=== PATIENT | male | born 1955 | race Hispanic/Latino ===

== ENCOUNTER 2024-07-26 10:33 | Inpatient (IN) | payer OTHER ==
[~2024-07-26] VITALS: Ht 157.5 cm; Wt 61.0 kg
[2024-07-26 11:23] LABS: CREATININE 0.9 mg/dL (0.5-1.3); POTASSIUM 3.7 mmol/L (3.5-5.1)
[2024-07-26 11:30] LABS: BASOPHILS # (AUTO) 0.08 K/uL (0.00-0.20); BASOPHILS % (AUTO) 0.8 % (0.0-5.0); EOSINOPHILS # (AUTO) 0.19 K/uL (0.00-0.70); EOSINOPHILS % (AUTO) 1.8 % (0.0-8.0); HEMATOCRIT 26.2 % (42-54); LYMPHOCYTES # (AUTO) 2.1 K/uL (1.0-4.8); MEAN CORPUSCULAR HEMOGLOBIN 32.7 pg (27.0-33.0); MEAN CORPUSCULAR HGB CONC 34.4 g/dL (32.0-36.0); MEAN CORPUSCULAR VOLUME 95.3 fL (79-99); MONOCYTES % (AUTO) 9.2 % (3.0-13.0); NEUTROPHILS # (AUTO) 5.9 K/uL (1.8-7.7); NEUTROPHILS % (AUTO) 56.6 % (40.0-77.0); NUCLEATED RED BLOOD CELLS 4.3 % (0.0-0.19); PLATELET COUNT (AUTO) 146 K/uL (130-400); RED BLOOD CELL COUNT(AUTO) 2.75 MIL/uL (4.50-6.20); RED CELL DISTRIBUTION WIDTH 15.9 % (11.0-15.5); WHITE BLOOD COUNT (AUTO) 10.4 K/uL (4.8-10.8)
[2024-07-26 11:45] LABS: ALBUMIN 3.9 g/dL (3.5-5.0); BILIRUBIN,DIRECT 0.4 mg/dL (0.0-0.3); BILIRUBIN,TOTAL 1.1 mg/dL (0.2-1.0)
--- NOTE | 2024-07-26 12:14 | EKG ---
[facility] Test Date: 2024-07-26 Test Time: 12:12:29 Pat Name: QUINN SANCHEZ Department: ED Room: 313 Gender: M [employer] Operator: [id number] : 1955 Requested By: MESSI SKINNER Order Number: [id number] Reading MD: Mihir Fatima Measurements Intervals [place] Rate: 95 P: 80 UT: 194 QRS: -89 QRSD: 83 T: 59 QT: 352 QTc: 444 Interpretive Statements Sinus rhythm Question Inferior infarct, old No previous ECG available for comparison Electronically Signed On 07-28-2024 20:06:42 CDT by Mihir Fatima Please click the below link to view image of tracing.
[2024-07-26] MEDS: 0.9%NACL 1000ML 1,000 ML IV ONE (13:56)
[2024-07-26] MEDS: ondanSETRON 4MG INJ IVP ONE (13:56)
[2024-07-26] MEDS: morPHINE 4 MG SYG IM ONE (13:56)
[2024-07-26] MEDS ORDERED: IOHEXOL-350 75 ML VIAL IV ONE (14:09)
--- NOTE | 2024-07-26 14:43 | HMCIMG ---
Exam Type: CT ABDOMEN/PELVIS W/CONTRAST Clinical Information: abdominal pain Comparison: None Contrast: 100 cc's Isovue 370 IV, no complications or adverse reactions CT Dose Index (CTDI): 31.60 mGy Dose Length Product (DLP): 1740.80 total mGy-cm Findings: No evidence of nephro or ureterolithiasis is found. No hydronephrosis or ureteral dilatation is seen. The lung bases are clear. Moderate to large hiatal hernia is seen and the stomach is otherwise unremarkable. The spleen is unremarkable. It is not enlarged. The pancreas shows normal anatomy. It is not fatty replaced. It shows no lesions. The pancreatic duct is not dilated. The gallbladder is unremarkable. It shows no cholelithiasis. The gallbladder wall is normal in thickness. There is no pericholecystic fluid. The is no acute or chronic inflammation noted. The adrenal glands are unremarkable. There is no enlargement. No lesions are noted. The liver is unremarkable. It shows no focal masses. The appendix is unremarkable. It shows no evidence of inflammation. No appendicolith is seen. Right inguinal hernia containing loops of small bowel. No incarceration or strangulation. Bowel otherwise unremarkable. The urinary bladder is unremarkable. There is no wall thickening to suggest tumor or inflammation. There are no intraluminal calculi. There are no diverticula. There is no evidence of chronic bladder outlet obstruction. There is no evidence of urinary bladder distention to suggest urinary retention. The prostate is enlarged. The bony and vascular structures are unremarkable for the patient's age. IMPRESSION: Right inguinal hernia without incarceration or strangulation. Heterogeneously enlarged prostate. This study was performed using dose reduction techniques to include automated exposure control and/or adjustment of the mA and/or kV according to patient size.
--- NOTE | 2024-07-26 16:01 | HMCIMG ---
Exam Type: US ABDOMINAL RUQ\E\LTD Clinical Information: Elevated enzymes Comparison: None Findings: The liver shows normal echogenicity and is otherwise unremarkable. The liver measures less than 16 cm in length. Doppler evaluation shows patent portal and hepatic veins. The gallbladder shows intraluminal sludge without evidence of acute or chronic inflammation. The gallbladder wall thickness is 2 mm. No bile duct dilatation is noted. The common bile duct measures 4 mm. The right kidney measures 9.9 x 4.6 cm. The right kidney is normal in size and echogenicity. No hydronephrosis or renal calculi are seen. There are no renal masses. The pancreas is suboptimally visualized. IMPRESSION: Gallbladder sludge.
--- NOTE | 2024-07-26 16:06 | NUR ---
paTIENT retaining 542 cc of urine, eliel grimm made aware Addendum: 07/26/24 at 1813 maxx MCKAY PATIENT VOIDED 250 CC
[2024-07-26 16:12] LABS: INR 1.46 (0.85-1.15); PROTHROMBIN TIME 14.9 SEC (9.6-11.6)
[2024-07-26 16:14] LABS: PARTIAL THROMBOPLASTIN TIME 26.1 SEC (26.3-35.5)
[2024-07-26 16:44] LABS: APPEARANCE,URINE CLEAR (CLEAR); BILIRUBIN,URINE NEGATIVE (NEGATIVE); COLOR,URINE YELLOW (YELLOW); GLUCOSE, URINE (UA) NEGATIVE (NEGATIVE); KETONES,URINE 60 mg/dL (NEGATIVE); LEUKOCYTE ESTERASE ,URINE NEGATIVE Leu/uL (NEGATIVE); MUCUS,URINE RARE LPF (None Seen); NITRATE,URINE NEGATIVE (NEGATIVE); OCCULT BLOOD,URINE SMALL (NEGATIVE); PH,URINE 5.5 (5.0-8.0); PROTEIN,URINE 20 mg/dL (NEGATIVE); UROBILINOGEN,URINE 3 mg/dL (0.2-1.0)
--- NOTE | 2024-07-26 17:08 | ERN ---
General Chief Complaint: Other Problems Stated Complaint: OTHER Time Seen by MD: 10:45 Time Seen by Midlevel: 10:45 Source: patient History of Present Illness Initial Comments 69 y/o male presents to the ED due to generalized weakness. Patient reports nausea, vomiting, weight loss, abdominal pain, decreased oral intake over the past two months. Daughter states patient has lost approximately 40 lb in the last two months. Denies fever, chest pain, shortness of breath Patient has not gone to the doctor and multiple years. Denies any significant past medical history. Allergies: Coded Allergies: No Known Drug Allergies (Unverified Allergy, Unknown, 07/26/24) Past Medical History Past Medical History: No Pertinent History Past Surgical History: None ROS Dictation Constitutional: Positive for generalized weakness, decreased oral intake, weight loss Negative for fever,chills Eyes: Negative for injury, pain,redness, and discharge ENT: Negative for injury,pain or swelling Cardiovascular: Negative for chest pain, palpitations, and edema Respiratory: Negative for shortness of breath, cough, and wheezing, Abdomen/GI: Positive for abdominal pain, nausea, vomiting Negative for diarrhea Back: Negative for injury and pain : Negative for painful urination, bleeding or discharge MS/Extremity: Negative for injury and deformity Skin: Negative for rash, and discoloration Neuro: Negative for headache, weakness, numbness, tingling, and seizure Psych: Negative for suicide ideation, homicidal ideation, and hallucinations Physical Exam Physical Exam Dictation General: awake, alert, no acute distress Head/Face: Normocephalic, atraumatic Eyes: PERRL, EOMI, normal conjunctiva ENT: oral cavity clear, oral mucosa moist Neck: Supple, normal range of motion Cardiovascular: RRR, normal S1/S2 Respiratory: CTAB, no respiratory distress, no rales or wheezes Abdomen: Soft, mild generalized tenderness, non-distended, no guarding or rebound. : Right inguinal hernia Skin: Warm, dry, normal turgor, no rash MS/Extremity: Pulses equal, no cyanosis, neurovascular intact, FROM Neuro: COAx4, GCS 15, strength 5/5, CN 2-12 intact, normal cerebellar exam Psych: Normal behavior, mood, and affect normal Results Laboratory and Microbiology Lab and Micro Result Laboratory Tests Test 07/26/24 11:06 07/26/24 15:55 White Blood Count 10.4 K/uL (4.8-10.8) Red Blood Count 2.75 MIL/uL (4.50-6.20) L Hemoglobin 9.0 g/dL (14.0-18.0) L Hematocrit 26.2 % (42-54) L Mean Corpuscular Volume 95.3 fL (79-99) Mean Corpuscular Hemoglobin 32.7 pg (27.0-33.0) Mean Corpuscular Hemoglobin Concent 34.4 g/dL (32.0-36.0) Red Cell Distribution Width 15.9 % (11.0-15.5) H Platelet Count 146 K/uL (130-400) Mean Platelet Volume 10.2 fL (7.5-10.5) Immature Granulocyte % (Auto) 11.6 % (0-1) H Neutrophils (%) (Auto) 56.6 % (40.0-77.0) Lymphocytes (%) (Auto) 20.0 % (21.0-51.0) L Monocytes (%) (Auto) 9.2 % (3.0-13.0) Eosinophils (%) (Auto) 1.8 % (0.0-8.0) Basophils (%) (Auto) 0.8 % (0.0-5.0) Neutrophils # (Auto) 5.9 K/uL (1.8-7.7) Lymphocytes # (Auto) 2.1 K/uL (1.0-4.8) Monocytes # (Auto) 1.0 K/uL (0.1-1.0) Eosinophils # (Auto) 0.19 K/uL (0.00-0.70) Basophils # (Auto) 0.08 K/uL (0.00-0.20) Absolute Immature Granulocyte (auto 1.20 K/uL (0-1) H Nucleated Red Blood Cells 4.3 % (0.0-0.19) H Sodium Level 137 mmol/L (136-145) Potassium Level 3.7 mmol/L (3.5-5.1) Chloride Level 100 mmol/L (101-111) L Carbon Dioxide Level 22 mmol/L (21-32) Blood Urea Nitrogen 32 mg/dL (7-18) H Creatinine 0.9 mg/dL (0.5-1.3) Glomerular Filtration Rate Calc 94 mL/min (>90) Random Glucose 89 mg/dL (70-105) Total Calcium 8.5 mg/dL (8.5-10.1) Total Bilirubin 1.1 mg/dL (0.2-1.0) H Direct Bilirubin 0.4 mg/dL (0.0-0.3) H Aspartate Amino Transf (AST/SGOT) 74 U/L (10-37) H Alanine Aminotransferase (ALT/SGPT) 27 U/L (12-78) Alkaline Phosphatase 2135 U/L (50-136) *H Troponin I High Sensitivity 17 ng/L (4-75) Total Protein 7.0 g/dL (6.0-8.3) Albumin 3.9 g/dL (3.5-5.0) Lipase 50 U/L (16-77) Prothrombin Time 14.9 SEC (9.6-11.6) H Prothromb Time International Ratio 1.46 (0.85-1.15) H Activated Partial Thromboplast Time 26.1 SEC (26.3-35.5) L Labs Reviewed?: Yes EKG/XRAY/US/CT/MRI EKG Comment Date: 07/26/2024 Time: 12:12 Rate: 95 EKG interpretation: Sinus rhythm, inferior infarct old, no STEMI Reviewed by ED Attending Ultrasound Comment REASON: Elevated enzymes ORDERING PHYSICIAN: MESSI SKINNER PROCEDURE: ABDRUQLTD - US ABDOMINAL RUQ\LTD Exam Type: US ABDOMINAL RUQ\E\LTD Clinical Information: Elevated enzymes Comparison: None Findings: The liver shows normal echogenicity and is otherwise unremarkable. The liver measures less than 16 cm in length. Doppler evaluation shows patent portal and hepatic veins. The gallbladder shows intraluminal sludge without evidence of acute or chronic inflammation. The gallbladder wall thickness is 2 mm. No bile duct dilatation is noted. The common bile duct measures 4 mm. The right kidney measures 9.9 x 4.6 cm. The right kidney is normal in size and echogenicity. No hydronephrosis or renal calculi are seen. There are no renal masses. The pancreas is suboptimally visualized. IMPRESSION: Gallbladder sludge. DICTATED BY: ROSA ELENA CLEMENTE MD DATE: 07/26/[address] Scan Comment REASON: abdominal pain ORDERING PHYSICIAN: MESSI SKINNER PROCEDURE: ABD PEL W - CT ABDOMEN/PELVIS W/CONTRAST Exam Type: CT ABDOMEN/PELVIS W/CONTRAST Clinical Information: abdominal pain Comparison: None Contrast: 100 cc's Isovue 370 IV, no complications or adverse reactions CT Dose Index (CTDI): 31.60 mGy Dose Length Product (DLP): 1740.80 total mGy-cm Findings: No evidence of nephro or ureterolithiasis is found. No hydronephrosis or ureteral dilatation is seen. The lung bases are clear. Moderate to large hiatal hernia is seen and the stomach is otherwise unremarkable. The spleen is unremarkable. It is not enlarged. The pancreas shows normal anatomy. It is not fatty replaced. It shows no lesions. The pancreatic duct is not dilated. The gallbladder is unremarkable. It shows no cholelithiasis. The gallbladder wall is normal in thickness. There is no pericholecystic fluid. The is no acute or chronic inflammation noted. The adrenal glands are unremarkable. There is no enlargement. No lesions are noted. The liver is unremarkable. It shows no focal masses. The appendix is unremarkable. It shows no evidence of inflammation. No appendicolith is seen. Right inguinal hernia containing loops of small bowel. No incarceration or strangulation. Bowel otherwise unremarkable. The urinary bladder is unremarkable. There is no wall thickening to suggest tumor or inflammation. There are no intraluminal calculi. There are no diverticula. There is no evidence of chronic bladder outlet obstruction. There is no evidence of urinary bladder distention to suggest urinary retention. The prostate is enlarged. The bony and vascular structures are unremarkable for the patient's age. IMPRESSION: Right inguinal hernia without incarceration or strangulation. Heterogeneously enlarged prostate. This study was performed using dose reduction techniques to include automated exposure control and/or adjustment of the mA and/or kV according to patient size. DICTATED BY: ROSA ELENA CLEMENTE MD DATE: 07/26/24 1439 [facility] MDM: Differential diagnosis: Cholecystitis, electrolyte imbalance, unintentional weight loss, dehydration, hernia Rationale: 69 y/o male presents to the ED due to generalized weakness. Patient reports nausea, vomiting, weight loss, abdominal pain, decreased oral intake over the past two months. Daughter states patient has lost approximately 40 lb in the last two months. Denies fever, chest pain, shortness of breath Patient has not gone to the doctor and multiple years. Denies any significant past medical history. Per physical examination patient appears weak, mild generalized abdominal tenderness, right inguinal hernia into the scrotum. Labs obtained indicate anemia with hemoglobin of 9, PT and INR elevated, hypochloremia of 100, elevated alk-phos of 2,135, mild T bili elevation of 1.1. CT abdomen and pelvis obtained indicating right inguinal hernia without incarceration, hiatal hernia, enlarged prostate. Right upper quadrant ultrasound follow up due to elevated alk-phos showing intraluminal sludge without evidence of acute or chronic inflammation, no other acute abnormalities. The patient was administered Zofran, morphine, IV fluids. On re-examination patient verbalized pain had resolved. Bladder scan performed due to patient not being able to provide urine, patient had 540 mL and was able to urinate approximately 200 mL. Patient and family member were educated on findings, diagnosis, decision for admission. Patient and family member verbalized understanding and agreed with admission. Case was discussed with hospitalist who accepted admission. Previous outside records reviewed: Old ER visits. Risk of complication and/or morbidity or mortality of patient management: None Medications-Per medication reconciliation Need for hospitalization: Patient does meet criteria for hospitalization. Need for emergency major/minor surgery: No There are no social concerns with this patient. Prescription drug management Prescriptions will include symptomatic care Patient's prior external medical records from other ER visits were reviewed by me as indicated. Prior testing and results from previous visits were reviewed. Prior tests were taken into account with medical decision making and resource utilization, independent historian/historians were used to obtain complete me dical history. I independently interpreted the test that were performed, results were reviewed by me and considered findings on radiology if ordered. Medical management and examination interpretation discussions were had by me with other qualified healthcare professionals as indicated for the patient's care. ED Course Orders Procedure Category Date Status Time Cbc With Differential LAB 07/26/24 Complete 10:52 Basic Metabolic Panel LAB 07/26/24 Complete 10:52 Lipase LAB 07/26/24 Complete 10:52 Hepatic Function Panel LAB 07/26/24 Complete 10:52 Urinalysis LAB 07/26/24 In Process W/Microscopic 10:52 Troponin I High LAB 07/26/24 Complete Sensitivity 10:52 12 Lead Ekg Tracing- EKG 07/26/24 Complete Technical 10:52 0.9%Nacl 1000ml (Ns PHA 07/26/24 Complete 1000ml) 12:00 Ct Abdomen/Pelvis CT 07/26/24 Resulted W/Contrast 11:54 Morphine 4mg Syg PHA 07/26/24 Complete (Morphine 4mg Syg) 13:30 Ondansetron 4mg Inj PHA 07/26/24 Complete (Zofran 4mg Inj) 14:00 Iohexol (Omnipaque) PHA 07/26/24 Complete 14:09 Us Abdominal Ruq\Ltd US 07/26/24 Resulted 15:07 Pt And Ptt LAB 07/26/24 Complete 15:07 Alkaline Phosphatase LAB 07/26/24 Logged Isoenzyme 16:21 Current Medications Medications (Trade) Dose Ordered Sig/Christie Route PRN Reason Start Time Stop Time Status Last Admin Dose Admin Iohexol (Omnipaque) 75 ml STK-MED ONCE IV 07/26/24 14:09 07/26/24 14:10 DC Morphine Sulfate (morPHINE 4MG SYG) 4 mg ONCE ONCE IM 07/26/24 13:30 07/26/24 13:31 DC 07/26/24 13:56 Ondansetron HCl (zoFRAN 4MG INJ) 4 mg ONCE ONCE IVP 07/26/24 14:00 07/26/24 14:01 DC 07/26/24 13:56 Sodium Chloride 1,000 ml @ 0 mls/hr ONCE ONCE IV 07/26/24 12:00 07/26/24 12:01 DC 07/26/24 13:56 Vital Signs Date Time Temp Pulse Resp B/P (MAP) Pulse Ox O2 Delivery O2 Flow Rate FiO2 07/26/24 11:00 98.1 76 18 128/83 100 Room Air* 0 21 07/26/24 10:44 98.2 110 16 128/80 97 Room Air 0 Critical Care Note Critical Time: 30 minutes Comments Critical Care Procedure Note Authorized and Performed by: me Total critical care time: Approximately 36 minutes Due to a high probability of clinically significant, life threatening deterioration, the patient required my highest level of preparedness to intervene emergently and I personally spent this critical care time directly and personally managing the patient. This critical care time included obtaining a history; examining the patient; pulse oximetry; ordering and review of studies; arranging urgent treatment with development of a management plan; evaluation of patient's response to treatment; frequent reassessment; and, discussions with other providers. This critical care time was performed to assess and manage the high probability of imminent, life-threatening deterioration that could result in multi-organ failure. It was exclusive of separately billable procedures and treating other patients and teaching time. Please see MDM section and the rest of the note for further information on patient assessment and treatment. DX & DISP Disposition: Inpatient Decision to Admit Date: Jul 26, 2024 Departure Impression: Primary Impression: Dehydration Additional Impressions: Anemia, Right inguinal hernia, Hiatal hernia, Elevated alkaline phosphatase level, Weight loss, unintentional, Urine retention Condition: Stable Referrals: SELF,REFERRAL (PCP) I performed the substantive portion of the visit. I have reviewed and personally made and approve the management plan that is documented in the notes by myself or the LINDA. I acknowledge full responsibility for the patient's management plan. MESSI SKINNER Jul 26, 2024 17:08
[2024-07-26] MEDS: PANTOPrazole 40 MG/VIAL IVP SCH (17:39)
[2024-07-26] MEDS: 0.9%NACL 1000ML 1,000 ML IV SCH (17:40)
[2024-07-26 17:43] LABS: HEMOGLOBIN A1C 4.9 % (4.0-6.0)
[2024-07-26 17:52] LABS: THYROID STIMULATING HORMONE 1.46 uIU/mL (0.36-3.74)
--- NOTE | 2024-07-26 18:14 | NUR ---
REPORT GIVEN TO TERRANCE TIWARI, ROOM 313 PATIENT DOES NOT TAKE ANY HOME MEDS
[2024-07-26 18:27] VITALS: BP 146/97; PULSE 82; RESP 18; TEMP 98.4; O2SAT 100
--- NOTE | 2024-07-26 18:29 | CONS ---
GASTROENTEROLOGY CONSULTATION NOTE Date of Consultation: Jul 26, 2024 Time of Consultation: 18:29 History of Present Illness: This is a 69-year-old male with no past medical history who presented due to generalized body weakness, nausea and vomiting. He has been having recurrent episodes of nausea and vomiting and has been tolerating only liquids. He also reported some melena. He reports weight loss of 40 to 50 pounds in the last 2 months. Hemoglobin 9 with a platelet of 146 and INR 1.46. Total bilirubin 1.1, AST 74, ALT 27 and alkaline phos of 2135. Albumin normal at 3.9. CRP of 23. CT abdomen and pelvis revealing right inguinal hernia without incarceration or strangulation. Abdominal ultrasound revealing gallbladder sludge. Review of Systems: CONSTITUTIONAL: No malaise or change in sensation of wellbeing. ENMT: No rhinorrhea, otorrhea, sinus pain, ear ache. CARDIOVASCULAR: No angina, palpitations, orthopnea or paroxysmal dyspnea. RESPIRATORY: No SOB. GASTROINTESTINAL: No abdominal pain, nausea, vomiting, diarrhea, hematemesis, melena or change in the patient's habitual bowel movements consistency/number. GENITOURINARY: No dysuria, hematuria or change in bladder continence. MUSCULOSKELETAL: No new muscle pain or decrease in muscular strength. No new joint swelling, redness or tenderness. SKIN: No new rash. Past Medical History: PAST MEDICAL HISTORY: No significant past medical history PAST SURGICAL HISTORY: Denied any previous surgical history PAST SOCIAL HISTORY: Denied any smoking, alcohol, drug use FAMILY HISTORY: Denied any pertinent family history Coded Allergies: No Known Drug Allergies (Unverified Allergy, Unknown, 07/26/24) Physical Exam: GEN: Awake, alert, oriented in person, time and place, and in no acute distress. HEENT: No sinus tenderness. Tympanic membranes were not examined. No rhinorrhea. Oral pharyngeal mucosa is pink, moist and within normal limits. Neck is supple with no cervical lymphadenopathy, thyromegaly or JVD. CHEST: Inspection, palpation and percussion of the chest were unremarkable. Lung auscultation revealed normal breath sounds bilaterally. CARDIAC: PMI is within normal limits. Heart sounds are regular. Normal S1, S2. No gallop or murmur. ABD: Soft, non-tender and not distended. No peritoneal signs on palpation. No organomegaly. Normal bowel sounds. EXT: No cyanosis or clubbing. No edema. SKIN: Intact. No rashes. JOINTS: No evidence of synovitis or acute arthritis. NEURO: Alert and oriented to name, place and person. Cranial nerve examination is unremarkable. No focal motor deficits. Normal speech. Gait is normal. Strength is normal. Vital Sign (Last 24 Hours) 07/26/24 07/26/24 16:00 18:27 Temp 98.4 Pulse 82 Resp 18 B/P (MAP) 146/97 Pulse Ox 100 O2 Delivery Room Air O2 Flow Rate 0 FiO2 21 Laboratory: [ ] Laboratory: Test 07/26/24 16:24 07/26/24 15:55 07/26/24 11:06 Range/Units Urine Color YELLOW YELLOW Urine Appearance CLEAR CLEAR Urine pH 5.5 5.0-8.0 Urine Specific [place] 1.356 1.001-1.031 Urine Protein 20 H NEGATIVE mg/dL Urine Glucose (UA) NEGATIVE NEGATIVE mg/dL Urine Ketones 60 H NEGATIVE mg/dL Urine Occult Blood SMALL H NEGATIVE Urine Nitrate NEGATIVE NEGATIVE Urine Bilirubin NEGATIVE NEGATIVE mg/dL Urine Urobilinogen 3 H 0.2-1.0 mg/dL Urine Leukocyte Esterase NEGATIVE NEGATIVE Wade/uL Urine RBC 11-25 H 0-1 /HPF Urine WBC 2-5 H 0-1 /HPF Urine Bacteria None None Seen /HPF Prothrombin Time 14.9 H 9.6-11.6 SEC Prothromb Time International Ratio 1.46 H 0.85-1.15 Activated Partial Thromboplast Time 26.1 L 26.3-35.5 SEC White Blood Count 10.4 4.8-10.8 K/uL Red Blood Count 2.75 L 4.50-6.20 MIL/uL Hemoglobin 9.0 L 14.0-18.0 g/dL Hematocrit 26.2 L 42-54 % Mean Corpuscular Volume 95.3 79-99 fL Mean Corpuscular Hemoglobin 32.7 27.0-33.0 pg Mean Corpuscular Hemoglobin Concent 34.4 32.0-36.0 g/dL Red Cell Distribution Width 15.9 H 11.0-15.5 % Platelet Count 146 130-400 K/uL Mean Platelet Volume 10.2 7.5-10.5 fL Immature Granulocyte % (Auto) 11.6 H 0-1 % Neutrophils (%) (Auto) 56.6 40.0-77.0 % Lymphocytes (%) (Auto) 20.0 L 21.0-51.0 % Monocytes (%) (Auto) 9.2 3.0-13.0 % Eosinophils (%) (Auto) 1.8 0.0-8.0 % Basophils (%) (Auto) 0.8 0.0-5.0 % Neutrophils # (Auto) 5.9 1.8-7.7 K/uL Lymphocytes # (Auto) 2.1 1.0-4.8 K/uL Monocytes # (Auto) 1.0 0.1-1.0 K/uL Eosinophils # (Auto) 0.19 0.00-0.70 K/uL Basophils # (Auto) 0.08 0.00-0.20 K/uL Absolute Immature Granulocyte (auto 1.20 H 0-1 K/uL Nucleated Red Blood Cells 4.3 H 0.0-0.19 % Sodium Level 137 136-145 mmol/L Potassium Level 3.7 3.5-5.1 mmol/L Chloride Level 100 L 101-111 mmol/L Carbon Dioxide Level 22 21-32 mmol/L Blood Urea Nitrogen 32 H 7-18 mg/dL Creatinine 0.9 0.5-1.3 mg/dL Glomerular Filtration Rate Calc 94 >90 mL/min Random Glucose 89 70-105 mg/dL Hemoglobin A1c 4.9 4.0-6.0 % Estimated Average Glucose (eAG) 94 70-126 mg/dL Total Calcium 8.5 8.5-10.1 mg/dL Total Bilirubin 1.1 H 0.2-1.0 mg/dL Direct Bilirubin 0.4 H 0.0-0.3 mg/dL Aspartate Amino Transf (AST/SGOT) 74 H 10-37 U/L Alanine Aminotransferase (ALT/SGPT) 27 12-78 U/L Alkaline Phosphatase 2135 *H 50-136 U/L Troponin I High Sensitivity 17 4-75 ng/L C-Reactive Protein, Quantitative 23.70 H 0.5-3.0 mg/L Total Protein 7.0 6.0-8.3 g/dL Albumin 3.9 3.5-5.0 g/dL Lipase 50 16-77 U/L Procalcitonin 0.46 0.05-0.5 ng/mL Thyroid Stimulating Hormone (TSH) 1.46 0.36-3.74 uIU/mL Current Medications Medications (Trade) Dose Ordered Sig/Christie Route PRN Reason Start Time Stop Time Status Last Admin Dose Admin Acetaminophen (TYLenol 500MG TAB) 500 mg Q6H PRN PO MILD PAIN (1-3) 07/26/24 17:00 08/25/24 16:59 Morphine Sulfate (morPHINE 2MG SYG) 2 mg Q6H PRN IVP SEVERE PAIN (7-10) 07/26/24 18:30 08/02/24 18:29 Ondansetron HCl (zoFRAN 4MG INJ) 4 mg Q6H PRN IVP NAUSEA/VOMITING 07/26/24 17:00 08/25/24 16:59 Pantoprazole Sodium (PROTonix 40MG INJ) 40 mg Q12H IVP 07/26/24 17:00 08/25/24 16:59 07/26/24 17:39 40 MG Sodium Chloride 1,000 ml @ 100 mls/hr Q10H IV 07/26/24 17:00 08/25/24 16:59 07/26/24 17:40 100 MLS/HR Diagnostics / Radiology: [COPY/PASTE HERE IF NO REPORTS PLEASE DELETE SECTION] Assessment: Melena N/V Weight loss Abnormal LFTs Plan: EGD and colonoscopy in am Obtain liver serologies Continue GI prophylaxis Avoid NSAIDs Antireflux measures Monitor H&H and transfuse as needed Call with questions, concerns or change in clinical status Patient to follow-up at clinic post discharge Thank you for this consult [employer] Jul 26, 2024 18:29
--- NOTE | 2024-07-26 18:37 | HP ---
[facility] HISTORY AND PHYSICAL Date of Service: Jul 26, 2024 Time of Service: 18:37 HISTORY OF PRESENT ILLNESS: 69-year-old male with no significant past medical history who presented to the hospital secondary generalized weakness, nausea and vomiting. Patient states for the past two months he has been having recurrent episodes of nausea and vomiting. He has been mostly eating jello and liquids at home. He does feel nauseated and vomits after he eats. He has noted black colored stools at home. His bowel movements have been inconsistent and he has had episodes of constipation. Patient does not follow up with a physician as outpatient and has not undergone any preventive screening. Additionally he does not take any medications at home. He denies any hematemesis, hematochezia. Denied any changes in his urination, dysuria, hematuria. He has noted decreased appetite and states he has lost around 40-50 lb in the last two months. He did not see any physician when his symptoms worsened. Denies any chest pain, l ymphadenopathy, shortness of breath, cough, fever, chills. Denied any falls, syncopal episode. Additionally he also has a history of right inguinal hernia. He states he has not seen surgery in the past. Denied any pain in the inguinal area. He does get symptoms one stands up and ambulates. Labs were notable for white count of 10.4, hemoglobin was 9.0, platelet count was 146 K, sodium was 137, potassium was 3.7, creatinine was 0.9, bicarb was 22, T bili was 1.1, direct bili was 0.4, AST was 74, ALT was 27, alk-phos was 21, troponin was negative x1, albumin was 3.[address] abdomen pelvis which showed right inguinal hernia without incarceration or strangulation. He has a heterogeneously enlarged prostate. Patient had abdominal ultrasound which showed gallbladder sludge. There was no evidence of acute or chronic inflammation. REVIEW OF SYSTEMS CONSTITUTIONAL: Denies fevers, chills, or night sweats. Positive for unintentional weight loss NEUROLOGICAL: Denies headache, amaurosis fugax, motor weakness, sensory deficit, vertigo/spinning sensation, gait abnormalities, or tremors. ENT: No hearing loss, otalgia, otorrhea, rhinitis, rhinorrhea, hoarseness, or sore throat. CARDIOVASCULAR: Denies any exertional angina, dyspnea on exertion, orthopnea, paroxysmal nocturnal dyspnea, palpitations, life-threatening arrhythmias, claudication. PULMONARY: Denies any shortness of breath, cough, phlegm/sputum, hemoptysis, pleuritic chest pain. GASTROINTESTINAL: Positive for nausea, vomiting, black stools. Denied any hematochezia, hematemesis GENITOURINARY: Denies frequency, urgency, nocturia, hematuria or incontinence (Storage/Irritative symptoms.) Low urinary stream, straining to void, urinary intermittency or hesitancy, splitting of the voiding stream, terminal dribbling. ENDOCRINOLOGIC: Denies polyuria, polydipsia, polyphagia or heat/cold intolerances. HEMATOLOGIC: Denies thrombophilia/previous clots, or coagulopathy/bleeding disorders. ONCOLOGIC: Denies personal history of malignancy. DERMATOLOGIC: Denies rashes or pruritus. PSYCHIATRIC: Denies any suicidal or homicidal ideation. Denies hallucinations. PAST MEDICAL HISTORY: No significant past medical history PAST SURGICAL HISTORY: Denied any previous surgical history PAST SOCIAL HISTORY: Denied any smoking, alcohol, drug use FAMILY HISTORY: Denied any pertinent family history Coded Allergies: No Known Drug Allergies (Unverified Allergy, Unknown, 07/26/24) PHYSICAL EXAM GENERAL APPEARANCE: The patient is awake, alert, and oriented, in no acute cardiopulmonary distress. NEUROLOGICAL: Cranial nerves II-XII grossly intact. Motor is 5/5 in bilateral upper and lower extremities proximal to distal. No sensory deficits. HEENT: Face is symmetric. Pupils are equal and reactive. Extraocular movements are intact. NECK: Supple. No JVD. No thyromegaly. No submental, submandibular, pre- /postauricular, occipital or supraclavicular lymphadenopathy. CHEST: Normal chest expansion. No Telemetry. LUNGS: Absence of any rales, rhonchi or any wheezing. CARDIOVASCULAR: Regular. S1 and S2 normal. No appreciable rubs, murmurs or gallops. ABDOMEN: Soft, nontender, and nondistended. Patient has a right inguinal hernia. There is no erythema around the inguinal area. No tenderness to palpation. : Deferred. No Diaz. EXTREMITIES: Non-edematous and not cyanotic. No clubbing. Good capillary refill. SKIN: No skin breakdown. Vital Sign (Last 24 Hours) 07/26/24 07/26/24 16:00 18:27 Temp 98.4 Pulse 82 Resp 18 B/P (MAP) 146/97 Pulse Ox 100 O2 Delivery Room Air O2 Flow Rate 0 FiO2 21 LABS: Laboratory: Test 07/26/24 16:24 07/26/24 15:55 07/26/24 11:06 Range/Units Urine Color YELLOW YELLOW Urine Appearance CLEAR CLEAR Urine pH 5.5 5.0-8.0 Urine Specific [place] 1.356 1.001-1.031 Urine Protein 20 H NEGATIVE mg/dL Urine Glucose (UA) NEGATIVE NEGATIVE mg/dL Urine Ketones 60 H NEGATIVE mg/dL Urine Occult Blood SMALL H NEGATIVE Urine Nitrate NEGATIVE NEGATIVE Urine Bilirubin NEGATIVE NEGATIVE mg/dL Urine Urobilinogen 3 H 0.2-1.0 mg/dL Urine Leukocyte Esterase NEGATIVE NEGATIVE Wade/uL Urine RBC 11-25 H 0-1 /HPF Urine WBC 2-5 H 0-1 /HPF Urine Bacteria None None Seen /HPF Prothrombin Time 14.9 H 9.6-11.6 SEC Prothromb Time International Ratio 1.46 H 0.85-1.15 Activated Partial Thromboplast Time 26.1 L 26.3-35.5 SEC White Blood Count 10.4 4.8-10.8 K/uL Red Blood Count 2.75 L 4.50-6.20 MIL/uL Hemoglobin 9.0 L 14.0-18.0 g/dL Hematocrit 26.2 L 42-54 % Mean Corpuscular Volume 95.3 79-99 fL Mean Corpuscular Hemoglobin 32.7 27.0-33.0 pg Mean Corpuscular Hemoglobin Concent 34.4 32.0-36.0 g/dL Red Cell Distribution Width 15.9 H 11.0-15.5 % Platelet Count 146 130-400 K/uL Mean Platelet Volume 10.2 7.5-10.5 fL Immature Granulocyte % (Auto) 11.6 H 0-1 % Neutrophils (%) (Auto) 56.6 40.0-77.0 % Lymphocytes (%) (Auto) 20.0 L 21.0-51.0 % Monocytes (%) (Auto) 9.2 3.0-13.0 % Eosinophils (%) (Auto) 1.8 0.0-8.0 % Basophils (%) (Auto) 0.8 0.0-5.0 % Neutrophils # (Auto) 5.9 1.8-7.7 K/uL Lymphocytes # (Auto) 2.1 1.0-4.8 K/uL Monocytes # (Auto) 1.0 0.1-1.0 K/uL Eosinophils # (Auto) 0.19 0.00-0.70 K/uL Basophils # (Auto) 0.08 0.00-0.20 K/uL Absolute Immature Granulocyte (auto 1.20 H 0-1 K/uL Nucleated Red Blood Cells 4.3 H 0.0-0.19 % Sodium Level 137 136-145 mmol/L Potassium Level 3.7 3.5-5.1 mmol/L Chloride Level 100 L 101-111 mmol/L Carbon Dioxide Level 22 21-32 mmol/L Blood Urea Nitrogen 32 H 7-18 mg/dL Creatinine 0.9 0.5-1.3 mg/dL Glomerular Filtration Rate Calc 94 >90 mL/min Random Glucose 89 70-105 mg/dL Hemoglobin A1c 4.9 4.0-6.0 % Estimated Average Glucose (eAG) 94 70-126 mg/dL Total Calcium 8.5 8.5-10.1 mg/dL Total Bilirubin 1.1 H 0.2-1.0 mg/dL Direct Bilirubin 0.4 H 0.0-0.3 mg/dL Aspartate Amino Transf (AST/SGOT) 74 H 10-37 U/L Alanine Aminotransferase (ALT/SGPT) 27 12-78 U/L Alkaline Phosphatase 2135 *H 50-136 U/L Troponin I High Sensitivity 17 4-75 ng/L C-Reactive Protein, Quantitative 23.70 H 0.5-3.0 mg/L Total Protein 7.0 6.0-8.3 g/dL Albumin 3.9 3.5-5.0 g/dL Lipase 50 16-77 U/L Procalcitonin 0.46 0.05-0.5 ng/mL Thyroid Stimulating Hormone (TSH) 1.46 0.36-3.74 uIU/mL Current Medications Medications (Trade) Dose Ordered Sig/Christie Route PRN Reason Start Time Stop Time Status Last Admin Dose Admin Acetaminophen (TYLenol 500MG TAB) 500 mg Q6H PRN PO MILD PAIN (1-3) 07/26/24 17:00 08/25/24 16:59 Morphine Sulfate (morPHINE 2MG SYG) 2 mg Q6H PRN IVP SEVERE PAIN (7-10) 07/26/24 18:30 08/02/24 18:29 Ondansetron HCl (zoFRAN 4MG INJ) 4 mg Q6H PRN IVP NAUSEA/VOMITING 07/26/24 17:00 08/25/24 16:59 Pantoprazole Sodium (PROTonix 40MG INJ) 40 mg Q12H IVP 07/26/24 17:00 08/25/24 16:59 07/26/24 17:39 40 MG Sodium Chloride 1,000 ml @ 100 mls/hr Q10H IV 07/26/24 17:00 08/25/24 16:59 07/26/24 17:40 100 MLS/HR DIAGNOSTICS / RADIOLOGY: [ ] ASSESSMENT: Recurrent nausea and vomiting POA Unintentional weight loss of around 40-50 lb with concern for underlying malignancy Elevated alk-phos differential secondary to bone Mets versus underlying liver etiology Mild LFT elevation Right inguinal hernia Normocytic anemia Suspected melena BPH PLAN: - patient to be admitted to medical-surgical unit -reference to recurrent neck nausea and vomiting. We will obtain a GI consultation. Case was discussed with GI. Plan for EGD and colonoscopy per GI recommendations - obtain fecal occult stool. Start patient on protonix BID -in reference to elevated alk-phos. We will check a fractionated alk-phos. We will request consultation with Dr. Lockett. - in reference to inguinal hernia. No evidence of strangulation or incarceration. Patient requesting consultation with surgery. Case was discussed with surgery. Appreciate recommendations -patient to be started on NS for gentle hydration -Will start finasteride and flomax for BPH if able to tolerate medications -check TSH, A1c, procaine -further orders per hospitalization course Advanced Care Planning Which of the following were discussed: Hospice care: Yes __ No _x_ Therapeutic options: Yes __ No __ Advance directives: Yes __ No __ Other discussions: Discussed with who?: patient (Patient, family or surrogates) Voluntary nature of this service was explained to the patient? Yes _x_ No __ Amount of time spent: 25 minutes KAZ Zamudio MD, MD Jul 26, 2024 18:37
[2024-07-26] MEDS: PEG 3350/NA SULF,BICARB,CL/KCL 4000 ML SOLN PO ONE (18:46)
[2024-07-26] MEDS ORDERED: PoTASSium chloRIDE 20MEQ/100ML 100 ML IV PRN (19:00)
[2024-07-26] MEDS ORDERED: MAGNESIUM 2GM PREMIX 50ML 50 ML IV PRN (19:00)
[2024-07-26 20:00] VITALS: BP 146/82; PULSE 68; RESP 17; TEMP 97.8
[2024-07-26 21:55] LABS: % IRON SATURATION 83.2 % (30-44)
--- NOTE | 2024-07-26 22:20 | NUR ---
GOLYTELY NOT COMPLETED PT HAD MINIMAL INTAKE OF GOLYTELY. PATIENT STATES HE IS UNABLE TO HAVE A BOWEL MOVEMENT DUE TO BEING UNABLE TO HOLD ANY FOOD FOR MONTHS. EDUCATED PATIENT THAT BOWEL PREP IS NECESSARY TO VISUALIZE THE COLON. PATIENT VERBALIZES UNDERSTANDING.
[2024-07-26 23:25] VITALS: BP 147/86; PULSE 92; RESP 18; TEMP 98.3
[2024-07-27] VITALS (22 sets, daily range): BP systolic 101–140; BP diastolic 2–86; PULSE 65–96; RESP 14–20; TEMP 97.2–98.8; O2SAT 96–99
--- NOTE | 2024-07-27 02:10 | NUR ---
GOLYTELY NOT COMPLETED PATIENT CONTINUES TO HAVE MINIMAL INTAKE OF GOLYTELY. NO BOWEL MOVEMENT REPORTED. REINFORCED TO PATIENT THE IMPORTANCE OF BOWEL PREP. PATIENT VERBALIZES UNDERSTANDING.
--- NOTE | 2024-07-27 04:00 | NUR ---
GOLYTELY NOT COMPLETED GOLYTELY STILL REMAINS MOSTLY FULL. PATIENT STATES HE DRANK ABOUT 12 CUPS BUT REPORTS NO BOWEL MOVEMENT. STATES THAT HE WONT BE ABLE TO HAVE A BOWEL MOVEMENT DUE TO NOT BEING ABLE TO HAVE GOOD FOOD INTAKE. EDUCATED PATIENT THAT THE BODY STILL PRODUCE STOOL WASTE. PATIENT VERBALIZES UNDERSTANDING.
--- NOTE | 2024-07-27 05:40 | NUR ---
NO CHANGE IN GOLYTELY PATIENT STATES HE HAS JUST BEEN URINATING. NO BOWEL MOVEMENT REPORTED. STATED LAST BOWEL MOVEMENT WAS ON 07/25/2024. HE STATES THIS IS THE FIRST HE HAS HAD IN A FEW MONTHS. STATES IT WAS CLEAR FOAMY WITH SPECKS OF BROWN STOOL. ADMINISTERED ZOFRAN DUE TO NAUSEA. PATIENT EDUCATED ON IMPORTANCE OF BOWEL PREP. PATIENT VERBALIZES UNDERSTANDING.
[2024-07-27] MEDS: ondanSETRON 4MG INJ IVP PRN (05:51)
[2024-07-27 06:50] LABS: BASOPHILS # (AUTO) 0.09 K/uL (0.00-0.20); BASOPHILS % (AUTO) 0.8 % (0.0-5.0); EOSINOPHILS # (AUTO) 0.21 K/uL (0.00-0.70); EOSINOPHILS % (AUTO) 1.9 % (0.0-8.0); HEMATOCRIT 24.8 % (42-54); IMMATURE GRANULOCYTE ABSOLUTE 1.34 K/uL (0-1); LYMPHOCYTES # (AUTO) 2.2 K/uL (1.0-4.8); LYMPHOCYTES % (AUTO) 19.8 % (21.0-51.0); MEAN CORPUSCULAR HEMOGLOBIN 32.8 pg (27.0-33.0); MEAN CORPUSCULAR HGB CONC 33.9 g/dL (32.0-36.0); MEAN CORPUSCULAR VOLUME 96.9 fL (79-99); MONOCYTES # (AUTO) 0.9 K/uL (0.1-1.0); MONOCYTES % (AUTO) 8.5 % (3.0-13.0); NEUTROPHILS # (AUTO) 6.2 K/uL (1.8-7.7); NEUTROPHILS % (AUTO) 56.7 % (40.0-77.0); NUCLEATED RED BLOOD CELLS 3.9 % (0.0-0.19); PLATELET COUNT (AUTO) 142 K/uL (130-400); RED BLOOD CELL COUNT(AUTO) 2.56 MIL/uL (4.50-6.20); RED CELL DISTRIBUTION WIDTH 16.1 % (11.0-15.5); WHITE BLOOD COUNT (AUTO) 10.9 K/uL (4.8-10.8)
[2024-07-27 07:24] LABS: ALBUMIN 3.5 g/dL (3.5-5.0); BILIRUBIN,TOTAL 1.3 mg/dL (0.2-1.0); CREATININE 0.7 mg/dL (0.5-1.3); POTASSIUM 4.1 mmol/L (3.5-5.1); TOTAL PROTEIN, SERUM 6.6 g/dL (6.0-8.3)
[2024-07-27] MEDS ORDERED: LIDOCAINE PF 100MG/5ML (2%) SYRINGE 5ML ONE (11:18)
[2024-07-27] MEDS ORDERED: proPOFol 10 MG/ML 20ML VIAL IV ONE (11:18)
--- NOTE | 2024-07-27 11:31 | PN ---
[facility] PROGRESS NOTE Date of Service: Jul 27, 2024 Time of Service: 11:21 SUBJECTIVE: [69-year-old male who was admitted due to generalized weakness, decreased appetite with for a to 50 lb weight loss. Labs reviewed today Na 135, Cl 100, CO2 20, BUN 22, iron 209,% sat 83.2, total bili 1.3, GGT 185, AST 73, alkaline phosphatase 2061, CRP 23.7. Today, patient went for GI endoscopy-colonoscopy and EGD. Dr. Lockett on board, patient is scheduled for bone scan. REVIEW OF SYSTEMS CONSTITUTIONAL: Denies fevers, chills, or night sweats. Positive for unintentional weight loss NEUROLOGICAL: Denies headache, amaurosis fugax, motor weakness, sensory deficit, vertigo/spinning sensation, gait abnormalities, or tremors. ENT: No hearing loss, otalgia, otorrhea, rhinitis, rhinorrhea, hoarseness, or sore throat. CARDIOVASCULAR: Denies any exertional angina, dyspnea on exertion, orthopnea, paroxysmal nocturnal dyspnea, palpitations, life-threatening arrhythmias, claudication. PULMONARY: Denies any shortness of breath, cough, phlegm/sputum, hemoptysis, pleuritic chest pain. GASTROINTESTINAL: Positive for nausea, vomiting, black stools. Denied any hematochezia, hematemesis GENITOURINARY: Denies frequency, urgency, nocturia, hematuria or incontinence (Storage/Irritative symptoms.) Low urinary stream, straining to void, urinary intermittency or hesitancy, splitting of the voiding stream, terminal dribbling. ENDOCRINOLOGIC: Denies polyuria, polydipsia, polyphagia or heat/cold intolerances. HEMATOLOGIC: Denies thrombophilia/previous clots, or coagulopathy/bleeding disorders. ONCOLOGIC: Denies personal history of malignancy. DERMATOLOGIC: Denies rashes or pruritus. PSYCHIATRIC: Denies any suicidal or homicidal ideation. Denies hallucinations. PHYSICAL EXAM GENERAL APPEARANCE: The patient is awake, alert, and oriented, in no acute cardiopulmonary distress. NEUROLOGICAL: Cranial nerves II-XII grossly intact. Motor is 5/5 in bilateral upper and lower extremities proximal to distal. No sensory deficits. HEENT: Face is symmetric. Pupils are equal and reactive. Extraocular movements are intact. NECK: Supple. No JVD. No thyromegaly. No submental, submandibular, pre- /postauricular, occipital or supraclavicular lymphadenopathy. CHEST: Normal chest expansion. No Telemetry. LUNGS: Absence of any rales, rhonchi or any wheezing. CARDIOVASCULAR: Regular. S1 and S2 normal. No appreciable rubs, murmurs or gallops. ABDOMEN: Soft, nontender, and nondistended. Patient has a right inguinal hernia. There is no erythema around the inguinal area. No tenderness to palpation. : Deferred. No Diaz. EXTREMITIES: Non-edematous and not cyanotic. No clubbing. Good capillary refill. SKIN: No skin breakdown. Vital Signs (last 8hr) Date Time Temp Pulse Resp B/P (MAP) Pulse Ox O2 Delivery O2 Flow Rate FiO2 07/27/24 08:00 98.1 76 16 109/62 98 Room Air 07/27/24 04:00 98.4 87 17 131/86 100 Room Air LABS: Laboratory: Test 07/27/24 06:12 07/26/24 21:30 07/26/24 16:24 07/26/24 15:55 Range/Units White Blood Count 10.9 H 4.8-10.8 K/uL Red Blood Count 2.56 L 4.50-6.20 MIL/uL Hemoglobin 8.4 L 14.0-18.0 g/dL Hematocrit 24.8 L 42-54 % Mean Corpuscular Volume 96.9 79-99 fL Mean Corpuscular Hemoglobin 32.8 27.0-33.0 pg Mean Corpuscular Hemoglobin Concent 33.9 32.0-36.0 g/dL Red Cell Distribution Width 16.1 H 11.0-15.5 % Platelet Count 142 130-400 K/uL Mean Platelet Volume 10.3 7.5-10.5 fL Immature Granulocyte % (Auto) 12.3 H 0-1 % Neutrophils (%) (Auto) 56.7 40.0-77.0 % Lymphocytes (%) (Auto) 19.8 L 21.0-51.0 % Monocytes (%) (Auto) 8.5 3.0-13.0 % Eosinophils (%) (Auto) 1.9 0.0-8.0 % Basophils (%) (Auto) 0.8 0.0-5.0 % Neutrophils # (Auto) 6.2 1.8-7.7 K/uL Lymphocytes # (Auto) 2.2 1.0-4.8 K/uL Monocytes # (Auto) 0.9 0.1-1.0 K/uL Eosinophils # (Auto) 0.21 0.00-0.70 K/uL Basophils # (Auto) 0.09 0.00-0.20 K/uL Absolute Immature Granulocyte (auto 1.34 H 0-1 K/uL Nucleated Red Blood Cells 3.9 H 0.0-0.19 % Sodium Level 135 L 136-145 mmol/L Potassium Level 4.1 3.5-5.1 mmol/L Chloride Level 100 L 101-111 mmol/L Carbon Dioxide Level 20 L 21-32 mmol/L Blood Urea Nitrogen 22 H 7-18 mg/dL Creatinine 0.7 0.5-1.3 mg/dL Glomerular Filtration Rate Calc 101 >90 mL/min Random Glucose 71 70-105 mg/dL Total Calcium 8.7 8.5-10.1 mg/dL Total Bilirubin 1.3 H 0.2-1.0 mg/dL Aspartate Amino Transf (AST/SGOT) 73 H 10-37 U/L Alanine Aminotransferase (ALT/SGPT) 25 12-78 U/L Alkaline Phosphatase 2061 *H 50-136 U/L Total Protein 6.6 6.0-8.3 g/dL Albumin 3.5 3.5-5.0 g/dL Iron Level 209 H 65-175 mcg/dL Total Iron Binding Capacity 251 250-450 mcg/dL Percent Iron Saturation 83.2 H 30-44 % Gamma Glutamyl Transpeptidase 185 H 5-85 U/L Urine Color YELLOW YELLOW Urine Appearance CLEAR CLEAR Urine pH 5.5 5.0-8.0 Urine Specific [place] 1.356 1.001-1.031 Urine Protein 20 H NEGATIVE mg/dL Urine Glucose (UA) NEGATIVE NEGATIVE mg/dL Urine Ketones 60 H NEGATIVE mg/dL Urine Occult Blood SMALL H NEGATIVE Urine Nitrate NEGATIVE NEGATIVE Urine Bilirubin NEGATIVE NEGATIVE mg/dL Urine Urobilinogen 3 H 0.2-1.0 mg/dL Urine Leukocyte Esterase NEGATIVE NEGATIVE Wade/uL Urine RBC 11-25 H 0-1 /HPF Urine WBC 2-5 H 0-1 /HPF Urine Bacteria None None Seen /HPF Prothrombin Time 14.9 H 9.6-11.6 SEC Prothromb Time International Ratio 1.46 H 0.85-1.15 Activated Partial Thromboplast Time 26.1 L 26.3-35.5 SEC Test 07/26/24 11:06 Range/Units Hemoglobin A1c 4.9 4.0-6.0 % Estimated Average Glucose (eAG) 94 70-126 mg/dL Direct Bilirubin 0.4 H 0.0-0.3 mg/dL Troponin I High Sensitivity 17 4-75 ng/L C-Reactive Protein, Quantitative 23.70 H 0.5-3.0 mg/L Lipase 50 16-77 U/L Procalcitonin 0.46 0.05-0.5 ng/mL Thyroid Stimulating Hormone (TSH) 1.46 0.36-3.74 uIU/mL Current Medications Medications (Trade) Dose Ordered Sig/Christie Route PRN Reason Start Time Stop Time Status Last Admin Dose Admin Acetaminophen (TYLenol 500MG TAB) 500 mg Q6H PRN PO MILD PAIN (1-3) 07/26/24 17:00 08/25/24 16:59 Finasteride (PROscar 5 MG TAB) 5 mg DAILY PO 07/27/24 09:00 08/26/24 08:59 Magnesium Sulfate 50 ml @ 0 mls/hr PROTOCOL PRN IV hypomagnesemia 07/26/24 19:00 08/25/24 18:59 Morphine Sulfate (morPHINE 2MG SYG) 2 mg Q6H PRN IVP SEVERE PAIN (7-10) 07/26/24 18:30 08/02/24 18:29 Ondansetron HCl (zoFRAN 4MG INJ) 4 mg Q6H PRN IVP NAUSEA/VOMITING 07/26/24 17:00 08/25/24 16:59 07/27/24 05:51 4 MG Pantoprazole Sodium (PROTonix 40MG INJ) 40 mg Q12H IVP 07/26/24 17:00 08/25/24 16:59 07/27/24 05:51 40 MG Potassium Chloride 100 ml @ 50 mls/hr AD PRN IV POTASSIUM PROTOCOL 07/26/24 19:00 08/25/24 18:59 Sodium Chloride 1,000 ml @ 100 mls/hr Q10H IV 07/26/24 17:00 08/25/24 16:59 07/26/24 17:40 100 MLS/HR Tamsulosin HCl (FloMAX) 0.4 mg DAILY PO 07/27/24 09:00 08/26/24 08:59 DIAGNOSTICS / RADIOLOGY: [ ] ASSESSMENT: Recurrent nausea and vomiting POA Unintentional weight loss of around 40-50 lb with concern for underlying malignancy Elevated alk-phos differential secondary to bone Mets versus underlying liver etiology Mild LFT elevation Right inguinal hernia Normocytic anemia Suspected melena BPH Severe protein caloric malnutrition, POA PLAN: - patient to be admitted to medical-surgical unit -reference to recurrent neck nausea and vomiting. We will obtain a GI consultation. Case was discussed with GI. Plan for EGD and colonoscopy per GI recommendations - obtain fecal occult stool. Start patient on protonix BID -in reference to elevated alk-phos. We will check a fractionated alk-phos. Hematology, Oncology has been consulted, Dr. Lockett recommending bone scan and PSA - in reference to inguinal hernia. No evidence of strangulation or incarceration. Patient requesting consultation with surgery. Case was discussed with surgery. Appreciate recommendations -patient to be started on NS for gentle hydration -continue finasteride and flomax for BPH if able to tolerate medications -we will start thiamine 100 mg IV daily -dietary consultation for protein caloric malnutrition -check TSH, A1c, procaine -further orders per hospitalization course Case was seen and examined with Dr. Bean, above plan was formulated ATTESTATION BY PHYSICIAN I have seen and examined the patient. I reviewed the documentation, medical decision making, and treatment plan as noted by the mid-level provider above. I agree with the findings and plan of care. Amy Siu MD, JANICE B [facility] Jul 27, 2024 11:31
--- NOTE | 2024-07-27 11:47 | CONS ---
HISTORY HPI: 69-year-old male with no known past medical history presents with a 2-month history of recurrent nausea and vomiting associated with early satiety and intolerance to solid foods. The patient reports consuming mainly jello and liquids during this period. He describes progressive unintentional weight loss of approximately 40�50 pounds over the same duration. He endorses episodes of black-colored stools but denies hematemesis or hematochezia. He also reports inconsistent bowel habits with alternating constipation. He has not sought prior medical attention for these symptoms and has not undergone any cancer screening. He denies chest pain, shortness of breath, cough, fever, chills, dysuria, hematuria, or any neurologic symptoms such as syncope or seizures. No family history is provided. He has a known history of right inguinal hernia without p ain or incarceration. He reports mild symptoms in the inguinal area when ambulatory. Initial imaging revealed right inguinal hernia (non-incarcerated), heterogeneously enlarged prostate, and gallbladder sludge without signs of cholecystitis. Lab findings reveal normocytic anemia (Hgb trending down from 9.0 to 8.4), elevated alkaline phosphatase (2061), AST (73), total bilirubin (1.3), and markedly elevated GGT (185), raising concern for possible underlying hepatobiliary pathology or metastatic disease. UA showed proteinuria, hematuria, and urobilinogen, suggestive of possible renal or hepatic involvement. The patient has not been on any medications prior to admission and is currently on acetaminophen, morphine, pantoprazole, ondansetron, and IV fluids. GI co nsultation was obtained and EGD with colonoscopy is planned. Given the rapid weight loss, persistent GI symptoms, and significant laboratory abnormalities, oncology evaluation is requested to assess for potential malignancy. PMH: No significant past medical history PSH: Denied any previous surgical history SH: Denied any smoking, alcohol, drug use FH: Denied any pertinent family history ALLERGIES: Coded Allergies: No Known Drug Allergies (Unverified Allergy, Unknown, 07/26/24) CURRENT MEDS: Current Medications Medications (Trade) Dose Ordered Sig/Christie Route PRN Reason Start Time Stop Time Status Last Admin Ondansetron HCl (zoFRAN 4MG INJ) 4 mg Q6H PRN IVP NAUSEA/VOMITING 07/26/24 17:00 08/25/24 16:59 07/27/24 05:51 Pantoprazole Sodium (PROTonix 40MG INJ) 40 mg Q12H IVP 07/26/24 17:00 08/25/24 16:59 07/27/24 05:51 Sodium Chloride 1,000 ml @ 100 mls/hr Q10H IV 07/26/24 17:00 08/25/24 16:59 07/26/24 17:40 Acetaminophen (TYLenol 500MG TAB) 500 mg Q6H PRN PO MILD PAIN (1-3) 07/26/24 17:00 08/25/24 16:59 Morphine Sulfate (morPHINE 2MG SYG) 2 mg Q6H PRN IVP SEVERE PAIN (7-10) 07/26/24 18:30 08/02/24 18:29 Potassium Chloride 100 ml @ 50 mls/hr AD PRN IV POTASSIUM PROTOCOL 07/26/24 19:00 08/25/24 18:59 Magnesium Sulfate 50 ml @ 0 mls/hr PROTOCOL PRN IV hypomagnesemia 07/26/24 19:00 08/25/24 18:59 Finasteride (PROscar 5 MG TAB) 5 mg DAILY PO 07/27/24 09:00 08/26/24 08:59 Tamsulosin HCl (FloMAX) 0.4 mg DAILY PO 07/27/24 09:00 08/26/24 08:59 Thiamine HCl (Vitamin B-1) 100 mg DAILY IVP 07/28/24 09:00 08/27/24 08:59 PHYSICAL EXAM VITALS: Vital Signs Date Time Temp Pulse Resp B/P (MAP) Pulse Ox O2 Delivery O2 Flow Rate FiO2 07/27/24 08:00 98.1 76 16 109/62 98 Room Air 07/26/24 20:00 0 21 DIAGNOSTIC STUDIES Vital Signs Date Time Temp Pulse Resp B/P (MAP) Pulse Ox O2 Delivery O2 Flow Rate FiO2 07/27/24 08:00 98.1 76 16 109/62 98 Room Air 07/26/24 20:00 0 21 Current Medications Medications (Trade) Dose Ordered Sig/Christie Route Start Time Stop Time Status Last Admin Dose Admin Finasteride (PROscar 5 MG TAB) 5 mg DAILY PO 07/27/24 09:00 08/26/24 08:59 Pantoprazole Sodium (PROTonix 40MG INJ) 40 mg Q12H IVP 07/26/24 17:00 08/25/24 16:59 07/27/24 05:51 Sodium Chloride 1,000 ml @ 100 mls/hr Q10H IV 07/26/24 17:00 08/25/24 16:59 07/26/24 17:40 Tamsulosin HCl (FloMAX) 0.4 mg DAILY PO 07/27/24 09:00 08/26/24 08:59 Thiamine HCl (Vitamin B-1) 100 mg DAILY IVP 07/28/24 09:00 08/27/24 08:59 Laboratory Tests Test 07/26/24 15:55 07/26/24 16:24 07/26/24 21:30 07/27/24 06:12 Prothrombin Time 14.9 SEC (9.6-11.6) H Prothromb Time International Ratio 1.46 (0.85-1.15) H Activated Partial Thromboplast Time 26.1 SEC (26.3-35.5) L Urine Color YELLOW (YELLOW) Urine Appearance CLEAR (CLEAR) Urine pH 5.5 (5.0-8.0) Urine Specific [place] 1.356 (1.001-1.031) Urine Protein 20 mg/dL (NEGATIVE) H Urine Glucose (UA) NEGATIVE mg/dL (NEGATIVE) Urine Ketones 60 mg/dL (NEGATIVE) H Urine Occult Blood SMALL (NEGATIVE) H Urine Nitrate NEGATIVE (NEGATIVE) Urine Bilirubin NEGATIVE mg/dL (NEGATIVE) Urine Urobilinogen 3 mg/dL (0.2-1.0) H Urine Leukocyte Esterase NEGATIVE Wade/uL Urine RBC 11-25 /HPF (0-1) H Urine WBC 2-5 /HPF (0-1) H Urine Bacteria None /HPF (None Seen) Iron Level 209 mcg/dL (65-175) H Total Iron Binding Capacity 251 mcg/dL (250-450) Percent Iron Saturation 83.2 % (30-44) H Gamma Glutamyl Transpeptidase 185 U/L (5-85) H White Blood Count 10.9 K/uL (4.8-10.8) H Red Blood Count 2.56 MIL/uL (4.50-6.20) L Hemoglobin 8.4 g/dL (14.0-18.0) L Hematocrit 24.8 % (42-54) L Mean Corpuscular Volume 96.9 fL (79-99) Mean Corpuscular Hemoglobin 32.8 pg (27.0-33.0) Mean Corpuscular Hemoglobin Concent 33.9 g/dL (32.0-36.0) Red Cell Distribution Width 16.1 % (11.0-15.5) H Platelet Count 142 K/uL (130-400) Mean Platelet Volume 10.3 fL (7.5-10.5) Immature Granulocyte % (Auto) 12.3 % (0-1) H Neutrophils (%) (Auto) 56.7 % (40.0-77.0) Lymphocytes (%) (Auto) 19.8 % (21.0-51.0) L Monocytes (%) (Auto) 8.5 % (3.0-13.0) Eosinophils (%) (Auto) 1.9 % (0.0-8.0) Basophils (%) (Auto) 0.8 % (0.0-5.0) Neutrophils # (Auto) 6.2 K/uL (1.8-7.7) Lymphocytes # (Auto) 2.2 K/uL (1.0-4.8) Monocytes # (Auto) 0.9 K/uL (0.1-1.0) Eosinophils # (Auto) 0.21 K/uL (0.00-0.70) Basophils # (Auto) 0.09 K/uL (0.00-0.20) Absolute Immature Granulocyte (auto 1.34 K/uL (0-1) H Nucleated Red Blood Cells 3.9 % (0.0-0.19) H Sodium Level 135 mmol/L (136-145) L Potassium Level 4.1 mmol/L (3.5-5.1) Chloride Level 100 mmol/L (101-111) L Carbon Dioxide Level 20 mmol/L (21-32) L Blood Urea Nitrogen 22 mg/dL (7-18) H Creatinine 0.7 mg/dL (0.5-1.3) Glomerular Filtration Rate Calc 101 mL/min (>90) Random Glucose 71 mg/dL (70-105) Total Calcium 8.7 mg/dL (8.5-10.1) Total Bilirubin 1.3 mg/dL (0.2-1.0) H Aspartate Amino Transf (AST/SGOT) 73 U/L (10-37) H Alanine Aminotransferase (ALT/SGPT) 25 U/L (12-78) Alkaline Phosphatase 2061 U/L (50-136) *H Total Protein 6.6 g/dL (6.0-8.3) Albumin 3.5 g/dL (3.5-5.0) IMPRESSION Constitutional symptoms: Significant unintentional weight loss (40�50 lbs), fatigue, and anorexia. Anemia: Normocytic anemia with down-trending hemoglobin (Hgb 9.0 ? 8.4), Hct 26.2 ? 24.8; elevated RDW and presence of nucleated RBCs suggest possible marrow stress or infiltrative process. Elevated alkaline phosphatase (2061), GGT (185), and transaminases: Concern for cholestatic or infiltrative liver process. Differential includes: Hepatic metastases Cholangiocarcinoma Infiltrative liver disease Urinary findings: Proteinuria, hematuria, elevated ketones, and urobilinogen may suggest renal involvement or secondary effects of cachexia/dehydration. Elevated iron saturation (83.2%): Could indicate ineffective erythropoiesis or potential hemochromatosis, but less likely given clinical context. Prostate findings: Heterogeneous prostate enlargement on imaging; BPH suspected, but prostate cancer cannot be excluded without further workup. PLAN Malignancy workup Bone scan * Await EGD and colonoscopy results from GI for further evaluation of GI malignancy. Hematology workup * Peripheral smear, reticulocyte count, LDH, haptoglobin to evaluate anemia pattern. * Consider bone marrow biopsy if evidence of marrow suppression, pancytopenia, or blasts develop. * Monitor trends in hemoglobin, WBC, platelets, immature granulocytes, and nucleated RBCs closely. Liver function and serologies * Order Hepatitis B and C serologies, autoimmune markers (OLLIE, AMA, ASMA) if indicated. Nutrition and performance status assessment * Consider early nutrition consult; monitor albumin/prealbumin. REGAN CHADWICK MD Jul 27, 2024 11:47
--- NOTE | 2024-07-27 11:53 | NUR ---
RAD NUCLEAR MEDICINE SPOKE TO NURSE HURTADO AT 0812 ABOUT BONE SCAN, HE INFORMED PATIENT HAD AN EGD SCHEDULED HE INFORMED ME HE WOULD LET ME KNOW ONCE THE PATIENT IS BACK TO START BONE SCAN.
[2024-07-27] MEDS: finaSTERide 5 MG TABLET PO SCH (12:59)
[2024-07-27] MEDS: morPHINE 2 MG SYG IVP PRN (12:59)
[2024-07-27] MEDS: tamSULOsin HCL 0.4 MG CAP.ER.24H PO SCH (12:59)
[2024-07-27 13:25] LABS: HEPATITIS A IGM ANTIBODY Non-Reactive (Nonreactive); HEPATITIS B CORE IGM ANTIBODY Non-Reactive (Negative); HEPATITIS B SURFACE ANTIGEN Non-Reactive (Nonreactive); HEPATITIS C ANTIBODY Non-Reactive (Nonreactive)
--- NOTE | 2024-07-27 16:15 | HMCIMG ---
CT NONCONTRAST CHEST Comparison Study: none History: nausea, vomiting Technique: Helical CT of the chest without IV contrast at 5 mm collimation. Coronal and sagittal reformations also done. 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 The airway is intact. The trachea and major bronchi are unremarkable. The chest exam shows no pulmonary nodules or masses. No significant pulmonary parenchymal abnormalities are noted. No pulmonary infiltrates or mass lesions are seen. No pleural effusions are identified. There is no pneumothorax. There is no evidence of pneumomediastinum. The nonenhanced exam of the jesika and mediastinum is unremarkable. No evidence of hilar enlargement is seen. The aorta shows no aneurysmal dilatation or significant atheromatous calcification. No significant brachiocephalic vascular abnormalities are seen. The heart is unremarkable. It is not enlarged. No significant coronary arterial calcifications are seen. There is no pericardial effusion. The rib cage appears unremarkable. The soft tissues of the chest wall are unremarkable. The dorsal spine shows no significant abnormalities. IMPRESSION: NORMAL CT OF THE CHEST WITHOUT CONTRAST. This study was performed using dose reduction techniques to include automated exposure control and/or adjustment of the mA and/or kV according to patient size.
--- NOTE | 2024-07-27 16:39 | HMCIMG ---
Exam Type: NM BONE SCAN WHOLE BODY Clinical Information: bone met Comparison: None RADIOPHARMACEUTICAL: Intravenous administration of 24 mCi of Tc-99m MDP . TECHNIQUE: Three-hour delayed anterior and posterior whole-body and upper extremities and lateral views of the skull and posterior obliques of the thorax were obtained. The distal humeri, the elbows, and the proximal and mid forearms are incompletely included in the films. FINDINGS: Foci of increased uptake are seen involving the left anterior rib #3, left lateral rib 7, left anterior rib 8, possibly several anterior ribs on the right side, lesser degrees of uptake, the left humeral head, the manubriosternal junction, the left mid femur. Given the patient's known history, metastatic lesions are suspected. There are foci of symmetric facet joint uptake of several levels of the spine which are felt to represent degenerative disease. IMPRESSION: Findings suspicious for metastatic skeletal disease.
--- NOTE | 2024-07-27 17:10 | NUR ---
SPEECH TRIGGER COMPLETED / WEIGHT LOSS Pt IS A 69 Y.O. MALE ADMITTED SECONDARY TO RECURRENT NAUSEA, VOMITING AND WEIGHT LOSS. Pt HAS NO SIGNIFICANT PERTINENT MEDICAL HISTORY. PATIENT PRESENTED WITH NO INFILTRATES ON MOST RECENT CHEST X-RAY (07/27/2024). Pt CURRENTLY ON CLEAR LIQUID DIET (THIN LIQUIDS). PER NURSE VILLANUEVA, Pt TOLERATING DIET WITH NO OVERT S/S OF ASPIRATION. PLEASE REQUEST SPEECH THERAPY SERVICES FOR SKILLED BEDSIDE SWALLOW EVALUATION IF Pt PRESENTS WITH +S/S OF ASPIRATION SUCH COUGH RESPONSE, THROAT CLEAR, OR WET VOCAL QUALITY DURING ORAL INTAKE. ALL QUESTIONS ANSWERED AT THIS TIME. Addendum: 07/27/[address] ALEX ARMSTRONG Amended: Links added.
--- NOTE | 2024-07-27 17:21 | CONS ---
CONSULT NOTE: Consulting physician: Dr Baron Consulting service: General surgery Reason for consultation: Right inguinal hernia History of present illness: This is a 69-year-old male consulted to surgery after presenting to the hospital with concerns of lack of appetite with right inguinal discomfort. On initial imaging patient is noted to have a right inguinal hernia. On physical exam hernia reduced. No signs of obstruction noted. Patient is passing gas. Patient was sent for endoscopy due to difficulty keeping meals down and biopsies taken. Patient also with elevated alk-phos consulted to Oncology currently pending at this time. Patient with no abdominal pain reported. Patient appears to be stable. WBCs 10.9 with a hemoglobin of 8 four. Patient is on IV fluids Medical history: Surgical history: Review of systems: General: No Fever, No Chills, No Night Sweats, No Fatigue, No Malaise, No Appetite, No Other HEENT: No Head Aches, No Visual Changes, No Eye Pain, No Ear Pain, No Dysphasia, No Sinus Congestion, No Post Nasal Drip, No Sore Throat, No Other Pulmonary: No Dyspnea, No Cough, No Pleuritic Chest Pain, No Other Cardiovascular: No: Chest Pain, Palpitations, Orthopnea, Paroxysmal No Dyspnea, Edema, Lt Headedness, Other Gastrointestinal: No: Nausea, Vomiting, Diarrhea, Constipation, Melena, Hematochezia, Other Genitourinary: No Dysuria, No Frequency, No Incontinence, No Hematuria, No Retention, No Other Musculoskeletal: No: other, neck pain, shoulder pain, arm pain, back pain, hand pain, leg pain, foot pain Skin: No Urticaria, No Rash, No Other Neurological: No: Weakness, Numbness, Incoordination, Change in speech, Confusion, Seizures, Other Physical exam: General: Awake alert and oriented Heart: Regular rate and rhythm} Lungs: Clear to auscultation no distress Abdomen: [Soft, nontender, nondistended Assessment: This is a 69-year-old male with a reduced right inguinal hernia Plan: Patient to be allowed diet Patient is likely to be taken for surgical intervention in outpatient setting Await for biopsy results from endoscopy Await oncology recommendations Patient to be allowed clear liquid diet Surgical team to follow patient closely SHANKAR MENA Jr. Jul 27, 2024 17:21
--- NOTE | 2024-07-27 17:34 | NUR ---
D/C PLAN CM spoke to patient regarding d/c planning. Daughter Herminia at bedside. Patient lives alone. Reports he is independent with ADL's. Denies having any home services or DME. Patient drives self to MD appointments. No needs verbalized. Plan to home. CM to f/u. Addendum: 07/27/24 at 1738 by GUICHO NASH CM Amended: Links added.
[2024-07-28 04:00] VITALS: BP 118/62; PULSE 83; RESP 20; TEMP 97.9
[2024-07-28 04:34] LABS: MEAN CORPUSCULAR HEMOGLOBIN 33.8 pg (27.0-33.0); MEAN CORPUSCULAR HGB CONC 34.3 g/dL (32.0-36.0); MEAN CORPUSCULAR VOLUME 98.6 fL (79-99); NUCLEATED RED BLOOD CELLS 5.4 % (0.0-0.19); PLATELET COUNT (AUTO) 142 K/uL (130-400); RED BLOOD CELL COUNT(AUTO) 2.13 MIL/uL (4.50-6.20); RED CELL DISTRIBUTION WIDTH 16.3 % (11.0-15.5)
[2024-07-28 05:08] LABS: BAND NEUTROPHILS % (MANUAL) 9 % (0-2); LYMPHOCYTES % (MANUAL) 25 % (22-44); MONOCYTES % (MANUAL) 7 % (2-9); OTHER CELLS,MANUAL % 7 (0-0); SEGMENTED NEUTROPHILS % 52 % (40-70); TOTAL CELLS COUNTED 100
[2024-07-28 05:09] LABS: MAN.DIFF COMMENT-IMPRESSION MANUAL DIFFERENTIAL; WBC MORPHOLOGY SMUDGE CELLS 1+
[2024-07-28 05:22] LABS: CREATININE 0.7 mg/dL (0.5-1.3); POTASSIUM 4.5 mmol/L (3.5-5.1)
[2024-07-28 08:00] VITALS: BP 122/69; PULSE 83; RESP 18; TEMP 98.8
[2024-07-28] MEDS: THIAMINE HCL 100 MG/ML 2ML VIAL IVP SCH (08:09)
[2024-07-28 08:11] VITALS: O2SAT 96
--- NOTE | 2024-07-28 08:59 | PN ---
[facility] PROGRESS NOTE Date of Service: Jul 28, 2024 Time of Service: 08:57 SUBJECTIVE: [69-year-old male who was admitted due to generalized weakness, decreased appetite with for a to 50 lb weight loss. Labs reviewed today Na 135, Cl 100, CO2 20, BUN 22, iron 209,% sat 83.2, total bili 1.3, GGT 185, AST 73, alkaline phosphatase 2061, CRP 23.7. Today, patient went for GI endoscopy-colonoscopy and EGD. Dr. Lockett on board, patient is scheduled for bone scan. REVIEW OF SYSTEMS CONSTITUTIONAL: Denies fevers, chills, or night sweats. Positive for unintentional weight loss NEUROLOGICAL: Denies headache, amaurosis fugax, motor weakness, sensory deficit, vertigo/spinning sensation, gait abnormalities, or tremors. ENT: No hearing loss, otalgia, otorrhea, rhinitis, rhinorrhea, hoarseness, or sore throat. CARDIOVASCULAR: Denies any exertional angina, dyspnea on exertion, orthopnea, paroxysmal nocturnal dyspnea, palpitations, life-threatening arrhythmias, claudication. PULMONARY: Denies any shortness of breath, cough, phlegm/sputum, hemoptysis, pleuritic chest pain. GASTROINTESTINAL: Positive for nausea, vomiting, black stools. Denied any hematochezia, hematemesis GENITOURINARY: Denies frequency, urgency, nocturia, hematuria or incontinence (Storage/Irritative symptoms.) Low urinary stream, straining to void, urinary intermittency or hesitancy, splitting of the voiding stream, terminal dribbling. ENDOCRINOLOGIC: Denies polyuria, polydipsia, polyphagia or heat/cold intolerances. HEMATOLOGIC: Denies thrombophilia/previous clots, or coagulopathy/bleeding disorders. ONCOLOGIC: Denies personal history of malignancy. DERMATOLOGIC: Denies rashes or pruritus. PSYCHIATRIC: Denies any suicidal or homicidal ideation. Denies hallucinations. PHYSICAL EXAM GENERAL APPEARANCE: The patient is awake, alert, and oriented, in no acute cardiopulmonary distress. NEUROLOGICAL: Cranial nerves II-XII grossly intact. Motor is 5/5 in bilateral upper and lower extremities proximal to distal. No sensory deficits. HEENT: Face is symmetric. Pupils are equal and reactive. Extraocular movements are intact. NECK: Supple. No JVD. No thyromegaly. No submental, submandibular, pre- /postauricular, occipital or supraclavicular lymphadenopathy. CHEST: Normal chest expansion. No Telemetry. LUNGS: Absence of any rales, rhonchi or any wheezing. CARDIOVASCULAR: Regular. S1 and S2 normal. No appreciable rubs, murmurs or gallops. ABDOMEN: Soft, nontender, and nondistended. Patient has a right inguinal hernia. There is no erythema around the inguinal area. No tenderness to palpation. : Deferred. No Diaz. EXTREMITIES: Non-edematous and not cyanotic. No clubbing. Good capillary refill. SKIN: No skin breakdown. Vital Signs (last 8hr) Date Time Temp Pulse Resp B/P (MAP) Pulse Ox O2 Delivery O2 Flow Rate FiO2 07/28/24 08:11 96 Room Air* 0 21 07/28/24 08:00 98.8 83 18 122/69 98 Room Air 07/28/24 04:00 97.9 83 20 118/62 100 Room Air LABS: Laboratory: Test 07/28/24 04:22 07/27/24 06:12 07/26/24 21:30 07/26/24 16:24 Range/Units White Blood Count 10.0 4.8-10.8 K/uL Red Blood Count 2.13 L 4.50-6.20 MIL/uL Hemoglobin 7.2 L 14.0-18.0 g/dL Hematocrit 21.0 *L 42-54 % Mean Corpuscular Volume 98.6 79-99 fL Mean Corpuscular Hemoglobin 33.8 H 27.0-33.0 pg Mean Corpuscular Hemoglobin Concent 34.3 32.0-36.0 g/dL Red Cell Distribution Width 16.3 H 11.0-15.5 % Platelet Count 142 130-400 K/uL Mean Platelet Volume 10.1 7.5-10.5 fL Segmented Neutrophils % 52 40-70 % Band Neutrophils % 9 H 0-2 % Lymphocytes % (Manual) 25 22-44 % Monocytes % (Manual) 7 2-9 % Other Cells % 7 H 0-0 Nucleated Red Blood Cells 5.4 H 0.0-0.19 % Differential Comment MANUAL DIFFERENTIAL White Cell Morphology Comment SMUDGE CELLS 1+ Platelet Morphology Comment See comments Red Blood Cell Morphology See comments Sodium Level 136 136-145 mmol/L Potassium Level 4.5 3.5-5.1 mmol/L Chloride Level 103 101-111 mmol/L Carbon Dioxide Level 22 21-32 mmol/L Blood Urea Nitrogen 23 H 7-18 mg/dL Creatinine 0.7 0.5-1.3 mg/dL Glomerular Filtration Rate Calc 101 >90 mL/min Random Glucose 92 70-105 mg/dL Total Calcium 8.1 L 8.5-10.1 mg/dL Immature Granulocyte % (Auto) 12.3 H 0-1 % Neutrophils (%) (Auto) 56.7 40.0-77.0 % Lymphocytes (%) (Auto) 19.8 L 21.0-51.0 % Monocytes (%) (Auto) 8.5 3.0-13.0 % Eosinophils (%) (Auto) 1.9 0.0-8.0 % Basophils (%) (Auto) 0.8 0.0-5.0 % Neutrophils # (Auto) 6.2 1.8-7.7 K/uL Lymphocytes # (Auto) 2.2 1.0-4.8 K/uL Monocytes # (Auto) 0.9 0.1-1.0 K/uL Eosinophils # (Auto) 0.21 0.00-0.70 K/uL Basophils # (Auto) 0.09 0.00-0.20 K/uL Absolute Immature Granulocyte (auto 1.34 H 0-1 K/uL Total Bilirubin 1.3 H 0.2-1.0 mg/dL Aspartate Amino Transf (AST/SGOT) 73 H 10-37 U/L Alanine Aminotransferase (ALT/SGPT) 25 12-78 U/L Alkaline Phosphatase 2061 *H 50-136 U/L Total Protein 6.6 6.0-8.3 g/dL Albumin 3.5 3.5-5.0 g/dL Prostate Specific Ag, Ultra-Sensitv 3.840 0.000-4.000 ng/mL Iron Level 209 H 65-175 mcg/dL Total Iron Binding Capacity 251 250-450 mcg/dL Percent Iron Saturation 83.2 H 30-44 % Gamma Glutamyl Transpeptidase 185 H 5-85 U/L Hepatitis A IgM Antibody Non-Reactive Nonreactive Hepatitis B Surface Antigen. Non-Reactive Nonreactive Hepatitis B Core IgM Antibody Non-Reactive Negative Hepatitis C Antibody Non-Reactive Nonreactive Urine Color YELLOW YELLOW Urine Appearance CLEAR CLEAR Urine pH 5.5 5.0-8.0 Urine Specific [place] 1.356 1.001-1.031 Urine Protein 20 H NEGATIVE mg/dL Urine Glucose (UA) NEGATIVE NEGATIVE mg/dL Urine Ketones 60 H NEGATIVE mg/dL Urine Occult Blood SMALL H NEGATIVE Urine Nitrate NEGATIVE NEGATIVE Urine Bilirubin NEGATIVE NEGATIVE mg/dL Urine Urobilinogen 3 H 0.2-1.0 mg/dL Urine Leukocyte Esterase NEGATIVE NEGATIVE Wade/uL Urine RBC 11-25 H 0-1 /HPF Urine WBC 2-5 H 0-1 /HPF Urine Bacteria None None Seen /HPF Test 07/26/24 15:55 07/26/24 11:06 Range/Units Prothrombin Time 14.9 H 9.6-11.6 SEC Prothromb Time International Ratio 1.46 H 0.85-1.15 Activated Partial Thromboplast Time 26.1 L 26.3-35.5 SEC Hemoglobin A1c 4.9 4.0-6.0 % Estimated Average Glucose (eAG) 94 70-126 mg/dL Direct Bilirubin 0.4 H 0.0-0.3 mg/dL Troponin I High Sensitivity 17 4-75 ng/L C-Reactive Protein, Quantitative 23.70 H 0.5-3.0 mg/L Lipase 50 16-77 U/L Procalcitonin 0.46 0.05-0.5 ng/mL Thyroid Stimulating Hormone (TSH) 1.46 0.36-3.74 uIU/mL Current Medications Medications (Trade) Dose Ordered Sig/Christie Route PRN Reason Start Time Stop Time Status Last Admin Dose Admin Acetaminophen (TYLenol 500MG TAB) 500 mg Q6H PRN PO MILD PAIN (1-3) 07/26/24 17:00 08/25/24 16:59 Finasteride (PROscar 5 MG TAB) 5 mg DAILY PO 07/27/24 09:00 08/26/24 08:59 07/28/24 08:08 5 MG Magnesium Sulfate 50 ml @ 0 mls/hr PROTOCOL PRN IV hypomagnesemia 07/26/24 19:00 08/25/24 18:59 Morphine Sulfate (morPHINE 2MG SYG) 2 mg Q6H PRN IVP SEVERE PAIN (7-10) 07/26/24 18:30 08/02/24 18:29 07/28/24 01:33 2 MG Ondansetron HCl (zoFRAN 4MG INJ) 4 mg Q6H PRN IVP NAUSEA/VOMITING 07/26/24 17:00 08/25/24 16:59 07/28/24 01:33 4 MG Pantoprazole Sodium (PROTonix 40MG INJ) 40 mg Q12H IVP 07/26/24 17:00 08/25/24 16:59 07/28/24 04:50 40 MG Potassium Chloride 100 ml @ 50 mls/hr AD PRN IV POTASSIUM PROTOCOL 07/26/24 19:00 08/25/24 18:59 Sodium Chloride 1,000 ml @ 100 mls/hr Q10H IV 07/26/24 17:00 08/25/24 16:59 07/27/24 23:12 100 MLS/HR Tamsulosin HCl (FloMAX) 0.4 mg DAILY PO 07/27/24 09:00 08/26/24 08:59 07/28/24 08:08 0.4 MG Thiamine HCl (Vitamin B-1) 100 mg DAILY IVP 07/28/24 09:00 08/27/24 08:59 07/28/24 08:09 100 MG DIAGNOSTICS / RADIOLOGY: [ ] ASSESSMENT: Recurrent nausea and vomiting POA Unintentional weight loss of around 40-50 lb with concern for underlying malignancy Elevated alk-phos differential secondary to bone Mets versus underlying liver etiology Mild LFT elevation Right inguinal hernia Normocytic anemia Suspected melena BPH Severe protein caloric malnutrition, POA PLAN: - patient to be admitted to medical-surgical unit -reference to recurrent neck nausea and vomiting. We will obtain a GI consultation. Case was discussed with GI. Plan for EGD and colonoscopy per GI recommendations - obtain fecal occult stool. Start patient on protonix BID -in reference to elevated alk-phos. We will check a fractionated alk-phos. Hematology, Oncology has been consulted, Dr. Lockett recommending bone scan and PSA - in reference to inguinal hernia. No evidence of strangulation or incarceration. Patient requesting consultation with surgery. Case was discussed with surgery. Appreciate recommendations -patient to be started on NS for gentle hydration -continue finasteride and flomax for BPH if able to tolerate medications -we will start thiamine 100 mg IV daily -dietary consultation for protein caloric malnutrition -check TSH, A1c, procaine -further orders per hospitalization course Case was seen and examined with Dr. Bean, above plan was formulated CARIN WAGONER AGPCNP Jul 28, 2024 08:59
[2024-07-28 09:36] LABS: ALBUMIN 3.1 g/dL (3.5-5.0); BILIRUBIN,DIRECT 0.4 mg/dL (0.0-0.3); BILIRUBIN,TOTAL 0.9 mg/dL (0.2-1.0); TOTAL PROTEIN, SERUM 5.6 g/dL (6.0-8.3)
--- NOTE | 2024-07-28 11:55 | PN ---
GASTROENTEROLOGY PROGRESS NOTE Date of Visit: Jul 28, 2024 Time of Visit: 11:55 Events / Notes: No acute events overnight. 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 Review of Systems: CONSTITUTIONAL: No malaise or change in sensation of wellbeing. ENMT: No rhinorrhea, otorrhea, sinus pain, ear ache. CARDIOVASCULAR: No angina, palpitations, orthopnea or paroxysmal dyspnea. RESPIRATORY: No SOB. GASTROINTESTINAL: No abdominal pain, nausea, vomiting, diarrhea, hematemesis, melena or change in the patient's habitual bowel movements consistency/number. GENITOURINARY: No dysuria, hematuria or change in bladder continence. MUSCULOSKELETAL: No new muscle pain or decrease in muscular strength. No new joint swelling, redness or tenderness. SKIN: No new rash. Physical Exam: GEN: Awake, alert, oriented in person, time and place, and in no acute distress. HEENT: No sinus tenderness. Tympanic membranes were not examined. No rhinorrhea. Oral pharyngeal mucosa is pink, moist and within normal limits. Neck is supple with no cervical lymphadenopathy, thyromegaly or JVD. CHEST: Inspection, palpation and percussion of the chest were unremarkable. Lung auscultation revealed normal breath sounds bilaterally. CARDIAC: PMI is within normal limits. Heart sounds are regular. Normal S1, S2. No gallop or murmur. ABD: Soft, non-tender and not distended. No peritoneal signs on palpation. No organomegaly. Normal bowel sounds. EXT: No cyanosis or clubbing. No edema. SKIN: Intact. No rashes. JOINTS: No evidence of synovitis or acute arthritis. NEURO: Alert and oriented to name, place and person. Cranial nerve examination is unremarkable. No focal motor deficits. Normal speech. Gait is normal. Strength is normal. Vital Signs (last 8hr) Date Time Temp Pulse Resp B/P (MAP) Pulse Ox O2 Delivery O2 Flow Rate FiO2 07/28/24 08:11 96 Room Air* 0 21 07/28/24 08:00 98.8 83 18 122/69 98 Room Air 07/28/24 04:00 97.9 83 20 118/62 100 Room Air Laboratory: [ ] Laboratory: Test 07/28/24 04:22 07/27/24 06:12 07/26/24 21:30 07/26/24 16:24 Range/Units White Blood Count 10.0 4.8-10.8 K/uL Red Blood Count 2.13 L 4.50-6.20 MIL/uL Hemoglobin 7.2 L 14.0-18.0 g/dL Hematocrit 21.0 *L 42-54 % Mean Corpuscular Volume 98.6 79-99 fL Mean Corpuscular Hemoglobin 33.8 H 27.0-33.0 pg Mean Corpuscular Hemoglobin Concent 34.3 32.0-36.0 g/dL Red Cell Distribution Width 16.3 H 11.0-15.5 % Platelet Count 142 130-400 K/uL Mean Platelet Volume 10.1 7.5-10.5 fL Segmented Neutrophils % 52 40-70 % Band Neutrophils % 9 H 0-2 % Lymphocytes % (Manual) 25 22-44 % Monocytes % (Manual) 7 2-9 % Other Cells % 7 H 0-0 Nucleated Red Blood Cells 5.4 H 0.0-0.19 % Differential Comment MANUAL DIFFERENTIAL White Cell Morphology Comment SMUDGE CELLS 1+ Platelet Morphology Comment See comments Red Blood Cell Morphology See comments Sodium Level 136 136-145 mmol/L Potassium Level 4.5 3.5-5.1 mmol/L Chloride Level 103 101-111 mmol/L Carbon Dioxide Level 22 21-32 mmol/L Blood Urea Nitrogen 23 H 7-18 mg/dL Creatinine 0.7 0.5-1.3 mg/dL Glomerular Filtration Rate Calc 101 >90 mL/min Random Glucose 92 70-105 mg/dL Total Calcium 8.1 L 8.5-10.1 mg/dL Total Bilirubin 0.9 # 0.2-1.0 mg/dL Direct Bilirubin 0.4 H 0.0-0.3 mg/dL Aspartate Amino Transf (AST/SGOT) 65 H 10-37 U/L Alanine Aminotransferase (ALT/SGPT) 22 12-78 U/L Alkaline Phosphatase 1919 *H 50-136 U/L Total Protein 5.6 L 6.0-8.3 g/dL Albumin 3.1 L 3.5-5.0 g/dL Immature Granulocyte % (Auto) 12.3 H 0-1 % Neutrophils (%) (Auto) 56.7 40.0-77.0 % Lymphocytes (%) (Auto) 19.8 L 21.0-51.0 % Monocytes (%) (Auto) 8.5 3.0-13.0 % Eosinophils (%) (Auto) 1.9 0.0-8.0 % Basophils (%) (Auto) 0.8 0.0-5.0 % Neutrophils # (Auto) 6.2 1.8-7.7 K/uL Lymphocytes # (Auto) 2.2 1.0-4.8 K/uL Monocytes # (Auto) 0.9 0.1-1.0 K/uL Eosinophils # (Auto) 0.21 0.00-0.70 K/uL Basophils # (Auto) 0.09 0.00-0.20 K/uL Absolute Immature Granulocyte (auto 1.34 H 0-1 K/uL Prostate Specific Ag, Ultra-Sensitv 3.840 0.000-4.000 ng/mL Iron Level 209 H 65-175 mcg/dL Total Iron Binding Capacity 251 250-450 mcg/dL Percent Iron Saturation 83.2 H 30-44 % Gamma Glutamyl Transpeptidase 185 H 5-85 U/L Hepatitis A IgM Antibody Non-Reactive Nonreactive Hepatitis B Surface Antigen. Non-Reactive Nonreactive Hepatitis B Core IgM Antibody Non-Reactive Negative Hepatitis C Antibody Non-Reactive Nonreactive Urine Color YELLOW YELLOW Urine Appearance CLEAR CLEAR Urine pH 5.5 5.0-8.0 Urine Specific [place] 1.356 1.001-1.031 Urine Protein 20 H NEGATIVE mg/dL Urine Glucose (UA) NEGATIVE NEGATIVE mg/dL Urine Ketones 60 H NEGATIVE mg/dL Urine Occult Blood SMALL H NEGATIVE Urine Nitrate NEGATIVE NEGATIVE Urine Bilirubin NEGATIVE NEGATIVE mg/dL Urine Urobilinogen 3 H 0.2-1.0 mg/dL Urine Leukocyte Esterase NEGATIVE NEGATIVE Wade/uL Urine RBC 11-25 H 0-1 /HPF Urine WBC 2-5 H 0-1 /HPF Urine Bacteria None None Seen /HPF Test 07/26/24 15:55 Range/Units Prothrombin Time 14.9 H 9.6-11.6 SEC Prothromb Time International Ratio 1.46 H 0.85-1.15 Activated Partial Thromboplast Time 26.1 L 26.3-35.5 SEC Current Medications Medications (Trade) Dose Ordered Sig/Christie Route PRN Reason Start Time Stop Time Status Last Admin Dose Admin Acetaminophen (TYLenol 500MG TAB) 500 mg Q6H PRN PO MILD PAIN (1-3) 4/22/25 17:00 08/25/24 16:59 Finasteride (PROscar 5 MG TAB) 5 mg DAILY PO 07/27/24 09:00 08/26/24 08:59 07/28/24 08:08 5 MG Magnesium Sulfate 50 ml @ 0 mls/hr PROTOCOL PRN IV hypomagnesemia 07/26/24 19:00 08/25/24 18:59 Morphine Sulfate (morPHINE 2MG SYG) 2 mg Q6H PRN IVP SEVERE PAIN (7-10) 07/26/24 18:30 08/02/24 18:29 07/28/24 01:33 2 MG Ondansetron HCl (zoFRAN 4MG INJ) 4 mg Q6H PRN IVP NAUSEA/VOMITING 07/26/24 17:00 08/25/24 16:59 07/28/24 01:33 4 MG Pantoprazole Sodium (PROTonix 40MG INJ) 40 mg Q12H IVP 07/26/24 17:00 08/25/24 16:59 07/28/24 04:50 40 MG Potassium Chloride 100 ml @ 50 mls/hr AD PRN IV POTASSIUM PROTOCOL 07/26/24 19:00 08/25/24 18:59 Sodium Chloride 1,000 ml @ 100 mls/hr Q10H IV 07/26/24 17:00 08/25/24 16:59 07/27/24 23:12 100 MLS/HR Tamsulosin HCl (FloMAX) 0.4 mg DAILY PO 07/27/24 09:00 08/26/24 08:59 07/28/24 08:08 0.4 MG Thiamine HCl (Vitamin B-1) 100 mg DAILY IVP 07/28/24 09:00 08/27/24 08:59 07/28/24 08:09 100 MG Diagnostics / Radiology: [COPY/PASTE HERE IF NO REPORTS PLEASE DELETE SECTION] Assessment: Gastric mass N/V Weight loss Abnormal LFTs Plan: CT chest/abd/pelvis Surgery and oncology eval Await path Colonoscopy not warranted at this time as source of anemia/bleed identified Continue GI prophylaxis Avoid NSAIDs Antireflux measures Monitor H&H and transfuse as needed Call with questions, concerns or change in clinical status Patient to follow-up at clinic post discharge Thank you for this consult [facility] Jul 28, 2024 11:55
[2024-07-28 12:00] VITALS: BP 118/73; PULSE 78; RESP 18; TEMP 98.6
--- NOTE | 2024-07-28 12:59 | NUR ---
Nutritional Note: Pt reports severe unintentional wt loss in 2 months >40#sdue to recurrent n/v and decreased appetite pt currently tolerating clear liquids and jello. GI symptoms under evaluation pt pending EGD and colonoscopy Recommend: -Advance diet as tolerated to fulliquids then GI soft low residue diet when medically feasible. -ProStat tID (30 ml) JELLO - Electrolyte replacements per protocol -Nephrovite MVI combination of B vitamins may be used to treat or prevent vitamin deficiency due to poor diet. -If unable to meet needs orally 3-5days, evaluate for enteral nutrition NGT vs PEG if GI tract functional and safe -Provide Thiamine 100mg IV daily x 5 days to prevent refeeding syndrome -Monitor K, mg PO4 for refeeding risk and correct as needed -Monitor feeding tolerance, %, wt, and labs -If No BM >3days consider bowel stimulant. -Schedule outpatient RD f/u for long-term nutrition care. - Notify RD if additional nutrition concerns arise. SEE RD Nutritional Assessment for additional assessment information. Addendum: 07/28/24 at [address] Amended: Links added.
[2024-07-28] MEDS: ketOROlac 15MG/ML VIAL (15MG/ML) IV PRN (14:21)
[2024-07-28] MEDS: dexaMETHasone SOD PHOSPHATE 4 MG/ML 1ML VIAL IV ONE (14:21)
--- NOTE | 2024-07-28 15:22 | PN ---
This is a 69-year-old male consulted to surgery for concerns of right inguinal hernia Interval history: This 69-year-old male seen in his room resting Hernia still reduced at this time and patient on diet tolerating WBCs 10.0 with a hemoglobin of 7.2 Patient underwent bone scan yesterday with concerns of possible metastatic skeletal disease Oncology consulted for evaluation and recommendations Physical exam General: Awake alert and oriented Heart: Regular rate and rhythm} Lungs: Clear to auscultation no distress Abdomen: [Soft, nontender, nondistended reduced right inguinal hernia Assessment : This is a very 69-year-old male consulted to surgery for inguinal hernia Plan: Patient with no signs of obstruction or incarceration at this time Patient to advance diet as tolerated Await oncology recommendations for concerning findings on bone scan Inguinal hernia repair to be taken place in outpatient setting Doctor Rae to be updated in patient's status and surgical team to follow patient closely Vitals/Labs Vital Signs Date Time Temp Pulse Resp B/P (MAP) Pulse Ox O2 Delivery O2 Flow Rate FiO2 07/28/24 12:00 98.6 78 18 118/73 100 Room Air 21 07/28/24 08:11 0 Laboratory Tests 07/28/24 04:22 Medications Current Medications Sodium Chloride 1,000 ml @ 0 mls/hr ONCE ONCE IV Last administered on 07/26/24at 13:56; Start 07/26/24 at 12:00; Stop 07/26/24 at 12:01; Status DC Morphine Sulfate 4 mg ONCE ONCE IM Last administered on 07/26/24at 13:56; Start 07/26/24 at 13:30; Stop 07/26/24 at 13:31; Status DC Ondansetron HCl 4 mg ONCE ONCE IVP Last administered on 07/26/24at 13:56; Start 07/26/24 at 14:00; Stop 07/26/24 at 14:01; Status DC Iohexol 75 ml STK-MED ONCE IV; Start 07/26/24 at 14:09; Stop 07/26/24 at 14:10; Status DC Ondansetron HCl 4 mg Q6H PRN IVP Last administered on 07/28/24at 01:33; Start 07/26/24 at 17:00; Stop 08/25/24 at 16:59 Pantoprazole Sodium 40 mg Q12H IVP Last administered on 07/28/24at 04:50; Start 07/26/24 at 17:00; Stop 08/25/24 at 16:59 Sodium Chloride 1,000 ml @ 100 mls/hr Q10H IV Last administered on 07/27/24at 23:12; Start 07/26/24 at 17:00; Stop 08/25/24 at 16:59 Acetaminophen 500 mg Q6H PRN PO; Start 07/26/24 at 17:00; Stop 08/25/24 at 16:59 Polyethylene Glycol/ Electrolytes 4,000 ml ONCE ONCE PO Last administered on 07/26/24at 18:46; Start 07/26/24 at 17:00; Stop 07/26/24 at 17:06; Status DC Morphine Sulfate 2 mg Q6H PRN IVP Last administered on 07/28/24at 01:33; Start 07/26/24 at 18:30; Stop 08/02/24 at 18:29 Potassium Chloride 100 ml @ 50 mls/hr AD PRN IV; Start 07/26/24 at 19:00; Stop 08/25/24 at 18:59 Magnesium Sulfate 50 ml @ 0 mls/hr PROTOCOL PRN IV; Start 07/26/24 at 19:00; Stop 08/25/24 at 18:59 Finasteride 5 mg DAILY PO Last administered on 07/28/24at 08:08; Start 07/27/24 at 09:00; Stop 08/26/24 at 08:59 Tamsulosin HCl 0.4 mg DAILY PO Last administered on 07/28/24at 08:08; Start 07/27/24 at 09:00; Stop 08/26/24 at 08:59 Propofol 200 mg STK-MED ONCE IV; Start 07/27/24 at 11:18; Stop 07/27/24 at 11:20; Status DC Lidocaine HCl 100 mg STK-MED ONCE .ROUTE; Start 07/27/24 at 11:18; Stop 07/27/24 at 11:20; Status DC Thiamine HCl 100 mg DAILY IVP Last administered on 07/28/24at 08:09; Start 07/28/24 at 09:00; Stop 08/27/24 at 08:59 Dexamethasone Sodium Phosphate 10 mg ONCE ONCE IV Last administered on 07/28/24at 14:21; Start 07/28/24 at 14:00; Stop 07/28/24 at 14:11; Status DC Ketorolac Tromethamine 15 mg Q6H PRN IV Last administered on 07/28/24at 14:21; Start 07/28/24 at 14:00; Stop 08/02/24 at 13:59 SHANKAR MENA Jr. Jul 28, 2024 15:22
--- NOTE | 2024-07-28 15:28 | PN ---
[facility] PROGRESS NOTE Date of Service: Jul 28, 2024 Time of Service: 15:13 SUBJECTIVE: [69-year-old male who was admitted due to generalized weakness, decreased appetite with for a to 50 lb weight loss. Labs reviewed today Na 135, Cl 100, CO2 20, BUN 22, iron 209,% sat 83.2, total bili 1.3, GGT 185, AST 73, alkaline phosphatase 2061, CRP 23.7. S/p GI endoscopy-result showed large gastric mass. We will continue to follow GI rec's. Dr. Lockett on board who recommended bone scan which showed malignant skeletal disease. He is recommended orthopedic consult, we will continue to follow. REVIEW OF SYSTEMS CONSTITUTIONAL: Denies fevers, chills, or night sweats. Positive for unintentional weight loss NEUROLOGICAL: Denies headache, amaurosis fugax, motor weakness, sensory deficit, vertigo/spinning sensation, gait abnormalities, or tremors. ENT: No hearing loss, otalgia, otorrhea, rhinitis, rhinorrhea, hoarseness, or sore throat. CARDIOVASCULAR: Denies any exertional angina, dyspnea on exertion, orthopnea, paroxysmal nocturnal dyspnea, palpitations, life-threatening arrhythmias, claudication. PULMONARY: Denies any shortness of breath, cough, phlegm/sputum, hemoptysis, pleuritic chest pain. GASTROINTESTINAL: Positive for nausea, vomiting, black stools. Denied any hematochezia, hematemesis GENITOURINARY: Denies frequency, urgency, nocturia, hematuria or incontinence (Storage/Irritative symptoms.) Low urinary stream, straining to void, urinary intermittency or hesitancy, splitting of the voiding stream, terminal dribbling. ENDOCRINOLOGIC: Denies polyuria, polydipsia, polyphagia or heat/cold intolerances. HEMATOLOGIC: Denies thrombophilia/previous clots, or coagulopathy/bleeding disorders. ONCOLOGIC: Denies personal history of malignancy. DERMATOLOGIC: Denies rashes or pruritus. PSYCHIATRIC: Denies any suicidal or homicidal ideation. Denies hallucinations. PHYSICAL EXAM GENERAL APPEARANCE: The patient is awake, alert, and oriented, in no acute cardiopulmonary distress. NEUROLOGICAL: Cranial nerves II-XII grossly intact. Motor is 5/5 in bilateral upper and lower extremities proximal to distal. No sensory deficits. HEENT: Face is symmetric. Pupils are equal and reactive. Extraocular movements are intact. NECK: Supple. No JVD. No thyromegaly. No submental, submandibular, pre- /postauricular, occipital or supraclavicular lymphadenopathy. CHEST: Normal chest expansion. No Telemetry. LUNGS: Absence of any rales, rhonchi or any wheezing. CARDIOVASCULAR: Regular. S1 and S2 normal. No appreciable rubs, murmurs or gallops. ABDOMEN: Soft, nontender, and nondistended. Patient has a right inguinal hernia. There is no erythema around the inguinal area. No tenderness to palpation. : Deferred. No Diaz. EXTREMITIES: Non-edematous and not cyanotic. No clubbing. Good capillary refill. SKIN: No skin breakdown. Vital Signs (last 8hr) Date Time Temp Pulse Resp B/P (MAP) Pulse Ox O2 Delivery O2 Flow Rate FiO2 07/28/24 12:00 98.6 78 18 118/73 100 Room Air 21 07/28/24 08:11 96 Room Air* 0 21 07/28/24 08:00 98.8 83 18 122/69 98 Room Air LABS: Laboratory: Test 07/28/24 04:22 07/27/24 06:12 07/26/24 21:30 07/26/24 16:24 Range/Units White Blood Count 10.0 4.8-10.8 K/uL Red Blood Count 2.13 L 4.50-6.20 MIL/uL Hemoglobin 7.2 L 14.0-18.0 g/dL Hematocrit 21.0 *L 42-54 % Mean Corpuscular Volume 98.6 79-99 fL Mean Corpuscular Hemoglobin 33.8 H 27.0-33.0 pg Mean Corpuscular Hemoglobin Concent 34.3 32.0-36.0 g/dL Red Cell Distribution Width 16.3 H 11.0-15.5 % Platelet Count 142 130-400 K/uL Mean Platelet Volume 10.1 7.5-10.5 fL Segmented Neutrophils % 52 40-70 % Band Neutrophils % 9 H 0-2 % Lymphocytes % (Manual) 25 22-44 % Monocytes % (Manual) 7 2-9 % Other Cells % 7 H 0-0 Nucleated Red Blood Cells 5.4 H 0.0-0.19 % Differential Comment MANUAL DIFFERENTIAL White Cell Morphology Comment SMUDGE CELLS 1+ Platelet Morphology Comment See comments Red Blood Cell Morphology See comments Sodium Level 136 136-145 mmol/L Potassium Level 4.5 3.5-5.1 mmol/L Chloride Level 103 101-111 mmol/L Carbon Dioxide Level 22 21-32 mmol/L Blood Urea Nitrogen 23 H 7-18 mg/dL Creatinine 0.7 0.5-1.3 mg/dL Glomerular Filtration Rate Calc 101 >90 mL/min Random Glucose 92 70-105 mg/dL Total Calcium 8.1 L 8.5-10.1 mg/dL Total Bilirubin 0.9 # 0.2-1.0 mg/dL Direct Bilirubin 0.4 H 0.0-0.3 mg/dL Aspartate Amino Transf (AST/SGOT) 65 H 10-37 U/L Alanine Aminotransferase (ALT/SGPT) 22 12-78 U/L Alkaline Phosphatase 1919 *H 50-136 U/L Total Protein 5.6 L 6.0-8.3 g/dL Albumin 3.1 L 3.5-5.0 g/dL Immature Granulocyte % (Auto) 12.3 H 0-1 % Neutrophils (%) (Auto) 56.7 40.0-77.0 % Lymphocytes (%) (Auto) 19.8 L 21.0-51.0 % Monocytes (%) (Auto) 8.5 3.0-13.0 % Eosinophils (%) (Auto) 1.9 0.0-8.0 % Basophils (%) (Auto) 0.8 0.0-5.0 % Neutrophils # (Auto) 6.2 1.8-7.7 K/uL Lymphocytes # (Auto) 2.2 1.0-4.8 K/uL Monocytes # (Auto) 0.9 0.1-1.0 K/uL Eosinophils # (Auto) 0.21 0.00-0.70 K/uL Basophils # (Auto) 0.09 0.00-0.20 K/uL Absolute Immature Granulocyte (auto 1.34 H 0-1 K/uL Prostate Specific Ag, Ultra-Sensitv 3.840 0.000-4.000 ng/mL Iron Level 209 H 65-175 mcg/dL Total Iron Binding Capacity 251 250-450 mcg/dL Percent Iron Saturation 83.2 H 30-44 % Gamma Glutamyl Transpeptidase 185 H 5-85 U/L Hepatitis A IgM Antibody Non-Reactive Nonreactive Hepatitis B Surface Antigen. Non-Reactive Nonreactive Hepatitis B Core IgM Antibody Non-Reactive Negative Hepatitis C Antibody Non-Reactive Nonreactive Urine Color YELLOW YELLOW Urine Appearance CLEAR CLEAR Urine pH 5.5 5.0-8.0 Urine Specific [place] 1.356 1.001-1.031 Urine Protein 20 H NEGATIVE mg/dL Urine Glucose (UA) NEGATIVE NEGATIVE mg/dL Urine Ketones 60 H NEGATIVE mg/dL Urine Occult Blood SMALL H NEGATIVE Urine Nitrate NEGATIVE NEGATIVE Urine Bilirubin NEGATIVE NEGATIVE mg/dL Urine Urobilinogen 3 H 0.2-1.0 mg/dL Urine Leukocyte Esterase NEGATIVE NEGATIVE Wade/uL Urine RBC 11-25 H 0-1 /HPF Urine WBC 2-5 H 0-1 /HPF Urine Bacteria None None Seen /HPF Test 07/26/24 15:55 Range/Units Prothrombin Time 14.9 H 9.6-11.6 SEC Prothromb Time International Ratio 1.46 H 0.85-1.15 Activated Partial Thromboplast Time 26.1 L 26.3-35.5 SEC Current Medications Medications (Trade) Dose Ordered Sig/Christie Route PRN Reason Start Time Stop Time Status Last Admin Dose Admin Acetaminophen (TYLenol 500MG TAB) 500 mg Q6H PRN PO MILD PAIN (1-3) 07/26/24 17:00 08/25/24 16:59 Finasteride (PROscar 5 MG TAB) 5 mg DAILY PO 07/27/24 09:00 08/26/24 08:59 07/28/24 08:08 5 MG Ketorolac Tromethamine (toRADol) 15 mg Q6H PRN IV MODERATE PAIN (4-6) 07/28/24 14:00 08/02/24 13:59 07/28/24 14:21 15 MG Magnesium Sulfate 50 ml @ 0 mls/hr PROTOCOL PRN IV hypomagnesemia 07/26/24 19:00 08/25/24 18:59 Morphine Sulfate (morPHINE 2MG SYG) 2 mg Q6H PRN IVP SEVERE PAIN (7-10) 07/26/24 18:30 08/02/24 18:29 07/28/24 01:33 2 MG Ondansetron HCl (zoFRAN 4MG INJ) 4 mg Q6H PRN IVP NAUSEA/VOMITING 07/26/24 17:00 08/25/24 16:59 07/28/24 01:33 4 MG Pantoprazole Sodium (PROTonix 40MG INJ) 40 mg Q12H IVP 07/26/24 17:00 08/25/24 16:59 07/28/24 04:50 40 MG Potassium Chloride 100 ml @ 50 mls/hr AD PRN IV POTASSIUM PROTOCOL 07/26/24 19:00 08/25/24 18:59 Sodium Chloride 1,000 ml @ 100 mls/hr Q10H IV 07/26/24 17:00 08/25/24 16:59 07/27/24 23:12 100 MLS/HR Tamsulosin HCl (FloMAX) 0.4 mg DAILY PO 07/27/24 09:00 08/26/24 08:59 07/28/24 08:08 0.4 MG Thiamine HCl (Vitamin B-1) 100 mg DAILY IVP 07/28/24 09:00 08/27/24 08:59 07/28/24 08:09 100 MG DIAGNOSTICS / RADIOLOGY: [ ] ASSESSMENT: Suspicious for metastatic skeletal disease by bone scan, POA 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, 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, by upper GI endoscopy done on 07/28/2024 Gastritis per upper GI endoscopy done on 07/28/2024 Recurrent nausea and vomiting POA Unintentional weight loss of around 40-50 lb with concern for underlying malignancy Elevated alk-phos differential secondary to bone Mets versus underlying liver etiology Mild LFT elevation Right inguinal hernia Normocytic anemia Suspected melena BPH Severe protein caloric malnutrition, POA PLAN: Patient will continued to be admitted in the medical surgical floor We will continue to monitor patient and follow recommendations from Oncology and Gastroenterology Status post upper endoscopy Patient will be on clear liquid diet Continue with pain management Continue with supportive care GI and DVT prophylaxis We will repeat labs tomorrow Orthopedic surgeon consulted per oncology recommendation Case was seen and examined with Dr. Bean, above plan was formulated ATTESTATION BY PHYSICIAN I have seen and examined the patient. I reviewed the documentation, medical decision making, and treatment plan as noted by the mid-level provider above. I agree with the findings and plan of care. Amy Siu MD, JANICE B BANNERHAKEEM Jul 28, 2024 15:28
[2024-07-28 16:00] VITALS: BP 146/79; PULSE 75; RESP 18; TEMP 98.6
[2024-07-28 20:00] VITALS: BP 120/70; PULSE 78; RESP 20; TEMP 98.2; O2SAT 98
--- NOTE | 2024-07-28 23:32 | PN ---
69-year-old male with no known past medical history presents with a 2-month history of recurrent nausea and vomiting associated with early satiety and intolerance to solid foods. The patient reports consuming mainly jello and liquids during this period. He describes progressive unintentional weight loss of approximately 40�50 pounds over the same duration. He endorses episodes of black-colored stools but denies hematemesis or hematochezia. He also reports inconsistent bowel habits with alternating constipation. He has not sought prior medical attention for these symptoms and has not undergone any cancer screening. He denies chest pain, shortness of breath, cough, fever, chills, dysuria, hematuria, or any neurologic symptoms such as syncope or seizures. No family history is provided. He has a known history of right inguinal hernia without pain or incarceration. He reports mild symptoms in the inguinal area when ambulatory. Initial imaging revealed right inguinal hernia (non-incarcerated), heterogeneously enlarged prostate, and gallbladder sludge without signs of cholecystitis. Lab findings reveal normocytic anemia (Hgb trending down from 9.0 to 8.4), elevated alkaline phosphatase (2061), AST (73), total bilirubin (1.3), and markedly elevated GGT (185), raising concern for possible underlying hepatobiliary pathology or metastatic disease. UA showed proteinuria, hematuria, and urobilinogen, suggestive of possible renal or hepatic involvement. The patient has not been on any medications prior to admission and is currently on acetaminophen, morphine, pantoprazole, ondansetron, and IV fluids. GI consultation was obtained and EGD with colonoscopy is planned. Given the rapid weight loss, persistent GI symptoms, and significant laboratory abnormalities, oncology evaluation is requested to assess for potential malignancy. PE GENERAL: No acute respiratory distress. VITAL SIGNS: Reviewed and stable. HEENT: The sclerae are clear. The pupils are equal and reactive to light. The oropharyngeal cavity is within normal limits. NECK: Supple without lymphadenopathy. CHEST: Lung is clear bilaterally there is no wheezing or crackles. HEART: Sounds are regular and rhythmic. ABDOMEN: No guarding or rigidity. Bowel sounds positive. EXTREMITIES: No pitting edema. No petechial lesions or bruises. SKIN: No bruises, rash, or petechial lesions. NEUROLOGICAL: The patient is alert and oriented. No focal deficits. Muscle strength is 5/5. LYMPH NODES: There is no lymphadenopathy could be felt in the neck, supraclavicular, or axillary. Assessment 1. Bone scan showing multiple lesion to the bone consistent with metastatic disease 2. Severe pain 3. Anemia 4. Weight loss Plan 1. Patient to receive Toradol 15 mg every 6 hours as needed. This patient also to receive dexamethasone 10 mg for his dose of Toradol. 2. We will ask for CTA to be done. 3. I have long discussion with the patient regarding the plan of care. I answer all question and concern and I spent more than 35 minutes. I explained to the patient that the result of the bone scan which showing multiple lesion to the bone. 4. This patient with anemia with the hemoglobin is dropping. This patient was seen by GI. This patient will need EGD and colonoscopy. 5. We ask for SPEP UPEP and free light chain. We will follow-up with the result if there is monoclonal protein we will do bone marrow biopsy Vitals/Labs Vital Signs Date Time Temp Pulse Resp B/P (MAP) Pulse Ox O2 Delivery O2 Flow Rate FiO2 07/28/24 20:00 98.2 78 20 120/70 98 Room Air 07/28/24 20:00 0 21 Laboratory Tests 07/28/24 04:22 Medications Current Medications Sodium Chloride 1,000 ml @ 0 mls/hr ONCE ONCE IV Last administered on 07/26/24at 13:56; Start 07/26/24 at 12:00; Stop 07/26/24 at 12:01; Status DC Morphine Sulfate 4 mg ONCE ONCE IM Last administered on 07/26/24at 13:56; Start 07/26/24 at 13:30; Stop 07/26/24 at 13:31; Status DC Ondansetron HCl 4 mg ONCE ONCE IVP Last administered on 07/26/24at 13:56; Start 07/26/24 at 14:00; Stop 07/26/24 at 14:01; Status DC Iohexol 75 ml STK-MED ONCE IV; Start 07/26/24 at 14:09; Stop 07/26/24 at 14:10; Status DC Ondansetron HCl 4 mg Q6H PRN IVP Last administered on 07/28/24at 22:25; Start 07/26/24 at 17:00; Stop 08/25/24 at 16:59 Pantoprazole Sodium 40 mg Q12H IVP Last administered on 07/28/24at 17:38; Start 07/26/24 at 17:00; Stop 08/25/24 at 16:59 Sodium Chloride 1,000 ml @ 100 mls/hr Q10H IV Last administered on 07/27/24at 23:12; Start 07/26/24 at 17:00; Stop 08/25/24 at 16:59 Acetaminophen 500 mg Q6H PRN PO; Start 07/26/24 at 17:00; Stop 08/25/24 at 16:59 Polyethylene Glycol/ Electrolytes 4,000 ml ONCE ONCE PO Last administered on 07/26/24at 18:46; Start 07/26/24 at 17:00; Stop 07/26/24 at 17:06; Status DC Morphine Sulfate 2 mg Q6H PRN IVP Last administered on 07/28/24at 22:26; Start 07/26/24 at 18:30; Stop 08/02/24 at 18:29 Potassium Chloride 100 ml @ 50 mls/hr AD PRN IV; Start 07/26/24 at 19:00; Stop 08/25/24 at 18:59 Magnesium Sulfate 50 ml @ 0 mls/hr PROTOCOL PRN IV; Start 07/26/24 at 19:00; Stop 08/25/24 at 18:59 Finasteride 5 mg DAILY PO Last administered on 07/28/24at 08:08; Start 07/27/24 at 09:00; Stop 08/26/24 at 08:59 Tamsulosin HCl 0.4 mg DAILY PO Last administered on 07/28/24at 08:08; Start 07/27/24 at 09:00; Stop 08/26/24 at 08:59 Propofol 200 mg STK-MED ONCE IV; Start 07/27/24 at 11:18; Stop 07/27/24 at 11:20; Status DC Lidocaine HCl 100 mg STK-MED ONCE .ROUTE; Start 07/27/24 at 11:18; Stop 07/27/24 at 11:20; Status DC Thiamine HCl 100 mg DAILY IVP Last administered on 07/28/24at 08:09; Start 07/28/24 at 09:00; Stop 08/27/24 at 08:59 Dexamethasone Sodium Phosphate 10 mg ONCE ONCE IV Last administered on 07/28/24at 14:21; Start 07/28/24 at 14:00; Stop 07/28/24 at 14:11; Status DC Ketorolac Tromethamine 15 mg Q6H PRN IV Last administered on 07/28/24at 14:21; Start 07/28/24 at 14:00; Stop 08/02/24 at 13:59 ITA SCHULER MD Jul 28, 2024 23:32
[2024-07-29] VITALS (7 sets, daily range): BP systolic 111–128; BP diastolic 67–75; PULSE 56–76; RESP 17–20; TEMP 97.9–98.4; O2SAT 100
[2024-07-29 05:02] LABS: MEAN CORPUSCULAR HEMOGLOBIN 32.4 pg (27.0-33.0); MEAN CORPUSCULAR HGB CONC 33.9 g/dL (32.0-36.0); MEAN CORPUSCULAR VOLUME 95.7 fL (79-99); NUCLEATED RED BLOOD CELLS 8.4 % (0.0-0.19); RED BLOOD CELL COUNT(AUTO) 1.88 MIL/uL (4.50-6.20); RED CELL DISTRIBUTION WIDTH 16.5 % (11.0-15.5); WHITE BLOOD COUNT (AUTO) 11.3 K/uL (4.8-10.8)
[2024-07-29 05:27] LABS: CREATININE 0.6 mg/dL (0.5-1.3); POTASSIUM 4.3 mmol/L (3.5-5.1)
--- NOTE | 2024-07-29 09:33 | PN ---
GASTROENTEROLOGY PROGRESS NOTE Date of Visit: Jul 29, 2024 Time of Visit: 09:33 Events / Notes: No acute events overnight. 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 Review of Systems: CONSTITUTIONAL: No malaise or change in sensation of wellbeing. ENMT: No rhinorrhea, otorrhea, sinus pain, ear ache. CARDIOVASCULAR: No angina, palpitations, orthopnea or paroxysmal dyspnea. RESPIRATORY: No SOB. GASTROINTESTINAL: No abdominal pain, nausea, vomiting, diarrhea, hematemesis, melena or change in the patient's habitual bowel movements consistency/number. GENITOURINARY: No dysuria, hematuria or change in bladder continence. MUSCULOSKELETAL: No new muscle pain or decrease in muscular strength. No new joint swelling, redness or tenderness. SKIN: No new rash. Physical Exam: GEN: Awake, alert, oriented in person, time and place, and in no acute distress. HEENT: No sinus tenderness. Tympanic membranes were not examined. No rhinorrhea. Oral pharyngeal mucosa is pink, moist and within normal limits. Neck is supple with no cervical lymphadenopathy, thyromegaly or JVD. CHEST: Inspection, palpation and percussion of the chest were unremarkable. Lung auscultation revealed normal breath sounds bilaterally. CARDIAC: PMI is within normal limits. Heart sounds are regular. Normal S1, S2. No gallop or murmur. ABD: Soft, non-tender and not distended. No peritoneal signs on palpation. No organomegaly. Normal bowel sounds. EXT: No cyanosis or clubbing. No edema. SKIN: Intact. No rashes. JOINTS: No evidence of synovitis or acute arthritis. NEURO: Alert and oriented to name, place and person. Cranial nerve examination is unremarkable. No focal motor deficits. Normal speech. Gait is normal. Strength is normal. Vital Signs (last 8hr) Date Time Temp Pulse Resp B/P (MAP) Pulse Ox O2 Delivery O2 Flow Rate FiO2 07/29/24 08:00 98.1 66 18 115/67 100 Room Air 07/29/24 04:00 98.4 69 20 120/70 100 Room Air Laboratory: [ ] Laboratory: Test 07/29/24 04:17 07/28/24 04:22 Range/Units White Blood Count 11.3 H 4.8-10.8 K/uL Red Blood Count 1.88 L 4.50-6.20 MIL/uL Hemoglobin 6.1 *L 14.0-18.0 g/dL Hematocrit 18.0 *L 42-54 % Mean Corpuscular Volume 95.7 79-99 fL Mean Corpuscular Hemoglobin 32.4 27.0-33.0 pg Mean Corpuscular Hemoglobin Concent 33.9 32.0-36.0 g/dL Red Cell Distribution Width 16.5 H 11.0-15.5 % Platelet Count 139 130-400 K/uL Mean Platelet Volume 10.9 H 7.5-10.5 fL Nucleated Red Blood Cells 8.4 H 0.0-0.19 % Sodium Level 136 136-145 mmol/L Potassium Level 4.3 3.5-5.1 mmol/L Chloride Level 103 101-111 mmol/L Carbon Dioxide Level 25 21-32 mmol/L Blood Urea Nitrogen 21 H 7-18 mg/dL Creatinine 0.6 0.5-1.3 mg/dL Glomerular Filtration Rate Calc 106 >90 mL/min Random Glucose 113 H 70-105 mg/dL Total Calcium 8.1 L 8.5-10.1 mg/dL Segmented Neutrophils % 52 40-70 % Band Neutrophils % 9 H 0-2 % Lymphocytes % (Manual) 25 22-44 % Monocytes % (Manual) 7 2-9 % Other Cells % 7 H 0-0 Differential Comment MANUAL DIFFERENTIAL White Cell Morphology Comment SMUDGE CELLS 1+ Platelet Morphology Comment See comments Red Blood Cell Morphology See comments Total Bilirubin 0.9 # 0.2-1.0 mg/dL Direct Bilirubin 0.4 H 0.0-0.3 mg/dL Aspartate Amino Transf (AST/SGOT) 65 H 10-37 U/L Alanine Aminotransferase (ALT/SGPT) 22 12-78 U/L Alkaline Phosphatase 1919 *H 50-136 U/L Total Protein 5.6 L 6.0-8.3 g/dL Albumin 3.1 L 3.5-5.0 g/dL Current Medications Medications (Trade) Dose Ordered Sig/Christie Route PRN Reason Start Time Stop Time Status Last Admin Dose Admin Acetaminophen (TYLenol 500MG TAB) 500 mg Q6H PRN PO MILD PAIN (1-3) 07/26/24 17:00 08/25/24 16:59 Finasteride (PROscar 5 MG TAB) 5 mg DAILY PO 07/27/24 09:00 08/26/24 08:59 07/29/24 08:17 5 MG Ketorolac Tromethamine (toRADol) 15 mg Q6H PRN IV MODERATE PAIN (4-6) 07/28/24 14:00 08/02/24 13:59 07/28/24 14:21 15 MG Magnesium Sulfate 50 ml @ 0 mls/hr PROTOCOL PRN IV hypomagnesemia 07/26/24 19:00 08/25/24 18:59 Morphine Sulfate (morPHINE 2MG SYG) 2 mg Q6H PRN IVP SEVERE PAIN (7-10) 07/26/24 18:30 08/02/24 18:29 07/29/24 05:58 2 MG Ondansetron HCl (zoFRAN 4MG INJ) 4 mg Q6H PRN IVP NAUSEA/VOMITING 07/26/24 17:00 08/25/24 16:59 07/29/24 05:58 4 MG Pantoprazole Sodium (PROTonix 40MG INJ) 40 mg Q12H IVP 07/26/24 17:00 08/25/24 16:59 07/29/24 05:51 40 MG Potassium Chloride 100 ml @ 50 mls/hr AD PRN IV POTASSIUM PROTOCOL 07/26/24 19:00 08/25/24 18:59 Sodium Chloride 1,000 ml @ 100 mls/hr Q10H IV 07/26/24 17:00 08/25/24 16:59 07/29/24 08:17 100 MLS/HR Tamsulosin HCl (FloMAX) 0.4 mg DAILY PO 07/27/24 09:00 08/26/24 08:59 07/29/24 08:17 0.4 MG Thiamine HCl (Vitamin B-1) 100 mg DAILY IVP 07/28/24 09:00 08/27/24 08:59 07/29/24 08:17 100 MG Diagnostics / Radiology: [COPY/PASTE HERE IF NO REPORTS PLEASE DELETE SECTION] Assessment: Gastric mass N/V Weight loss Abnormal LFTs Plan: CT chest/abd/pelvis Surgery and oncology eval Await path Colonoscopy not warranted at this time as source of anemia/bleed identified Continue GI prophylaxis Avoid NSAIDs Antireflux measures Monitor H&H and transfuse as needed Call with questions, concerns or change in clinical status Patient to follow-up at clinic post discharge Thank you for this consult [facility] Jul 29, 2024 09:33
--- NOTE | 2024-07-29 09:55 | PN ---
This is a 69-year-old male with concerns of right inguinal hernia which has reduced with newly diagnosed metastatic bone disease Interval history This 69-year-old male seen in his room resting Patient is currently receiving transfusion after hemoglobin is 6.1 noted today Patient tolerating diet No groin or inguinal discomfort reported Known hernia currently reduced From surgical standpoint patient to continue with current medical management Plan will be for outpatient evaluation and scheduling for hernia repair once appropriate workup for newly diagnosed metastatic bone disease Doctor Rae to be updated on patient's status Surgical team to follow patient closely Nursing to keep Surgical team updated with any acute events Vitals/Labs Vital Signs Date Time Temp Pulse Resp B/P (MAP) Pulse Ox O2 Delivery O2 Flow Rate FiO2 07/29/24 08:00 98.1 66 18 115/67 100 Room Air 07/28/24 20:00 0 21 Laboratory Tests 07/29/24 04:17 Medications Current Medications Sodium Chloride 1,000 ml @ 0 mls/hr ONCE ONCE IV Last administered on 07/26/24at 13:56; Start 07/26/24 at 12:00; Stop 07/26/24 at 12:01; Status DC Morphine Sulfate 4 mg ONCE ONCE IM Last administered on 07/26/24at 13:56; Start 07/26/24 at 13:30; Stop 07/26/24 at 13:31; Status DC Ondansetron HCl 4 mg ONCE ONCE IVP Last administered on 07/26/24at 13:56; Start 07/26/24 at 14:00; Stop 07/26/24 at 14:01; Status DC Iohexol 75 ml STK-MED ONCE IV; Start 07/26/24 at 14:09; Stop 07/26/24 at 14:10; Status DC Ondansetron HCl 4 mg Q6H PRN IVP Last administered on 07/29/24at 05:58; Start 07/26/24 at 17:00; Stop 08/25/24 at 16:59 Pantoprazole Sodium 40 mg Q12H IVP Last administered on 07/29/24at 05:51; Start 07/26/24 at 17:00; Stop 08/25/24 at 16:59 Sodium Chloride 1,000 ml @ 100 mls/hr Q10H IV Last administered on 07/29/24at 08:17; Start 07/26/24 at 17:00; Stop 08/25/24 at 16:59 Acetaminophen 500 mg Q6H PRN PO; Start 07/26/24 at 17:00; Stop 08/25/24 at 16:59 Polyethylene Glycol/ Electrolytes 4,000 ml ONCE ONCE PO Last administered on 07/26/24at 18:46; Start 07/26/24 at 17:00; Stop 07/26/24 at 17:06; Status DC Morphine Sulfate 2 mg Q6H PRN IVP Last administered on 07/29/24at 05:58; Start 07/26/24 at 18:30; Stop 08/02/24 at 18:29 Potassium Chloride 100 ml @ 50 mls/hr AD PRN IV; Start 07/26/24 at 19:00; Stop 08/25/24 at 18:59 Magnesium Sulfate 50 ml @ 0 mls/hr PROTOCOL PRN IV; Start 07/26/24 at 19:00; Stop 08/25/24 at 18:59 Finasteride 5 mg DAILY PO Last administered on 07/29/24at 08:17; Start 07/27/24 at 09:00; Stop 08/26/24 at 08:59 Tamsulosin HCl 0.4 mg DAILY PO Last administered on 07/29/24at 08:17; Start 07/27/24 at 09:00; Stop 08/26/24 at 08:59 Propofol 200 mg STK-MED ONCE IV; Start 07/27/24 at 11:18; Stop 07/27/24 at 11:20; Status DC Lidocaine HCl 100 mg STK-MED ONCE .ROUTE; Start 07/27/24 at 11:18; Stop 07/27/24 at 11:20; Status DC Thiamine HCl 100 mg DAILY IVP Last administered on 07/29/24at 08:17; Start 07/28/24 at 09:00; Stop 08/27/24 at 08:59 Dexamethasone Sodium Phosphate 10 mg ONCE ONCE IV Last administered on 07/28/24at 14:21; Start 07/28/24 at 14:00; Stop 07/28/24 at 14:11; Status DC Ketorolac Tromethamine 15 mg Q6H PRN IV Last administered on 07/28/24at 14:21; Start 07/28/24 at 14:00; Stop 08/02/24 at 13:59 SHANKAR MENA Jr. PA Jul 29, 2024 09:55
[2024-07-29 14:21] LABS: HEMATOCRIT 22.2 % (42-54)
--- NOTE | 2024-07-29 15:58 | PN ---
69-year-old male with no known past medical history presents with a 2-month history of recurrent nausea and vomiting associated with early satiety and intolerance to solid foods. The patient reports consuming mainly jello and liquids during this period. He describes progressive unintentional weight loss of approximately 40�50 pounds over the same duration. He endorses episodes of black-colored stools but denies hematemesis or hematochezia. He also reports inconsistent bowel habits with alternating constipation. He has not sought prior medical attention for these symptoms and has not undergone any cancer screening. He denies chest pain, shortness of breath, cough, fever, chills, dysuria, hematuria, or any neurologic symptoms such as syncope or seizures. No family history is provided. He has a known history of right inguinal hernia without pain or incarceration. He reports mild symptoms in the inguinal area when ambulatory. Initial imaging revealed right inguinal hernia (non-incarcerated), heterogeneously enlarged prostate, and gallbladder sludge without signs of cholecystitis. Lab findings reveal normocytic anemia (Hgb trending down from 9.0 to 8.4), elevated alkaline phosphatase (2061), AST (73), total bilirubin (1.3), and markedly elevated GGT (185), raising concern for possible underlying hepatobiliary pathology or metastatic disease. UA showed proteinuria, hematuria, and urobilinogen, suggestive of possible renal or hepatic involvement. The patient has not been on any medications prior to admission and is currently on acetaminophen, morphine, pantoprazole, ondansetron, and IV fluids. GI consultation was obtained and EGD with colonoscopy is planned. Given the rapid weight loss, persistent GI symptoms, and significant laboratory abnormalities, PE GENERAL: No acute respiratory distress. VITAL SIGNS: Reviewed and stable. HEENT: The sclerae are clear. The pupils are equal and reactive to light. The oropharyngeal cavity is within normal limits. NECK: Supple without lymphadenopathy. CHEST: Lung is clear bilaterally there is no wheezing or crackles. HEART: Sounds are regular and rhythmic. ABDOMEN: No guarding or rigidity. Bowel sounds positive. EXTREMITIES: No pitting edema. No petechial lesions or bruises. SKIN: No bruises, rash, or petechial lesions. NEUROLOGICAL: The patient is alert and oriented. No focal deficits. Muscle strength is 5/5. LYMPH NODES: There is no lymphadenopathy could be felt in the neck, supraclavicular, or axillary. Assessment 1. Bone scan showing multiple lesion to the bone consistent with metastatic disease 2. Severe pain 3. Anemia. Patient with severe anemia with hemoglobin level 6.1 mg/deciliter. With the patient receiving blood transfusion 4. Weight loss Plan 1. Patient to receive Toradol 15 mg every 6 hours as needed. This patient also to receive dexamethasone 10 mg for his dose of Toradol. 2. I have long discussion with the patient regarding the plan of care. I answer all question and concern and I spent more than 35 minutes. I explained to the patient that the result of the bone scan which showing multiple lesion to the bone. Patient looks like she have stage IV metastatic disease to the bone but we do not know the origin. PSA was within normal. 3. EGD was done which showed maybe thickness in the gastroesophageal junction. Biopsy was done. I will follow-up with the results closely. 4. This patient with anemia with the hemoglobin is dropping. This patient was seen by GI. This patient will need EGD and colonoscopy. 5. We ask for SPEP UPEP and free light chain. We will follow-up with the result if there is monoclonal protein we will do bone marrow biopsy 6. Patient with severe anemia with the patient look like bleeding. That is why this patient may be will need colonoscopy. Patient to receive 1 unit of packed red blood cell after type cross and match. Premedication with dexamethasone 10 mg and Benadryl 25 mg Vitals/Labs Vital Signs Date Time Temp Pulse Resp B/P (MAP) Pulse Ox O2 Delivery O2 Flow Rate FiO2 07/29/24 12:00 98.1 67 17 111/69 100 Room Air 07/28/24 20:00 0 21 Laboratory Tests 07/29/24 04:17 07/29/24 14:12 Medications Current Medications Sodium Chloride 1,000 ml @ 0 mls/hr ONCE ONCE IV Last administered on 07/26/24at 13:56; Start 07/26/24 at 12:00; Stop 07/26/24 at 12:01; Status DC Morphine Sulfate 4 mg ONCE ONCE IM Last administered on 07/26/24at 13:56; Start 07/26/24 at 13:30; Stop 07/26/24 at 13:31; Status DC Ondansetron HCl 4 mg ONCE ONCE IVP Last administered on 07/26/24at 13:56; Start 07/26/24 at 14:00; Stop 07/26/24 at 14:01; Status DC Iohexol 75 ml STK-MED ONCE IV; Start 07/26/24 at 14:09; Stop 07/26/24 at 14:10; Status DC Ondansetron HCl 4 mg Q6H PRN IVP Last administered on 07/29/24at 14:20; Start 07/26/24 at 17:00; Stop 08/25/24 at 16:59 Pantoprazole Sodium 40 mg Q12H IVP Last administered on 07/29/24at 05:51; Start 07/26/24 at 17:00; Stop 08/25/24 at 16:59 Sodium Chloride 1,000 ml @ 100 mls/hr Q10H IV Last administered on 07/29/24at 08:17; Start 07/26/24 at 17:00; Stop 08/25/24 at 16:59 Acetaminophen 500 mg Q6H PRN PO; Start 07/26/24 at 17:00; Stop 08/25/24 at 16:59 Polyethylene Glycol/ Electrolytes 4,000 ml ONCE ONCE PO Last administered on 07/26/24at 18:46; Start 07/26/24 at 17:00; Stop 07/26/24 at 17:06; Status DC Morphine Sulfate 2 mg Q6H PRN IVP Last administered on 07/29/24at 14:20; Start 07/26/24 at 18:30; Stop 08/02/24 at 18:29 Potassium Chloride 100 ml @ 50 mls/hr AD PRN IV; Start 07/26/24 at 19:00; Stop 08/25/24 at 18:59 Magnesium Sulfate 50 ml @ 0 mls/hr PROTOCOL PRN IV; Start 07/26/24 at 19:00; Stop 08/25/24 at 18:59 Finasteride 5 mg DAILY PO Last administered on 07/29/24at 08:17; Start 07/27/24 at 09:00; Stop 08/26/24 at 08:59 Tamsulosin HCl 0.4 mg DAILY PO Last administered on 07/29/24at 08:17; Start 07/27/24 at 09:00; Stop 08/26/24 at 08:59 Propofol 200 mg STK-MED ONCE IV; Start 07/27/24 at 11:18; Stop 07/27/24 at 11:20; Status DC Lidocaine HCl 100 mg STK-MED ONCE .ROUTE; Start 07/27/24 at 11:18; Stop 07/27/24 at 11:20; Status DC Thiamine HCl 100 mg DAILY IVP Last administered on 07/29/24at 08:17; Start 07/28/24 at 09:00; Stop 08/27/24 at 08:59 Dexamethasone Sodium Phosphate 10 mg ONCE ONCE IV Last administered on 07/28/24at 14:21; Start 07/28/24 at 14:00; Stop 07/28/24 at 14:11; Status DC Ketorolac Tromethamine 15 mg Q6H PRN IV Last administered on 07/28/24at 14:21; Start 07/28/24 at 14:00; Stop 08/02/24 at 13:59 ITA SCHULER MD Jul 29, 2024 15:58
--- NOTE | 2024-07-29 16:19 | PN ---
[facility] PROGRESS NOTE Date of Service: Jul 29, 2024 Time of Service: 16:17 SUBJECTIVE: [69-year-old male who was admitted due to generalized weakness, decreased appetite with for a to 50 lb weight loss. Labs reviewed today Na 135, Cl 100, CO2 20, BUN 22, iron 209,% sat 83.2, total bili 1.3, GGT 185, AST 73, alkaline phosphatase 2061, CRP 23.7. S/p GI endoscopy-result showed large gastric mass. We will continue to follow GI rec's. Dr. Lockett on board who recommended bone scan which showed malignant skeletal disease. He is recommended orthopedic consult, we will continue to follow. 07/29/24 Patient seen and examined. Reports pain is reasonably controlled, Awaiting biopsy results REVIEW OF SYSTEMS CONSTITUTIONAL: Denies fevers, chills, or night sweats. Positive for unintentional weight loss NEUROLOGICAL: Denies headache, amaurosis fugax, motor weakness, sensory deficit, vertigo/spinning sensation, gait abnormalities, or tremors. ENT: No hearing loss, otalgia, otorrhea, rhinitis, rhinorrhea, hoarseness, or sore throat. CARDIOVASCULAR: Denies any exertional angina, dyspnea on exertion, orthopnea, paroxysmal nocturnal dyspnea, palpitations, life-threatening arrhythmias, claudication. PULMONARY: Denies any shortness of breath, cough, phlegm/sputum, hemoptysis, pleuritic chest pain. GASTROINTESTINAL: Positive for nausea, vomiting, black stools. Denied any hematochezia, hematemesis GENITOURINARY: Denies frequency, urgency, nocturia, hematuria or incontinence (Storage/Irritative symptoms.) Low urinary stream, straining to void, urinary intermittency or hesitancy, splitting of the voiding stream, terminal dribbling. ENDOCRINOLOGIC: Denies polyuria, polydipsia, polyphagia or heat/cold i ntolerances. HEMATOLOGIC: Denies thrombophilia/previous clots, or coagulopathy/bleeding disorders. ONCOLOGIC: Denies personal history of malignancy. DERMATOLOGIC: Denies rashes or pruritus. PSYCHIATRIC: Denies any suicidal or homicidal ideation. Denies hallucinations. PHYSICAL EXAM GENERAL APPEARANCE: The patient is awake, alert, and oriented, in no acute cardiopulmonary distress. NEUROLOGICAL: Cranial nerves II-XII grossly intact. Motor is 5/5 in bilateral upper and lower extremities proximal to distal. No sensory deficits. HEENT: Face is symmetric. Pupils are equal and reactive. Extraocular movements are intact. NECK: Supple. No JVD. No thyromegaly. No submental, submandibular, pre- /postauricular, occipital or supraclavicular lymphadenopathy. CHEST: Normal chest expansion. No Telemetry. LUNGS: Absence of any rales, rhonchi or any wheezing. CARDIOVASCULAR: Regular. S1 and S2 normal. No appreciable rubs, murmurs or gallops. ABDOMEN: Soft, nontender, and nondistended. Patient has a right inguinal hernia. There is no erythema around the inguinal area. No tenderness to palpation. : Deferred. No Diaz. EXTREMITIES: Non-edematous and not cyanotic. No clubbing. Good capillary refill. SKIN: No skin breakdown. Vital Signs (last 8hr) Date Time Temp Pulse Resp B/P (MAP) Pulse Ox O2 Delivery O2 Flow Rate FiO2 07/29/24 12:00 98.1 67 17 111/69 100 Room Air LABS: Laboratory: Test 07/29/24 14:12 07/29/24 04:17 07/28/24 04:22 Range/Units Hemoglobin 7.5 #L 14.0-18.0 g/dL Hematocrit 22.2 #L 42-54 % White Blood Count 11.3 H 4.8-10.8 K/uL Red Blood Count 1.88 L 4.50-6.20 MIL/uL Mean Corpuscular Volume 95.7 79-99 fL Mean Corpuscular Hemoglobin 32.4 27.0-33.0 pg Mean Corpuscular Hemoglobin Concent 33.9 32.0-36.0 g/dL Red Cell Distribution Width 16.5 H 11.0-15.5 % Platelet Count 139 130-400 K/uL Mean Platelet Volume 10.9 H 7.5-10.5 fL Nucleated Red Blood Cells 8.4 H 0.0-0.19 % Sodium Level 136 136-145 mmol/L Potassium Level 4.3 3.5-5.1 mmol/L Chloride Level 103 101-111 mmol/L Carbon Dioxide Level 25 21-32 mmol/L Blood Urea Nitrogen 21 H 7-18 mg/dL Creatinine 0.6 0.5-1.3 mg/dL Glomerular Filtration Rate Calc 106 >90 mL/min Random Glucose 113 H 70-105 mg/dL Total Calcium 8.1 L 8.5-10.1 mg/dL Segmented Neutrophils % 52 40-70 % Band Neutrophils % 9 H 0-2 % Lymphocytes % (Manual) 25 22-44 % Monocytes % (Manual) 7 2-9 % Other Cells % 7 H 0-0 Differential Comment MANUAL DIFFERENTIAL White Cell Morphology Comment SMUDGE CELLS 1+ Platelet Morphology Comment See comments Red Blood Cell Morphology See comments Total Bilirubin 0.9 # 0.2-1.0 mg/dL Direct Bilirubin 0.4 H 0.0-0.3 mg/dL Aspartate Amino Transf (AST/SGOT) 65 H 10-37 U/L Alanine Aminotransferase (ALT/SGPT) 22 12-78 U/L Alkaline Phosphatase 1919 *H 50-136 U/L Total Protein 5.6 L 6.0-8.3 g/dL Albumin 3.1 L 3.5-5.0 g/dL Current Medications Medications (Trade) Dose Ordered Sig/Christie Route PRN Reason Start Time Stop Time Status Last Admin Dose Admin Acetaminophen (TYLenol 500MG TAB) 500 mg Q6H PRN PO MILD PAIN (1-3) 07/26/24 17:00 08/25/24 16:59 Finasteride (PROscar 5 MG TAB) 5 mg DAILY PO 07/27/24 09:00 08/26/24 08:59 07/29/24 08:17 5 MG Ketorolac Tromethamine (toRADol) 15 mg Q6H PRN IV MODERATE PAIN (4-6) 07/28/24 14:00 08/02/24 13:59 07/28/24 14:21 15 MG Magnesium Sulfate 50 ml @ 0 mls/hr PROTOCOL PRN IV hypomagnesemia 07/26/24 19:00 08/25/24 18:59 Morphine Sulfate (morPHINE 2MG SYG) 2 mg Q6H PRN IVP SEVERE PAIN (7-10) 07/26/24 18:30 08/02/24 18:29 07/29/24 14:20 2 MG Ondansetron HCl (zoFRAN 4MG INJ) 4 mg Q6H PRN IVP NAUSEA/VOMITING 07/26/24 17:00 08/25/24 16:59 07/29/24 14:20 4 MG Pantoprazole Sodium (PROTonix 40MG INJ) 40 mg Q12H IVP 07/26/24 17:00 08/25/24 16:59 07/29/24 05:51 40 MG Potassium Chloride 100 ml @ 50 mls/hr AD PRN IV POTASSIUM PROTOCOL 07/26/24 19:00 08/25/24 18:59 Sodium Chloride 1,000 ml @ 100 mls/hr Q10H IV 07/26/24 17:00 08/25/24 16:59 07/29/24 08:17 100 MLS/HR Tamsulosin HCl (FloMAX) 0.4 mg DAILY PO 07/27/24 09:00 08/26/24 08:59 07/29/24 08:17 0.4 MG Thiamine HCl (Vitamin B-1) 100 mg DAILY IVP 07/28/24 09:00 08/27/24 08:59 07/29/24 08:17 100 MG DIAGNOSTICS / RADIOLOGY: [ ] ASSESSMENT: Suspicious for metastatic skeletal disease by bone scan, POA 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, 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, by upper GI endoscopy done on 07/28/2024 Gastritis per upper GI endoscopy done on 07/28/2024 Recurrent nausea and vomiting POA Unintentional weight loss of around 40-50 lb with concern for underlying malignancy Elevated alk-phos differential secondary to bone Mets versus underlying liver etiology Mild LFT elevation Right inguinal hernia Normocytic anemia Suspected melena BPH Severe protein caloric malnutrition, POA PLAN: Patient will continued to be admitted in the medical surgical floor We will continue to monitor patient and follow recommendations from Oncology and Gastroenterology Status post upper endoscopy Patient will be on clear liquid diet Continue with pain management Continue with supportive care GI and DVT prophylaxis We will repeat labs tomorrow Orthopedic surgeon consulted per oncology recommendation Case was seen and examined with Dr. Bean above plan was formulated JOSÉ MIGUEL CAMEJO MD Jul 29, 2024 16:18
[2024-07-30] VITALS (9 sets, daily range): BP systolic 106–138; BP diastolic 44–76; PULSE 56–98; RESP 16–19; TEMP 97.9–98.3; O2SAT 99–100
[2024-07-30 05:43] LABS: HEMATOCRIT 21.4 % (42-54); MEAN CORPUSCULAR HEMOGLOBIN 31.3 pg (27.0-33.0); MEAN CORPUSCULAR HGB CONC 33.6 g/dL (32.0-36.0); NUCLEATED RED BLOOD CELLS 13.2 % (0.0-0.19); RED BLOOD CELL COUNT(AUTO) 2.3 MIL/uL (4.50-6.20); RED CELL DISTRIBUTION WIDTH 18.3 % (11.0-15.5); WHITE BLOOD COUNT (AUTO) 8.4 K/uL (4.8-10.8)
--- NOTE | 2024-07-30 13:32 | PN ---
[facility] PROGRESS NOTE Date of Service: Jul 30, 2024 Time of Service: 13:27 SUBJECTIVE: [69-year-old male who was admitted due to generalized weakness, decreased appetite with for a to 50 lb weight loss. Labs reviewed today Na 135, Cl 100, CO2 20, BUN 22, iron 209,% sat 83.2, total bili 1.3, GGT 185, AST 73, alkaline phosphatase 2061, CRP 23.7. S/p GI endoscopy-result showed large gastric mass. We will continue to follow GI rec's. Dr. Lockett on board who recommended bone scan which showed malignant skeletal disease. He is recommended orthopedic consult, we will continue to follow. 07/29/24 Patient seen and examined. Reports pain is reasonably controlled, Awaiting biopsy results 07/30/24 Patient was seen and examined in the room, he was lying in bed, denies any pain. Oncology is recommending REVIEW OF SYSTEMS CONSTITUTIONAL: Denies fevers, chills, or night sweats. Positive for unintentional weight loss NEUROLOGICAL: Denies headache, amaurosis fugax, motor weakness, sensory deficit, vertigo/spinning sensation, gait abnormalities, or tremors. ENT: No hearing loss, otalgia, otorrhea, rhinitis, rhinorrhea, hoarseness, or sore throat. CARDIOVASCULAR: Denies any exertional angina, dyspnea on exertion, orthopnea, paroxysmal nocturnal dyspnea, palpitations, life-threatening arrhythmias, claudication. PULMONARY: Denies any shortness of breath, cough, phlegm/sputum, hemoptysis, pleuritic chest pain. GASTROINTESTINAL: Positive for nausea, vomiting, black stools. Denied any hematochezia, hematemesis GENITOURINARY: Denies frequency, urgency, nocturia, hematuria or incontinence (Storage/Irritative symptoms.) Low urinary stream, straining to void, urinary intermittency or hesitancy, splitting of the voiding stream, terminal dribbling. ENDOCRINOLOGIC: Denies polyuria, polydipsia, polyphagia or heat/cold intolerances. HEMATOLOGIC: Denies thrombophilia/previous clots, or coagulopathy/bleeding disorders. ONCOLOGIC: Denies personal history of malignancy. DERMATOLOGIC: Denies rashes or pruritus. PSYCHIATRIC: Denies any suicidal or homicidal ideation. Denies hallucinations. PHYSICAL EXAM GENERAL APPEARANCE: The patient is awake, alert, and oriented, in no acute ca rdiopulmonary distress. NEUROLOGICAL: Cranial nerves II-XII grossly intact. Motor is 5/5 in bilateral upper and lower extremities proximal to distal. No sensory deficits. HEENT: Face is symmetric. Pupils are equal and reactive. Extraocular movements are intact. NECK: Supple. No JVD. No thyromegaly. No submental, submandibular, pre- /postauricular, occipital or supraclavicular lymphadenopathy. CHEST: Normal chest expansion. No Telemetry. LUNGS: Absence of any rales, rhonchi or any wheezing. CARDIOVASCULAR: Regular. S1 and S2 normal. No appreciable rubs, murmurs or gallops. ABDOMEN: Soft, nontender, and nondistended. Patient has a right inguinal hernia. There is no erythema around the inguinal area. No tenderness to palpation. : Deferred. No Diaz. EXTREMITIES: Non-edematous and not cyanotic. No clubbing. Good capillary refill. SKIN: No skin breakdown. Vital Signs (last 8hr) Date Time Temp Pulse Resp B/P (MAP) Pulse Ox O2 Delivery O2 Flow Rate FiO2 07/30/24 09:35 100 Room Air* 0 21 07/30/24 07:47 98.2 64 16 106/44 100 Room Air LABS: Laboratory: Test 07/30/24 05:02 07/29/24 04:17 Range/Units White Blood Count 8.4 4.8-10.8 K/uL Red Blood Count 2.30 L 4.50-6.20 MIL/uL Hemoglobin 7.2 L 14.0-18.0 g/dL Hematocrit 21.4 L 42-54 % Mean Corpuscular Volume 93.0 79-99 fL Mean Corpuscular Hemoglobin 31.3 27.0-33.0 pg Mean Corpuscular Hemoglobin Concent 33.6 32.0-36.0 g/dL Red Cell Distribution Width 18.3 H 11.0-15.5 % Platelet Count 102 #L 130-400 K/uL Mean Platelet Volume 10.7 H 7.5-10.5 fL Nucleated Red Blood Cells 13.2 H 0.0-0.19 % Sodium Level 136 136-145 mmol/L Potassium Level 4.3 3.5-5.1 mmol/L Chloride Level 103 101-111 mmol/L Carbon Dioxide Level 25 21-32 mmol/L Blood Urea Nitrogen 21 H 7-18 mg/dL Creatinine 0.6 0.5-1.3 mg/dL Glomerular Filtration Rate Calc 106 >90 mL/min Random Glucose 113 H 70-105 mg/dL Total Calcium 8.1 L 8.5-10.1 mg/dL Current Medications Medications (Trade) Dose Ordered Sig/Christie Route PRN Reason Start Time Stop Time Status Last Admin Dose Admin Acetaminophen (TYLenol 500MG TAB) 500 mg Q6H PRN PO MILD PAIN (1-3) 07/26/24 17:00 08/25/24 16:59 Finasteride (PROscar 5 MG TAB) 5 mg DAILY PO 07/27/24 09:00 08/26/24 08:59 07/30/24 09:33 5 MG Ketorolac Tromethamine (toRADol) 15 mg Q6H PRN IV MODERATE PAIN (4-6) 07/28/24 14:00 08/02/24 13:59 07/30/24 10:17 15 MG Magnesium Sulfate 50 ml @ 0 mls/hr PROTOCOL PRN IV hypomagnesemia 07/26/24 19:00 08/25/24 18:59 Morphine Sulfate (morPHINE 2MG SYG) 2 mg Q6H PRN IVP SEVERE PAIN (7-10) 07/26/24 18:30 08/02/24 18:29 07/30/24 05:20 2 MG Ondansetron HCl (zoFRAN 4MG INJ) 4 mg Q6H PRN IVP NAUSEA/VOMITING 07/26/24 17:00 08/25/24 16:59 07/30/24 05:19 4 MG Pantoprazole Sodium (PROTonix 40MG INJ) 40 mg Q12H IVP 07/26/24 17:00 08/25/24 16:59 07/30/24 05:19 40 MG Potassium Chloride 100 ml @ 50 mls/hr AD PRN IV POTASSIUM PROTOCOL 07/26/24 19:00 08/25/24 18:59 Sodium Chloride 1,000 ml @ 100 mls/hr Q10H IV 07/26/24 17:00 08/25/24 16:59 07/30/24 10:18 100 MLS/HR Tamsulosin HCl (FloMAX) 0.4 mg DAILY PO 07/27/24 09:00 08/26/24 08:59 07/30/24 09:33 0.4 MG Thiamine HCl (Vitamin B-1) 100 mg DAILY IVP 07/28/24 09:00 08/27/24 08:59 07/30/24 09:34 100 MG DIAGNOSTICS / RADIOLOGY: [ ] ASSESSMENT: Suspicious for metastatic skeletal disease by bone scan, POA R/o multiple myeloma 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, 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, by upper GI endoscopy done on 07/28/2024 Gastritis per upper GI endoscopy done on 07/28/2024 Recurrent nausea and vomiting POA Unintentional weight loss of around 40-50 lb with concern for underlying malignancy Elevated alk-phos differential secondary to bone Mets versus underlying liver etiology Mild LFT elevation Right inguinal hernia Normocytic anemia Suspected melena BPH Severe protein caloric malnutrition, POA PLAN: Patient will continued to be admitted in the medical surgical floor We will continue to monitor patient and follow recommendations from Oncology and Gastroenterology Status post upper endoscopy Patient will be on clear liquid diet Oncology recommending SPEP UPEP and free light chain. We will follow-up with the result if there is monoclonal protein we will do bone marrow biopsy Continue with pain management Continue with supportive care GI and DVT prophylaxis We will repeat labs tomorrow Orthopedic surgeon consulted per oncology recommendation Case was seen and examined with Dr. Bean, above plan was formulated ATTESTATION BY PHYSICIAN I have seen and examined the patient. I reviewed the documentation, medical decision making, and treatment plan as noted by the mid-level provider above. I agree with the findings and plan of care. Amy Siu MD, [facility] Jul 30, 2024 13:32
[2024-07-31] VITALS (8 sets, daily range): BP systolic 130–168; BP diastolic 59–91; PULSE 51–85; RESP 16–20; TEMP 98.2–98.5; O2SAT 70–98
[2024-07-31 00:11] LABS: ALKALINE PHOSPHATASE - OTHER 6 % (0-18)
--- NOTE | 2024-07-31 09:12 | PN ---
[facility] PROGRESS NOTE Date of Service: Jul 31, 2024 Time of Service: 09:07 SUBJECTIVE: [69-year-old male who was admitted due to generalized weakness, decreased appetite with for a to 50 lb weight loss. Labs reviewed today Na 135, Cl 100, CO2 20, BUN 22, iron 209,% sat 83.2, total bili 1.3, GGT 185, AST 73, alkaline phosphatase 2061, CRP 23.7. S/p GI endoscopy-result showed large gastric mass. We will continue to follow GI rec's. Dr. Lockett on board who recommended bone scan which showed malignant skeletal disease. He is recommended orthopedic consult, we will continue to follow. 07/29/24 Patient seen and examined. Reports pain is reasonably controlled, Awaiting biopsy results 07/30/24 Patient was seen and examined in the room, he was lying in bed, denies any pain. Oncology is recommending SPSP UPEP and free light, if monocolonal protein noted, bone marrow bx recommended, as of today no result. We will follow up with Oncologist on further recommendation. 08/01/27 The patient is still mostly bedbound. Patient continues to feel lethargic. His H&H is 6.3/18.4. We will type and cross and transfuse one unit of PRBC, we will repeat H and H once transfuse. We will continue to monitor labs and replace electrolytes as needed. REVIEW OF SYSTEMS CONSTITUTIONAL: Denies fevers, chills, or night sweats. Positive for unintentional weight loss NEUROLOGICAL: Denies headache, amaurosis fugax, motor weakness, sensory deficit, vertigo/spinning sensation, gait abnormalities, or tremors. ENT: No hearing loss, otalgia, otorrhea, rhinitis, rhinorrhea, hoarseness, or sore throat. CARDIOVASCULAR: Denies any exertional angina, dyspnea on exertion, orthopnea, paroxysmal nocturnal dyspnea, palpitations, life-threatening arrhythmias, claudication. PULMONARY: Denies any shortness of breath, cough, phlegm/sputum, hemoptysis, pleuritic chest pain. GASTROINTESTINAL: Positive for nausea, vomiting, black stools. Denied any hematochezia, hematemesis GENITOURINARY: Denies frequency, urgency, nocturia, hematuria or incontinence (Storage/Irritative symptoms.) Low urinary stream, straining to void, urinary intermittency or hesitancy, splitting of the voiding stream, terminal dribbling. ENDOCRINOLOGIC: Denies polyuria, polydipsia, polyphagia or heat/cold intolerances. HEMATOLOGIC: Denies thrombophilia/previous clots, or coagulopathy/bleeding disorders. ONCOLOGIC: Denies personal history of malignancy. DERMATOLOGIC: Denies rashes or pruritus. PSYCHIATRIC: Denies any suicidal or homicidal ideation. Denies hallucinations. PHYSICAL EXAM GENERAL APPEARANCE: The patient is awake, alert, and oriented, in no acute cardiopulmonary distress. NEUROLOGICAL: Cranial nerves II-XII grossly intact. Motor is 5/5 in bilateral upper and lower extremities proximal to distal. No sensory deficits. HEENT: Face is symmetric. Pupils are equal and reactive. Extraocular movements are intact. NECK: Supple. No JVD. No thyromegaly. No submental, submandibular, pre- /postauricular, occipital or supraclavicular lymphadenopathy. CHEST: Normal chest expansion. No Telemetry. LUNGS: Absence of any rales, rhonchi or any wheezing. CARDIOVASCULAR: Regular. S1 and S2 normal. No appreciable rubs, murmurs or gallops. ABDOMEN: Soft, nontender, and nondistended. Patient has a right inguinal hernia. There is no erythema around the inguinal area. No tenderness to palpation. : Deferred. No Diaz. EXTREMITIES: Non-edematous and not cyanotic. No clubbing. Good capillary refill. SKIN: No skin breakdown. Vital Signs (last 8hr) Date Time Temp Pulse Resp B/P (MAP) Pulse Ox O2 Delivery O2 Flow Rate FiO2 07/31/24 08:00 98.4 70 18 143/77 99 Room Air 07/31/24 03:40 98.2 51 20 132/59 96 Room Air LABS: Laboratory: Test 07/30/24 05:02 Range/Units White Blood Count 8.4 4.8-10.8 K/uL Red Blood Count 2.30 L 4.50-6.20 MIL/uL Hemoglobin 7.2 L 14.0-18.0 g/dL Hematocrit 21.4 L 42-54 % Mean Corpuscular Volume 93.0 79-99 fL Mean Corpuscular Hemoglobin 31.3 27.0-33.0 pg Mean Corpuscular Hemoglobin Concent 33.6 32.0-36.0 g/dL Red Cell Distribution Width 18.3 H 11.0-15.5 % Platelet Count 102 #L 130-400 K/uL Mean Platelet Volume 10.7 H 7.5-10.5 fL Nucleated Red Blood Cells 13.2 H 0.0-0.19 % Current Medications Medications (Trade) Dose Ordered Sig/Christie Route PRN Reason Start Time Stop Time Status Last Admin Dose Admin Acetaminophen (TYLenol 500MG TAB) 500 mg Q6H PRN PO MILD PAIN (1-3) 07/26/24 17:00 08/25/24 16:59 Finasteride (PROscar 5 MG TAB) 5 mg DAILY PO 07/27/24 09:00 08/26/24 08:59 07/31/24 08:50 5 MG Ketorolac Tromethamine (toRADol) 15 mg Q6H PRN IV MODERATE PAIN (4-6) 07/28/24 14:00 08/02/24 13:59 07/30/24 20:44 15 MG Magnesium Sulfate 50 ml @ 0 mls/hr PROTOCOL PRN IV hypomagnesemia 07/26/24 19:00 08/25/24 18:59 Morphine Sulfate (morPHINE 2MG SYG) 2 mg Q6H PRN IVP SEVERE PAIN (7-10) 07/26/24 18:30 08/02/24 18:29 07/31/24 06:01 2 MG Ondansetron HCl (zoFRAN 4MG INJ) 4 mg Q6H PRN IVP NAUSEA/VOMITING 07/26/24 17:00 08/25/24 16:59 07/30/24 05:19 4 MG Pantoprazole Sodium (PROTonix 40MG INJ) 40 mg Q12H IVP 07/26/24 17:00 08/25/24 16:59 07/31/24 05:20 40 MG Potassium Chloride 100 ml @ 50 mls/hr AD PRN IV POTASSIUM PROTOCOL 07/26/24 19:00 08/25/24 18:59 Sodium Chloride 1,000 ml @ 100 mls/hr Q10H IV 07/26/24 17:00 08/25/24 16:59 07/31/24 05:20 100 MLS/HR Tamsulosin HCl (FloMAX) 0.4 mg DAILY PO 07/27/24 09:00 08/26/24 08:59 07/31/24 08:50 0.4 MG Thiamine HCl (Vitamin B-1) 100 mg DAILY IVP 07/28/24 09:00 08/27/24 08:59 07/31/24 08:50 100 MG Tramadol HCl (UltRAM) 50 mg Q6H PRN PO MODERATE PAIN (4-6) 07/31/24 01:00 08/05/24 00:59 DIAGNOSTICS / RADIOLOGY: [ ] ASSESSMENT: Blood loss anemia, POA Suspicious for metastatic skeletal disease by bone scan, POA R/o multiple myeloma 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, 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, by upper GI endoscopy done on 07/28/2024 Gastritis per upper GI endoscopy done on 07/28/2024 Recurrent nausea and vomiting POA Unintentional weight loss of around 40-50 lb with concern for underlying malignancy Elevated alk-phos differential secondary to bone Mets versus underlying liver etiology Mild LFT elevation Right inguinal hernia Normocytic anemia Suspected melena BPH Severe protein caloric malnutrition, POA PLAN: Patient will continued to be admitted in the medical surgical floor Type and Screen We will transfuse 1 unit of PRBC We will continue to monitor patient and follow recommendations from Oncology and Gastroenterology Status post upper endoscopy Patient will be on clear liquid diet Oncology recommending SPEP UPEP and free light chain. We will follow-up with the result if there is monoclonal protein we will do bone marrow biopsy Continue with pain management Continue with supportive care GI and DVT prophylaxis We will repeat labs tomorrow Orthopedic surgeon consulted per oncology recommendation Case was seen and examined with Dr. Bean, above plan was formulated ATTESTATION BY PHYSICIAN I have seen and examined the patient. I reviewed the documentation, medical decision making, and treatment plan as noted by the mid-level provider above. I agree with the findings and plan of care. Amy Siu MD, [facility] Jul 31, 2024 09:12
[2024-07-31 10:02] LABS: MEAN CORPUSCULAR HEMOGLOBIN 31.7 pg (27.0-33.0); MEAN CORPUSCULAR HGB CONC 34.2 g/dL (32.0-36.0); MEAN CORPUSCULAR VOLUME 92.5 fL (79-99); PLATELET COUNT (AUTO) 90 K/uL (130-400); RED BLOOD CELL COUNT(AUTO) 1.99 MIL/uL (4.50-6.20); RED CELL DISTRIBUTION WIDTH 18.1 % (11.0-15.5); WHITE BLOOD COUNT (AUTO) 6.9 K/uL (4.8-10.8)
[2024-07-31 10:11] LABS: CREATININE 0.7 mg/dL (0.5-1.3); POTASSIUM 3.3 mmol/L (3.5-5.1)
[2024-07-31 10:14] LABS: HEMATOCRIT 18.4 % (42-54)
--- NOTE | 2024-07-31 10:20 | NUR ---
HAKEEM DEL ROSARIO AWARE OF CRITICAL RESULTS OF HEMOGLOBIN OF 6.3 AND PER HAKEEM DEL ROSARIO SHE WILL ENTER TRANSFUSION ORDERS.
[2024-07-31 10:32] LABS: ALBUMIN 2.7 g/dL (3.5-5.0); BILIRUBIN,DIRECT 0.4 mg/dL (0.0-0.3); BILIRUBIN,TOTAL 1.1 mg/dL (0.2-1.0); TOTAL PROTEIN, SERUM 5.1 g/dL (6.0-8.3)
[2024-07-31] MEDS ORDERED: PoTASSium chloRIDE 20MEQ/100ML 100 ML IV PRN (11:00)
[2024-07-31 11:19] LABS: BAND NEUTROPHILS % (MANUAL) 14 % (0-2); EOSINOPHILS % (MANUAL) 5 % (1-6); LYMPHOCYTES % (MANUAL) 32 % (22-44); METAMYELOCYTES % 1 % (0-0); MONOCYTES % (MANUAL) 9 % (2-9); MYELOCYTES % 1 % (0-0); SEGMENTED NEUTROPHILS % 38 % (40-70); TOTAL CELLS COUNTED 100
[2024-07-31 11:20] LABS: MAN.DIFF COMMENT-IMPRESSION MANUAL DIFFERENTIAL
[2024-07-31 11:25] LABS: PLATELET MORPHOLOGY COMMENT DECREASED; WBC MORPHOLOGY CONSISTENT W/DIFF
[2024-07-31] MEDS: PoTASSium chloRIDE 20MEQ ER 20 MEQ ERTAB PO PRN (12:22)
[2024-07-31] MEDS: traMADol HCL 50 MG TABLET PO PRN (12:22)
[2024-07-31] MEDS ORDERED: MAGNESIUM 2GM PREMIX 50ML 50 ML IV SCH (14:00)
[2024-07-31 23:13] LABS: HEMATOCRIT 25.6 % (42-54)
[2024-08-01] VITALS (8 sets, daily range): BP systolic 106–147; BP diastolic 60–81; PULSE 65–106; RESP 17–18; TEMP 97.8–98.8; O2SAT 100
[2024-08-01 05:46] LABS: HEMATOCRIT 22.7 % (42-54); MEAN CORPUSCULAR HEMOGLOBIN 31.7 pg (27.0-33.0); MEAN CORPUSCULAR HGB CONC 35.2 g/dL (32.0-36.0); MEAN CORPUSCULAR VOLUME 90.1 fL (79-99); NUCLEATED RED BLOOD CELLS 22.6 % (0.0-0.19); RED BLOOD CELL COUNT(AUTO) 2.52 MIL/uL (4.50-6.20); RED CELL DISTRIBUTION WIDTH 17.2 % (11.0-15.5); WHITE BLOOD COUNT (AUTO) 7.8 K/uL (4.8-10.8)
[2024-08-01 06:04] LABS: CREATININE 0.6 mg/dL (0.5-1.3); POTASSIUM 3.8 mmol/L (3.5-5.1)
--- NOTE | 2024-08-01 09:44 | PN ---
GASTROENTEROLOGY PROGRESS NOTE Date of Visit: Aug 01, 2024 Time of Visit: 09:43 Events / Notes: No acute events overnight. 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 Review of Systems: CONSTITUTIONAL: No malaise or change in sensation of wellbeing. ENMT: No rhinorrhea, otorrhea, sinus pain, ear ache. CARDIOVASCULAR: No angina, palpitations, orthopnea or paroxysmal dyspnea. RESPIRATORY: No SOB. GASTROINTESTINAL: No abdominal pain, nausea, vomiting, diarrhea, hematemesis, melena or change in the patient's habitual bowel movements consistency/number. GENITOURINARY: No dysuria, hematuria or change in bladder continence. MUSCULOSKELETAL: No new muscle pain or decrease in muscular strength. No new joint swelling, redness or tenderness. SKIN: No new rash. Physical Exam: GEN: Awake, alert, oriented in person, time and place, and in no acute distress. HEENT: No sinus tenderness. Tympanic membranes were not examined. No rhinorrhea. Oral pharyngeal mucosa is pink, moist and within normal limits. Neck is supple with no cervical lymphadenopathy, thyromegaly or JVD. CHEST: Inspection, palpation and percussion of the chest were unremarkable. Lung auscultation revealed normal breath sounds bilaterally. CARDIAC: PMI is within normal limits. Heart sounds are regular. Normal S1, S2. No gallop or murmur. ABD: Soft, non-tender and not distended. No peritoneal signs on palpation. No organomegaly. Normal bowel sounds. EXT: No cyanosis or clubbing. No edema. SKIN: Intact. No rashes. JOINTS: No evidence of synovitis or acute arthritis. NEURO: Alert and oriented to name, place and person. Cranial nerve examination is unremarkable. No focal motor deficits. Normal speech. Gait is normal. Strength is normal. Vital Signs (last 8hr) Date Time Temp Pulse Resp B/P (MAP) Pulse Ox O2 Delivery O2 Flow Rate FiO2 08/01/24 08:06 97.9 65 17 135/79 100 Room Air 08/01/24 03:10 98.2 80 18 137/74 98 Room Air Laboratory: [ ] Laboratory: Test 08/01/24 05:20 07/31/24 14:05 07/31/24 09:52 Range/Units White Blood Count 7.8 4.8-10.8 K/uL Red Blood Count 2.52 #L 4.50-6.20 MIL/uL Hemoglobin 8.0 L 14.0-18.0 g/dL Hematocrit 22.7 L 42-54 % Mean Corpuscular Volume 90.1 79-99 fL Mean Corpuscular Hemoglobin 31.7 27.0-33.0 pg Mean Corpuscular Hemoglobin Concent 35.2 32.0-36.0 g/dL Red Cell Distribution Width 17.2 H 11.0-15.5 % Platelet Count 82 L 130-400 K/uL Mean Platelet Volume 11.1 H 7.5-10.5 fL Nucleated Red Blood Cells 22.6 H 0.0-0.19 % Sodium Level 133 L 136-145 mmol/L Potassium Level 3.8 3.5-5.1 mmol/L Chloride Level 100 L 101-111 mmol/L Carbon Dioxide Level 28 21-32 mmol/L Blood Urea Nitrogen 13 7-18 mg/dL Creatinine 0.6 0.5-1.3 mg/dL Glomerular Filtration Rate Calc 106 >90 mL/min Random Glucose 91 70-105 mg/dL Total Calcium 8.1 L 8.5-10.1 mg/dL Magnesium Level 2.10 1.80-2.40 mg/dL Segmented Neutrophils % 38 L 40-70 % Band Neutrophils % 14 H 0-2 % Lymphocytes % (Manual) 32 22-44 % Monocytes % (Manual) 9 2-9 % Eosinophils % (Manual) 5 1-6 % Metamyelocytes % 1 H 0-0 % Myelocytes % 1 H 0-0 % Differential Comment MANUAL DIFFERENTIAL White Cell Morphology Comment CONSISTENT W/DIFF Platelet Morphology Comment DECREASED Red Blood Cell Morphology See comments Total Bilirubin 1.1 H 0.2-1.0 mg/dL Direct Bilirubin 0.4 H 0.0-0.3 mg/dL Aspartate Amino Transf (AST/SGOT) 59 H 10-37 U/L Alanine Aminotransferase (ALT/SGPT) 19 12-78 U/L Alkaline Phosphatase 2040 *H 50-136 U/L Total Protein 5.1 L 6.0-8.3 g/dL Albumin 2.7 L 3.5-5.0 g/dL Current Medications Medications (Trade) Dose Ordered Sig/Christie Route PRN Reason Start Time Stop Time Status Last Admin Dose Admin Acetaminophen (TYLenol 500MG TAB) 500 mg Q6H PRN PO MILD PAIN (1-3) 07/26/24 17:00 08/25/24 16:59 Finasteride (PROscar 5 MG TAB) 5 mg DAILY PO 07/27/24 09:00 08/26/24 08:59 07/31/24 08:50 5 MG Ketorolac Tromethamine (toRADol) 15 mg Q6H PRN IV MODERATE PAIN (4-6) 07/28/24 14:00 08/02/24 13:59 08/01/24 05:33 15 MG Magnesium Sulfate 50 ml @ 0 mls/hr PROTOCOL IV 07/31/24 14:00 08/30/24 13:59 Magnesium Sulfate 50 ml @ 0 mls/hr PROTOCOL PRN IV hypomagnesemia 07/26/24 19:00 08/01/24 06:56 DC Morphine Sulfate (morPHINE 2MG SYG) 2 mg Q6H PRN IVP SEVERE PAIN (7-10) 07/26/24 18:30 07/31/24 21:29 DC 07/31/24 15:58 2 MG Ondansetron HCl (zoFRAN 4MG INJ) 4 mg Q6H PRN IVP NAUSEA/VOMITING 07/26/24 17:00 08/25/24 16:59 07/30/24 05:19 4 MG Pantoprazole Sodium (PROTonix 40MG INJ) 40 mg Q12H IVP 07/26/24 17:00 08/25/24 16:59 08/01/24 05:22 40 MG Potassium Chloride 100 ml @ 50 mls/hr AD PRN IV POTASSIUM PROTOCOL 07/26/24 19:00 08/01/24 06:56 DC Potassium Chloride 100 ml @ 100 mls/hr AD PRN IV POTASSIUM PROTOCOL 07/31/24 11:00 08/30/24 10:59 Potassium Chloride (K-Dur/Klor-Con 20meq) 20 meq AD PRN PO POTASSIUM PROTOCOL 07/31/24 11:00 08/30/24 10:59 07/31/24 15:46 20 MEQ Potassium Chloride (KCl 10% Elixir 20meq/15ml) 20 meq AD PRN PO POTASSIUM PROTOCOL 07/31/24 11:00 08/30/24 10:59 Sodium Chloride 1,000 ml @ 100 mls/hr Q10H IV 07/26/24 17:00 08/25/24 16:59 07/31/24 16:25 100 MLS/HR Tamsulosin HCl (FloMAX) 0.4 mg DAILY PO 07/27/24 09:00 08/26/24 08:59 07/31/24 08:50 0.4 MG Thiamine HCl (Vitamin B-1) 100 mg DAILY IVP 07/28/24 09:00 08/27/24 08:59 07/31/24 08:50 100 MG Tramadol HCl (UltRAM) 50 mg Q6H PRN PO MODERATE PAIN (4-6) 07/31/24 01:00 08/05/24 00:59 07/31/24 23:10 50 MG Diagnostics / Radiology: [COPY/PASTE HERE IF NO REPORTS PLEASE DELETE SECTION] Assessment: Gastric mass N/V Weight loss Abnormal LFTs Plan: CT chest/abd/pelvis Surgery and oncology eval Await path Colonoscopy not warranted at this time as source of anemia/bleed identified Continue GI prophylaxis Avoid NSAIDs Antireflux measures Monitor H&H and transfuse as needed Call with questions, concerns or change in clinical status Patient to follow-up at clinic post discharge Thank you for this consult BINU [employer] Aug 01, 2024 09:44
--- NOTE | 2024-08-01 12:57 | NUR ---
Orthopedic Consult w/ Dr. Macedo Per Dr. Macedo, patient will require an orthopedic oncologist specialist and recommended transfer if this specialty is needed. Updated Malini of the conversation. Per Malini, will need to follow-up with Dr. Lockett's recommendations. Will cancel Orthopedic consult. This CM called Dr. Lockett, but no answer. This CM left message for Dr. Lockett of the above.
[2024-08-01] MEDS ORDERED: FENTANYL 25 MCG/HR TD SCH (13:30)
--- NOTE | 2024-08-01 13:53 | PN ---
[facility] PROGRESS NOTE Date of Service: Aug 01, 2024 Time of Service: 13:48 SUBJECTIVE: [69-year-old male who was admitted due to generalized weakness, decreased appetite with for a to 50 lb weight loss. Labs reviewed today Na 135, Cl 100, CO2 20, BUN 22, iron 209,% sat 83.2, total bili 1.3, GGT 185, AST 73, alkaline phosphatase 2061, CRP 23.7. S/p GI endoscopy-result showed large gastric mass. We will continue to follow GI rec's. Dr. Lockett on board who recommended bone scan which showed malignant skeletal disease. He is recommended orthopedic consult, we will continue to follow. 07/29/24 Patient seen and examined. Reports pain is reasonably controlled, Awaiting biopsy results 07/30/24 Patient was seen and examined in the room, he was lying in bed, denies any pain. Oncology is recommending SPSP UPEP and free light, if monocolonal protein noted, bone marrow bx recommended, as of today no result. We will follow up with Oncologist on further recommendation. 08/01/27 The patient is still mostly bedbound. Patient continues to feel lethargic. His H&H is 6.3/18.4. We will type and cross and transfuse one unit of PRBC, we will repeat H and H once transfuse. We will continue to monitor labs and replace electrolytes as needed. 08/01/24 REVIEW OF SYSTEMS CONSTITUTIONAL: Denies fevers, chills, or night sweats. Positive for unintentional weight loss NEUROLOGICAL: Denies headache, amaurosis fugax, motor weakness, sensory deficit, vertigo/spinning sensation, gait abnormalities, or tremors. ENT: No hearing loss, otalgia, otorrhea, rhinitis, rhinorrhea, hoarseness, or sore throat. CARDIOVASCULAR: Denies any exertional angina, dyspnea on exertion, orthopnea, paroxysmal nocturnal dyspnea, palpitations, life-threatening arrhythmias, claudication. PULMONARY: Denies any shortness of breath, cough, phlegm/sputum, hemoptysis, pleuritic chest pain. GASTROINTESTINAL: Positive for nausea, vomiting, black stools. Denied any hematochezia, hematemesis GENITOURINARY: Denies frequency, urgency, nocturia, hematuria or incontinence (Storage/Irritative symptoms.) Low urinary stream, straining to void, urinary intermittency or hesitancy, splitting of the voiding stream, terminal dribbling. ENDOCRINOLOGIC: Denies polyuria, polydipsia, polyphagia or heat/cold intolerances. HEMATOLOGIC: Denies thrombophilia/previous clots, or coagulopathy/bleeding disorders. ONCOLOGIC: Denies personal history of malignancy. DERMATOLOGIC: Denies rashes or pruritus. PSYCHIATRIC: Denies any suicidal or homicidal ideation. Denies hallucinations. PHYSICAL EXAM GENERAL APPEARANCE: The patient is awake, alert, and oriented, in no acute cardiopulmonary distress. NEUROLOGICAL: Cranial nerves II-XII grossly intact. Motor is 5/5 in bilateral upper and lower extremities proximal to distal. No sensory deficits. HEENT: Face is symmetric. Pupils are equal and reactive. Extraocular movements are intact. NECK: Supple. No JVD. No thyromegaly. No submental, submandibular, pre- /postauricular, occipital or supraclavicular lymphadenopathy. CHEST: Normal chest expansion. No Telemetry. LUNGS: Absence of any rales, rhonchi or any wheezing. CARDIOVASCULAR: Regular. S1 and S2 normal. No appreciable rubs, murmurs or gallops. ABDOMEN: Soft, nontender, and nondistended. Patient has a right inguinal hernia. There is no erythema around the inguinal area. No tenderness to palpation. : Deferred. No Diaz. EXTREMITIES: Non-edematous and not cyanotic. No clubbing. Good capillary refill. SKIN: No skin breakdown. Vital Signs (last 8hr) Date Time Temp Pulse Resp B/P (MAP) Pulse Ox O2 Delivery O2 Flow Rate FiO2 08/01/24 11:45 98.4 66 17 147/81 100 Room Air 08/01/24 08:06 97.9 65 17 135/79 100 Room Air LABS: Laboratory: Test 08/01/24 05:20 07/31/24 14:05 07/31/24 09:52 Range/Units White Blood Count 7.8 4.8-10.8 K/uL Red Blood Count 2.52 #L 4.50-6.20 MIL/uL Hemoglobin 8.0 L 14.0-18.0 g/dL Hematocrit 22.7 L 42-54 % Mean Corpuscular Volume 90.1 79-99 fL Mean Corpuscular Hemoglobin 31.7 27.0-33.0 pg Mean Corpuscular Hemoglobin Concent 35.2 32.0-36.0 g/dL Red Cell Distribution Width 17.2 H 11.0-15.5 % Platelet Count 82 L 130-400 K/uL Mean Platelet Volume 11.1 H 7.5-10.5 fL Nucleated Red Blood Cells 22.6 H 0.0-0.19 % Sodium Level 133 L 136-145 mmol/L Potassium Level 3.8 3.5-5.1 mmol/L Chloride Level 100 L 101-111 mmol/L Carbon Dioxide Level 28 21-32 mmol/L Blood Urea Nitrogen 13 7-18 mg/dL Creatinine 0.6 0.5-1.3 mg/dL Glomerular Filtration Rate Calc 106 >90 mL/min Random Glucose 91 70-105 mg/dL Total Calcium 8.1 L 8.5-10.1 mg/dL Magnesium Level 2.10 1.80-2.40 mg/dL Segmented Neutrophils % 38 L 40-70 % Band Neutrophils % 14 H 0-2 % Lymphocytes % (Manual) 32 22-44 % Monocytes % (Manual) 9 2-9 % Eosinophils % (Manual) 5 1-6 % Metamyelocytes % 1 H 0-0 % Myelocytes % 1 H 0-0 % Differential Comment MANUAL DIFFERENTIAL White Cell Morphology Comment CONSISTENT W/DIFF Platelet Morphology Comment DECREASED Red Blood Cell Morphology See comments Total Bilirubin 1.1 H 0.2-1.0 mg/dL Direct Bilirubin 0.4 H 0.0-0.3 mg/dL Aspartate Amino Transf (AST/SGOT) 59 H 10-37 U/L Alanine Aminotransferase (ALT/SGPT) 19 12-78 U/L Alkaline Phosphatase 2040 *H 50-136 U/L Total Protein 5.1 L 6.0-8.3 g/dL Albumin 2.7 L 3.5-5.0 g/dL Current Medications Medications (Trade) Dose Ordered Sig/Christie Route PRN Reason Start Time Stop Time Status Last Admin Dose Admin Acetaminophen (TYLenol 500MG TAB) 500 mg Q6H PRN PO MILD PAIN (1-3) 07/26/24 17:00 08/25/24 16:59 Fentanyl (DURAgesic 25 MCG/HR PATCH) 25 mcg Q72H TD 08/01/24 13:30 08/01/24 13:42 DC Finasteride (PROscar 5 MG TAB) 5 mg DAILY PO 07/27/24 09:00 08/26/24 08:59 08/01/24 10:23 5 MG Ketorolac Tromethamine (toRADol) 15 mg Q6H PRN IV MODERATE PAIN (4-6) 07/28/24 14:00 08/02/24 13:59 08/01/24 12:28 15 MG Magnesium Sulfate 50 ml @ 0 mls/hr PROTOCOL IV 07/31/24 14:00 08/30/24 13:59 Magnesium Sulfate 50 ml @ 0 mls/hr PROTOCOL PRN IV hypomagnesemia 07/26/24 19:00 08/01/24 06:56 DC Morphine Sulfate (morPHINE 2MG SYG) 2 mg Q6H PRN IVP SEVERE PAIN (7-10) 07/26/24 18:30 07/31/24 21:29 DC 07/31/24 15:58 2 MG Ondansetron HCl (zoFRAN 4MG INJ) 4 mg Q6H PRN IVP NAUSEA/VOMITING 07/26/24 17:00 08/25/24 16:59 08/01/24 12:28 4 MG Pantoprazole Sodium (PROTonix 40MG INJ) 40 mg Q12H IVP 07/26/24 17:00 08/25/24 16:59 08/01/24 05:22 40 MG Potassium Chloride 100 ml @ 50 mls/hr AD PRN IV POTASSIUM PROTOCOL 07/26/24 19:00 08/01/24 06:56 DC Potassium Chloride 100 ml @ 100 mls/hr AD PRN IV POTASSIUM PROTOCOL 07/31/24 11:00 08/30/24 10:59 Potassium Chloride (K-Dur/Klor-Con 20meq) 20 meq AD PRN PO POTASSIUM PROTOCOL 07/31/24 11:00 08/30/24 10:59 07/31/24 15:46 20 MEQ Potassium Chloride (KCl 10% Elixir 20meq/15ml) 20 meq AD PRN PO POTASSIUM PROTOCOL 07/31/24 11:00 08/30/24 10:59 Sodium Chloride 1,000 ml @ 100 mls/hr Q10H IV 07/26/24 17:00 08/25/24 16:59 08/01/24 13:13 100 MLS/HR Tamsulosin HCl (FloMAX) 0.4 mg DAILY PO 07/27/24 09:00 08/26/24 08:59 08/01/24 10:23 0.4 MG Thiamine HCl (Vitamin B-1) 100 mg DAILY IVP 07/28/24 09:00 08/27/24 08:59 08/01/24 10:23 100 MG Tramadol HCl (UltRAM) 50 mg Q6H PRN PO MODERATE PAIN (4-6) 07/31/24 01:00 08/05/24 00:59 07/31/24 23:10 50 MG DIAGNOSTICS / RADIOLOGY: [ ] ASSESSMENT: Blood loss anemia, POA Suspicious for metastatic skeletal disease by bone scan, POA R/o multiple myeloma 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, 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, by upper GI endoscopy done on 07/28/2024 Gastritis per upper GI endoscopy done on 07/28/2024 Recurrent nausea and vomiting POA Unintentional weight loss of around 40-50 lb with concern for underlying malignancy Elevated alk-phos differential secondary to bone Mets versus underlying liver etiology Mild LFT elevation Right inguinal hernia Normocytic anemia Suspected melena BPH Severe protein caloric malnutrition, POA PLAN: Patient will continued to be admitted in the medical surgical floor Type and Screen We will transfuse 1 unit of PRBC We will continue to monitor patient and follow recommendations from Oncology and Gastroenterology Status post upper endoscopy Patient will be on clear liquid diet Oncology recommending SPEP UPEP and free light chain. We will follow-up with the result if there is monoclonal protein we will do bone marrow biopsy Continue with pain management Continue with supportive care GI and DVT prophylaxis We will repeat labs tomorrow Orthopedic surgeon consulted per oncology recommendation Case was seen and examined with Dr. Bean, above plan was formulated CARIN WAGONER [facility] Aug 01, 2024 13:53
[2024-08-01] MEDS: FENTANYL 12 MCG/HR TD SCH (15:34)
[2024-08-01] MEDS ORDERED: ondanSETRON 4MG INJ IVP PRN (18:00)
--- NOTE | 2024-08-01 18:15 | PN ---
69-year-old male with no known past medical history presents with a 2-month history of recurrent nausea and vomiting associated with early satiety and intolerance to solid foods. The patient reports consuming mainly jello and liquids during this period. He describes progressive unintentional weight loss of approximately 40�50 pounds over the same duration. He endorses episodes of black-colored stools but denies hematemesis or hematochezia. He also reports inconsistent bowel habits with alternating constipation. He has not sought prior medical attention for these symptoms and has not undergone any cancer screening. He denies chest pain, shortness of breath, cough, fever, chills, dysuria, hematuria, or any neurologic symptoms such as syncope or seizures. No family history is provided. He has a known history of right inguinal hernia without pain or incarceration. He reports mild symptoms in the inguinal area when ambulatory. EGD was done which showed patient to have big mass to the stomach. 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 PE GENERAL: No acute respiratory distress. VITAL SIGNS: Reviewed and stable. HEENT: The sclerae are clear. The pupils are equal and reactive to light. The oropharyngeal cavity is within normal limits. NECK: Supple without lymphadenopathy. CHEST: Lung is clear bilaterally there is no wheezing or crackles. HEART: Sounds are regular and rhythmic. ABDOMEN: No guarding or rigidity. Bowel sounds positive. EXTREMITIES: No pitting edema. No petechial lesions or bruises. SKIN: No bruises, rash, or petechial lesions. NEUROLOGICAL: The patient is alert and oriented. No focal deficits. Muscle strength is 5/5. LYMPH NODES: There is no lymphadenopathy could be felt in the neck, supraclavicular, or axillary. Assessment 1. Large mass to the stomach consistent with possible gastric cancer especially with the CEA level is 18,000. Bone scan showing multiple lesion to the bone consistent with metastatic disease 2. Severe pain 3. Anemia. Patient with severe anemia with hemoglobin level 6.1 mg/deciliter. With the patient receiving blood transfusion 4. Weight loss Plan 1. 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 2. I have long discussion with the patient and his daughter regarding the plan of care. This patient is not curative. This patient could benefit from palliative chemotherapy treatment. 3. Because of his performance status this patient is good candidate for comfort care and hospice especially he lives alone. It seems the daughter is not agreeing on that for now. If the daughter and patient agrees then he could be discharged with hospice. 4. If the daughter and the patient refused hospice then this patient will need Port-A-Cath inserted then discharge so we could try to see if you could treat him with palliative chemo. 5. Patient with severe anemia with the patient may be could receive 1 unit of blood transfusion Vitals/Labs Vital Signs Date Time Temp Pulse Resp B/P (MAP) Pulse Ox O2 Delivery O2 Flow Rate FiO2 08/01/24 16:33 98.1 106 17 106/60 100 Room Air 07/31/24 20:43 0 21 Laboratory Tests 07/31/24 23:00 08/01/24 05:20 Medications Current Medications Sodium Chloride 1,000 ml @ 0 mls/hr ONCE ONCE IV Last administered on 07/26/24at 13:56; Start 07/26/24 at 12:00; Stop 07/26/24 at 12:01; Status DC Morphine Sulfate 4 mg ONCE ONCE IM Last administered on 07/26/24at 13:56; Start 07/26/24 at 13:30; Stop 07/26/24 at 13:31; Status DC Ondansetron HCl 4 mg ONCE ONCE IVP Last administered on 07/26/24at 13:56; Start 07/26/24 at 14:00; Stop 07/26/24 at 14:01; Status DC Iohexol 75 ml STK-MED ONCE IV; Start 07/26/24 at 14:09; Stop 07/26/24 at 14:10; Status DC Ondansetron HCl 4 mg Q6H PRN IVP Last administered on 08/01/24at 12:28; Start 07/26/24 at 17:00; Stop 08/01/24 at 17:56; Status DC Pantoprazole Sodium 40 mg Q12H IVP Last administered on 08/01/24at 17:20; Start 07/26/24 at 17:00; Stop 08/25/24 at 16:59 Sodium Chloride 1,000 ml @ 100 mls/hr Q10H IV Last administered on 08/01/24at 13:13; Start 07/26/24 at 17:00; Stop 08/25/24 at 16:59 Acetaminophen 500 mg Q6H PRN PO; Start 07/26/24 at 17:00; Stop 08/25/24 at 16:59 Polyethylene Glycol/ Electrolytes 4,000 ml ONCE ONCE PO Last administered on 07/26/24at 18:46; Start 07/26/24 at 17:00; Stop 07/26/24 at 17:06; Status DC Morphine Sulfate 2 mg Q6H PRN IVP Last administered on 07/31/24at 15:58; Start 07/26/24 at 18:30; Stop 07/31/24 at 21:29; Status DC Potassium Chloride 100 ml @ 50 mls/hr AD PRN IV; Start 07/26/24 at 19:00; Stop 08/01/24 at 06:56; Status DC Magnesium Sulfate 50 ml @ 0 mls/hr PROTOCOL PRN IV; Start 07/26/24 at 19:00; Stop 08/01/24 at 06:56; Status DC Finasteride 5 mg DAILY PO Last administered on 08/01/24at 10:23; Start 07/27/24 at 09:00; Stop 08/26/24 at 08:59 Tamsulosin HCl 0.4 mg DAILY PO Last administered on 08/01/24at 10:23; Start 07/27/24 at 09:00; Stop 08/26/24 at 08:59 Propofol 200 mg STK-MED ONCE IV; Start 07/27/24 at 11:18; Stop 07/27/24 at 11:20; Status DC Lidocaine HCl 100 mg STK-MED ONCE .ROUTE; Start 07/27/24 at 11:18; Stop 07/27/24 at 11:20; Status DC Thiamine HCl 100 mg DAILY IVP Last administered on 08/01/24at 10:23; Start 07/28/24 at 09:00; Stop 08/27/24 at 08:59 Dexamethasone Sodium Phosphate 10 mg ONCE ONCE IV Last administered on 07/28/24at 14:21; Start 07/28/24 at 14:00; Stop 07/28/24 at 14:11; Status DC Ketorolac Tromethamine 15 mg Q6H PRN IV Last administered on 08/01/24at 12:28; Start 07/28/24 at 14:00; Stop 08/02/24 at 13:59 Tramadol HCl 50 mg Q6H PRN PO Last administered on 07/31/24at 23:10; Start 07/31/24 at 01:00; Stop 08/05/24 at 00:59 Potassium Chloride 100 ml @ 100 mls/hr AD PRN IV; Start 07/31/24 at 11:00; Stop 08/30/24 at 10:59 Potassium Chloride 20 meq AD PRN PO; Start 07/31/24 at 11:00; Stop 08/30/24 at 10:59 Potassium Chloride 20 meq AD PRN PO Last administered on 07/31/24at 15:46; Start 07/31/24 at 11:00; Stop 08/30/24 at 10:59 Magnesium Sulfate 50 ml @ 0 mls/hr PROTOCOL IV; Start 07/31/24 at 14:00; Stop 08/30/24 at 13:59 Fentanyl 25 mcg Q72H TD; Start 08/01/24 at 13:30; Stop 08/01/24 at 13:42; Status DC Fentanyl 12 mcg Q72H TD Last administered on 08/01/24at 15:34; Start 08/01/24 at 14:30; Stop 08/06/24 at 14:29 Morphine Sulfate 2 mg Q4H PRN IVP; Start 08/01/24 at 15:00; Stop 08/08/24 at 14:59 Ondansetron HCl 4 mg Q4H4 PRN IVP; Start 08/01/24 at 18:00; Stop 08/25/24 at 16:59; Status ITA CISNEROS MD Aug 01, 2024 18:15
[2024-08-01] MEDS: ZOLPidem TARTrate 5 MG TAB PO ONE (23:42)
[2024-08-02 04:00] VITALS: BP 152/86; PULSE 86; RESP 18; TEMP 98.4
[2024-08-02 08:13] VITALS: BP 159/97; PULSE 92; RESP 17; TEMP 97.7
[2024-08-02] MEDS: ondanSETRON 4MG INJ IVP PRN (08:40)
[2024-08-02] MEDS: morPHINE 2 MG SYG IVP PRN (09:22)
--- NOTE | 2024-08-02 10:40 | NUR ---
PLACEMENT Sw met with pt and his daughter. Per pt, states he wants to seek treatment, so hospice is not an option at this time. Home is not an option, he has 30+ dogs, daughter states she has given away 8, but has so many go find homes for. Daughter states home is not livable until she cleans it and this will take time. Discuss possible SNF for PT to give daughter time to clean home. . Per CM, would have to wait for Dr Lockett recommendations since pt has mets to bone. Dr Lockett May want to start chemo right away *[facility]. Pt is not registered in their system. Daughter states she is starting the process to get him registered. Explained that NH not option if he gets chemo. [place] only pays for [facility] if he is 100% service connected, if not, [facility] pays only NH with hospice. Pt and daughter voiced understanding. *Private [facility]. Pt gets 2,000 a month but sates he can not afford private mcc and pay buys at his home. *Discussed pt staying with daughter in [place] until she can get him back home. Daughter states going to [place] for treatment will be hard. Discuss possibly get treatments at the [facility] in [place] as option. Encouraged daughter to discuss this option with Dr Lockett. Pt's nurse updated.
[2024-08-02 10:46] LABS: MEAN CORPUSCULAR HEMOGLOBIN 32.3 pg (27.0-33.0); MEAN CORPUSCULAR VOLUME 94.9 fL (79-99); NUCLEATED RED BLOOD CELLS 19.7 % (0.0-0.19); PLATELET COUNT (AUTO) 77 K/uL (130-400); RED BLOOD CELL COUNT(AUTO) 2.17 MIL/uL (4.50-6.20); RED CELL DISTRIBUTION WIDTH 18.1 % (11.0-15.5); WHITE BLOOD COUNT (AUTO) 7.3 K/uL (4.8-10.8)
[2024-08-02 10:56] LABS: CREATININE 0.7 mg/dL (0.5-1.3); POTASSIUM 3.7 mmol/L (3.5-5.1)
[2024-08-02 10:58] LABS: HEMATOCRIT 20.6 % (42-54)
[2024-08-02 11:40] VITALS: BP 128/68; PULSE 67; RESP 17; TEMP 98.1
--- NOTE | 2024-08-02 12:05 | PN ---
GASTROENTEROLOGY PROGRESS NOTE Date of Visit: Aug 02, 2024 Time of Visit: 12:05 Events / Notes: No acute events overnight. 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 Review of Systems: CONSTITUTIONAL: No malaise or change in sensation of wellbeing. ENMT: No rhinorrhea, otorrhea, sinus pain, ear ache. CARDIOVASCULAR: No angina, palpitations, orthopnea or paroxysmal dyspnea. RESPIRATORY: No SOB. GASTROINTESTINAL: No abdominal pain, nausea, vomiting, diarrhea, hematemesis, melena or change in the patient's habitual bowel movements consistency/number. GENITOURINARY: No dysuria, hematuria or change in bladder continence. MUSCULOSKELETAL: No new muscle pain or decrease in muscular strength. No new joint swelling, redness or tenderness. SKIN: No new rash. Physical Exam: GEN: Awake, alert, oriented in person, time and place, and in no acute distress. HEENT: No sinus tenderness. Tympanic membranes were not examined. No rhinorrhea. Oral pharyngeal mucosa is pink, moist and within normal limits. Neck is supple with no cervical lymphadenopathy, thyromegaly or JVD. CHEST: Inspection, palpation and percussion of the chest were unremarkable. Lung auscultation revealed normal breath sounds bilaterally. CARDIAC: PMI is within normal limits. Heart sounds are regular. Normal S1, S2. No gallop or murmur. ABD: Soft, non-tender and not distended. No peritoneal signs on palpation. No organomegaly. Normal bowel sounds. EXT: No cyanosis or clubbing. No edema. SKIN: Intact. No rashes. JOINTS: No evidence of synovitis or acute arthritis. NEURO: Alert and oriented to name, place and person. Cranial nerve examination is unremarkable. No focal motor deficits. Normal speech. Gait is normal. Strength is normal. Vital Signs (last 8hr) Date Time Temp Pulse Resp B/P (MAP) Pulse Ox O2 Delivery O2 Flow Rate FiO2 08/02/24 11:40 98.1 67 17 128/68 100 Room Air 08/02/24 08:13 97.7 92 17 159/97 100 Room Air Laboratory: [ ] Laboratory: Test 08/02/24 10:40 07/31/24 14:05 Range/Units White Blood Count 7.3 4.8-10.8 K/uL Red Blood Count 2.17 L 4.50-6.20 MIL/uL Hemoglobin 7.0 *L 14.0-18.0 g/dL Hematocrit 20.6 *L 42-54 % Mean Corpuscular Volume 94.9 79-99 fL Mean Corpuscular Hemoglobin 32.3 27.0-33.0 pg Mean Corpuscular Hemoglobin Concent 34.0 32.0-36.0 g/dL Red Cell Distribution Width 18.1 H 11.0-15.5 % Platelet Count 77 L 130-400 K/uL Mean Platelet Volume 11.0 H 7.5-10.5 fL Nucleated Red Blood Cells 19.7 H 0.0-0.19 % Sodium Level 134 L 136-145 mmol/L Potassium Level 3.7 3.5-5.1 mmol/L Chloride Level 100 L 101-111 mmol/L Carbon Dioxide Level 28 21-32 mmol/L Blood Urea Nitrogen 16 7-18 mg/dL Creatinine 0.7 0.5-1.3 mg/dL Glomerular Filtration Rate Calc 101 >90 mL/min Random Glucose 97 70-105 mg/dL Total Calcium 7.9 L 8.5-10.1 mg/dL Magnesium Level 2.10 1.80-2.40 mg/dL Current Medications Medications (Trade) Dose Ordered Sig/Christie Route PRN Reason Start Time Stop Time Status Last Admin Dose Admin Acetaminophen (TYLenol 500MG TAB) 500 mg Q6H PRN PO MILD PAIN (1-3) 07/26/24 17:00 08/25/24 16:59 Fentanyl (DURAgesic 12 MCG/HR PATCH) 12 mcg Q72H TD 08/01/24 14:30 08/06/24 14:29 08/01/24 15:34 12 MCG Fentanyl (DURAgesic 25 MCG/HR PATCH) 25 mcg Q72H TD 08/01/24 13:30 08/01/24 13:42 DC Finasteride (PROscar 5 MG TAB) 5 mg DAILY PO 07/27/24 09:00 08/26/24 08:59 08/02/24 08:41 5 MG Ketorolac Tromethamine (toRADol) 15 mg Q6H PRN IV MODERATE PAIN (4-6) 07/28/24 14:00 08/02/24 13:59 08/01/24 21:00 15 MG Magnesium Sulfate 50 ml @ 0 mls/hr PROTOCOL IV 07/31/24 14:00 08/30/24 13:59 Magnesium Sulfate 50 ml @ 0 mls/hr PROTOCOL PRN IV hypomagnesemia 07/26/24 19:00 08/01/24 06:56 DC Morphine Sulfate (morPHINE 2MG SYG) 2 mg Q4H PRN IVP SEVERE PAIN (7-10) 08/01/24 15:00 08/08/24 14:59 08/02/24 09:22 2 MG Morphine Sulfate (morPHINE 2MG SYG) 2 mg Q6H PRN IVP SEVERE PAIN (7-10) 07/26/24 18:30 07/31/24 21:29 DC 07/31/24 15:58 2 MG Ondansetron HCl (zoFRAN 4MG INJ) 4 mg Q4H4 PRN IVP NAUSEA/VOMITING 08/01/24 18:00 08/02/24 08:36 DC Ondansetron HCl (zoFRAN 4MG INJ) 4 mg Q4HPRN PRN IVP NAUSEA/VOMITING 08/02/24 09:00 09/01/24 08:59 08/02/24 08:40 4 MG Ondansetron HCl (zoFRAN 4MG INJ) 4 mg Q6H PRN IVP NAUSEA/VOMITING 07/26/24 17:00 08/01/24 17:56 DC 08/01/24 12:28 4 MG Pantoprazole Sodium (PROTonix 40MG INJ) 40 mg Q12H IVP 07/26/24 17:00 08/25/24 16:59 08/02/24 05:30 40 MG Potassium Chloride 100 ml @ 50 mls/hr AD PRN IV POTASSIUM PROTOCOL 07/26/24 19:00 08/01/24 06:56 DC Potassium Chloride 100 ml @ 100 mls/hr AD PRN IV POTASSIUM PROTOCOL 07/31/24 11:00 08/30/24 10:59 Potassium Chloride (K-Dur/Klor-Con 20meq) 20 meq AD PRN PO POTASSIUM PROTOCOL 07/31/24 11:00 08/30/24 10:59 07/31/24 15:46 20 MEQ Potassium Chloride (KCl 10% Elixir 20meq/15ml) 20 meq AD PRN PO POTASSIUM PROTOCOL 07/31/24 11:00 08/30/24 10:59 Sodium Chloride 1,000 ml @ 100 mls/hr Q10H IV 07/26/24 17:00 08/25/24 16:59 08/02/24 08:41 100 MLS/HR Tamsulosin HCl (FloMAX) 0.4 mg DAILY PO 07/27/24 09:00 08/26/24 08:59 08/02/24 08:41 0.4 MG Thiamine HCl (Vitamin B-1) 100 mg DAILY IVP 07/28/24 09:00 08/27/24 08:59 08/02/24 08:41 100 MG Tramadol HCl (UltRAM) 50 mg Q6H PRN PO MODERATE PAIN (4-6) 07/31/24 01:00 08/05/24 00:59 07/31/24 23:10 50 MG Diagnostics / Radiology: [COPY/PASTE HERE IF NO REPORTS PLEASE DELETE SECTION] Assessment: Gastric mass N/V Weight loss Abnormal LFTs Plan: CT chest/abd/pelvis Surgery and oncology eval Await path Colonoscopy not warranted at this time as source of anemia/bleed identified Continue GI prophylaxis Avoid NSAIDs Antireflux measures Monitor H&H and transfuse as needed Call with questions, concerns or change in clinical status Patient to follow-up at clinic post discharge Thank you for this consult BINU VANG KENNEL ASSISTANT Aug 02, 2024 12:05
[2024-08-02 12:09] LABS: BAND NEUTROPHILS % (MANUAL) 2 % (0-2); EOSINOPHILS % (MANUAL) 2 % (1-6); LYMPHOCYTES % (MANUAL) 37 % (22-44); MAN.DIFF COMMENT-IMPRESSION MANUAL DIFFERENTIAL; MONOCYTES % (MANUAL) 2 % (2-9); MYELOCYTES % 1 % (0-0); PROMYELOCYTES % 2 (0-0); REACTIVE LYMPHOCYTES 6 % (0-0); SEGMENTED NEUTROPHILS % 48 % (40-70); TOTAL CELLS COUNTED 100
[2024-08-02 12:13] LABS: PLATELET MORPHOLOGY COMMENT DECREASED
--- NOTE | 2024-08-02 13:40 | PN ---
69-year-old male with no known past medical history presents with a 2-month history of recurrent nausea and vomiting associated with early satiety and intolerance to solid foods. The patient reports consuming mainly jello and liquids during this period. He describes progressive unintentional weight loss of approximately 40�50 pounds over the same duration. He endorses episodes of black-colored stools but denies hematemesis or hematochezia. He also reports inconsistent bowel habits with alternating constipation. He has not sought prior medical attention for these symptoms and has not undergone any cancer screening. He denies chest pain, shortness of breath, cough, fever, chills, dysuria, hematuria, or any neurologic symptoms such as syncope or seizures. No family history is provided. He has a known history of right inguinal hernia without pain or incarceration. He reports mild symptoms in the inguinal area when ambulatory. EGD was done which showed patient to have big mass to the stomach. 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 Patient and family actually want to do the chemotherapy treatment. PE GENERAL: No acute respiratory distress. VITAL SIGNS: Reviewed and stable. HEENT: The sclerae are clear. The pupils are equal and reactive to light. The oropharyngeal cavity is within normal limits. NECK: Supple without lymphadenopathy. CHEST: Lung is clear bilaterally there is no wheezing or crackles. HEART: Sounds are regular and rhythmic. ABDOMEN: No guarding or rigidity. Bowel sounds positive. EXTREMITIES: No pitting edema. No petechial lesions or bruises. SKIN: No bruises, rash, or petechial lesions. NEUROLOGICAL: The patient is alert and oriented. No focal deficits. Muscle strength is 5/5. LYMPH NODES: There is no lymphadenopathy could be felt in the neck, supraclavicular, or axillary. Assessment 1. Large mass to the stomach consistent with possible gastric cancer especially with the CEA level is 18,000. Bone scan showing multiple lesion to the bone consistent with metastatic disease 2. Severe pain 3. Anemia. Patient with severe anemia with hemoglobin level 6.1 mg/deciliter. With the patient receiving blood transfusion 4. Weight loss Plan 1. 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 2. I have long discussion with the patient and his daughter regarding the plan of care. This patient is not curative. This patient could benefit from palliative chemotherapy treatment. 3. Family and patient want to do palliative chemotherapy treatment. So this patient could have Port-A-Cath inserted tomorrow and then if stable could be discharged. It seems the patient and family want to be treated in [place]. Then we need to contact our colleagues in [place] Dr. Robin or Dr. Deshpande. Vitals/Labs Vital Signs Date Time Temp Pulse Resp B/P (MAP) Pulse Ox O2 Delivery O2 Flow Rate FiO2 08/02/24 11:40 98.1 67 17 128/68 100 Room Air 08/01/24 20:40 0 21 Laboratory Tests 08/02/24 10:40 Medications Current Medications Sodium Chloride 1,000 ml @ 0 mls/hr ONCE ONCE IV Last administered on 07/26/24at 13:56; Start 07/26/24 at 12:00; Stop 07/26/24 at 12:01; Status DC Morphine Sulfate 4 mg ONCE ONCE IM Last administered on 07/26/24at 13:56; Start 07/26/24 at 13:30; Stop 07/26/24 at 13:31; Status DC Ondansetron HCl 4 mg ONCE ONCE IVP Last administered on 07/26/24at 13:56; Start 07/26/24 at 14:00; Stop 07/26/24 at 14:01; Status DC Iohexol 75 ml STK-MED ONCE IV; Start 07/26/24 at 14:09; Stop 07/26/24 at 14:10; Status DC Ondansetron HCl 4 mg Q6H PRN IVP Last administered on 08/01/24at 12:28; Start 07/26/24 at 17:00; Stop 08/01/24 at 17:56; Status DC Pantoprazole Sodium 40 mg Q12H IVP Last administered on 08/02/24at 05:30; Start 07/26/24 at 17:00; Stop 08/25/24 at 16:59 Sodium Chloride 1,000 ml @ 100 mls/hr Q10H IV Last administered on 08/02/24at 08:41; Start 07/26/24 at 17:00; Stop 08/25/24 at 16:59 Acetaminophen 500 mg Q6H PRN PO; Start 07/26/24 at 17:00; Stop 08/25/24 at 16:59 Polyethylene Glycol/ Electrolytes 4,000 ml ONCE ONCE PO Last administered on 07/26/24at 18:46; Start 07/26/24 at 17:00; Stop 07/26/24 at 17:06; Status DC Morphine Sulfate 2 mg Q6H PRN IVP Last administered on 07/31/24at 15:58; Start 07/26/24 at 18:30; Stop 07/31/24 at 21:29; Status DC Potassium Chloride 100 ml @ 50 mls/hr AD PRN IV; Start 07/26/24 at 19:00; Stop 08/01/24 at 06:56; Status DC Magnesium Sulfate 50 ml @ 0 mls/hr PROTOCOL PRN IV; Start 07/26/24 at 19:00; Stop 08/01/24 at 06:56; Status DC Finasteride 5 mg DAILY PO Last administered on 08/02/24at 08:41; Start 07/27/24 at 09:00; Stop 08/26/24 at 08:59 Tamsulosin HCl 0.4 mg DAILY PO Last administered on 08/02/24at 08:41; Start 07/27/24 at 09:00; Stop 08/26/24 at 08:59 Propofol 200 mg STK-MED ONCE IV; Start 07/27/24 at 11:18; Stop 07/27/24 at 11:20; Status DC Lidocaine HCl 100 mg STK-MED ONCE .ROUTE; Start 07/27/24 at 11:18; Stop 07/27/24 at 11:20; Status DC Thiamine HCl 100 mg DAILY IVP Last administered on 08/02/24at 08:41; Start 07/28/24 at 09:00; Stop 08/27/24 at 08:59 Dexamethasone Sodium Phosphate 10 mg ONCE ONCE IV Last administered on 07/28/24at 14:21; Start 07/28/24 at 14:00; Stop 07/28/24 at 14:11; Status DC Ketorolac Tromethamine 15 mg Q6H PRN IV Last administered on 08/01/24at 21:00; Start 07/28/24 at 14:00; Stop 08/02/24 at 13:59 Tramadol HCl 50 mg Q6H PRN PO Last administered on 07/31/24at 23:10; Start 07/31/24 at 01:00; Stop 08/05/24 at 00:59 Potassium Chloride 100 ml @ 100 mls/hr AD PRN IV; Start 07/31/24 at 11:00; Stop 08/30/24 at 10:59 Potassium Chloride 20 meq AD PRN PO; Start 07/31/24 at 11:00; Stop 08/30/24 at 10:59 Potassium Chloride 20 meq AD PRN PO Last administered on 07/31/24at 15:46; Start 07/31/24 at 11:00; Stop 08/30/24 at 10:59 Magnesium Sulfate 50 ml @ 0 mls/hr PROTOCOL IV; Start 07/31/24 at 14:00; Stop 08/30/24 at 13:59 Fentanyl 25 mcg Q72H TD; Start 08/01/24 at 13:30; Stop 08/01/24 at 13:42; Status DC Fentanyl 12 mcg Q72H TD Last administered on 08/01/24at 15:34; Start 08/01/24 at 14:30; Stop 08/06/24 at 14:29 Morphine Sulfate 2 mg Q4H PRN IVP Last administered on 08/02/24at 09:22; Start 08/01/24 at 15:00; Stop 08/08/24 at 14:59 Ondansetron HCl 4 mg Q4H4 PRN IVP; Start 08/01/24 at 18:00; Stop 08/02/24 at 08:36; Status DC Zolpidem Tartrate 5 mg ONCE ONCE PO Last administered on 08/01/24at 23:42; Start 08/02/24 at 00:00; Stop 08/02/24 at 00:01; Status DC Ondansetron HCl 4 mg Q4HPRN PRN IVP Last administered on 08/02/24at 08:40; Start 08/02/24 at 09:00; Stop 09/01/24 at 08:59 ITA SCHULER MD Aug 02, 2024 13:40
--- NOTE | 2024-08-02 14:39 | PN ---
[facility] PROGRESS NOTE Date of Service: Aug 02, 2024 Time of Service: 14:33 SUBJECTIVE: [69-year-old male who was admitted due to generalized weakness, decreased appetite with for a to 50 lb weight loss. Labs reviewed today Na 135, Cl 100, CO2 20, BUN 22, iron 209,% sat 83.2, total bili 1.3, GGT 185, AST 73, alkaline phosphatase 2061, CRP 23.7. S/p GI endoscopy-result showed large gastric mass. We will continue to follow GI rec's. Dr. Lockett on board who recommended bone scan which showed malignant skeletal disease. He is recommended orthopedic consult, we will continue to follow. 07/29/24 Patient seen and examined. Reports pain is reasonably controlled, Awaiting biopsy results 07/30/24 Patient was seen and examined in the room, he was lying in bed, denies any pain. Oncology is recommending SPSP UPEP and free light, if monocolonal protein noted, bone marrow bx recommended, as of today no result. We will follow up with Oncologist on further recommendation. 08/01/27 The patient is still mostly bedbound. Patient continues to feel lethargic. His H&H is 6.3/18.4. We will type and cross and transfuse one unit of PRBC, we will repeat H and H once transfuse. We will continue to monitor labs and replace electrolytes as needed. 08/01/24 Patient was evaluated today, he continues to feel very weak. H&H is more stable today the , though dropped few points. 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 Options discussed with the patient and daughter between palliative chemo hospice. Patient and daughter to decide. 08/02/24 this patient was evaluated. Per daughter at bedside, they would like to proceed with palliative chemotherapy. Primary nurse spoke with Dr. Lockett for which he will be ordering Port-A-Cath placement. Hgb dropped today, will transfuse. REVIEW OF SYSTEMS CONSTITUTIONAL: Denies fevers, chills, or night sweats. Positive for unintentional weight loss NEUROLOGICAL: Denies headache, amaurosis fugax, motor weakness, sensory deficit, vertigo/spinning sensation, gait abnormalities, or tremors. ENT: No hearing loss, otalgia, otorrhea, rhinitis, rhinorrhea, hoarseness, or sore throat. CARDIOVASCULAR: Denies any exertional angina, dyspnea on exertion, orthopnea, paroxysmal nocturnal dyspnea, palpitations, life-threatening arrhythmias, claudication. PULMONARY: Denies any shortness of breath, cough, phlegm/sputum, hemoptysis, pleuritic chest pain. GASTROINTESTINAL: Positive for nausea, vomiting, black stools. Denied any hematochezia, hematemesis GENITOURINARY: Denies frequency, urgency, nocturia, hematuria or incontinence (Storage/Irritative symptoms.) Low urinary stream, straining to void, urinary intermittency or hesitancy, splitting of the voiding stream, terminal dribbling. ENDOCRINOLOGIC: Denies polyuria, polydipsia, polyphagia or heat/cold intolerances. HEMATOLOGIC: Denies thrombophilia/previous clots, or coagulopathy/bleeding disorders. ONCOLOGIC: Denies personal history of malignancy. DERMATOLOGIC: Denies rashes or pruritus. PSYCHIATRIC: Denies any suicidal or homicidal ideation. Denies hallucinations. PHYSICAL EXAM GENERAL APPEARANCE: The patient is awake, alert, and oriented, in no acute cardiopulmonary distress. NEUROLOGICAL: Cranial nerves II-XII grossly intact. Motor is 5/5 in bilateral upper and lower extremities proximal to distal. No sensory deficits. HEENT: Face is symmetric. Pupils are equal and reactive. Extraocular movements are intact. NECK: Supple. No JVD. No thyromegaly. No submental, submandibular, pre- /postauricular, occipital or supraclavicular lymphadenopathy. CHEST: Normal chest expansion. No Telemetry. LUNGS: Absence of any rales, rhonchi or any wheezing. CARDIOVASCULAR: Regular. S1 and S2 normal. No appreciable rubs, murmurs or gallops. ABDOMEN: Soft, nontender, and nondistended. Patient has a right inguinal hernia. There is no erythema around the inguinal area. No tenderness to palpation. : Deferred. No Diaz. EXTREMITIES: Non-edematous and not cyanotic. No clubbing. Good capillary refill. SKIN: No skin breakdown. Vital Signs (last 8hr) Date Time Temp Pulse Resp B/P (MAP) Pulse Ox O2 Delivery O2 Flow Rate FiO2 08/02/24 11:40 98.1 67 17 128/68 100 Room Air 08/02/24 08:13 97.7 92 17 159/97 100 Room Air LABS: Laboratory: Test 08/02/24 10:40 Range/Units White Blood Count 7.3 4.8-10.8 K/uL Red Blood Count 2.17 L 4.50-6.20 MIL/uL Hemoglobin 7.0 *L 14.0-18.0 g/dL Hematocrit 20.6 *L 42-54 % Mean Corpuscular Volume 94.9 79-99 fL Mean Corpuscular Hemoglobin 32.3 27.0-33.0 pg Mean Corpuscular Hemoglobin Concent 34.0 32.0-36.0 g/dL Red Cell Distribution Width 18.1 H 11.0-15.5 % Platelet Count 77 L 130-400 K/uL Mean Platelet Volume 11.0 H 7.5-10.5 fL Segmented Neutrophils % 48 40-70 % Band Neutrophils % 2 0-2 % Lymphocytes % (Manual) 37 22-44 % Monocytes % (Manual) 2 2-9 % Eosinophils % (Manual) 2 1-6 % Myelocytes % 1 H 0-0 % Promyelocytes % 2 H 0-0 Nucleated Red Blood Cells 19.7 H 0.0-0.19 % Differential Comment MANUAL DIFFERENTIAL Reactive Lymphocytes 6 H 0-0 % White Cell Morphology Comment See comments Platelet Morphology Comment DECREASED Red Blood Cell Morphology See comments Sodium Level 134 L 136-145 mmol/L Potassium Level 3.7 3.5-5.1 mmol/L Chloride Level 100 L 101-111 mmol/L Carbon Dioxide Level 28 21-32 mmol/L Blood Urea Nitrogen 16 7-18 mg/dL Creatinine 0.7 0.5-1.3 mg/dL Glomerular Filtration Rate Calc 101 >90 mL/min Random Glucose 97 70-105 mg/dL Total Calcium 7.9 L 8.5-10.1 mg/dL Current Medications Medications (Trade) Dose Ordered Sig/Christie Route PRN Reason Start Time Stop Time Status Last Admin Dose Admin Acetaminophen (TYLenol 500MG TAB) 500 mg Q6H PRN PO MILD PAIN (1-3) 07/26/24 17:00 08/25/24 16:59 Fentanyl (DURAgesic 12 MCG/HR PATCH) 12 mcg Q72H TD 08/01/24 14:30 08/06/24 14:29 08/01/24 15:34 12 MCG Fentanyl (DURAgesic 25 MCG/HR PATCH) 25 mcg Q72H TD 08/01/24 13:30 08/01/24 13:42 DC Finasteride (PROscar 5 MG TAB) 5 mg DAILY PO 07/27/24 09:00 08/26/24 08:59 08/02/24 08:41 5 MG Ketorolac Tromethamine (toRADol) 15 mg Q6H PRN IV MODERATE PAIN (4-6) 07/28/24 14:00 08/02/24 13:59 DC 08/01/24 21:00 15 MG Magnesium Sulfate 50 ml @ 0 mls/hr PROTOCOL IV 07/31/24 14:00 08/30/24 13:59 Magnesium Sulfate 50 ml @ 0 mls/hr PROTOCOL PRN IV hypomagnesemia 07/26/24 19:00 08/01/24 06:56 DC Morphine Sulfate (morPHINE 2MG SYG) 2 mg Q4H PRN IVP SEVERE PAIN (7-10) 08/01/24 15:00 08/08/24 14:59 08/02/24 09:22 2 MG Morphine Sulfate (morPHINE 2MG SYG) 2 mg Q6H PRN IVP SEVERE PAIN (7-10) 07/26/24 18:30 07/31/24 21:29 DC 07/31/24 15:58 2 MG Ondansetron HCl (zoFRAN 4MG INJ) 4 mg Q4H4 PRN IVP NAUSEA/VOMITING 08/01/24 18:00 08/02/24 08:36 DC Ondansetron HCl (zoFRAN 4MG INJ) 4 mg Q4HPRN PRN IVP NAUSEA/VOMITING 08/02/24 09:00 09/01/24 08:59 08/02/24 08:40 4 MG Ondansetron HCl (zoFRAN 4MG INJ) 4 mg Q6H PRN IVP NAUSEA/VOMITING 07/26/24 17:00 08/01/24 17:56 DC 08/01/24 12:28 4 MG Pantoprazole Sodium (PROTonix 40MG INJ) 40 mg Q12H IVP 07/26/24 17:00 08/25/24 16:59 08/02/24 05:30 40 MG Potassium Chloride 100 ml @ 50 mls/hr AD PRN IV POTASSIUM PROTOCOL 07/26/24 19:00 08/01/24 06:56 DC Potassium Chloride 100 ml @ 100 mls/hr AD PRN IV POTASSIUM PROTOCOL 07/31/24 11:00 08/30/24 10:59 Potassium Chloride (K-Dur/Klor-Con 20meq) 20 meq AD PRN PO POTASSIUM PROTOCOL 07/31/24 11:00 08/30/24 10:59 07/31/24 15:46 20 MEQ Potassium Chloride (KCl 10% Elixir 20meq/15ml) 20 meq AD PRN PO POTASSIUM PROTOCOL 07/31/24 11:00 08/30/24 10:59 Sodium Chloride 1,000 ml @ 100 mls/hr Q10H IV 07/26/24 17:00 08/25/24 16:59 08/02/24 08:41 100 MLS/HR Tamsulosin HCl (FloMAX) 0.4 mg DAILY PO 07/27/24 09:00 08/26/24 08:59 08/02/24 08:41 0.4 MG Thiamine HCl (Vitamin B-1) 100 mg DAILY IVP 07/28/24 09:00 08/27/24 08:59 08/02/24 08:41 100 MG Tramadol HCl (UltRAM) 50 mg Q6H PRN PO MODERATE PAIN (4-6) 07/31/24 01:00 08/05/24 00:59 07/31/24 23:10 50 MG DIAGNOSTICS / RADIOLOGY: [ ] ASSESSMENT: Blood loss anemia, POA Suspicious for metastatic skeletal disease by bone scan, POA R/o multiple myeloma 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, 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, by upper GI endoscopy done on 07/28/2024 Large mass to the stomach consistent with possible [place] [id number], bone scan showing multiple lesions to the bone consistent with metastatic disease, POA Gastritis per upper GI endoscopy done on 07/28/2024 Recurrent nausea and vomiting POA Unintentional weight loss of around 40-50 lb with concern for underlying malignancy Elevated alk-phos differential secondary to bone Mets versus underlying liver etiology Mild LFT elevation Right inguinal hernia Normocytic anemia Suspected melena BPH Severe protein caloric malnutrition, POA PLAN: Patient will continued to be admitted in the medical surgical floor Persistent drop in Hgb We will transfuse 1 unit of PRBC We will continue to monitor patient and follow recommendations from Oncology and Gastroenterology Status post upper endoscopy Patient will be on clear liquid diet Oncology recommending SPEP UPEP and free light chain. We will follow-up with the result if there is monoclonal protein we will do bone marrow biopsy Continue with pain management Continue with supportive care GI and DVT prophylaxis We will repeat labs tomorrow Family would like to proceed with palliative chemotherapy Port-A-Cath recommended per Oncology Case was seen and examined with Dr. Bean, above plan was formulated ATTESTATION BY PHYSICIAN I have seen and examined the patient. I reviewed the documentation, medical decision making, and treatment plan as noted by the mid-level provider above. I agree with the findings and plan of care. Amy Siu MD, [facility] Aug 02, 2024 14:39
[2024-08-02 17:30] VITALS: BP 102/71; PULSE 89; RESP 17; TEMP 98
--- NOTE | 2024-08-02 18:00 | NUR ---
Portacath hold Patient and daughter decided to hold off on portacath placement until or Thursday when the patient's other daughter is here. They also stated that they would like to speak further with Dr. Lockett regarding the process of chemotherapy and how he feels about the patient's ability to tolerate chemotherapy. The patient's older daughter is flying in from [place] on 08/04/2024.
[2024-08-02 19:30] VITALS: O2SAT 100
[2024-08-02 20:00] VITALS: BP 111/71; PULSE 75; RESP 17; TEMP 98.2
[2024-08-03] VITALS (8 sets, daily range): BP systolic 111–155; BP diastolic 71–89; PULSE 59–86; RESP 16–18; TEMP 98–98.7; O2SAT 99
[2024-08-03 05:49] LABS: HEMATOCRIT 24.6 % (42-54); MEAN CORPUSCULAR HEMOGLOBIN 29.1 pg (27.0-33.0); MEAN CORPUSCULAR HGB CONC 32.9 g/dL (32.0-36.0); MEAN CORPUSCULAR VOLUME 88.5 fL (79-99); NUCLEATED RED BLOOD CELLS 24.9 % (0.0-0.19); RED BLOOD CELL COUNT(AUTO) 2.78 MIL/uL (4.50-6.20); RED CELL DISTRIBUTION WIDTH 21.8 % (11.0-15.5); WHITE BLOOD COUNT (AUTO) 7.4 K/uL (4.8-10.8)
[2024-08-03 05:59] LABS: CREATININE 0.8 mg/dL (0.5-1.3); POTASSIUM 3.7 mmol/L (3.5-5.1)
[2024-08-03 06:01] LABS: INR 1.48 (0.85-1.15); PROTHROMBIN TIME 15.1 SEC (9.6-11.6)
[2024-08-03 06:02] LABS: PARTIAL THROMBOPLASTIN TIME 29.1 SEC (26.3-35.5)
[2024-08-03] MEDS: PoTASSium chl 10% ELIXIR 20MEQ 20 MEQ/15 ML UDCUP PO PRN (09:41)
--- NOTE | 2024-08-03 11:07 | NUR ---
Nutritional f/u Note: Chart, meds, and labs Reviewed. Pt admit with significant unintentional wt loss in 2 months Pt diet advanced to full liquid and unable to meet estimated needs by oral route. EDG showed large gastric mass with suspected metastatic disease to bone as per MD. Wt gain does not reflect nutritional repletion. Pt is pending permacath placement and is a candidate TPN. MD consult for IV nutrition support. Met with pt. Pt reported fair appetite and requested ice cream, po supplement and agreed to jello. Wt Status: current wt 61kg previous admit wt 54kg Recommend: -When medically feasible and cleared by MD, consider CLinimix 4.25/5% via peripheral line goal rate 83.33ml/hr Include 10ml adult MVI and 3ml trace elements. -Lipid emulsion x 3weekly M, W, F to prevent essential fatty acid deficiency -Check Lipid Panel weekly on Mondays -Provide Thiamine 100mg IV daily x 5 days to prevent refeeding syndrome -Monitor K, mg PO4 for refeeding risk and correct as needed -ProStat (30 ml) JELLO, Magic cup and twocal added to trays -Nephrovite MVI combination of B vitamins may be used to treat or prevent vitamin deficiency due to poor diet. -If unable to meet needs orally 3-5days, evaluate for enteral nutrition NGT vs PEG if GI tract functional and safe -Provide Thiamine 100mg IV daily x 5 days to prevent refeeding syndrome -Monitor K, mg PO4 for refeeding risk and correct as needed -RD to provide further recommendations based on clinical progress. -Monitor feeding tolerance, fluid b, wt, and labs -If No BM >3days consider bowel stimulant. - Please notify RD if additional nutrition concerns arise. Addendum: 08/03/24 at [address] Amended: Links added.
--- NOTE | 2024-08-03 11:10 | NUR ---
Discharge Planning: Pending family decision on whether patient will be started on chemotherapy. Daughter is flying in on . Port-A-Cath placement is on hold for now.
--- NOTE | 2024-08-03 12:17 | PN ---
GASTROENTEROLOGY PROGRESS NOTE Date of Visit: Aug 03, 2024 Time of Visit: 12:17 Events / Notes: No acute events overnight. 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 Review of Systems: CONSTITUTIONAL: No malaise or change in sensation of wellbeing. ENMT: No rhinorrhea, otorrhea, sinus pain, ear ache. CARDIOVASCULAR: No angina, palpitations, orthopnea or paroxysmal dyspnea. RESPIRATORY: No SOB. GASTROINTESTINAL: No abdominal pain, nausea, vomiting, diarrhea, hematemesis, melena or change in the patient's habitual bowel movements consistency/number. GENITOURINARY: No dysuria, hematuria or change in bladder continence. MUSCULOSKELETAL: No new muscle pain or decrease in muscular strength. No new joint swelling, redness or tenderness. SKIN: No new rash. Physical Exam: GEN: Awake, alert, oriented in person, time and place, and in no acute distress. HEENT: No sinus tenderness. Tympanic membranes were not examined. No rhinorrhea. Oral pharyngeal mucosa is pink, moist and within normal limits. Neck is supple with no cervical lymphadenopathy, thyromegaly or JVD. CHEST: Inspection, palpation and percussion of the chest were unremarkable. Lung auscultation revealed normal breath sounds bilaterally. CARDIAC: PMI is within normal limits. Heart sounds are regular. Normal S1, S2. No gallop or murmur. ABD: Soft, non-tender and not distended. No peritoneal signs on palpation. No organomegaly. Normal bowel sounds. EXT: No cyanosis or clubbing. No edema. SKIN: Intact. No rashes. JOINTS: No evidence of synovitis or acute arthritis. NEURO: Alert and oriented to name, place and person. Cranial nerve examination is unremarkable. No focal motor deficits. Normal speech. Gait is normal. Strength is normal. Vital Signs (last 8hr) Date Time Temp Pulse Resp B/P (MAP) Pulse Ox O2 Delivery O2 Flow Rate FiO2 08/03/24 08:33 99 Room Air* 0 21 08/03/24 08:00 98.1 65 17 134/73 99 Room Air Laboratory: [ ] Laboratory: Test 08/03/24 05:12 08/02/24 10:40 Range/Units White Blood Count 7.4 4.8-10.8 K/uL Red Blood Count 2.78 #L 4.50-6.20 MIL/uL Hemoglobin 8.1 L 14.0-18.0 g/dL Hematocrit 24.6 L 42-54 % Mean Corpuscular Volume 88.5 79-99 fL Mean Corpuscular Hemoglobin 29.1 27.0-33.0 pg Mean Corpuscular Hemoglobin Concent 32.9 32.0-36.0 g/dL Red Cell Distribution Width 21.8 H 11.0-15.5 % Platelet Count 87 L 130-400 K/uL Mean Platelet Volume 11.0 H 7.5-10.5 fL Nucleated Red Blood Cells 24.9 H 0.0-0.19 % Prothrombin Time 15.1 H 9.6-11.6 SEC Prothromb Time International Ratio 1.48 H 0.85-1.15 Activated Partial Thromboplast Time 29.1 26.3-35.5 SEC Sodium Level 136 136-145 mmol/L Potassium Level 3.7 3.5-5.1 mmol/L Chloride Level 101 101-111 mmol/L Carbon Dioxide Level 26 21-32 mmol/L Blood Urea Nitrogen 15 7-18 mg/dL Creatinine 0.8 0.5-1.3 mg/dL Glomerular Filtration Rate Calc 97 >90 mL/min Random Glucose 85 70-105 mg/dL Total Calcium 8.3 L 8.5-10.1 mg/dL Segmented Neutrophils % 48 40-70 % Band Neutrophils % 2 0-2 % Lymphocytes % (Manual) 37 22-44 % Monocytes % (Manual) 2 2-9 % Eosinophils % (Manual) 2 1-6 % Myelocytes % 1 H 0-0 % Promyelocytes % 2 H 0-0 Differential Comment MANUAL DIFFERENTIAL Reactive Lymphocytes 6 H 0-0 % White Cell Morphology Comment See comments Platelet Morphology Comment DECREASED Red Blood Cell Morphology See comments Current Medications Medications (Trade) Dose Ordered Sig/Christie Route PRN Reason Start Time Stop Time Status Last Admin Dose Admin Acetaminophen (TYLenol 500MG TAB) 500 mg Q6H PRN PO MILD PAIN (1-3) 07/26/24 17:00 08/25/24 16:59 Fentanyl (DURAgesic 12 MCG/HR PATCH) 12 mcg Q72H TD 08/01/24 14:30 08/06/24 14:29 08/01/24 15:34 12 MCG Fentanyl (DURAgesic 25 MCG/HR PATCH) 25 mcg Q72H TD 08/01/24 13:30 08/01/24 13:42 DC Finasteride (PROscar 5 MG TAB) 5 mg DAILY PO 07/27/24 09:00 08/26/24 08:59 08/03/24 09:40 5 MG Ketorolac Tromethamine (toRADol) 15 mg Q6H PRN IV MODERATE PAIN (4-6) 07/28/24 14:00 08/02/24 13:59 DC 08/01/24 21:00 15 MG Magnesium Sulfate 50 ml @ 0 mls/hr PROTOCOL IV 07/31/24 14:00 08/30/24 13:59 Magnesium Sulfate 50 ml @ 0 mls/hr PROTOCOL PRN IV hypomagnesemia 07/26/24 19:00 08/01/24 06:56 DC Morphine Sulfate (morPHINE 2MG SYG) 2 mg Q4H PRN IVP SEVERE PAIN (7-10) 08/01/24 15:00 08/08/24 14:59 08/03/24 05:27 2 MG Morphine Sulfate (morPHINE 2MG SYG) 2 mg Q6H PRN IVP SEVERE PAIN (7-10) 07/26/24 18:30 07/31/24 21:29 DC 07/31/24 15:58 2 MG Ondansetron HCl (zoFRAN 4MG INJ) 4 mg Q4H4 PRN IVP NAUSEA/VOMITING 08/01/24 18:00 08/02/24 08:36 DC Ondansetron HCl (zoFRAN 4MG INJ) 4 mg Q4HPRN PRN IVP NAUSEA/VOMITING 08/02/24 09:00 09/01/24 08:59 08/03/24 05:22 4 MG Ondansetron HCl (zoFRAN 4MG INJ) 4 mg Q6H PRN IVP NAUSEA/VOMITING 07/26/24 17:00 08/01/24 17:56 DC 08/01/24 12:28 4 MG Pantoprazole Sodium (PROTonix 40MG INJ) 40 mg Q12H IVP 07/26/24 17:00 08/25/24 16:59 08/03/24 05:19 40 MG Potassium Chloride 100 ml @ 50 mls/hr AD PRN IV POTASSIUM PROTOCOL 07/26/24 19:00 08/01/24 06:56 DC Potassium Chloride 100 ml @ 100 mls/hr AD PRN IV POTASSIUM PROTOCOL 07/31/24 11:00 08/30/24 10:59 Potassium Chloride (K-Dur/Klor-Con 20meq) 20 meq AD PRN PO POTASSIUM PROTOCOL 07/31/24 11:00 08/30/24 10:59 07/31/24 15:46 20 MEQ Potassium Chloride (KCl 10% Elixir 20meq/15ml) 20 meq AD PRN PO POTASSIUM PROTOCOL 07/31/24 11:00 08/30/24 10:59 08/03/24 09:41 20 MEQ Sodium Chloride 1,000 ml @ 100 mls/hr Q10H IV 07/26/24 17:00 08/25/24 16:59 08/02/24 08:41 100 MLS/HR Tamsulosin HCl (FloMAX) 0.4 mg DAILY PO 07/27/24 09:00 08/26/24 08:59 08/03/24 09:40 0.4 MG Thiamine HCl (Vitamin B-1) 100 mg DAILY IVP 07/28/24 09:00 08/27/24 08:59 08/02/24 08:41 100 MG Tramadol HCl (UltRAM) 50 mg Q6H PRN PO MODERATE PAIN (4-6) 07/31/24 01:00 08/05/24 00:59 07/31/24 23:10 50 MG Diagnostics / Radiology: [COPY/PASTE HERE IF NO REPORTS PLEASE DELETE SECTION] Assessment: Gastric mass N/V Weight loss Abnormal LFTs Plan: CT chest/abd/pelvis Surgery and oncology eval Await path Colonoscopy not warranted at this time as source of anemia/bleed identified Continue GI prophylaxis Avoid NSAIDs Antireflux measures Monitor H&H and transfuse as needed Call with questions, concerns or change in clinical status Patient to follow-up at clinic post discharge Thank you for this consult B[employer]U [employer]ANG [employer] Aug 03, 2024 12:17
--- NOTE | 2024-08-03 12:36 | PN ---
[facility] PROGRESS NOTE Date of Service: Aug 03, 2024 Time of Service: 12:33 SUBJECTIVE: [69-year-old male who was admitted due to generalized weakness, decreased appetite with for a to 50 lb weight loss. Labs reviewed today Na 135, Cl 100, CO2 20, BUN 22, iron 209,% sat 83.2, total bili 1.3, GGT 185, AST 73, alkaline phosphatase 2061, CRP 23.7. S/p GI endoscopy-result showed large gastric mass. We will continue to follow GI rec's. Dr. Lockett on board who recommended bone scan which showed malignant skeletal disease. He is recommended orthopedic consult, we will continue to follow. 07/29/24 Patient seen and examined. Reports pain is reasonably controlled, Awaiting biopsy results 07/30/24 Patient was seen and examined in the room, he was lying in bed, denies any pain. Oncology is recommending SPSP UPEP and free light, if monocolonal protein noted, bone marrow bx recommended, as of today no result. We will follow up with Oncologist on further recommendation. 08/01/27 The patient is still mostly bedbound. Patient continues to feel lethargic. His H&H is 6.3/18.4. We will type and cross and transfuse one unit of PRBC, we will repeat H and H once transfuse. We will continue to monitor labs and replace electrolytes as needed. 08/01/24 Patient was evaluated today, he continues to feel very weak. H&H is more stable today the , though dropped few points. 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 Options discussed with the patient and daughter between palliative chemo hospice. Patient and daughter to decide. 08/02/24 this patient was evaluated. Per daughter at bedside, they would like to proceed with palliative chemotherapy. Primary nurse spoke with Dr. Lockett for which he will be ordering Port-A-Cath placement. Hgb dropped today, will transfuse. 08/03/24 patient was evaluated in the room today currently lying in bed. No acute events reported overnight. Patient stated that his two daughters will be coming today to discussed treatment plan. There is a pending Port-A-Cath placement as patient and family will have to decide whether to proceed for chemo. We will await for final plan from patient and family. REVIEW OF SYSTEMS CONSTITUTIONAL: Denies fevers, chills, or night sweats. Positive for unintentional weight loss NEUROLOGICAL: Denies headache, amaurosis fugax, motor weakness, sensory deficit, vertigo/spinning sensation, gait abnormalities, or tremors. ENT: No hearing loss, otalgia, otorrhea, rhinitis, rhinorrhea, hoarseness, or sore throat. CARDIOVASCULAR: Denies any exertional angina, dyspnea on exertion, orthopnea, paroxysmal nocturnal dyspnea, palpitations, life-threatening arrhythmias, claudication. PULMONARY: Denies any shortness of breath, cough, phlegm/sputum, hemoptysis, pleuritic chest pain. GASTROINTESTINAL: Positive for nausea, vomiting, black stools. Denied any hematochezia, hematemesis GENITOURINARY: Denies frequency, urgency, nocturia, hematuria or incontinence (Storage/Irritative symptoms.) Low urinary stream, straining to void, urinary intermittency or hesitancy, splitting of the voiding stream, terminal dribbling. ENDOCRINOLOGIC: Denies polyuria, polydipsia, polyphagia or heat/cold intolerances. HEMATOLOGIC: Denies thrombophilia/previous clots, or coagulopathy/bleeding disorders. ONCOLOGIC: Denies personal history of malignancy. DERMATOLOGIC: Denies rashes or pruritus. PSYCHIATRIC: Denies any suicidal or homicidal ideation. Denies hallucinations. PHYSICAL EXAM GENERAL APPEARANCE: The patient is awake, alert, and oriented, in no acute cardiopulmonary distress. NEUROLOGICAL: Cranial nerves II-XII grossly intact. Motor is 5/5 in bilateral upper and lower extremities proximal to distal. No sensory deficits. HEENT: Face is symmetric. Pupils are equal and reactive. Extraocular movements are intact. NECK: Supple. No JVD. No thyromegaly. No submental, submandibular, pre-/postauricular, occipital or supraclavicular lymphadenopathy. CHEST: Normal chest expansion. No Telemetry. LUNGS: Absence of any rales, rhonchi or any wheezing. CARDIOVASCULAR: Regular. S1 and S2 normal. No appreciable rubs, murmurs or gallops. ABDOMEN: Soft, nontender, and nondistended. Patient has a right inguinal hernia. There is no erythema around the inguinal area. No tenderness to palpation. : Deferred. No Diaz. EXTREMITIES: Non-edematous and not cyanotic. No clubbing. Good capillary refill. SKIN: No skin breakdown. Vital Signs (last 8hr) Date Time Temp Pulse Resp B/P (MAP) Pulse Ox O2 Delivery O2 Flow Rate FiO2 08/03/24 12:00 98.1 73 17 111/73 100 Room Air 08/03/24 08:33 99 Room Air* 0 21 08/03/24 08:00 98.1 65 17 134/73 99 Room Air LABS: Laboratory: Test 08/03/24 05:12 08/02/24 10:40 Range/Units White Blood Count 7.4 4.8-10.8 K/uL Red Blood Count 2.78 #L 4.50-6.20 MIL/uL Hemoglobin 8.1 L 14.0-18.0 g/dL Hematocrit 24.6 L 42-54 % Mean Corpuscular Volume 88.5 79-99 fL Mean Corpuscular Hemoglobin 29.1 27.0-33.0 pg Mean Corpuscular Hemoglobin Concent 32.9 32.0-36.0 g/dL Red Cell Distribution Width 21.8 H 11.0-15.5 % Platelet Count 87 L 130-400 K/uL Mean Platelet Volume 11.0 H 7.5-10.5 fL Nucleated Red Blood Cells 24.9 H 0.0-0.19 % Prothrombin Time 15.1 H 9.6-11.6 SEC Prothromb Time International Ratio 1.48 H 0.85-1.15 Activated Partial Thromboplast Time 29.1 26.3-35.5 SEC Sodium Level 136 136-145 mmol/L Potassium Level 3.7 3.5-5.1 mmol/L Chloride Level 101 101-111 mmol/L Carbon Dioxide Level 26 21-32 mmol/L Blood Urea Nitrogen 15 7-18 mg/dL Creatinine 0.8 0.5-1.3 mg/dL Glomerular Filtration Rate Calc 97 >90 mL/min Random Glucose 85 70-105 mg/dL Total Calcium 8.3 L 8.5-10.1 mg/dL Segmented Neutrophils % 48 40-70 % Band Neutrophils % 2 0-2 % Lymphocytes % (Manual) 37 22-44 % Monocytes % (Manual) 2 2-9 % Eosinophils % (Manual) 2 1-6 % Myelocytes % 1 H 0-0 % Promyelocytes % 2 H 0-0 Differential Comment MANUAL DIFFERENTIAL Reactive Lymphocytes 6 H 0-0 % White Cell Morphology Comment See comments Platelet Morphology Comment DECREASED Red Blood Cell Morphology See comments Current Medications Medications (Trade) Dose Ordered Sig/Christie Route PRN Reason Start Time Stop Time Status Last Admin Dose Admin Acetaminophen (TYLenol 500MG TAB) 500 mg Q6H PRN PO MILD PAIN (1-3) 07/26/24 17:00 08/25/24 16:59 Fentanyl (DURAgesic 12 MCG/HR PATCH) 12 mcg Q72H TD 08/01/24 14:30 08/06/24 14:29 08/01/24 15:34 12 MCG Fentanyl (DURAgesic 25 MCG/HR PATCH) 25 mcg Q72H TD 08/01/24 13:30 08/01/24 13:42 DC Finasteride (PROscar 5 MG TAB) 5 mg DAILY PO 07/27/24 09:00 08/26/24 08:59 08/03/24 09:40 5 MG Ketorolac Tromethamine (toRADol) 15 mg Q6H PRN IV MODERATE PAIN (4-6) 07/28/24 14:00 08/02/24 13:59 DC 08/01/24 21:00 15 MG Magnesium Sulfate 50 ml @ 0 mls/hr PROTOCOL IV 07/31/24 14:00 08/30/24 13:59 Magnesium Sulfate 50 ml @ 0 mls/hr PROTOCOL PRN IV hypomagnesemia 07/26/24 19:00 08/01/24 06:56 DC Morphine Sulfate (morPHINE 2MG SYG) 2 mg Q4H PRN IVP SEVERE PAIN (7-10) 08/01/24 15:00 08/08/24 14:59 08/03/24 05:27 2 MG Morphine Sulfate (morPHINE 2MG SYG) 2 mg Q6H PRN IVP SEVERE PAIN (7-10) 07/26/24 18:30 07/31/24 21:29 DC 07/31/24 15:58 2 MG Ondansetron HCl (zoFRAN 4MG INJ) 4 mg Q4H4 PRN IVP NAUSEA/VOMITING 08/01/24 18:00 08/02/24 08:36 DC Ondansetron HCl (zoFRAN 4MG INJ) 4 mg Q4HPRN PRN IVP NAUSEA/VOMITING 08/02/24 09:00 09/01/24 08:59 08/03/24 05:22 4 MG Ondansetron HCl (zoFRAN 4MG INJ) 4 mg Q6H PRN IVP NAUSEA/VOMITING 07/26/24 17:00 08/01/24 17:56 DC 08/01/24 12:28 4 MG Pantoprazole Sodium (PROTonix 40MG INJ) 40 mg Q12H IVP 07/26/24 17:00 08/25/24 16:59 08/03/24 05:19 40 MG Potassium Chloride 100 ml @ 50 mls/hr AD PRN IV POTASSIUM PROTOCOL 07/26/24 19:00 08/01/24 06:56 DC Potassium Chloride 100 ml @ 100 mls/hr AD PRN IV POTASSIUM PROTOCOL 07/31/24 11:00 08/30/24 10:59 Potassium Chloride (K-Dur/Klor-Con 20meq) 20 meq AD PRN PO POTASSIUM PROTOCOL 07/31/24 11:00 08/30/24 10:59 07/31/24 15:46 20 MEQ Potassium Chloride (KCl 10% Elixir 20meq/15ml) 20 meq AD PRN PO POTASSIUM PROTOCOL 07/31/24 11:00 08/30/24 10:59 08/03/24 09:41 20 MEQ Sodium Chloride 1,000 ml @ 100 mls/hr Q10H IV 07/26/24 17:00 08/25/24 16:59 08/02/24 08:41 100 MLS/HR Tamsulosin HCl (FloMAX) 0.4 mg DAILY PO 07/27/24 09:00 08/26/24 08:59 08/03/24 09:40 0.4 MG Thiamine HCl (Vitamin B-1) 100 mg DAILY IVP 07/28/24 09:00 08/27/24 08:59 08/02/24 08:41 100 MG Tramadol HCl (UltRAM) 50 mg Q6H PRN PO MODERATE PAIN (4-6) 07/31/24 01:00 08/05/24 00:59 07/31/24 23:10 50 MG DIAGNOSTICS / RADIOLOGY: [ ] ASSESSMENT: Blood loss anemia, POA Suspicious for metastatic skeletal disease by bone scan, POA R/o multiple myeloma 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, 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, by upper GI endoscopy done on 07/28/2024 Large mass to the stomach consistent with [place] [id number], bone scan showing multiple lesions to the bone consistent with metastatic disease, POA Gastritis per upper GI endoscopy done on 07/28/2024 Recurrent nausea and vomiting POA Unintentional weight loss of around 40-50 lb with concern for underlying malignancy Elevated alk-phos differential secondary to bone Mets versus underlying liver etiology Mild LFT elevation Right inguinal hernia Normocytic anemia Suspected melena BPH Severe protein caloric malnutrition, POA PLAN: Patient will continued to be admitted in the medical surgical floor Persistent drop in Hgb Patient is status post PRBC, improved H&H they at 8.1/24.6. So far he received3 units of PRBC while hospitalized We will continue to monitor patient and follow recommendations from Oncology and Gastroenterology Status post upper endoscopy Patient will be on clear liquid diet Oncology recommending SPEP UPEP and free light chain. We will follow-up with the result if there is monoclonal protein we will do bone marrow biopsy Continue with pain management Continue with supportive care GI and DVT prophylaxis We will repeat labs tomorrow Family would like to proceed with palliative chemotherapy Port-A-Cath recommended per Oncology, patient and family still deciding. Also patient will probably transfer services to [facility] oncology team Case was seen and examined with Dr. Bean, above plan was formulated ATTESTATION BY PHYSICIAN I have seen and examined the patient. I reviewed the documentation, medical decision making, and treatment plan as noted by the mid-level provider above. I agree with the findings and plan of care. Amy Siu MD, [facility] Aug 03, 2024 12:36
--- NOTE | 2024-08-03 22:40 | PN ---
69-year-old male with no known past medical history presents with a 2-month history of recurrent nausea and vomiting associated with early satiety and intolerance to solid foods. The patient reports consuming mainly jello and liquids during this period. He describes progressive unintentional weight loss of approximately 40�50 pounds over the same duration. He endorses episodes of black-colored stools but denies hematemesis or hematochezia. He also reports inconsistent bowel habits with alternating constipation. He has not sought prior medical attention for these symptoms and has not undergone any cancer screening. He denies chest pain, shortness of breath, cough, fever, chills, dysuria, hematuria, or any neurologic symptoms such as syncope or seizures. No family history is provided. He has a known history of right inguinal hernia without pain or incarceration. He reports mild symptoms in the inguinal area when ambulatory. EGD was done which showed patient to have big mass to the stomach. 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 Patient and family actually want to do the chemotherapy treatment. PE GENERAL: No acute respiratory distress. VITAL SIGNS: Reviewed and stable. HEENT: The sclerae are clear. The pupils are equal and reactive to light. The oropharyngeal cavity is within normal limits. NECK: Supple without lymphadenopathy. CHEST: Lung is clear bilaterally there is no wheezing or crackles. HEART: Sounds are regular and rhythmic. ABDOMEN: No guarding or rigidity. Bowel sounds positive. EXTREMITIES: No pitting edema. No petechial lesions or bruises. SKIN: No bruises, rash, or petechial lesions. NEUROLOGICAL: The patient is alert and oriented. No focal deficits. Muscle strength is 5/5. LYMPH NODES: There is no lymphadenopathy could be felt in the neck, supraclavicular, or axillary. Assessment 1. Large mass to the stomach consistent with possible gastric cancer especially with the CEA level is 18,000. Bone scan showing multiple lesion to the bone consistent with metastatic disease 2. Severe pain 3. Anemia. Patient with severe anemia with hemoglobin level 6.1 mg/deciliter. With the patient receiving blood transfusion 4. Weight loss Plan 1. 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 2. The family did not decide regarding his plan of care. I think they are waiting for a remote family member to come. If they decided hospice then this patient could go home with hospice. If the family decided they want palliative chemotherapy treatment then he will need Port-A-Cath inserted before discharge. Vitals/Labs Vital Signs Date Time Temp Pulse Resp B/P (MAP) Pulse Ox O2 Delivery O2 Flow Rate FiO2 08/03/24 20:18 98.1 62 18 120/73 100 Room Air 08/03/24 08:33 0 21 Laboratory Tests 08/03/24 05:12 Medications Current Medications Sodium Chloride 1,000 ml @ 0 mls/hr ONCE ONCE IV Last administered on 07/26/24at 13:56; Start 07/26/24 at 12:00; Stop 07/26/24 at 12:01; Status DC Morphine Sulfate 4 mg ONCE ONCE IM Last administered on 07/26/24at 13:56; Start 07/26/24 at 13:30; Stop 07/26/24 at 13:31; Status DC Ondansetron HCl 4 mg ONCE ONCE IVP Last administered on 07/26/24at 13:56; Start 07/26/24 at 14:00; Stop 07/26/24 at 14:01; Status DC Iohexol 75 ml STK-MED ONCE IV; Start 07/26/24 at 14:09; Stop 07/26/24 at 14:10; Status DC Ondansetron HCl 4 mg Q6H PRN IVP Last administered on 08/01/24at 12:28; Start 07/26/24 at 17:00; Stop 08/01/24 at 17:56; Status DC Pantoprazole Sodium 40 mg Q12H IVP Last administered on 08/03/24at 18:03; Start 07/26/24 at 17:00; Stop 08/25/24 at 16:59 Sodium Chloride 1,000 ml @ 100 mls/hr Q10H IV Last administered on 08/03/24at 18:06; Start 07/26/24 at 17:00; Stop 08/25/24 at 16:59 Acetaminophen 500 mg Q6H PRN PO; Start 07/26/24 at 17:00; Stop 08/25/24 at 16:59 Polyethylene Glycol/ Electrolytes 4,000 ml ONCE ONCE PO Last administered on 07/26/24at 18:46; Start 07/26/24 at 17:00; Stop 07/26/24 at 17:06; Status DC Morphine Sulfate 2 mg Q6H PRN IVP Last administered on 07/31/24at 15:58; Start 07/26/24 at 18:30; Stop 07/31/24 at 21:29; Status DC Potassium Chloride 100 ml @ 50 mls/hr AD PRN IV; Start 07/26/24 at 19:00; Stop 08/01/24 at 06:56; Status DC Magnesium Sulfate 50 ml @ 0 mls/hr PROTOCOL PRN IV; Start 07/26/24 at 19:00; Stop 08/01/24 at 06:56; Status DC Finasteride 5 mg DAILY PO Last administered on 08/03/24at 09:40; Start 07/27/24 at 09:00; Stop 08/26/24 at 08:59 Tamsulosin HCl 0.4 mg DAILY PO Last administered on 08/03/24at 09:40; Start 07/27/24 at 09:00; Stop 08/26/24 at 08:59 Propofol 200 mg STK-MED ONCE IV; Start 07/27/24 at 11:18; Stop 07/27/24 at 11:20; Status DC Lidocaine HCl 100 mg STK-MED ONCE .ROUTE; Start 07/27/24 at 11:18; Stop 07/27/24 at 11:20; Status DC Thiamine HCl 100 mg DAILY IVP Last administered on 08/03/24at 14:43; Start 07/28/24 at 09:00; Stop 08/27/24 at 08:59 Dexamethasone Sodium Phosphate 10 mg ONCE ONCE IV Last administered on 07/28/24at 14:21; Start 07/28/24 at 14:00; Stop 07/28/24 at 14:11; Status DC Ketorolac Tromethamine 15 mg Q6H PRN IV Last administered on 08/01/24at 21:00; Start 07/28/24 at 14:00; Stop 08/02/24 at 13:59; Status DC Tramadol HCl 50 mg Q6H PRN PO Last administered on 07/31/24at 23:10; Start 07/31/24 at 01:00; Stop 08/05/24 at 00:59 Potassium Chloride 100 ml @ 100 mls/hr AD PRN IV; Start 07/31/24 at 11:00; Stop 08/30/24 at 10:59 Potassium Chloride 20 meq AD PRN PO Last administered on 08/03/24at 09:41; Start 07/31/24 at 11:00; Stop 08/30/24 at 10:59 Potassium Chloride 20 meq AD PRN PO Last administered on 07/31/24at 15:46; Start 07/31/24 at 11:00; Stop 08/30/24 at 10:59 Magnesium Sulfate 50 ml @ 0 mls/hr PROTOCOL IV; Start 07/31/24 at 14:00; Stop 08/30/24 at 13:59 Fentanyl 25 mcg Q72H TD; Start 08/01/24 at 13:30; Stop 08/01/24 at 13:42; Status DC Fentanyl 12 mcg Q72H TD Last administered on 08/01/24at 15:34; Start 08/01/24 at 14:30; Stop 08/06/24 at 14:29 Morphine Sulfate 2 mg Q4H PRN IVP Last administered on 08/03/24at 20:11; Start 08/01/24 at 15:00; Stop 08/08/24 at 14:59 Ondansetron HCl 4 mg Q4H4 PRN IVP; Start 08/01/24 at 18:00; Stop 08/02/24 at 08:36; Status DC Zolpidem Tartrate 5 mg ONCE ONCE PO Last administered on 08/01/24at 23:42; Start 08/02/24 at 00:00; Stop 08/02/24 at 00:01; Status DC Ondansetron HCl 4 mg Q4HPRN PRN IVP Last administered on 08/03/24at 20:10; Start 08/02/24 at 09:00; Stop 09/01/24 at 08:59 ITA SCHULER MD Aug 03, 2024 22:40
[2024-08-04] VITALS (7 sets, daily range): BP systolic 99–127; BP diastolic 64–74; PULSE 69–91; RESP 16–18; TEMP 98.1–98.8; O2SAT 99
[2024-08-04 06:03] LABS: MEAN CORPUSCULAR HEMOGLOBIN 29.8 pg (27.0-33.0); MEAN CORPUSCULAR HGB CONC 32.6 g/dL (32.0-36.0); MEAN CORPUSCULAR VOLUME 91.3 fL (79-99); NUCLEATED RED BLOOD CELLS 31.2 % (0.0-0.19); PLATELET COUNT (AUTO) 76 K/uL (130-400); RED BLOOD CELL COUNT(AUTO) 2.52 MIL/uL (4.50-6.20); RED CELL DISTRIBUTION WIDTH 22.2 % (11.0-15.5); WHITE BLOOD COUNT (AUTO) 7.2 K/uL (4.8-10.8)
[2024-08-04 06:09] LABS: CREATININE 0.8 mg/dL (0.5-1.3); POTASSIUM 3.8 mmol/L (3.5-5.1)
[2024-08-04 06:36] LABS: BAND NEUTROPHILS % (MANUAL) 19 % (0-2); BASOPHILS % (MANUAL) 3 % (0-2); EOSINOPHILS % (MANUAL) 3 % (1-6); LYMPHOCYTES % (MANUAL) 25 % (22-44); MAN.DIFF COMMENT-IMPRESSION MANUAL DIFFERENTIAL; METAMYELOCYTES % 7 % (0-0); MONOCYTES % (MANUAL) 17 % (2-9); MYELOCYTES % 2 % (0-0); REACTIVE LYMPHOCYTES 1 % (0-0); SEGMENTED NEUTROPHILS % 23 % (40-70); TOTAL CELLS COUNTED 100
[2024-08-04 06:37] LABS: PLATELET MORPHOLOGY COMMENT DECREASED
--- NOTE | 2024-08-04 10:34 | PN ---
GASTROENTEROLOGY PROGRESS NOTE Date of Visit: August 04, 2024 Time of Visit: 10:34 Events / Notes: No acute events overnight. 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 Review of Systems: CONSTITUTIONAL: No malaise or change in sensation of wellbeing. ENMT: No rhinorrhea, otorrhea, sinus pain, ear ache. CARDIOVASCULAR: No angina, palpitations, orthopnea or paroxysmal dyspnea. RESPIRATORY: No SOB. GASTROINTESTINAL: No abdominal pain, nausea, vomiting, diarrhea, hematemesis, melena or change in the patient's habitual bowel movements consistency/number. GENITOURINARY: No dysuria, hematuria or change in bladder continence. MUSCULOSKELETAL: No new muscle pain or decrease in muscular strength. No new joint swelling, redness or tenderness. SKIN: No new rash. Physical Exam: GEN: Awake, alert, oriented in person, time and place, and in no acute distress. HEENT: No sinus tenderness. Tympanic membranes were not examined. No rhinorrhea. Oral pharyngeal mucosa is pink, moist and within normal limits. Neck is supple with no cervical lymphadenopathy, thyromegaly or JVD. CHEST: Inspection, palpation and percussion of the chest were unremarkable. Lung auscultation revealed normal breath sounds bilaterally. CARDIAC: PMI is within normal limits. Heart sounds are regular. Normal S1, S2. No gallop or murmur. ABD: Soft, non-tender and not distended. No peritoneal signs on palpation. No organomegaly. Normal bowel sounds. EXT: No cyanosis or clubbing. No edema. SKIN: Intact. No rashes. JOINTS: No evidence of synovitis or acute arthritis. NEURO: Alert and oriented to name, place and person. Cranial nerve examination is unremarkable. No focal motor deficits. Normal speech. Gait is normal. Strength is normal. Vital Signs (last 8hr) Date Time Temp Pulse Resp B/P (MAP) Pulse Ox O2 Delivery O2 Flow Rate FiO2 08/04/24 08:00 98.4 69 18 127/72 99 Room Air Laboratory: [ ] Laboratory: Test 08/04/24 05:37 08/03/24 05:12 08/02/24 10:40 Range/Units White Blood Count 7.2 4.8-10.8 K/uL Red Blood Count 2.52 L 4.50-6.20 MIL/uL Hemoglobin 7.5 L 14.0-18.0 g/dL Hematocrit 23.0 L 42-54 % Mean Corpuscular Volume 91.3 79-99 fL Mean Corpuscular Hemoglobin 29.8 27.0-33.0 pg Mean Corpuscular Hemoglobin Concent 32.6 32.0-36.0 g/dL Red Cell Distribution Width 22.2 H 11.0-15.5 % Platelet Count 76 L 130-400 K/uL Mean Platelet Volume 11.3 H 7.5-10.5 fL Segmented Neutrophils % 23 L 40-70 % Band Neutrophils % 19 H 0-2 % Lymphocytes % (Manual) 25 22-44 % Monocytes % (Manual) 17 H 2-9 % Eosinophils % (Manual) 3 1-6 % Basophils % (Manual) 3 H 0-2 % Metamyelocytes % 7 H 0-0 % Myelocytes % 2 H 0-0 % Nucleated Red Blood Cells 31.2 H 0.0-0.19 % Differential Comment MANUAL DIFFERENTIAL Reactive Lymphocytes 1 H 0-0 % White Cell Morphology Comment See comments Platelet Morphology Comment DECREASED Red Blood Cell Morphology See comments Sodium Level 138 136-145 mmol/L Potassium Level 3.8 3.5-5.1 mmol/L Chloride Level 101 101-111 mmol/L Carbon Dioxide Level 26 21-32 mmol/L Blood Urea Nitrogen 21 H 7-18 mg/dL Creatinine 0.8 0.5-1.3 mg/dL Glomerular Filtration Rate Calc 97 >90 mL/min Random Glucose 84 70-105 mg/dL Total Calcium 8.3 L 8.5-10.1 mg/dL Prothrombin Time 15.1 H 9.6-11.6 SEC Prothromb Time International Ratio 1.48 H 0.85-1.15 Activated Partial Thromboplast Time 29.1 26.3-35.5 SEC Promyelocytes % 2 H 0-0 Current Medications Medications (Trade) Dose Ordered Sig/Christie Route PRN Reason Start Time Stop Time Status Last Admin Dose Admin Acetaminophen (TYLenol 500MG TAB) 500 mg Q6H PRN PO MILD PAIN (1-3) 07/26/24 17:00 08/25/24 16:59 Fentanyl (DURAgesic 12 MCG/HR PATCH) 12 mcg Q72H TD 08/01/24 14:30 08/06/24 14:29 08/01/24 15:34 12 MCG Fentanyl (DURAgesic 25 MCG/HR PATCH) 25 mcg Q72H TD 08/01/24 13:30 08/01/24 13:42 DC Finasteride (PROscar 5 MG TAB) 5 mg DAILY PO 07/27/24 09:00 08/26/24 08:59 08/04/24 10:01 5 MG Ketorolac Tromethamine (toRADol) 15 mg Q6H PRN IV MODERATE PAIN (4-6) 07/28/24 14:00 08/02/24 13:59 DC 08/01/24 21:00 15 MG Magnesium Sulfate 50 ml @ 0 mls/hr PROTOCOL IV 07/31/24 14:00 08/30/24 13:59 Magnesium Sulfate 50 ml @ 0 mls/hr PROTOCOL PRN IV hypomagnesemia 07/26/24 19:00 08/01/24 06:56 DC Morphine Sulfate (morPHINE 2MG SYG) 2 mg Q4H PRN IVP SEVERE PAIN (7-10) 08/01/24 15:00 08/08/24 14:59 08/04/24 10:00 2 MG Morphine Sulfate (morPHINE 2MG SYG) 2 mg Q6H PRN IVP SEVERE PAIN (7-10) 07/26/24 18:30 07/31/24 21:29 DC 07/31/24 15:58 2 MG Ondansetron HCl (zoFRAN 4MG INJ) 4 mg Q4H4 PRN IVP NAUSEA/VOMITING 08/01/24 18:00 08/02/24 08:36 DC Ondansetron HCl (zoFRAN 4MG INJ) 4 mg Q4HPRN PRN IVP NAUSEA/VOMITING 08/02/24 09:00 09/01/24 08:59 08/04/24 10:00 4 MG Ondansetron HCl (zoFRAN 4MG INJ) 4 mg Q6H PRN IVP NAUSEA/VOMITING 07/26/24 17:00 08/01/24 17:56 DC 08/01/24 12:28 4 MG Pantoprazole Sodium (PROTonix 40MG INJ) 40 mg Q12H IVP 07/26/24 17:00 08/25/24 16:59 08/04/24 05:00 40 MG Potassium Chloride 100 ml @ 50 mls/hr AD PRN IV POTASSIUM PROTOCOL 07/26/24 19:00 08/01/24 06:56 DC Potassium Chloride 100 ml @ 100 mls/hr AD PRN IV POTASSIUM PROTOCOL 07/31/24 11:00 08/30/24 10:59 Potassium Chloride (K-Dur/Klor-Con 20meq) 20 meq AD PRN PO POTASSIUM PROTOCOL 07/31/24 11:00 08/30/24 10:59 07/31/24 15:46 20 MEQ Potassium Chloride (KCl 10% Elixir 20meq/15ml) 20 meq AD PRN PO POTASSIUM PROTOCOL 07/31/24 11:00 08/30/24 10:59 08/03/24 09:41 20 MEQ Sodium Chloride 1,000 ml @ 100 mls/hr Q10H IV 07/26/24 17:00 08/25/24 16:59 08/04/24 10:01 100 MLS/HR Tamsulosin HCl (FloMAX) 0.4 mg DAILY PO 07/27/24 09:00 08/26/24 08:59 08/04/24 10:01 0.4 MG Thiamine HCl (Vitamin B-1) 100 mg DAILY IVP 07/28/24 09:00 08/27/24 08:59 08/04/24 10:01 100 MG Tramadol HCl (UltRAM) 50 mg Q6H PRN PO MODERATE PAIN (4-6) 07/31/24 01:00 08/05/24 00:59 07/31/24 23:10 50 MG Diagnostics / Radiology: [COPY/PASTE HERE IF NO REPORTS PLEASE DELETE SECTION] Assessment: Gastric mass N/V Weight loss Abnormal LFTs Plan: CT chest/abd/pelvis Surgery and oncology eval Await path Colonoscopy not warranted at this time as source of anemia/bleed identified Continue GI prophylaxis Avoid NSAIDs Antireflux measures Monitor H&H and transfuse as needed Call with questions, concerns or change in clinical status Patient to follow-up at clinic post discharge Thank you for this consult [facility] [employer] August 04, 2024 10:34
--- NOTE | 2024-08-04 12:50 | NUR ---
DR SCHULER SPOKE TO PATIENT AND OPTIONS PROVIDED RE: PALLIATIVE CHEMO AND HOSPICE. CASE MANAGEMENT CONSULT PLACED FOR HOSPICE TO [facility] TO PT/FAMILY. IF PT/FAMILY CHOOSES NOT TO GO HOSPICE, CAN F/U IN OFFICE IN 2 WEEKS
--- NOTE | 2024-08-04 13:45 | PN ---
69-year-old male with no known past medical history presents with a 2-month history of recurrent nausea and vomiting associated with early satiety and intolerance to solid foods. The patient reports consuming mainly jello and liquids during this period. He describes progressive unintentional weight loss of approximately 40�50 pounds over the same duration. He endorses episodes of black-colored stools but denies hematemesis or hematochezia. He also reports inconsistent bowel habits with alternating constipation. He has not sought prior medical attention for these symptoms and has not undergone any cancer screening. He denies chest pain, shortness of breath, cough, fever, chills, dysuria, hematuria, or any neurologic symptoms such as syncope or seizures. No family history is provided. He has a known history of right inguinal hernia without pain or incarceration. He reports mild symptoms in the inguinal area when ambulatory. EGD was done which showed patient to have big mass to the stomach. 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 Patient and family actually hesitant to do any chemo. PE GENERAL: No acute respiratory distress. VITAL SIGNS: Reviewed and stable. HEENT: The sclerae are clear. The pupils are equal and reactive to light. The oropharyngeal cavity is within normal limits. NECK: Supple without lymphadenopathy. CHEST: Lung is clear bilaterally there is no wheezing or crackles. HEART: Sounds are regular and rhythmic. ABDOMEN: No guarding or rigidity. Bowel sounds positive. EXTREMITIES: No pitting edema. No petechial lesions or bruises. SKIN: No bruises, rash, or petechial lesions. NEUROLOGICAL: The patient is alert and oriented. No focal deficits. Muscle strength is 5/5. LYMPH NODES: There is no lymphadenopathy could be felt in the neck, supraclavicular, or axillary. 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 Large mass to the stomach consistent with possible gastric cancer especially with the CEA level is 18,000. Bone scan showing multiple lesion to the bone consistent with metastatic disease 2. Severe pain 3. Anemia. Patient with severe anemia with hemoglobin level 6.1 mg/deciliter. With the patient receiving blood transfusion 4. Weight loss Plan 1. Pathology report consistent with poorly differentiated adenocarcinoma. So this patient have gastric cancer with mets to the bone. So the patient have stage IV cancer. 2. I have long discussion with the patient and family member regarding the plan of care. I answer all question and concern and I spent more than 35 minutes. I explained to the patient that he is not curative. Surgery is not an option. The radiation therapy treatment is not an option. This patient could benefit only from palliative chemo versus hospice. 3. Patient and family still hesitant. 4. I will consult hospice to see this patient if they agrees and he could go home with hospice. 5. I will write him a letter regarding his condition so [facility] could [facility]. 6. Will ask for genetics phenotyping of the tumor. And see if this patient could benefit from targeted therapy or immunotherapy. Vitals/Labs Vital Signs Date Time Temp Pulse Resp B/P (MAP) Pulse Ox O2 Delivery O2 Flow Rate FiO2 08/04/24 11:54 98.8 87 17 104/74 90 Room Air 08/04/24 10:55 0 21 Laboratory Tests 08/04/24 05:37 Medications Current Medications Sodium Chloride 1,000 ml @ 0 mls/hr ONCE ONCE IV Last administered on 07/26/24at 13:56; Start 07/26/24 at 12:00; Stop 07/26/24 at 12:01; Status DC Morphine Sulfate 4 mg ONCE ONCE IM Last administered on 07/26/24at 13:56; Start 07/26/24 at 13:30; Stop 07/26/24 at 13:31; Status DC Ondansetron HCl 4 mg ONCE ONCE IVP Last administered on 07/26/24at 13:56; Start 07/26/24 at 14:00; Stop 07/26/24 at 14:01; Status DC Iohexol 75 ml STK-MED ONCE IV; Start 07/26/24 at 14:09; Stop 07/26/24 at 14:10; Status DC Ondansetron HCl 4 mg Q6H PRN IVP Last administered on 08/01/24at 12:28; Start 07/26/24 at 17:00; Stop 08/01/24 at 17:56; Status DC Pantoprazole Sodium 40 mg Q12H IVP Last administered on 08/04/24at 05:00; Start 07/26/24 at 17:00; Stop 08/25/24 at 16:59 Sodium Chloride 1,000 ml @ 100 mls/hr Q10H IV Last administered on 08/04/24at 10:01; Start 07/26/24 at 17:00; Stop 08/25/24 at 16:59 Acetaminophen 500 mg Q6H PRN PO; Start 07/26/24 at 17:00; Stop 08/25/24 at 16:59 Polyethylene Glycol/ Electrolytes 4,000 ml ONCE ONCE PO Last administered on 07/26/24at 18:46; Start 07/26/24 at 17:00; Stop 07/26/24 at 17:06; Status DC Morphine Sulfate 2 mg Q6H PRN IVP Last administered on 07/31/24at 15:58; Start 07/26/24 at 18:30; Stop 07/31/24 at 21:29; Status DC Potassium Chloride 100 ml @ 50 mls/hr AD PRN IV; Start 07/26/24 at 19:00; Stop 08/01/24 at 06:56; Status DC Magnesium Sulfate 50 ml @ 0 mls/hr PROTOCOL PRN IV; Start 07/26/24 at 19:00; Stop 08/01/24 at 06:56; Status DC Finasteride 5 mg DAILY PO Last administered on 08/04/24at 10:01; Start 07/27/24 at 09:00; Stop 08/26/24 at 08:59 Tamsulosin HCl 0.4 mg DAILY PO Last administered on 08/04/24at 10:01; Start 07/27/24 at 09:00; Stop 08/26/24 at 08:59 Propofol 200 mg STK-MED ONCE IV; Start 07/27/24 at 11:18; Stop 07/27/24 at 11:20; Status DC Lidocaine HCl 100 mg STK-MED ONCE .ROUTE; Start 07/27/24 at 11:18; Stop 07/27/24 at 11:20; Status DC Thiamine HCl 100 mg DAILY IVP Last administered on 08/04/24at 10:01; Start 07/28/24 at 09:00; Stop 08/27/24 at 08:59 Dexamethasone Sodium Phosphate 10 mg ONCE ONCE IV Last administered on 07/28/24at 14:21; Start 07/28/24 at 14:00; Stop 07/28/24 at 14:11; Status DC Ketorolac Tromethamine 15 mg Q6H PRN IV Last administered on 08/01/24at 21:00; Start 07/28/24 at 14:00; Stop 08/02/24 at 13:59; Status DC Tramadol HCl 50 mg Q6H PRN PO Last administered on 07/31/24at 23:10; Start 07/31/24 at 01:00; Stop 08/05/24 at 00:59 Potassium Chloride 100 ml @ 100 mls/hr AD PRN IV; Start 07/31/24 at 11:00; Stop 08/30/24 at 10:59 Potassium Chloride 20 meq AD PRN PO Last administered on 08/03/24at 09:41; Start 07/31/24 at 11:00; Stop 08/30/24 at 10:59 Potassium Chloride 20 meq AD PRN PO Last administered on 07/31/24at 15:46; Start 07/31/24 at 11:00; Stop 08/30/24 at 10:59 Magnesium Sulfate 50 ml @ 0 mls/hr PROTOCOL IV; Start 07/31/24 at 14:00; Stop 08/30/24 at 13:59 Fentanyl 25 mcg Q72H TD; Start 08/01/24 at 13:30; Stop 08/01/24 at 13:42; Status DC Fentanyl 12 mcg Q72H TD Last administered on 08/01/24at 15:34; Start 08/01/24 at 14:30; Stop 08/06/24 at 14:29 Morphine Sulfate 2 mg Q4H PRN IVP Last administered on 08/04/24at 10:00; Start 08/01/24 at 15:00; Stop 08/08/24 at 14:59 Ondansetron HCl 4 mg Q4H4 PRN IVP; Start 08/01/24 at 18:00; Stop 08/02/24 at 08:36; Status DC Zolpidem Tartrate 5 mg ONCE ONCE PO Last administered on 08/01/24at 23:42; Start 08/02/24 at 00:00; Stop 08/02/24 at 00:01; Status DC Ondansetron HCl 4 mg Q4HPRN PRN IVP Last administered on 08/04/24at 10:00; Start 08/02/24 at 09:00; Stop 09/01/24 at 08:59 ITA SCHULER MD August 04, 2024 13:45
--- NOTE | 2024-08-04 14:57 | NUR ---
DURAGESIC 12MG PATCH APPLIED TO RIGHT SHOULDER. OLD PATCH REMOVED FRO LEFT ARM AND DESGROYED. WITNESSED BY CLOVER GOMEZ
--- NOTE | 2024-08-04 15:28 | NUR ---
HOSPICE Sw called daughter Herminia who was at [place] [facility] getting [facility] for [facility]. Daughter working to getting pt registered at [facility] and Disability % needed for benefits. Daughter states pt is not wanting to go to a facility, she is not sure he will agree to going to her home. Wants more information on hospice services. Daughter will meet with Sw in am to discuss services and make decision.
--- NOTE | 2024-08-04 16:16 | NUR ---
Discharge Planning: New prompt entered for possible hospice. SS is following.
--- NOTE | 2024-08-04 16:27 | PN ---
[facility] PROGRESS NOTE Date of Service: August 04, 2024 Time of Service: 16:26 SUBJECTIVE: [69-year-old male who was admitted due to generalized weakness, decreased appetite with for a to 50 lb weight loss. Labs reviewed today Na 135, Cl 100, CO2 20, BUN 22, iron 209,% sat 83.2, total bili 1.3, GGT 185, AST 73, alkaline phosphatase 2061, CRP 23.7. S/p GI endoscopy-result showed large gastric mass. We will continue to follow GI rec's. Dr. Lockett on board who recommended bone scan which showed malignant skeletal disease. He is recommended orthopedic consult, we will continue to follow. 07/29/24 Patient seen and examined. Reports pain is reasonably controlled, Awaiting biopsy results 07/30/24 Patient was seen and examined in the room, he was lying in bed, denies any pain. Oncology is recommending SPSP UPEP and free light, if monocolonal protein noted, bone marrow bx recommended, as of today no result. We will follow up with Oncologist on further recommendation. 08/01/27 The patient is still mostly bedbound. Patient continues to feel lethargic. His H&H is 6.3/18.4. We will type and cross and transfuse one unit of PRBC, we will repeat H and H once transfuse. We will continue to monitor labs and replace electrolytes as needed. 08/01/24 Patient was evaluated today, he continues to feel very weak. H&H is more stable today the , though dropped few points. 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 Options discussed with the patient and daughter between palliative chemo hospice. Patient and daughter to decide. 08/02/24 this patient was evaluated. Per daughter at bedside, they would like to proceed with palliative chemotherapy. Primary nurse spoke with Dr. Lockett for which he will be ordering Port-A-Cath placement. Hgb dropped today, will transfuse. 08/03/24 patient was evaluated in the room today currently lying in bed. No acute events reported overnight. Patient stated that his two daughters will be coming today to discussed treatment plan. There is a pending Port-A-Cath placement as patient and family will have to decide whether to proceed for chemo. We will await for final plan from patient and family. 08/04/24 patient was seen and examined. Case discussed with the RN awaiting family decision on treatment. Patient per oncology has stage IV cancer not amenable to curative intent REVIEW OF SYSTEMS CONSTITUTIONAL: Denies fevers, chills, or night sweats. Positive for unintentional weight loss NEUROLOGICAL: Denies headache, amaurosis fugax, motor weakness, sensory deficit, vertigo/spinning sensation, gait abnormalities, or tremors. ENT: No hearing loss, otalgia, otorrhea, rhinitis, rhinorrhea, hoarseness, or sore throat. CARDIOVASCULAR: Denies any exertional angina, dyspnea on exertion, orthopnea, paroxysmal nocturnal dyspnea, palpitations, life-threatening arrhythmias, claudication. PULMONARY: Denies any shortness of breath, cough, phlegm/sputum, hemoptysis, pleuritic chest pain. GASTROINTESTINAL: Positive for nausea, vomiting, black stools. Denied any hematochezia, hematemesis GENITOURINARY: Denies frequency, urgency, nocturia, hematuria or incontinence (Storage/Irritative symptoms.) Low urinary stream, straining to void, urinary intermittency or hesitancy, splitting of the voiding stream, terminal dribbling. ENDOCRINOLOGIC: Denies polyuria, polydipsia, polyphagia or heat/cold intolerances. HEMATOLOGIC: Denies thrombophilia/previous clots, or coagulopathy/bleeding disorders. ONCOLOGIC: Denies personal history of malignancy. DERMATOLOGIC: Denies rashes or pruritus. PSYCHIATRIC: Denies any suicidal or homicidal ideation. Denies hallucinations. PHYSICAL EXAM GENERAL APPEARANCE: The patient is awake, alert, and oriented, in no acute cardiopulmonary distress. NEUROLOGICAL: Cranial nerves II-XII grossly intact. Motor is 5/5 in bilateral upper and lower extremities proximal to distal. No sensory deficits. HEENT: Face is symmetric. Pupils are equal and reactive. Extraocular movements are intact. NECK: Supple. No JVD. No thyromegaly. No submental, submandibular, pre- /postauricular, occipital or supraclavicular lymphadenopathy. CHEST: Normal chest expansion. No Telemetry. LUNGS: Absence of any rales, rhonchi or any wheezing. CARDIOVASCULAR: Regular. S1 and S2 normal. No appreciable rubs, murmurs or gallops. ABDOMEN: Soft, nontender, and nondistended. Patient has a right inguinal hernia. There is no erythema around the inguinal area. No tenderness to palpation. : Deferred. No Diaz. EXTREMITIES: Non-edematous and not cyanotic. No clubbing. Good capillary refill. SKIN: No skin breakdown. Vital Signs (last 8hr) Date Time Temp Pulse Resp B/P (MAP) Pulse Ox O2 Delivery O2 Flow Rate FiO2 08/04/24 11:54 98.8 87 17 104/74 90 Room Air 08/04/24 10:55 99 Room Air* 0 21 LABS: Laboratory: Test 08/04/24 05:37 08/03/24 05:12 Range/Units White Blood Count 7.2 4.8-10.8 K/uL Red Blood Count 2.52 L 4.50-6.20 MIL/uL Hemoglobin 7.5 L 14.0-18.0 g/dL Hematocrit 23.0 L 42-54 % Mean Corpuscular Volume 91.3 79-99 fL Mean Corpuscular Hemoglobin 29.8 27.0-33.0 pg Mean Corpuscular Hemoglobin Concent 32.6 32.0-36.0 g/dL Red Cell Distribution Width 22.2 H 11.0-15.5 % Platelet Count 76 L 130-400 K/uL Mean Platelet Volume 11.3 H 7.5-10.5 fL Segmented Neutrophils % 23 L 40-70 % Band Neutrophils % 19 H 0-2 % Lymphocytes % (Manual) 25 22-44 % Monocytes % (Manual) 17 H 2-9 % Eosinophils % (Manual) 3 1-6 % Basophils % (Manual) 3 H 0-2 % Metamyelocytes % 7 H 0-0 % Myelocytes % 2 H 0-0 % Nucleated Red Blood Cells 31.2 H 0.0-0.19 % Differential Comment MANUAL DIFFERENTIAL Reactive Lymphocytes 1 H 0-0 % White Cell Morphology Comment See comments Platelet Morphology Comment DECREASED Red Blood Cell Morphology See comments Sodium Level 138 136-145 mmol/L Potassium Level 3.8 3.5-5.1 mmol/L Chloride Level 101 101-111 mmol/L Carbon Dioxide Level 26 21-32 mmol/L Blood Urea Nitrogen 21 H 7-18 mg/dL Creatinine 0.8 0.5-1.3 mg/dL Glomerular Filtration Rate Calc 97 >90 mL/min Random Glucose 84 70-105 mg/dL Total Calcium 8.3 L 8.5-10.1 mg/dL Prothrombin Time 15.1 H 9.6-11.6 SEC Prothromb Time International Ratio 1.48 H 0.85-1.15 Activated Partial Thromboplast Time 29.1 26.3-35.5 SEC Current Medications Medications (Trade) Dose Ordered Sig/Christie Route PRN Reason Start Time Stop Time Status Last Admin Dose Admin Acetaminophen (TYLenol 500MG TAB) 500 mg Q6H PRN PO MILD PAIN (1-3) 07/26/24 17:00 08/25/24 16:59 Fentanyl (DURAgesic 12 MCG/HR PATCH) 12 mcg Q72H TD 08/01/24 14:30 08/06/24 14:29 08/04/24 14:53 12 MCG Fentanyl (DURAgesic 25 MCG/HR PATCH) 25 mcg Q72H TD 08/01/24 13:30 08/01/24 13:42 DC Finasteride (PROscar 5 MG TAB) 5 mg DAILY PO 07/27/24 09:00 08/26/24 08:59 08/04/24 10:01 5 MG Ketorolac Tromethamine (toRADol) 15 mg Q6H PRN IV MODERATE PAIN (4-6) 07/28/24 14:00 08/02/24 13:59 DC 08/01/24 21:00 15 MG Magnesium Sulfate 50 ml @ 0 mls/hr PROTOCOL IV 07/31/24 14:00 08/30/24 13:59 Magnesium Sulfate 50 ml @ 0 mls/hr PROTOCOL PRN IV hypomagnesemia 07/26/24 19:00 08/01/24 06:56 DC Morphine Sulfate (morPHINE 2MG SYG) 2 mg Q4H PRN IVP SEVERE PAIN (7-10) 08/01/24 15:00 08/08/24 14:59 08/04/24 14:54 2 MG Morphine Sulfate (morPHINE 2MG SYG) 2 mg Q6H PRN IVP SEVERE PAIN (7-10) 07/26/24 18:30 07/31/24 21:29 DC 07/31/24 15:58 2 MG Ondansetron HCl (zoFRAN 4MG INJ) 4 mg Q4H4 PRN IVP NAUSEA/VOMITING 08/01/24 18:00 08/02/24 08:36 DC Ondansetron HCl (zoFRAN 4MG INJ) 4 mg Q4HPRN PRN IVP NAUSEA/VOMITING 08/02/24 09:00 09/01/24 08:59 08/04/24 14:51 4 MG Ondansetron HCl (zoFRAN 4MG INJ) 4 mg Q6H PRN IVP NAUSEA/VOMITING 07/26/24 17:00 08/01/24 17:56 DC 08/01/24 12:28 4 MG Pantoprazole Sodium (PROTonix 40MG INJ) 40 mg Q12H IVP 07/26/24 17:00 08/25/24 16:59 08/04/24 05:00 40 MG Potassium Chloride 100 ml @ 50 mls/hr AD PRN IV POTASSIUM PROTOCOL 07/26/24 19:00 08/01/24 06:56 DC Potassium Chloride 100 ml @ 100 mls/hr AD PRN IV POTASSIUM PROTOCOL 07/31/24 11:00 08/30/24 10:59 Potassium Chloride (K-Dur/Klor-Con 20meq) 20 meq AD PRN PO POTASSIUM PROTOCOL 07/31/24 11:00 08/30/24 10:59 07/31/24 15:46 20 MEQ Potassium Chloride (KCl 10% Elixir 20meq/15ml) 20 meq AD PRN PO POTASSIUM PROTOCOL 07/31/24 11:00 08/30/24 10:59 08/03/24 09:41 20 MEQ Sodium Chloride 1,000 ml @ 100 mls/hr Q10H IV 07/26/24 17:00 08/25/24 16:59 08/04/24 10:01 100 MLS/HR Tamsulosin HCl (FloMAX) 0.4 mg DAILY PO 07/27/24 09:00 08/26/24 08:59 08/04/24 10:01 0.4 MG Thiamine HCl (Vitamin B-1) 100 mg DAILY IVP 07/28/24 09:00 08/27/24 08:59 08/04/24 10:01 100 MG Tramadol HCl (UltRAM) 50 mg Q6H PRN PO MODERATE PAIN (4-6) 07/31/24 01:00 08/05/24 00:59 07/31/24 23:10 50 MG DIAGNOSTICS / RADIOLOGY: [ ] ASSESSMENT: Blood loss anemia, POA Suspicious for metastatic skeletal disease by bone scan, POA R/o multiple myeloma 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, 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, by upper GI endoscopy done on 07/28/2024 Large mass to the stomach consistent with [place] [address], bone scan showing multiple lesions to the bone consistent with metastatic disease, POA Gastritis per upper GI endoscopy done on 07/28/2024 Recurrent nausea and vomiting POA Unintentional weight loss of around 40-50 lb with concern for underlying malignancy Elevated alk-phos differential secondary to bone Mets versus underlying liver etiology Mild LFT elevation Right inguinal hernia Normocytic anemia Suspected melena BPH Severe protein caloric malnutrition, POA PLAN: Patient will continued to be admitted in the medical surgical floor Persistent drop in Hgb Patient is status post PRBC, improved H&H they at 8.1/24.6. So far he received3 units of PRBC while hospitalized We will continue to monitor patient and follow recommendations from Oncology and Gastroenterology Status post upper endoscopy Patient will be on clear liquid diet Oncology recommending SPEP UPEP and free light chain. We will follow-up with the result if there is monoclonal protein we will do bone marrow biopsy Continue with pain management Continue with supportive care GI and DVT prophylaxis We will repeat labs tomorrow Family would like to proceed with palliative chemotherapy Port-A-Cath recommended per Oncology, patient and family still deciding. Also patient will probably transfer services to [facility] oncology team Case was seen and examined with Dr. Bean, above plan was formulated JOSÉ MIGUEL CAMEJO MD August 04, 2024 16:27
[2024-08-05] VITALS (7 sets, daily range): BP systolic 95–138; BP diastolic 64–80; PULSE 69–115; RESP 12–19; TEMP 97.9–98.8; O2SAT 100
--- NOTE | 2024-08-05 08:50 | PN ---
GASTROENTEROLOGY PROGRESS NOTE Date of Visit: August 05, 2024 Time of Visit: 08:50 Events / Notes: No acute events overnight. 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 Review of Systems: CONSTITUTIONAL: No malaise or change in sensation of wellbeing. ENMT: No rhinorrhea, otorrhea, sinus pain, ear ache. CARDIOVASCULAR: No angina, palpitations, orthopnea or paroxysmal dyspnea. RESPIRATORY: No SOB. GASTROINTESTINAL: No abdominal pain, nausea, vomiting, diarrhea, hematemesis, melena or change in the patient's habitual bowel movements consistency/number. GENITOURINARY: No dysuria, hematuria or change in bladder continence. MUSCULOSKELETAL: No new muscle pain or decrease in muscular strength. No new joint swelling, redness or tenderness. SKIN: No new rash. Physical Exam: GEN: Awake, alert, oriented in person, time and place, and in no acute distress. HEENT: No sinus tenderness. Tympanic membranes were not examined. No rhinorrhea. Oral pharyngeal mucosa is pink, moist and within normal limits. Neck is supple with no cervical lymphadenopathy, thyromegaly or JVD. CHEST: Inspection, palpation and percussion of the chest were unremarkable. Lung auscultation revealed normal breath sounds bilaterally. CARDIAC: PMI is within normal limits. Heart sounds are regular. Normal S1, S2. No gallop or murmur. ABD: Soft, non-tender and not distended. No peritoneal signs on palpation. No organomegaly. Normal bowel sounds. EXT: No cyanosis or clubbing. No edema. SKIN: Intact. No rashes. JOINTS: No evidence of synovitis or acute arthritis. NEURO: Alert and oriented to name, place and person. Cranial nerve examination is unremarkable. No focal motor deficits. Normal speech. Gait is normal. Strength is normal. Vital Signs (last 8hr) Date Time Temp Pulse Resp B/P (MAP) Pulse Ox O2 Delivery O2 Flow Rate FiO2 08/05/24 04:18 98.8 75 19 129/80 99 Room Air Laboratory: [ ] Laboratory: Test 08/04/24 05:37 Range/Units White Blood Count 7.2 4.8-10.8 K/uL Red Blood Count 2.52 L 4.50-6.20 MIL/uL Hemoglobin 7.5 L 14.0-18.0 g/dL Hematocrit 23.0 L 42-54 % Mean Corpuscular Volume 91.3 79-99 fL Mean Corpuscular Hemoglobin 29.8 27.0-33.0 pg Mean Corpuscular Hemoglobin Concent 32.6 32.0-36.0 g/dL Red Cell Distribution Width 22.2 H 11.0-15.5 % Platelet Count 76 L 130-400 K/uL Mean Platelet Volume 11.3 H 7.5-10.5 fL Segmented Neutrophils % 23 L 40-70 % Band Neutrophils % 19 H 0-2 % Lymphocytes % (Manual) 25 22-44 % Monocytes % (Manual) 17 H 2-9 % Eosinophils % (Manual) 3 1-6 % Basophils % (Manual) 3 H 0-2 % Metamyelocytes % 7 H 0-0 % Myelocytes % 2 H 0-0 % Nucleated Red Blood Cells 31.2 H 0.0-0.19 % Differential Comment MANUAL DIFFERENTIAL Reactive Lymphocytes 1 H 0-0 % White Cell Morphology Comment See comments Platelet Morphology Comment DECREASED Red Blood Cell Morphology See comments Sodium Level 138 136-145 mmol/L Potassium Level 3.8 3.5-5.1 mmol/L Chloride Level 101 101-111 mmol/L Carbon Dioxide Level 26 21-32 mmol/L Blood Urea Nitrogen 21 H 7-18 mg/dL Creatinine 0.8 0.5-1.3 mg/dL Glomerular Filtration Rate Calc 97 >90 mL/min Random Glucose 84 70-105 mg/dL Total Calcium 8.3 L 8.5-10.1 mg/dL Current Medications Medications (Trade) Dose Ordered Sig/Christie Route PRN Reason Start Time Stop Time Status Last Admin Dose Admin Acetaminophen (TYLenol 500MG TAB) 500 mg Q6H PRN PO MILD PAIN (1-3) 07/26/24 17:00 08/25/24 16:59 Fentanyl (DURAgesic 12 MCG/HR PATCH) 12 mcg Q72H TD 08/01/24 14:30 08/06/24 14:29 08/04/24 14:53 12 MCG Fentanyl (DURAgesic 25 MCG/HR PATCH) 25 mcg Q72H TD 08/01/24 13:30 08/01/24 13:42 DC Finasteride (PROscar 5 MG TAB) 5 mg DAILY PO 07/27/24 09:00 08/26/24 08:59 08/04/24 10:01 5 MG Ketorolac Tromethamine (toRADol) 15 mg Q6H PRN IV MODERATE PAIN (4-6) 07/28/24 14:00 08/02/24 13:59 DC 08/01/24 21:00 15 MG Magnesium Sulfate 50 ml @ 0 mls/hr PROTOCOL IV 07/31/24 14:00 08/30/24 13:59 Magnesium Sulfate 50 ml @ 0 mls/hr PROTOCOL PRN IV hypomagnesemia 07/26/24 19:00 08/01/24 06:56 DC Morphine Sulfate (morPHINE 2MG SYG) 2 mg Q4H PRN IVP SEVERE PAIN (7-10) 08/01/24 15:00 08/08/24 14:59 08/05/24 04:57 2 MG Morphine Sulfate (morPHINE 2MG SYG) 2 mg Q6H PRN IVP SEVERE PAIN (7-10) 07/26/24 18:30 07/31/24 21:29 DC 07/31/24 15:58 2 MG Ondansetron HCl (zoFRAN 4MG INJ) 4 mg Q4H4 PRN IVP NAUSEA/VOMITING 08/01/24 18:00 08/02/24 08:36 DC Ondansetron HCl (zoFRAN 4MG INJ) 4 mg Q4HPRN PRN IVP NAUSEA/VOMITING 08/02/24 09:00 09/01/24 08:59 08/05/24 04:56 4 MG Ondansetron HCl (zoFRAN 4MG INJ) 4 mg Q6H PRN IVP NAUSEA/VOMITING 07/26/24 17:00 08/01/24 17:56 DC 08/01/24 12:28 4 MG Pantoprazole Sodium (PROTonix 40MG INJ) 40 mg Q12H IVP 07/26/24 17:00 08/25/24 16:59 08/05/24 04:51 40 MG Potassium Chloride 100 ml @ 50 mls/hr AD PRN IV POTASSIUM PROTOCOL 07/26/24 19:00 08/01/24 06:56 DC Potassium Chloride 100 ml @ 100 mls/hr AD PRN IV POTASSIUM PROTOCOL 07/31/24 11:00 08/30/24 10:59 Potassium Chloride (K-Dur/Klor-Con 20meq) 20 meq AD PRN PO POTASSIUM PROTOCOL 07/31/24 11:00 08/30/24 10:59 07/31/24 15:46 20 MEQ Potassium Chloride (KCl 10% Elixir 20meq/15ml) 20 meq AD PRN PO POTASSIUM PROTOCOL 07/31/24 11:00 08/30/24 10:59 08/03/24 09:41 20 MEQ Sodium Chloride 1,000 ml @ 100 mls/hr Q10H IV 07/26/24 17:00 08/25/24 16:59 08/04/24 10:01 100 MLS/HR Tamsulosin HCl (FloMAX) 0.4 mg DAILY PO 07/27/24 09:00 08/26/24 08:59 08/04/24 10:01 0.4 MG Thiamine HCl (Vitamin B-1) 100 mg DAILY IVP 07/28/24 09:00 08/27/24 08:59 08/04/24 10:01 100 MG Tramadol HCl (UltRAM) 50 mg Q6H PRN PO MODERATE PAIN (4-6) 07/31/24 01:00 08/05/24 00:59 DC 07/31/24 23:10 50 MG Diagnostics / Radiology: [COPY/PASTE HERE IF NO REPORTS PLEASE DELETE SECTION] Assessment: Gastric mass N/V Weight loss Abnormal LFTs Plan: CT chest/abd/pelvis Surgery and oncology eval Await path Colonoscopy not warranted at this time as source of anemia/bleed identified Continue GI prophylaxis Avoid NSAIDs Antireflux measures Monitor H&H and transfuse as needed Call with questions, concerns or change in clinical status Patient to follow-up at clinic post discharge Thank you for this consult [facility] August 05, 2024 08:50
--- NOTE | 2024-08-05 09:45 | NUR ---
SS f/u Sw revisited with pt who states he still is not sure what he is going to do. "Dr Rodriguez still looking for a chemo to treatment me." Educated pt on hospice. Pt states he did not want to go to a facility. Explained to pt that he can have hospice at home or daughter's home. Informed that he must have someone with him if he returns to his home. "Someone will be there". P states his other daughter arrives today "let see what my daughter's come up with". Sw provided emotional support to pt
--- NOTE | 2024-08-05 12:46 | NUR ---
Discharge Planning:[facility] is following for possible hospice. Family meeting today. Pending other daughter to arrive today.
--- NOTE | 2024-08-05 14:17 | NUR ---
REFUSED HOSPICE Sw me with pt and daughters. Pt hopefully that Dr Lockett will be able to do targeted therapy and does not want hospice at this time. Discussed dcp. Pt to stay with daughter and in [place] and hey will need hospital bed, regular walker and shower chair at ct. Daughter has already registered pt at [facility] and he has appt with patient financial coordinator today at 3 to sign paperwork. Severo placed call to Maddie at [facility] to discuss DME needs. Per Maddie, send clinicals with DME order to them and she will have MD for "new patients" review for possible approval. Severo spoke to 's nurse for order and faxed clinicals to Maddie at [facility] to review. Fax [phone]
--- NOTE | 2024-08-05 15:04 | NUR ---
Nutritional f/u Note: Chart, meds, and labs Reviewed. Pt diet advanced to GI soft 0-100% of meals taken. Appetite has improved some. Recommend: -Add prostat Jello BID -Magic cup w/ PM tray -Encourage PO intake -Nephrovite MVI combination of B vitamins may be used to treat or prevent vitamin deficiency due to poor diet. -If unable to meet needs orally 3-5days, evaluate for enteral nutrition NGT vs PEG if GI tract functional and safe -Provide Thiamine 100mg IV daily x 5 days -RD to provide further recommendations based on clinical progress. -Monitor feeding tolerance, %, wt, and labs -If No BM >3days consider bowel stimulant. - Please notify RD if additional nutrition concerns arise. Addendum: 08/05/24 at [address] Amended: Links added.
--- NOTE | 2024-08-05 15:28 | PN ---
69-year-old male with no known past medical history presents with a 2-month history of recurrent nausea and vomiting associated with early satiety and intolerance to solid foods. The patient reports consuming mainly jello and liquids during this period. He describes progressive unintentional weight loss of approximately 40�50 pounds over the same duration. He endorses episodes of b lack-colored stools but denies hematemesis or hematochezia. He also reports inconsistent bowel habits with alternating constipation. He has not sought prior medical attention for these symptoms and has not undergone any cancer screening. He denies chest pain, shortness of breath, cough, fever, chills, dysuria, hematuria, or any neurologic symptoms such as syncope or seizures. No family history is provided. He has a known history of right inguinal hernia without pain or incarceration. He reports mild symptoms in the inguinal area when ambulatory. EGD was done which showed patient to have big mass to the stomach. 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 Patient and family actually hesitant to do any chemo. PE GENERAL: No acute respiratory distress. VITAL SIGNS: Reviewed and stable. HEENT: The sclerae are clear. The pupils are equal and reactive to light. The oropharyngeal cavity is within normal limits. NECK: Supple without lymphadenopathy. CHEST: Lung is clear bilaterally there is no wheezing or crackles. HEART: Sounds are regular and rhythmic. ABDOMEN: No guarding or rigidity. Bowel sounds positive. EXTREMITIES: No pitting edema. No petechial lesions or bruises. SKIN: No bruises, rash, or petechial lesions. NEUROLOGICAL: The patient is alert and oriented. No focal deficits. Muscle strength is 5/5. LYMPH NODES: There is no lymphadenopathy could be felt in the neck, supraclavicular, or axillary. 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 Large mass to the stomach consistent with possible gastric cancer especially with the CEA level is 18,000. Bone scan showing multiple lesion to the bone consistent with metastatic disease 2. Severe pain 3. Anemia. Patient with severe anemia with hemoglobin level 6.1 mg/deciliter. With the patient receiving blood transfusion 4. Weight loss Plan 1. Pathology report consistent with poorly differentiated adenocarcinoma. So this patient have gastric cancer with mets to the bone. So the patient have stage IV cancer. 2. I have long discussion with the patient and family member regarding the plan of care. I answer all question and concern and I spent more than 35 minutes. There was for people in the room. There is 3 daughter and 1 [id number] I explained to the patient that he is not curative. Surgery is not an option. The radiation therapy treatment is not an option. This patient could benefit only from palliative chemo versus hospice. 3. Patient and family still hesitant. 4. I will write him a letter regarding his condition so [facility]. 5. Will ask for genetics phenotyping of the tumor. And see if this patient could benefit from targeted therapy or immunotherapy. Vitals/Labs Vital Signs Date Time Temp Pulse Resp B/P (MAP) Pulse Ox O2 Delivery O2 Flow Rate FiO2 08/05/24 12:00 98.8 100 17 125/80 100 Room Air 08/04/24 20:00 0 21 Medications Current Medications Sodium Chloride 1,000 ml @ 0 mls/hr ONCE ONCE IV Last administered on 07/26/24at 13:56; Start 07/26/24 at 12:00; Stop 07/26/24 at 12:01; Status DC Morphine Sulfate 4 mg ONCE ONCE IM Last administered on 07/26/24at 13:56; Start 07/26/24 at 13:30; Stop 07/26/24 at 13:31; Status DC Ondansetron HCl 4 mg ONCE ONCE IVP Last administered on 07/26/24at 13:56; Start 07/26/24 at 14:00; Stop 07/26/24 at 14:01; Status DC Iohexol 75 ml STK-MED ONCE IV; Start 07/26/24 at 14:09; Stop 07/26/24 at 14:10; Status DC Ondansetron HCl 4 mg Q6H PRN IVP Last administered on 08/01/24at 12:28; Start 07/26/24 at 17:00; Stop 08/01/24 at 17:56; Status DC Pantoprazole Sodium 40 mg Q12H IVP Last administered on 08/05/24at 04:51; Start 07/26/24 at 17:00; Stop 08/25/24 at 16:59 Sodium Chloride 1,000 ml @ 100 mls/hr Q10H IV Last administered on 08/04/24at 10:01; Start 07/26/24 at 17:00; Stop 08/25/24 at 16:59 Acetaminophen 500 mg Q6H PRN PO; Start 07/26/24 at 17:00; Stop 08/25/24 at 16:59 Polyethylene Glycol/ Electrolytes 4,000 ml ONCE ONCE PO Last administered on 07/26/24at 18:46; Start 07/26/24 at 17:00; Stop 07/26/24 at 17:06; Status DC Morphine Sulfate 2 mg Q6H PRN IVP Last administered on 07/31/24at 15:58; Start 07/26/24 at 18:30; Stop 07/31/24 at 21:29; Status DC Potassium Chloride 100 ml @ 50 mls/hr AD PRN IV; Start 07/26/24 at 19:00; Stop 08/01/24 at 06:56; Status DC Magnesium Sulfate 50 ml @ 0 mls/hr PROTOCOL PRN IV; Start 07/26/24 at 19:00; Stop 08/01/24 at 06:56; Status DC Finasteride 5 mg DAILY PO Last administered on 08/05/24at 09:54; Start 07/27/24 at 09:00; Stop 08/26/24 at 08:59 Tamsulosin HCl 0.4 mg DAILY PO Last administered on 08/05/24at 09:54; Start 07/27/24 at 09:00; Stop 08/26/24 at 08:59 Propofol 200 mg STK-MED ONCE IV; Start 07/27/24 at 11:18; Stop 07/27/24 at 11:20; Status DC Lidocaine HCl 100 mg STK-MED ONCE .ROUTE; Start 07/27/24 at 11:18; Stop 07/27/24 at 11:20; Status DC Thiamine HCl 100 mg DAILY IVP Last administered on 08/05/24at 09:54; Start 07/28/24 at 09:00; Stop 08/27/24 at 08:59 Dexamethasone Sodium Phosphate 10 mg ONCE ONCE IV Last administered on 07/28/24at 14:21; Start 07/28/24 at 14:00; Stop 07/28/24 at 14:11; Status DC Ketorolac Tromethamine 15 mg Q6H PRN IV Last administered on 08/01/24at 21:00; Start 07/28/24 at 14:00; Stop 08/02/24 at 13:59; Status DC Tramadol HCl 50 mg Q6H PRN PO Last administered on 07/31/24at 23:10; Start 07/31/24 at 01:00; Stop 08/05/24 at 00:59; Status DC Potassium Chloride 100 ml @ 100 mls/hr AD PRN IV; Start 07/31/24 at 11:00; Stop 08/30/24 at 10:59 Potassium Chloride 20 meq AD PRN PO Last administered on 08/03/24at 09:41; Start 07/31/24 at 11:00; Stop 08/30/24 at 10:59 Potassium Chloride 20 meq AD PRN PO Last administered on 07/31/24at 15:46; Start 07/31/24 at 11:00; Stop 08/30/24 at 10:59 Magnesium Sulfate 50 ml @ 0 mls/hr PROTOCOL IV; Start 07/31/24 at 14:00; Stop 08/30/24 at 13:59 Fentanyl 25 mcg Q72H TD; Start 08/01/24 at 13:30; Stop 08/01/24 at 13:42; Status DC Fentanyl 12 mcg Q72H TD Last administered on 08/04/24at 14:53; Start 08/01/24 at 14:30; Stop 08/06/24 at 14:29 Morphine Sulfate 2 mg Q4H PRN IVP Last administered on 08/05/24at 04:57; Start 08/01/24 at 15:00; Stop 08/08/24 at 14:59 Ondansetron HCl 4 mg Q4H4 PRN IVP; Start 08/01/24 at 18:00; Stop 08/02/24 at 08:36; Status DC Zolpidem Tartrate 5 mg ONCE ONCE PO Last administered on 08/01/24at 23:42; Start 08/02/24 at 00:00; Stop 08/02/24 at 00:01; Status DC Ondansetron HCl 4 mg Q4HPRN PRN IVP Last administered on 08/05/24at 10:22; Start 08/02/24 at 09:00; Stop 09/01/24 at 08:59 ITA SCHULER MD August 05, 2024 15:28
--- NOTE | 2024-08-05 15:40 | PN ---
[facility] PROGRESS NOTE Date of Service: August 05, 2024 Time of Service: 15:39 SUBJECTIVE: [69-year-old male who was admitted due to generalized weakness, decreased appetite with for a to 50 lb weight loss. Labs reviewed today Na 135, Cl 100, CO2 20, BUN 22, iron 209,% sat 83.2, total bili 1.3, GGT 185, AST 73, alkaline phosphatase 2061, CRP 23.7. S/p GI endoscopy-result showed large gastric mass. We will continue to follow GI rec's. Dr. Lockett on board who recommended bone scan which showed malignant skeletal disease. He is recommended orthopedic consult, we will continue to follow. 07/29/24 Patient seen and examined. Reports pain is reasonably controlled, Awaiting biopsy results 07/30/24 Patient was seen and examined in the room, he was lying in bed, denies any pain. Oncology is recommending SPSP UPEP and free light, if monocolonal protein noted, bone marrow bx recommended, as of today no result. We will follow up with Oncologist on further recommendation. 08/01/27 The patient is still mostly bedbound. Patient continues to feel lethargic. His H&H is 6.3/18.4. We will type and cross and transfuse one unit of PRBC, we will repeat H and H once transfuse. We will continue to monitor labs and replace electrolytes as needed. 08/01/24 Patient was evaluated today, he continues to feel very weak. H&H is more stable today the , though dropped few points. 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 Options discussed with the patient and daughter between palliative chemo hospice. Patient and daughter to decide. 08/02/24 this patient was evaluated. Per daughter at bedside, they would like to proceed with palliative chemotherapy. Primary nurse spoke with Dr. Lockett for which he will be ordering Port-A-Cath placement. Hgb dropped today, will transfuse. 08/03/24 patient was evaluated in the room today currently lying in bed. No acute events reported overnight. Patient stated that his two daughters will be coming today to discussed treatment plan. There is a pending Port-A-Cath placement as patient and family will have to decide whether to proceed for chemo. We will await for final plan from patient and family. 08/04/24 patient was seen and examined. Case discussed with the RN awaiting family decision on treatment. Patient per oncology has stage IV cancer not amenable to curative intent 08/05/24 patient was seen and examined. Case discussed with the RN and family by the bedside. Awaiting home arrangements for discharge soon REVIEW OF SYSTEMS CONSTITUTIONAL: Denies fevers, chills, or night sweats. Positive for unintentional weight loss NEUROLOGICAL: Denies headache, amaurosis fugax, motor weakness, sensory deficit, vertigo/spinning sensation, gait abnormalities, or tremors. ENT: No hearing loss, otalgia, otorrhea, rhinitis, rhinorrhea, hoarseness, or sore throat. CARDIOVASCULAR: Denies any exertional angina, dyspnea on exertion, orthopnea, paroxysmal nocturnal dyspnea, palpitations, life-threatening arrhythmias, riya dication. PULMONARY: Denies any shortness of breath, cough, phlegm/sputum, hemoptysis, pleuritic chest pain. GASTROINTESTINAL: Positive for nausea, vomiting, black stools. Denied any hematochezia, hematemesis GENITOURINARY: Denies frequency, urgency, nocturia, hematuria or incontinence (Storage/Irritative symptoms.) Low urinary stream, straining to void, urinary intermittency or hesitancy, splitting of the voiding stream, terminal dribbling. ENDOCRINOLOGIC: Denies polyuria, polydipsia, polyphagia or heat/cold intolerances. HEMATOLOGIC: Denies thrombophilia/previous clots, or coagulopathy/bleeding disorders. ONCOLOGIC: Denies personal history of malignancy. DERMATOLOGIC: Denies rashes or pruritus. PSYCHIATRIC: Denies any suicidal or homicidal ideation. Denies hallucinations. PHYSICAL EXAM GENERAL APPEARANCE: The patient is awake, alert, and oriented, in no acute cardiopulmonary distress. NEUROLOGICAL: Cranial nerves II-XII grossly intact. Motor is 5/5 in bilateral upper and lower extremities proximal to distal. No sensory deficits. HEENT: Face is symmetric. Pupils are equal and reactive. Extraocular movements are intact. NECK: Supple. No JVD. No thyromegaly. No submental, submandibular, pre- /postauricular, occipital or supraclavicular lymphadenopathy. CHEST: Normal chest expansion. No Telemetry. LUNGS: Absence of any rales, rhonchi or any wheezing. CARDIOVASCULAR: Regular. S1 and S2 normal. No appreciable rubs, murmurs or gallops. ABDOMEN: Soft, nontender, and nondistended. Patient has a right inguinal hernia. There is no erythema around the inguinal area. No tenderness to palpation. : Deferred. No Diaz. EXTREMITIES: Non-edematous and not cyanotic. No clubbing. Good capillary refill. SKIN: No skin breakdown. Vital Signs (last 8hr) Date Time Temp Pulse Resp B/P (MAP) Pulse Ox O2 Delivery O2 Flow Rate FiO2 08/05/24 12:00 98.8 100 17 125/80 100 Room Air 08/05/24 08:00 98.2 69 16 138/74 99 Room Air LABS: Laboratory: Test 08/04/24 05:37 Range/Units White Blood Count 7.2 4.8-10.8 K/uL Red Blood Count 2.52 L 4.50-6.20 MIL/uL Hemoglobin 7.5 L 14.0-18.0 g/dL Hematocrit 23.0 L 42-54 % Mean Corpuscular Volume 91.3 79-99 fL Mean Corpuscular Hemoglobin 29.8 27.0-33.0 pg Mean Corpuscular Hemoglobin Concent 32.6 32.0-36.0 g/dL Red Cell Distribution Width 22.2 H 11.0-15.5 % Platelet Count 76 L 130-400 K/uL Mean Platelet Volume 11.3 H 7.5-10.5 fL Segmented Neutrophils % 23 L 40-70 % Band Neutrophils % 19 H 0-2 % Lymphocytes % (Manual) 25 22-44 % Monocytes % (Manual) 17 H 2-9 % Eosinophils % (Manual) 3 1-6 % Basophils % (Manual) 3 H 0-2 % Metamyelocytes % 7 H 0-0 % Myelocytes % 2 H 0-0 % Nucleated Red Blood Cells 31.2 H 0.0-0.19 % Differential Comment MANUAL DIFFERENTIAL Reactive Lymphocytes 1 H 0-0 % White Cell Morphology Comment See comments Platelet Morphology Comment DECREASED Red Blood Cell Morphology See comments Sodium Level 138 136-145 mmol/L Potassium Level 3.8 3.5-5.1 mmol/L Chloride Level 101 101-111 mmol/L Carbon Dioxide Level 26 21-32 mmol/L Blood Urea Nitrogen 21 H 7-18 mg/dL Creatinine 0.8 0.5-1.3 mg/dL Glomerular Filtration Rate Calc 97 >90 mL/min Random Glucose 84 70-105 mg/dL Total Calcium 8.3 L 8.5-10.1 mg/dL Current Medications Medications (Trade) Dose Ordered Sig/Christie Route PRN Reason Start Time Stop Time Status Last Admin Dose Admin Acetaminophen (TYLenol 500MG TAB) 500 mg Q6H PRN PO MILD PAIN (1-3) 07/26/24 17:00 08/25/24 16:59 Fentanyl (DURAgesic 12 MCG/HR PATCH) 12 mcg Q72H TD 08/01/24 14:30 08/06/24 14:29 08/04/24 14:53 12 MCG Fentanyl (DURAgesic 25 MCG/HR PATCH) 25 mcg Q72H TD 08/01/24 13:30 08/01/24 13:42 DC Finasteride (PROscar 5 MG TAB) 5 mg DAILY PO 07/27/24 09:00 08/26/24 08:59 08/05/24 09:54 5 MG Ketorolac Tromethamine (toRADol) 15 mg Q6H PRN IV MODERATE PAIN (4-6) 07/28/24 14:00 08/02/24 13:59 DC 08/01/24 21:00 15 MG Magnesium Sulfate 50 ml @ 0 mls/hr PROTOCOL IV 07/31/24 14:00 08/30/24 13:59 Magnesium Sulfate 50 ml @ 0 mls/hr PROTOCOL PRN IV hypomagnesemia 07/26/24 19:00 08/01/24 06:56 DC Morphine Sulfate (morPHINE 2MG SYG) 2 mg Q4H PRN IVP SEVERE PAIN (7-10) 08/01/24 15:00 08/08/24 14:59 08/05/24 04:57 2 MG Morphine Sulfate (morPHINE 2MG SYG) 2 mg Q6H PRN IVP SEVERE PAIN (7-10) 07/26/24 18:30 07/31/24 21:29 DC 07/31/24 15:58 2 MG Ondansetron HCl (zoFRAN 4MG INJ) 4 mg Q4H4 PRN IVP NAUSEA/VOMITING 08/01/24 18:00 08/02/24 08:36 DC Ondansetron HCl (zoFRAN 4MG INJ) 4 mg Q4HPRN PRN IVP NAUSEA/VOMITING 08/02/24 09:00 09/01/24 08:59 08/05/24 10:22 4 MG Ondansetron HCl (zoFRAN 4MG INJ) 4 mg Q6H PRN IVP NAUSEA/VOMITING 07/26/24 17:00 08/01/24 17:56 DC 08/01/24 12:28 4 MG Pantoprazole Sodium (PROTonix 40MG INJ) 40 mg Q12H IVP 07/26/24 17:00 08/25/24 16:59 08/05/24 04:51 40 MG Potassium Chloride 100 ml @ 50 mls/hr AD PRN IV POTASSIUM PROTOCOL 07/26/24 19:00 08/01/24 06:56 DC Potassium Chloride 100 ml @ 100 mls/hr AD PRN IV POTASSIUM PROTOCOL 07/31/24 11:00 08/30/24 10:59 Potassium Chloride (K-Dur/Klor-Con 20meq) 20 meq AD PRN PO POTASSIUM PROTOCOL 07/31/24 11:00 08/30/24 10:59 07/31/24 15:46 20 MEQ Potassium Chloride (KCl 10% Elixir 20meq/15ml) 20 meq AD PRN PO POTASSIUM PROTOCOL 07/31/24 11:00 08/30/24 10:59 08/03/24 09:41 20 MEQ Sodium Chloride 1,000 ml @ 100 mls/hr Q10H IV 07/26/24 17:00 08/25/24 16:59 08/04/24 10:01 100 MLS/HR Tamsulosin HCl (FloMAX) 0.4 mg DAILY PO 07/27/24 09:00 08/26/24 08:59 08/05/24 09:54 0.4 MG Thiamine HCl (Vitamin B-1) 100 mg DAILY IVP 07/28/24 09:00 08/27/24 08:59 08/05/24 09:54 100 MG Tramadol HCl (UltRAM) 50 mg Q6H PRN PO MODERATE PAIN (4-6) 07/31/24 01:00 08/05/24 00:59 DC 07/31/24 23:10 50 MG DIAGNOSTICS / RADIOLOGY: [ ] ASSESSMENT: Blood loss anemia, POA Suspicious for metastatic skeletal disease by bone scan, POA R/o multiple myeloma Sus[facility]ing [facility]ating [facility]oplasm at [facility], 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, by upper GI endoscopy done on 07/28/2024 Large mass to the stomach consistent with [place] [id number], bone scan showing multiple lesions to the bone consistent with metastatic disease, POA Gastritis per upper GI endoscopy done on 07/28/2024 Recurrent nausea and vomiting POA Unintentional weight loss of around 40-50 lb with concern for underlying malignancy Elevated alk-phos differential secondary to bone Mets versus underlying liver etiology Mild LFT elevation Right inguinal hernia Normocytic anemia Suspected melena BPH Severe protein caloric malnutrition, POA PLAN: Patient will continued to be admitted in the medical surgical floor Persistent drop in Hgb Patient is status post PRBC, improved H&H they at 8.1/24.6. So far he received3 units of PRBC while hospitalized We will continue to monitor patient and follow recommendations from Oncology and Gastroenterology Status post upper endoscopy Patient will be on clear liquid diet Oncology recommending SPEP UPEP and free light chain. We will follow-up with the result if there is monoclonal protein we will do bone marrow biopsy Continue with pain management Continue with supportive care GI and DVT prophylaxis We will repeat labs tomorrow Family would like to proceed with palliative chemotherapy Port-A-Cath recommended per Oncology, patient and family still deciding. Also patient will probably transfer services to [facility] oncology team Case was seen and examined with curtis Mckeon plan was formulated JOSÉ MIGUEL CAMEJO MD August 05, 2024 15:40
[2024-08-05] MEDS: FENTANYL 25 MCG/HR TD SCH (17:37)
[2024-08-06 04:00] VITALS: BP 109/72; PULSE 94; RESP 16; TEMP 98.1
--- NOTE | 2024-08-06 07:31 | PN ---
69-year-old male with no known past medical history presents with a 2-month history of recurrent nausea and vomiting associated with early satiety and intolerance to solid foods. The patient reports consuming mainly jello and liquids during this period. He describes progressive unintentional weight loss of approximately 40�50 pounds over the same duration. He endorses episodes of b lack-colored stools but denies hematemesis or hematochezia. He also reports inconsistent bowel habits with alternating constipation. He has not sought prior medical attention for these symptoms and has not undergone any cancer screening. He denies chest pain, shortness of breath, cough, fever, chills, dysuria, hematuria, or any neurologic symptoms such as syncope or seizures. No family history is provided. He has a known history of right inguinal hernia without pain or incarceration. He reports mild symptoms in the inguinal area when ambulatory. EGD was done which showed patient to have big mass to the stomach. 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 Patient and family actually hesitant to do any chemo. PE GENERAL: No acute respiratory distress. VITAL SIGNS: Reviewed and stable. HEENT: The sclerae are clear. The pupils are equal and reactive to light. The oropharyngeal cavity is within normal limits. NECK: Supple without lymphadenopathy. CHEST: Lung is clear bilaterally there is no wheezing or crackles. HEART: Sounds are regular and rhythmic. ABDOMEN: No guarding or rigidity. Bowel sounds positive. EXTREMITIES: No pitting edema. No petechial lesions or bruises. SKIN: No bruises, rash, or petechial lesions. NEUROLOGICAL: The patient is alert and oriented. No focal deficits. Muscle strength is 5/5. LYMPH NODES: There is no lymphadenopathy could be felt in the neck, supraclavicular, or axillary. 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 Large mass to the stomach consistent with possible gastric cancer especially with the CEA level is 18,000. Bone scan showing multiple lesion to the bone consistent with metastatic disease 2. Severe pain 3. Anemia. Patient with severe anemia with hemoglobin level 6.1 mg/deciliter. With the patient receiving blood transfusion 4. Weight loss Plan 1. Pathology report consistent with poorly differentiated adenocarcinoma. So this patient have gastric cancer with mets to the bone. So the patient have stage IV cancer. 2. I have long discussion with the patient and family member regarding the plan of care. I answer all question and concern and I spent more than 35 minutes. There was for people in the room. There is 3 daughter and 1 [id number] I explained to the patient that he is not curative. Surgery is not an option. The radiation therapy treatment is not an option. This patient could benefit only from palliative chemo versus hospice. 3. Patient and family still hesitant. 4. I will write him a letter regarding his condition so [facility]. 5. Will ask for genetics phenotyping of the tumor. And see if this patient could benefit from targeted therapy or immunotherapy. 6. I sent fentanyl patch 25 mcg/h every 3 days and morphine 15 mg every 3 hours as needed for [facility] [address] Vitals/Labs Vital Signs Date Time Temp Pulse Resp B/P (MAP) Pulse Ox O2 Delivery O2 Flow Rate FiO2 08/06/24 04:00 98.1 94 16 109/72 97 Room Air 08/05/24 23:29 0 21 Medications Current Medications Sodium Chloride 1,000 ml @ 0 mls/hr ONCE ONCE IV Last administered on 07/26/24at 13:56; Start 07/26/24 at 12:00; Stop 07/26/24 at 12:01; Status DC Morphine Sulfate 4 mg ONCE ONCE IM Last administered on 07/26/24at 13:56; Start 07/26/24 at 13:30; Stop 07/26/24 at 13:31; Status DC Ondansetron HCl 4 mg ONCE ONCE IVP Last administered on 07/26/24at 13:56; Start 07/26/24 at 14:00; Stop 07/26/24 at 14:01; Status DC Iohexol 75 ml STK-MED ONCE IV; Start 07/26/24 at 14:09; Stop 07/26/24 at 14:10; Status DC Ondansetron HCl 4 mg Q6H PRN IVP Last administered on 08/01/24at 12:28; Start 07/26/24 at 17:00; Stop 08/01/24 at 17:56; Status DC Pantoprazole Sodium 40 mg Q12H IVP Last administered on 08/06/24at 04:16; Start 07/26/24 at 17:00; Stop 08/25/24 at 16:59 Sodium Chloride 1,000 ml @ 100 mls/hr Q10H IV Last administered on 08/05/24at 17:37; Start 07/26/24 at 17:00; Stop 08/25/24 at 16:59 Acetaminophen 500 mg Q6H PRN PO; Start 07/26/24 at 17:00; Stop 08/25/24 at 16:59 Polyethylene Glycol/ Electrolytes 4,000 ml ONCE ONCE PO Last administered on 07/26/24at 18:46; Start 07/26/24 at 17:00; Stop 07/26/24 at 17:06; Status DC Morphine Sulfate 2 mg Q6H PRN IVP Last administered on 07/31/24at 15:58; Start 07/26/24 at 18:30; Stop 07/31/24 at 21:29; Status DC Potassium Chloride 100 ml @ 50 mls/hr AD PRN IV; Start 07/26/24 at 19:00; Stop 08/01/24 at 06:56; Status DC Magnesium Sulfate 50 ml @ 0 mls/hr PROTOCOL PRN IV; Start 07/26/24 at 19:00; Stop 08/01/24 at 06:56; Status DC Finasteride 5 mg DAILY PO Last administered on 08/05/24at 09:54; Start 07/27/24 at 09:00; Stop 08/26/24 at 08:59 Tamsulosin HCl 0.4 mg DAILY PO Last administered on 08/05/24at 09:54; Start at 09:00; Stop 08/26/24 at 08:59 Propofol 200 mg STK-MED ONCE IV; Start 07/27/24 at 11:18; Stop 07/27/24 at 11:20; Status DC Lidocaine HCl 100 mg STK-MED ONCE .ROUTE; Start 07/27/24 at 11:18; Stop 07/27/24 at 11:20; Status DC Thiamine HCl 100 mg DAILY IVP Last administered on 08/05/24at 09:54; Start 07/28/24 at 09:00; Stop 08/27/24 at 08:59 Dexamethasone Sodium Phosphate 10 mg ONCE ONCE IV Last administered on 07/28/24at 14:21; Start 07/28/24 at 14:00; Stop 07/28/24 at 14:11; Status DC Ketorolac Tromethamine 15 mg Q6H PRN IV Last administered on 08/01/24at 21:00; Start 07/28/24 at 14:00; Stop 08/02/24 at 13:59; Status DC Tramadol HCl 50 mg Q6H PRN PO Last administered on 07/31/24at 23:10; Start 07/31/24 at 01:00; Stop 08/05/24 at 00:59; Status DC Potassium Chloride 100 ml @ 100 mls/hr AD PRN IV; Start 07/31/24 at 11:00; Stop 08/30/24 at 10:59 Potassium Chloride 20 meq AD PRN PO Last administered on 08/03/24at 09:41; Start 07/31/24 at 11:00; Stop 08/30/24 at 10:59 Potassium Chloride 20 meq AD PRN PO Last administered on 07/31/24at 15:46; Start 07/31/24 at 11:00; Stop 08/30/24 at 10:59 Magnesium Sulfate 50 ml @ 0 mls/hr PROTOCOL IV; Start 07/31/24 at 14:00; Stop 08/30/24 at 13:59 Fentanyl 25 mcg Q72H TD; Start 08/01/24 at 13:30; Stop 08/01/24 at 13:42; Status DC Fentanyl 12 mcg Q72H TD Last administered on 08/04/24at 14:53; Start 08/01/24 at 14:30; Stop 08/05/24 at 16:31; Status DC Morphine Sulfate 2 mg Q4H PRN IVP Last administered on 08/05/24at 21:50; Start 08/01/24 at 15:00; Stop 08/08/24 at 14:59 Ondansetron HCl 4 mg Q4H4 PRN IVP; Start 08/01/24 at 18:00; Stop 08/02/24 at 08:36; Status DC Zolpidem Tartrate 5 mg ONCE ONCE PO Last administered on 08/01/24at 23:42; Start 08/02/24 at 00:00; Stop 08/02/24 at 00:01; Status DC Ondansetron HCl 4 mg Q4HPRN PRN IVP Last administered on 08/06/24at 04:16; Start 08/02/24 at 09:00; Stop 09/01/24 at 08:59 Fentanyl 25 mcg Q72H TD Last administered on 08/05/24at 17:37; Start 08/05/24 at 17:00; Stop 08/10/24 at 16:59 ITA SCHULER MD August 06, 2024 07:31
[2024-08-06 08:00] VITALS: BP 114/69; PULSE 76; RESP 16; TEMP 97.4; O2SAT 94
[2024-08-06 08:23] LABS: BASOPHILS # (AUTO) 0.07 K/uL (0.00-0.20); BASOPHILS % (AUTO) 1.1 % (0.0-5.0); EOSINOPHILS # (AUTO) 0.15 K/uL (0.00-0.70); EOSINOPHILS % (AUTO) 2.3 % (0.0-8.0); HEMATOCRIT 22.9 % (42-54); IMMATURE GRANULOCYTE ABSOLUTE 0.88 K/uL (0-1); LYMPHOCYTES # (AUTO) 1.9 K/uL (1.0-4.8); LYMPHOCYTES % (AUTO) 29.6 % (21.0-51.0); MEAN CORPUSCULAR HEMOGLOBIN 29.7 pg (27.0-33.0); MEAN CORPUSCULAR HGB CONC 31.9 g/dL (32.0-36.0); MEAN CORPUSCULAR VOLUME 93.1 fL (79-99); MONOCYTES % (AUTO) 14.7 % (3.0-13.0); NEUTROPHILS # (AUTO) 2.5 K/uL (1.8-7.7); NEUTROPHILS % (AUTO) 38.7 % (40.0-77.0); NUCLEATED RED BLOOD CELLS 30.1 % (0.0-0.19); PLATELET COUNT (AUTO) 71 K/uL (130-400); RED BLOOD CELL COUNT(AUTO) 2.46 MIL/uL (4.50-6.20); RED CELL DISTRIBUTION WIDTH 22.4 % (11.0-15.5); WHITE BLOOD COUNT (AUTO) 6.5 K/uL (4.8-10.8)
[2024-08-06 08:30] LABS: CREATININE 0.9 mg/dL (0.5-1.3); POTASSIUM 3.8 mmol/L (3.5-5.1)
[2024-08-06 10:41] LABS: BAND NEUTROPHILS % (MANUAL) 2 % (0-2); EOSINOPHILS % (MANUAL) 2 % (1-6); LYMPHOCYTES % (MANUAL) 31 % (22-44); MAN.DIFF COMMENT-IMPRESSION MANUAL DIFFERENTIAL; MONOCYTES % (MANUAL) 2 % (2-9); MYELOCYTES % 2 % (0-0); OTHER CELLS,MANUAL % 1 (0-0); PROMYELOCYTES % 4 (0-0); REACTIVE LYMPHOCYTES 1 % (0-0); SEGMENTED NEUTROPHILS % 55 % (40-70); TOTAL CELLS COUNTED 100
[2024-08-06 10:42] LABS: PLATELET MORPHOLOGY COMMENT DECREASED; WBC MORPHOLOGY IMMATURE GRAN 1+
--- NOTE | 2024-08-06 11:15 | PN ---
[facility] PROGRESS NOTE Date of Service: August 06, 2024 Time of Service: 11:06 Attending doctor Estefany SUBJECTIVE: [69-year-old male who was admitted due to generalized weakness, decreased appetite with for a to 50 lb weight loss. Labs reviewed today Na 135, Cl 100, CO2 20, BUN 22, iron 209,% sat 83.2, total bili 1.3, GGT 185, AST 73, alkaline phosphatase 2061, CRP 23.7. S/p GI endoscopy-result showed large gastric mass. We will continue to follow GI rec's. Dr. Lockett on board who recommended bone scan which showed malignant skeletal disease. He is recommended orthopedic consult, we will continue to follow. 07/29/24 Patient seen and examined. Reports pain is reasonably controlled, Awaiting biopsy results 07/30/24 Patient was seen and examined in the room, he was lying in bed, denies any pain. Oncology is recommending SPSP UPEP and free light, if monocolonal protein noted, bone marrow bx recommended, as of today no result. We will follow up with Oncologist on further recommendation. 08/01/27 The patient is still mostly bedbound. Patient continues to feel lethargic. His H&H is 6.3/18.4. We will type and cross and transfuse one unit of PRBC, we will repeat H and H once transfuse. We will continue to monitor labs and replace electrolytes as needed. 08/01/24 Patient was evaluated today, he continues to feel very weak. H&H is more stable today the , though dropped few points. 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 Options discussed with the patient and daughter between palliative chemo hospice. Patient and daughter to decide. 08/02/24 this patient was evaluated. Per daughter at bedside, they would like to proceed with palliative chemotherapy. Primary nurse spoke with Dr. Lockett for which he will be ordering Port-A-Cath placement. Hgb dropped today, will transfuse. 08/03/24 patient was evaluated in the room today currently lying in bed. No acute events reported overnight. Patient stated that his two daughters will be coming today to discussed treatment plan. There is a pending Port-A-Cath placement as patient and family will have to decide whether to proceed for chemo. We will await for final plan from patient and family. 08/04/24 patient was seen and examined. Case discussed with the RN awaiting family decision on treatment. Patient per oncology has stage IV cancer not amenable to curative intent 08/05/24 patient was seen and examined. Case discussed with the RN and family by the bedside. Awaiting home arrangements for discharge soon 08/06/24 patient was seen by nurse practitioner physician during rounding in room 313. WBC 6.4 hemoglobin 7.3 hematocrit 22.9. At this moment patient is not a candidate for the colonoscopy because of the low hemoglobin as per GI. They also recommended to continue GI prophylaxis, avoid NSAIDs, anti-reflux measurements follow-up in the clinic post discharge. GI signed off. 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 Large mass to the stomach consistent with a possible gastric [place] [address]. Bone scan showing multiple lesions to the bone consistent with metastatic disease. Patient is in severe pain and that is losing the weight. Pathology report consistent with poorly differentiated adenocarcinoma. Oncologist was able to discuss with the patient and family member regarding the plan of the care all the questions were answered. He explained to three daughters and one brother in law that the patient is not curative. Surgery is not an option. The radiation therapy is not an option. Patient could benefit only from the palliative chemo versus hospice. Family and patient is still care team assistant. Oncologist will ask for gene tics phenotyping of the tumor and see if the patient could benefit from targeted therapy or immunotherapy. Fentanyl patch 25 micrograms/hour every three days and morphine 50 mg every 3 hours as needed for [address] was sent. He has management at this moment is working on the discharged home with a hospital bed, shower chair, walker At this moment we will continue to monitor patient in the meantime. A.m. labs REVIEW OF SYSTEMS CONSTITUTIONAL: Denies fevers, chills, or night sweats. Positive for unintentional weight loss NEUROLOGICAL: Denies headache, amaurosis fugax, motor weakness, sensory deficit, vertigo/spinning sensation, gait abnormalities, or tremors. ENT: No hearing loss, otalgia, otorrhea, rhinitis, rhinorrhea, hoarseness, or sore throat. CARDIOVASCULAR: Denies any exertional angina, dyspnea on exertion, orthopnea, paroxysmal nocturnal dyspnea, palpitations, life-threatening arrhythmias, claudication. PULMONARY: Denies any shortness of breath, cough, phlegm/sputum, hemoptysis, pleuritic chest pain. GASTROINTESTINAL: Positive for nausea, vomiting, black stools. Denied any he matochezia, hematemesis GENITOURINARY: Denies frequency, urgency, nocturia, hematuria or incontinence (Storage/Irritative symptoms.) Low urinary stream, straining to void, urinary intermittency or hesitancy, splitting of the voiding stream, terminal dribbling. ENDOCRINOLOGIC: Denies polyuria, polydipsia, polyphagia or heat/cold intoleranc es. HEMATOLOGIC: Denies thrombophilia/previous clots, or coagulopathy/bleeding disorders. ONCOLOGIC: Denies personal history of malignancy. DERMATOLOGIC: Denies rashes or pruritus. PSYCHIATRIC: Denies any suicidal or homicidal ideation. Denies hallucinations. PHYSICAL EXAM GENERAL APPEARANCE: The patient is awake, alert, and oriented, in no acute cardiopulmonary distress. NEUROLOGICAL: Cranial nerves II-XII grossly intact. Motor is 5/5 in bilateral upper and lower extremities proximal to distal. No sensory deficits. HEENT: Face is symmetric. Pupils are equal and reactive. Extraocular movements are intact. NECK: Supple. No JVD. No thyromegaly. No submental, submandibular, pre- /postauricular, occipital or supraclavicular lymphadenopathy. CHEST: Normal chest expansion. No Telemetry. LUNGS: Absence of any rales, rhonchi or any wheezing. CARDIOVASCULAR: Regular. S1 and S2 normal. No appreciable rubs, murmurs or gallops. ABDOMEN: Soft, nontender, and nondistended. Patient has a right inguinal hernia. There is no erythema around the inguinal area. No tenderness to palpation. : Deferred. No Diaz. EXTREMITIES: Non-edematous and not cyanotic. No clubbing. Good capillary refill. SKIN: No skin breakdown. Vital Signs (last 8hr) Date Time Temp Pulse Resp B/P (MAP) Pulse Ox O2 Delivery O2 Flow Rate FiO2 08/06/24 08:00 97.3 76 16 114/69 94 Room Air 08/06/24 04:00 98.1 94 16 109/72 97 Room Air LABS: Laboratory: Test 08/06/24 08:08 Range/Units White Blood Count 6.5 4.8-10.8 K/uL Red Blood Count 2.46 L 4.50-6.20 MIL/uL Hemoglobin 7.3 L 14.0-18.0 g/dL Hematocrit 22.9 L 42-54 % Mean Corpuscular Volume 93.1 79-99 fL Mean Corpuscular Hemoglobin 29.7 27.0-33.0 pg Mean Corpuscular Hemoglobin Concent 31.9 L 32.0-36.0 g/dL Red Cell Distribution Width 22.4 H 11.0-15.5 % Platelet Count 71 L 130-400 K/uL Mean Platelet Volume 12.7 H 7.5-10.5 fL Immature Granulocyte % (Auto) 13.6 H 0-1 % Neutrophils (%) (Auto) 38.7 L 40.0-77.0 % Lymphocytes (%) (Auto) 29.6 21.0-51.0 % Monocytes (%) (Auto) 14.7 H 3.0-13.0 % Eosinophils (%) (Auto) 2.3 0.0-8.0 % Basophils (%) (Auto) 1.1 0.0-5.0 % Neutrophils # (Auto) 2.5 1.8-7.7 K/uL Lymphocytes # (Auto) 1.9 1.0-4.8 K/uL Monocytes # (Auto) 1.0 0.1-1.0 K/uL Eosinophils # (Auto) 0.15 0.00-0.70 K/uL Basophils # (Auto) 0.07 0.00-0.20 K/uL Absolute Immature Granulocyte (auto 0.88 0-1 K/uL Segmented Neutrophils % 55 40-70 % Band Neutrophils % 2 0-2 % Lymphocytes % (Manual) 31 22-44 % Monocytes % (Manual) 2 2-9 % Eosinophils % (Manual) 2 1-6 % Myelocytes % 2 H 0-0 % Promyelocytes % 4 H 0-0 Other Cells % 1 H 0-0 Nucleated Red Blood Cells 30.1 H 0.0-0.19 % Differential Comment MANUAL DIFFERENTIAL Reactive Lymphocytes 1 H 0-0 % White Cell Morphology Comment IMMATURE GRAN 1+ Platelet Morphology Comment DECREASED Red Blood Cell Morphology See comments Sodium Level 138 136-145 mmol/L Potassium Level 3.8 3.5-5.1 mmol/L Chloride Level 103 101-111 mmol/L Carbon Dioxide Level 26 21-32 mmol/L Blood Urea Nitrogen 25 H 7-18 mg/dL Creatinine 0.9 0.5-1.3 mg/dL Glomerular Filtration Rate Calc 94 >90 mL/min Random Glucose 91 70-105 mg/dL Total Calcium 8.3 L 8.5-10.1 mg/dL Current Medications Medications (Trade) Dose Ordered Sig/Christie Route PRN Reason Start Time Stop Time Status Last Admin Dose Admin Acetaminophen (TYLenol 500MG TAB) 500 mg Q6H PRN PO MILD PAIN (1-3) 07/26/24 17:00 08/25/24 16:59 Fentanyl (DURAgesic 12 MCG/HR PATCH) 12 mcg Q72H TD 08/01/24 14:30 08/05/24 16:31 DC 08/04/24 14:53 12 MCG Fentanyl (DURAgesic 25 MCG/HR PATCH) 25 mcg Q72H TD 08/01/24 13:30 08/01/24 13:42 DC Fentanyl (DURAgesic 25 MCG/HR PATCH) 25 mcg Q72H TD 08/05/24 17:00 08/10/24 16:59 08/05/24 17:37 25 MCG Finasteride (PROscar 5 MG TAB) 5 mg DAILY PO 07/27/24 09:00 08/26/24 08:59 08/05/24 09:54 5 MG Ketorolac Tromethamine (toRADol) 15 mg Q6H PRN IV MODERATE PAIN (4-6) 07/28/24 14:00 08/02/24 13:59 DC 08/01/24 21:00 15 MG Magnesium Sulfate 50 ml @ 0 mls/hr PROTOCOL IV 07/31/24 14:00 08/30/24 13:59 Magnesium Sulfate 50 ml @ 0 mls/hr PROTOCOL PRN IV hypomagnesemia 07/26/24 19:00 08/01/24 06:56 DC Morphine Sulfate (morPHINE 2MG SYG) 2 mg Q4H PRN IVP SEVERE PAIN (7-10) 08/01/24 15:00 08/08/24 14:59 08/05/24 21:50 2 MG Morphine Sulfate (morPHINE 2MG SYG) 2 mg Q6H PRN IVP SEVERE PAIN (7-10) 07/26/24 18:30 07/31/24 21:29 DC 07/31/24 15:58 2 MG Ondansetron HCl (zoFRAN 4MG INJ) 4 mg Q4H4 PRN IVP NAUSEA/VOMITING 08/01/24 18:00 08/02/24 08:36 DC Ondansetron HCl (zoFRAN 4MG INJ) 4 mg Q4HPRN PRN IVP NAUSEA/VOMITING 08/02/24 09:00 09/01/24 08:59 08/06/24 04:16 4 MG Ondansetron HCl (zoFRAN 4MG INJ) 4 mg Q6H PRN IVP NAUSEA/VOMITING 07/26/24 17:00 08/01/24 17:56 DC 08/01/24 12:28 4 MG Pantoprazole Sodium (PROTonix 40MG INJ) 40 mg Q12H IVP 07/26/24 17:00 08/25/24 16:59 08/06/24 04:16 40 MG Potassium Chloride 100 ml @ 50 mls/hr AD PRN IV POTASSIUM PROTOCOL 07/26/24 19:00 08/01/24 06:56 DC Potassium Chloride 100 ml @ 100 mls/hr AD PRN IV POTASSIUM PROTOCOL 07/31/24 11:00 08/30/24 10:59 Potassium Chloride (K-Dur/Klor-Con 20meq) 20 meq AD PRN PO POTASSIUM PROTOCOL 07/31/24 11:00 08/30/24 10:59 07/31/24 15:46 20 MEQ Potassium Chloride (KCl 10% Elixir 20meq/15ml) 20 meq AD PRN PO POTASSIUM PROTOCOL 07/31/24 11:00 08/30/24 10:59 08/03/24 09:41 20 MEQ Sodium Chloride 1,000 ml @ 100 mls/hr Q10H IV 07/26/24 17:00 08/25/24 16:59 08/05/24 17:37 100 MLS/HR Tamsulosin HCl (FloMAX) 0.4 mg DAILY PO 07/27/24 09:00 08/26/24 08:59 08/05/24 09:54 0.4 MG Thiamine HCl (Vitamin B-1) 100 mg DAILY IVP 07/28/24 09:00 08/27/24 08:59 08/05/24 09:54 100 MG Tramadol HCl (UltRAM) 50 mg Q6H PRN PO MODERATE PAIN (4-6) 07/31/24 01:00 08/05/24 00:59 DC 07/31/24 23:10 50 MG DIAGNOSTICS / RADIOLOGY: [ ] ASSESSMENT: Acute Blood loss anemia, POA metastatic skeletal disease by bone scan, POA Adenocarcinoma most likely stomach POA 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, 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, by upper GI endoscopy done on 07/28/2024 Large mass to the stomach consistent with possible [place] [address], bone scan showing multiple lesions to the bone consistent with metastatic disease, POA Gastritis per upper GI endoscopy done on 07/28/2024 Recurrent nausea and vomiting POA Unintentional weight loss of around 40-50 lb with concern for underlying malignancy Elevated alk-phos differential secondary to bone Mets versus underlying liver etiology Mild LFT elevation Right inguinal hernia Normocytic anemia Suspected melena BPH Severe protein caloric malnutrition, POA PLAN: Patient will continued to be admitted in the medical surgical floor Persistent drop in Hgb Patient is status post PRBC, improved H&H they at 8.1/24.6. So far he received3 units of PRBC while hospitalized We will continue to monitor patient and follow recommendations from Oncology and Gastroenterology Colonoscopy would not be performed per GI due to constant drop of hemoglobin GI signed off Fentanyl patch and morphine sent to [facility] pharmacy as per oncologist As per oncologist patient is new diagnosis it is not curative. Surgery is not an option. The radiation therapy treatment is not an option. Patient could benefit only from palliative chemo versus hospice Continue with pain management Continue with supportive care GI and DVT prophylaxis We will repeat labs tomorrow Family would like to proceed with palliative chemotherapy ATTESTATION BY PHYSICIAN I have seen and examined the patient. I reviewed the documentation, medical decision making, and treatment plan as noted by the mid-level provider above. I agree with the findings and plan of care. HAYLEY An MD VITICULTURIST August 06, 2024 11:15
[2024-08-06 12:00] VITALS: BP 95/73; PULSE 78; RESP 17; TEMP 98
[2024-08-06 16:00] VITALS: BP 98/50; PULSE 93; RESP 18; TEMP 97.8
[2024-08-06 19:30] VITALS: O2SAT 100
[2024-08-06 20:00] VITALS: BP 105/67; PULSE 82; RESP 12; TEMP 98.3
[2024-08-07] VITALS (12 sets, daily range): BP systolic 109–143; BP diastolic 63–79; PULSE 70–86; RESP 12–18; TEMP 97.5–98.7; O2SAT 96–99
[2024-08-07] MEDS: morPHINE 2 MG SYG ONE ×2 (01:04→01:09)
[2024-08-07] MEDS: morPHINE 2 MG SYG IVP ONE (01:08)
[2024-08-07 05:59] LABS: BASOPHILS # (AUTO) 0.06 K/uL (0.00-0.20); BASOPHILS % (AUTO) 0.9 % (0.0-5.0); EOSINOPHILS # (AUTO) 0.14 K/uL (0.00-0.70); EOSINOPHILS % (AUTO) 2.2 % (0.0-8.0); IMMATURE GRANULOCYTE ABSOLUTE 0.73 K/uL (0-1); LYMPHOCYTES # (AUTO) 2.1 K/uL (1.0-4.8); LYMPHOCYTES % (AUTO) 33.8 % (21.0-51.0); MEAN CORPUSCULAR HEMOGLOBIN 29.9 pg (27.0-33.0); MEAN CORPUSCULAR VOLUME 93.2 fL (79-99); MONOCYTES # (AUTO) 0.9 K/uL (0.1-1.0); MONOCYTES % (AUTO) 14.2 % (3.0-13.0); NEUTROPHILS # (AUTO) 2.4 K/uL (1.8-7.7); NEUTROPHILS % (AUTO) 37.4 % (40.0-77.0); NUCLEATED RED BLOOD CELLS 30.3 % (0.0-0.19); PLATELET COUNT (AUTO) 70 K/uL (130-400); RED BLOOD CELL COUNT(AUTO) 2.21 MIL/uL (4.50-6.20); RED CELL DISTRIBUTION WIDTH 22.3 % (11.0-15.5); WHITE BLOOD COUNT (AUTO) 6.3 K/uL (4.8-10.8)
[2024-08-07 06:02] LABS: HEMATOCRIT 20.6 % (42-54)
[2024-08-07 06:42] LABS: ALBUMIN 3.1 g/dL (3.5-5.0); BILIRUBIN,TOTAL 1.3 mg/dL (0.2-1.0); CREATININE 0.9 mg/dL (0.5-1.3); MAGNESIUM 2.9 mg/dL (1.80-2.40); POTASSIUM 3.5 mmol/L (3.5-5.1); TOTAL PROTEIN, SERUM 5.6 g/dL (6.0-8.3)
--- NOTE | 2024-08-07 07:48 | NUR ---
PATIENT UPDATE PT'S HB=6.6 / HCT=20.6. CL [facility] CULTURE ROOM WORKER CALLED THROUGH THE ANSWERING SERVICE BUT DIDN'T RECEIVE A CALL BACK. WENT AHEAD AND ORDERED TYPE AND SCREEN AND ONE UNIT OF PRBC. PT HAD RECEIVED A TOTAL OF 3 UNITS OF PRBC SINCE ADMISSION TO THE FLOOR. UPDATED THE AM NURSE ABOUT THE NEED TO UPDATE THE GROUP ON ROUNDS.
--- NOTE | 2024-08-07 08:50 | PN ---
69-year-old male with no known past medical history presents with a 2-month history of recurrent nausea and vomiting associated with early satiety and intolerance to solid foods. The patient reports consuming mainly jello and liquids during this period. He describes progressive unintentional weight loss of approximately 40�50 pounds over the same duration. He endorses episodes of black-colored stools but denies hematemesis or hematochezia. He also reports inconsistent bowel habits with alternating constipation. He has not sought prior medical attention for these symptoms and has not undergone any cancer screening. He denies chest pain, shortness of breath, cough, fever, chills, dysuria, hematuria, or any neurologic symptoms such as syncope or seizures. No family history is provided. He has a known history of right inguinal hernia without pain or incarceration. He reports mild symptoms in the inguinal area when ambulatory. EGD was done which showed patient to have big mass to the stomach. 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 Patient and family actually hesitant to do any chemo. Hemoglobin level 6.6 g/deciliter. Platelet count 70K PE GENERAL: No acute respiratory distress. VITAL SIGNS: Reviewed and stable. HEENT: The sclerae are clear. The pupils are equal and reactive to light. The oropharyngeal cavity is within normal limits. NECK: Supple without lymphadenopathy. CHEST: Lung is clear bilaterally there is no wheezing or crackles. HEART: Sounds are regular and rhythmic. ABDOMEN: No guarding or rigidity. Bowel sounds positive. EXTREMITIES: No pitting edema. No petechial lesions or bruises. SKIN: No bruises, rash, or petechial lesions. NEUROLOGICAL: The patient is alert and oriented. No focal deficits. Muscle strength is 5/5. LYMPH NODES: There is no lymphadenopathy could be felt in the neck, supraclavicular, or axillary. 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 Large mass to the stomach consistent with possible gastric cancer especially with the CEA level is 18,000. Bone scan showing multiple lesion to the bone consistent with metastatic disease 2. Severe pain 3. Anemia. Patient with severe anemia with hemoglobin level 6.1 mg/deciliter. With the patient receiving blood transfusion 4. Weight loss Plan 1. Pathology report consistent with poorly differentiated adenocarcinoma. So this patient have gastric cancer with mets to the bone. So the patient have stage IV cancer. 2. I have long discussion with the patient and family member regarding the plan of care. I answer all question and concern and I spent more than 35 minutes. There was for people in the room. There is 3 daughter and 1 [id number] I explained to the patient that he is not curative. Surgery is not an option. The radiation therapy treatment is not an option. This patient could benefit only from palliative chemo versus hospice. 3. Patient with severe anemia hemoglobin level 6.6 g/deciliter most likely bleeding from the stomach mass. Patient to receive 1 unit of packed red blood cell after type cross and match. Premedication with dexamethasone 10 mg and Benadryl 25 mg 4. I will write him a letter regarding his condition so [facility] 5. Will ask for genetics phenotyping of the tumor. And see if this patient could benefit from targeted therapy or immunotherapy. 6. I sent fentanyl patch 25 mcg/h every 3 days and morphine 15 mg every 3 hours as needed for [facility]. Vitals/Labs Vital Signs Date Time Temp Pulse Resp B/P (MAP) Pulse Ox O2 Delivery O2 Flow Rate FiO2 08/07/24 08:00 97.5 72 16 136/72 96 Room Air 08/06/24 19:30 0 21 Laboratory Tests 08/07/24 05:33 Medications Current Medications Sodium Chloride 1,000 ml @ 0 mls/hr ONCE ONCE IV Last administered on 07/26/24at 13:56; Start 07/26/24 at 12:00; Stop 07/26/24 at 12:01; Status DC Morphine Sulfate 4 mg ONCE ONCE IM Last administered on 07/26/24at 13:56; Start 07/26/24 at 13:30; Stop 07/26/24 at 13:31; Status DC Ondansetron HCl 4 mg ONCE ONCE IVP Last administered on 07/26/24at 13:56; Start 07/26/24 at 14:00; Stop 07/26/24 at 14:01; Status DC Iohexol 75 ml STK-MED ONCE IV; Start 07/26/24 at 14:09; Stop 07/26/24 at 14:10; Status DC Ondansetron HCl 4 mg Q6H PRN IVP Last administered on 08/01/24at 12:28; Start 07/26/24 at 17:00; Stop 08/01/24 at 17:56; Status DC Pantoprazole Sodium 40 mg Q12H IVP Last administered on 08/07/24at 04:40; Start 07/26/24 at 17:00; Stop 08/25/24 at 16:59 Sodium Chloride 1,000 ml @ 100 mls/hr Q10H IV Last administered on 08/05/24at 17:37; Start 07/26/24 at 17:00; Stop 08/25/24 at 16:59 Acetaminophen 500 mg Q6H PRN PO; Start 07/26/24 at 17:00; Stop 08/25/24 at 16:59 Polyethylene Glycol/ Electrolytes 4,000 ml ONCE ONCE PO Last administered on 07/26/24at 18:46; Start 07/26/24 at 17:00; Stop 07/26/24 at 17:06; Status DC Morphine Sulfate 2 mg Q6H PRN IVP Last administered on 07/31/24at 15:58; Start 07/26/24 at 18:30; Stop 07/31/24 at 21:29; Status DC Potassium Chloride 100 ml @ 50 mls/hr AD PRN IV; Start 07/26/24 at 19:00; Stop 08/01/24 at 06:56; Status DC Magnesium Sulfate 50 ml @ 0 mls/hr PROTOCOL PRN IV; Start 07/26/24 at 19:00; Stop 08/01/24 at 06:56; Status DC Finasteride 5 mg DAILY PO Last administered on 08/06/24at 11:12; Start 07/27/24 at 09:00; Stop 08/26/24 at 08:59 Tamsulosin HCl 0.4 mg DAILY PO Last administered on 08/06/24at 11:12; Start 07/27/24 at 09:00; Stop 08/26/24 at 08:59 Propofol 200 mg STK-MED ONCE IV; Start 07/27/24 at 11:18; Stop 07/27/24 at 11:20; Status DC Lidocaine HCl 100 mg STK-MED ONCE .ROUTE; Start 07/27/24 at 11:18; Stop 07/27/24 at 11:20; Status DC Thiamine HCl 100 mg DAILY IVP Last administered on 08/06/24at 11:12; Start 07/28/24 at 09:00; Stop 08/27/24 at 08:59 Dexamethasone Sodium Phosphate 10 mg ONCE ONCE IV Last administered on 07/28/24at 14:21; Start 07/28/24 at 14:00; Stop 07/28/24 at 14:11; Status DC Ketorolac Tromethamine 15 mg Q6H PRN IV Last administered on 08/01/24at 21:00; Start 07/28/24 at 14:00; Stop 08/02/24 at 13:59; Status DC Tramadol HCl 50 mg Q6H PRN PO Last administered on 07/31/24at 23:10; Start 07/31/24 at 01:00; Stop 08/05/24 at 00:59; Status DC Potassium Chloride 100 ml @ 100 mls/hr AD PRN IV; Start 07/31/24 at 11:00; Stop 08/30/24 at 10:59 Potassium Chloride 20 meq AD PRN PO Last administered on 08/03/24at 09:41; Start 07/31/24 at 11:00; Stop 08/30/24 at 10:59 Potassium Chloride 20 meq AD PRN PO Last administered on 07/31/24at 15:46; Start 07/31/24 at 11:00; Stop 08/30/24 at 10:59 Magnesium Sulfate 50 ml @ 0 mls/hr PROTOCOL IV; Start 07/31/24 at 14:00; Stop 08/30/24 at 13:59 Fentanyl 25 mcg Q72H TD; Start 08/01/24 at 13:30; Stop 08/01/24 at 13:42; Status DC Fentanyl 12 mcg Q72H TD Last administered on 08/04/24at 14:53; Start 08/01/24 at 14:30; Stop 08/05/24 at 16:31; Status DC Morphine Sulfate 2 mg Q4H PRN IVP Last administered on 08/05/24at 21:50; Start 08/01/24 at 15:00; Stop 08/06/24 at 17:59; Status DC Ondansetron HCl 4 mg Q4H4 PRN IVP; Start 08/01/24 at 18:00; Stop 08/02/24 at 08:36; Status DC Zolpidem Tartrate 5 mg ONCE ONCE PO Last administered on 08/01/24at 23:42; Start 08/02/24 at 00:00; Stop 08/02/24 at 00:01; Status DC Ondansetron HCl 4 mg Q4HPRN PRN IVP Last administered on 08/07/24at 00:34; Start 08/02/24 at 09:00; Stop 09/01/24 at 08:59 Fentanyl 25 mcg Q72H TD Last administered on 08/05/24at 17:37; Start 08/05/24 at 17:00; Stop 08/10/24 at 16:59 Morphine Sulfate 2 mg ONCE ONCE IVP; Start 08/07/24 at 01:00; Stop 08/07/24 at 01:01; Status DC Morphine Sulfate 2 mg STK-MED ONCE .ROUTE Last administered on 08/07/24at 01:04; Start 08/07/24 at 00:52; Stop 08/07/24 at 00:54; Status DC Morphine Sulfate 2 mg STK-MED ONCE .ROUTE; Start 08/07/24 at 00:54; Stop 08/07/24 at 00:55; Status DC Diphenhydramine HCl 25 mg ONCE ONCE IV; Start 08/07/24 at 10:00; Stop 08/07/24 at 10:01 Dexamethasone Sodium Phosphate 10 mg ONCE ONCE IVP; Start 08/07/24 at 10:00; Stop 08/07/24 at 10:01 Morphine Sulfate 2 mg Q4H PRN IVP; Start 08/07/24 at 08:30; Stop 08/14/24 at 08:29 ITA SCHULER MD August 07, 2024 08:50
[2024-08-07] MEDS: DiphenhydrAMINE HCL 50 MG/ML VIAL IV ONE (11:18)
[2024-08-07] MEDS: dexaMETHasone SOD PHOSPHATE 4 MG/ML 1ML VIAL IVP ONE (11:19)
--- NOTE | 2024-08-07 13:21 | PN ---
[facility] PROGRESS NOTE Date of Service: August 07, 2024 Time of Service: 13:16 Attending doctor Estefany SUBJECTIVE: [69-year-old male who was admitted due to generalized weakness, decreased appetite with for a to 50 lb weight loss. Labs reviewed today Na 135, Cl 100, CO2 20, BUN 22, iron 209,% sat 83.2, total bili 1.3, GGT 185, AST 73, alkaline phosphatase 2061, CRP 23.7. S/p GI endoscopy-result showed large gastric mass. We will continue to follow GI rec's. Dr. Lockett on board who recommended bone scan which showed malignant skeletal disease. He is recommended orthopedic consult, we will continue to follow. 07/29/24 Patient seen and examined. Reports pain is reasonably controlled, Awaiting biopsy results 07/30/24 Patient was seen and examined in the room, he was lying in bed, denies any pain. Oncology is recommending SPSP UPEP and free light, if monocolonal protein noted, bone marrow bx recommended, as of today no result. We will follow up with Oncologist on further recommendation. 08/01/27 The patient is still mostly bedbound. Patient continues to feel lethargic. His H&H is 6.3/18.4. We will type and cross and transfuse one unit of PRBC, we will repeat H and H once transfuse. We will continue to monitor labs and replace electrolytes as needed. 08/01/24 Patient was evaluated today, he continues to feel very weak. H&H is more stable today the , though dropped few points. 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 Options discussed with the patient and daughter between palliative chemo hospice. Patient and daughter to decide. 08/02/24 this patient was evaluated. Per daughter at bedside, they would like to proceed with palliative chemotherapy. Primary nurse spoke with Dr. Lockett for which he will be ordering Port-A-Cath placement. Hgb dropped today, will transfuse. 08/03/24 patient was evaluated in the room today currently lying in bed. No acute events reported overnight. Patient stated that his two daughters will be coming today to discussed treatment plan. There is a pending Port-A-Cath placement as patient and family will have to decide whether to proceed for chemo. We will await for final plan from patient and family. 08/04/24 patient was seen and examined. Case discussed with the RN awaiting family decision on treatment. Patient per oncology has stage IV cancer not amenable to curative intent 08/05/24 patient was seen and examined. Case discussed with the RN and family by the bedside. Awaiting home arrangements for discharge soon 08/06/24 patient was seen by nurse practitioner physician during rounding in room 313. WBC 6.4 hemoglobin 7.3 hematocrit 22.9. At this moment patient is not a candidate for the colonoscopy because of the low hemoglobin as per GI. They also recommended to continue GI prophylaxis, avoid NSAIDs, anti-reflux measurements follow-up in the clinic post discharge. GI signed off. 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 Large mass to the stomach consistent with a possible gastric [place] [address]. Bone scan showing multiple lesions to the bone consistent with metastatic disease. Patient is in severe pain and that is losing the weight. Pathology report consistent with poorly differentiated adenocarcinoma. Oncologist was able to discuss with the patient and family member regarding the plan of the care all the questions were answered. He explained to three daughters and one brother in law that the patient is not curative. Surgery is not an option. The radiation therapy is not an option. Patient could benefit only from the palliative chemo versus hospice. 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 Oncologist will ask for gene tics phenotyping of the tumor and see if the patient could benefit from targeted therapy or immunotherapy. Fentanyl patch 25 micrograms/hour every three days and morphine 50 mg every 3 hours as needed for [address] was sent. He has management at this moment is working on the discharged home with a hospital bed, shower chair, walker At this moment we will continue to monitor patient in the meantime. A.m. labs 08/07 patient was seen by CUFF TURNER and physician during rounding. Hemoglobin today is 6.6 hematocrit 20.6. Oncologist was consulted regarding the above-stated results and at this moment patient will receive one PRBC. Again was explained to the patient and family that patient is not curative. Surgery is not an option. Radiation therapy is not an option. Will ask for genetics phenotyping of the tumor. And see if this patient could benefit from targeted therapy or immunotherapy. Case management is working on discharged home with a hospital bed, walker, shower chair . Daughter has already registered patient to [place] and has a appointment with the public information coordinator. We will continue to monitor patient in the meantime. A.m. labs REVIEW OF SYSTEMS CONSTITUTIONAL: Denies fevers, chills, or night sweats. Positive for unintentional weight loss NEUROLOGICAL: Denies headache, amaurosis fugax, motor weakness, sensory deficit, vertigo/spinning sensation, gait abnormalities, or tremors. ENT: No hearing loss, otalgia, otorrhea, rhinitis, rhinorrhea, hoarseness, or sore throat. CARDIOVASCULAR: Denies any exertional angina, dyspnea on exertion, orthopnea, paroxysmal nocturnal dyspnea, palpitations, life-threatening arrhythmias, claudication. PULMONARY: Denies any shortness of breath, cough, phlegm/sputum, hemoptysis, pleuritic chest pain. GASTROINTESTINAL: Positive for nausea, vomiting, . Denied any hematochezia, hematemesis GENITOURINARY: Denies frequency, urgency, nocturia, hematuria or incontinence (Storage/Irritative symptoms.) Low urinary stream, straining to void, urinary intermittency or hesitancy, splitting of the voiding stream, terminal dribbling. ENDOCRINOLOGIC: Denies polyuria, polydipsia, polyphagia or heat/cold intolerances. HEMATOLOGIC: Denies thrombophilia/previous clots, or coagulopathy/bleeding disorders. ONCOLOGIC: Denies personal history of malignancy. DERMATOLOGIC: Denies rashes or pruritus. PSYCHIATRIC: Denies any suicidal or homicidal ideation. Denies hallucinations. PHYSICAL EXAM GENERAL APPEARANCE: The patient is awake, alert, and oriented, in no acute cardiopulmonary distress. NEUROLOGICAL: Cranial nerves II-XII grossly intact. Motor is 5/5 in bilateral upper and lower extremities proximal to distal. No sensory deficits. HEENT: Face is symmetric. Pupils are equal and reactive. Extraocular movements are intact. NECK: Supple. No JVD. No thyromegaly. No submental, submandibular, pre- /postauricular, occipital or supraclavicular lymphadenopathy. CHEST: Normal chest expansion. No Telemetry. LUNGS: Absence of any rales, rhonchi or any wheezing. CARDIOVASCULAR: Regular. S1 and S2 normal. No appreciable rubs, murmurs or gallops. ABDOMEN: Soft, nontender, and nondistended. Patient has a right inguinal hernia. There is no erythema around the inguinal area. No tenderness to palpation. : Deferred. No Diaz. EXTREMITIES: Non-edematous and not cyanotic. No clubbing. Good capillary refill. SKIN: No skin breakdown. Vital Signs (last 8hr) Date Time Temp Pulse Resp B/P (MAP) Pulse Ox O2 Delivery O2 Flow Rate FiO2 08/07/24 12:00 98.6 86 18 109/67 100 Room Air 08/07/24 08:00 97.5 72 16 136/72 96 Room Air LABS: Laboratory: Test 08/07/24 05:33 08/06/24 08:08 Range/Units White Blood Count 6.3 4.8-10.8 K/uL Red Blood Count 2.21 L 4.50-6.20 MIL/uL Hemoglobin 6.6 *L 14.0-18.0 g/dL Hematocrit 20.6 *L 42-54 % Mean Corpuscular Volume 93.2 79-99 fL Mean Corpuscular Hemoglobin 29.9 27.0-33.0 pg Mean Corpuscular Hemoglobin Concent 32.0 32.0-36.0 g/dL Red Cell Distribution Width 22.3 H 11.0-15.5 % Platelet Count 70 L 130-400 K/uL Mean Platelet Volume 11.2 H 7.5-10.5 fL Immature Granulocyte % (Auto) 11.5 H 0-1 % Neutrophils (%) (Auto) 37.4 L 40.0-77.0 % Lymphocytes (%) (Auto) 33.8 21.0-51.0 % Monocytes (%) (Auto) 14.2 H 3.0-13.0 % Eosinophils (%) (Auto) 2.2 0.0-8.0 % Basophils (%) (Auto) 0.9 0.0-5.0 % Neutrophils # (Auto) 2.4 1.8-7.7 K/uL Lymphocytes # (Auto) 2.1 1.0-4.8 K/uL Monocytes # (Auto) 0.9 0.1-1.0 K/uL Eosinophils # (Auto) 0.14 0.00-0.70 K/uL Basophils # (Auto) 0.06 0.00-0.20 K/uL Absolute Immature Granulocyte (auto 0.73 0-1 K/uL Nucleated Red Blood Cells 30.3 H 0.0-0.19 % Sodium Level 138 136-145 mmol/L Potassium Level 3.5 3.5-5.1 mmol/L Chloride Level 103 101-111 mmol/L Carbon Dioxide Level 25 21-32 mmol/L Blood Urea Nitrogen 24 H 7-18 mg/dL Creatinine 0.9 0.5-1.3 mg/dL Glomerular Filtration Rate Calc 94 >90 mL/min Random Glucose 93 70-105 mg/dL Total Calcium 8.4 L 8.5-10.1 mg/dL Magnesium Level 2.90 H 1.80-2.40 mg/dL Total Bilirubin 1.3 H 0.2-1.0 mg/dL Aspartate Amino Transf (AST/SGOT) 50 H 10-37 U/L Alanine Aminotransferase (ALT/SGPT) 19 12-78 U/L Alkaline Phosphatase 2352 *H 50-136 U/L B-Type Natriuretic Peptide 89 0-100 pg/mL Total Protein 5.6 L 6.0-8.3 g/dL Albumin 3.1 L 3.5-5.0 g/dL Segmented Neutrophils % 55 40-70 % Band Neutrophils % 2 0-2 % Lymphocytes % (Manual) 31 22-44 % Monocytes % (Manual) 2 2-9 % Eosinophils % (Manual) 2 1-6 % Myelocytes % 2 H 0-0 % Promyelocytes % 4 H 0-0 Other Cells % 1 H 0-0 Differential Comment MANUAL DIFFERENTIAL Reactive Lymphocytes 1 H 0-0 % White Cell Morphology Comment IMMATURE GRAN 1+ Platelet Morphology Comment DECREASED Red Blood Cell Morphology See comments Current Medications Medications (Trade) Dose Ordered Sig/Christie Route PRN Reason Start Time Stop Time Status Last Admin Dose Admin Acetaminophen (TYLenol 500MG TAB) 500 mg Q6H PRN PO MILD PAIN (1-3) 07/26/24 17:00 08/25/24 16:59 Fentanyl (DURAgesic 12 MCG/HR PATCH) 12 mcg Q72H TD 08/01/24 14:30 08/05/24 16:31 DC 08/04/24 14:53 12 MCG Fentanyl (DURAgesic 25 MCG/HR PATCH) 25 mcg Q72H TD 08/01/24 13:30 08/01/24 13:42 DC Fentanyl (DURAgesic 25 MCG/HR PATCH) 25 mcg Q72H TD 08/05/24 17:00 08/10/24 16:59 08/05/24 17:37 25 MCG Finasteride (PROscar 5 MG TAB) 5 mg DAILY PO 07/27/24 09:00 08/26/24 08:59 08/07/24 11:19 5 MG Ketorolac Tromethamine (toRADol) 15 mg Q6H PRN IV MODERATE PAIN (4-6) 07/28/24 14:00 08/02/24 13:59 DC 08/01/24 21:00 15 MG Magnesium Sulfate 50 ml @ 0 mls/hr PROTOCOL IV 07/31/24 14:00 08/30/24 13:59 Magnesium Sulfate 50 ml @ 0 mls/hr PROTOCOL PRN IV hypomagnesemia 07/26/24 19:00 08/01/24 06:56 DC Morphine Sulfate (morPHINE 2MG SYG) 2 mg Q4H PRN IVP SEVERE PAIN (7-10) 08/01/24 15:00 08/06/24 17:59 DC 08/05/24 21:50 2 MG Morphine Sulfate (morPHINE 2MG SYG) 2 mg Q4H PRN IVP SEVERE PAIN (7-10) 08/07/24 08:30 08/14/24 08:29 Morphine Sulfate (morPHINE 2MG SYG) 2 mg Q6H PRN IVP SEVERE PAIN (7-10) 07/26/24 18:30 07/31/24 21:29 DC 07/31/24 15:58 2 MG Ondansetron HCl (zoFRAN 4MG INJ) 4 mg Q4H4 PRN IVP NAUSEA/VOMITING 08/01/24 18:00 08/02/24 08:36 DC Ondansetron HCl (zoFRAN 4MG INJ) 4 mg Q4HPRN PRN IVP NAUSEA/VOMITING 08/02/24 09:00 09/01/24 08:59 08/07/24 00:34 4 MG Ondansetron HCl (zoFRAN 4MG INJ) 4 mg Q6H PRN IVP NAUSEA/VOMITING 07/26/24 17:00 08/01/24 17:56 DC 08/01/24 12:28 4 MG Pantoprazole Sodium (PROTonix 40MG INJ) 40 mg Q12H IVP 07/26/24 17:00 08/25/24 16:59 5/4/25 04:40 40 MG Potassium Chloride 100 ml @ 50 mls/hr AD PRN IV POTASSIUM PROTOCOL 07/26/24 19:00 08/01/24 06:56 DC Potassium Chloride 100 ml @ 100 mls/hr AD PRN IV POTASSIUM PROTOCOL 07/31/24 11:00 08/30/24 10:59 Potassium Chloride (K-Dur/Klor-Con 20meq) 20 meq AD PRN PO POTASSIUM PROTOCOL 07/31/24 11:00 08/30/24 10:59 07/31/24 15:46 20 MEQ Potassium Chloride (KCl 10% Elixir 20meq/15ml) 20 meq AD PRN PO POTASSIUM PROTOCOL 07/31/24 11:00 08/30/24 10:59 08/03/24 09:41 20 MEQ Sodium Chloride 1,000 ml @ 100 mls/hr Q10H IV 07/26/24 17:00 08/25/24 16:59 08/05/24 17:37 100 MLS/HR Tamsulosin HCl (FloMAX) 0.4 mg DAILY PO 07/27/24 09:00 08/26/24 08:59 08/07/24 11:19 0.4 MG Thiamine HCl (Vitamin B-1) 100 mg DAILY IVP 07/28/24 09:00 08/27/24 08:59 08/07/24 11:19 100 MG Tramadol HCl (UltRAM) 50 mg Q6H PRN PO MODERATE PAIN (4-6) 07/31/24 01:00 08/05/24 00:59 DC 07/31/24 23:10 50 MG DIAGNOSTICS / RADIOLOGY: [ ] ASSESSMENT: Acute Blood loss anemia, POA metastatic skeletal disease by bone scan, POA Adenocarcinoma most likely stomach POA 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, 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, by upper GI endoscopy done on 07/28/2024 Large mass to the stomach consistent with [place] [address], [place] scan showing multiple lesions to the bone consistent with metastatic disease, POA Gastritis per upper GI endoscopy done on 07/28/2024 Recurrent nausea and vomiting POA Unintentional weight loss of around 40-50 lb with concern for underlying malignancy Elevated alk-phos differential secondary to bone Mets versus underlying liver etiology Mild LFT elevation Right inguinal hernia Normocytic anemia Suspected melena BPH Severe protein caloric malnutrition, POA PLAN: Continue in the medical surgical floor Persistent drop in Hgb patient received one PRBC 08/07/2024 as ordered by oncologist We will continue to monitor patient and follow recommendations from Oncology and Gastroenterology Colonoscopy would not be performed per GI due to constant drop of hemoglobin GI signed off Fentanyl patch and morphine sent to [facility] pharmacy as per oncologist As per oncologist patient is new diagnosis it is not curative. Surgery is not an option. The radiation therapy treatment is not an option. Patient could benefit only from palliative chemo versus hospice Continue with pain management Continue with supportive care GI and DVT prophylaxis We will repeat labs tomorrow Family would like to proceed with palliative chemotherapy ATTESTATION BY PHYSICIAN I have seen and examined the patient. I reviewed the documentation, medical d ecision making, and treatment plan as noted by the mid-level provider above. I agree with the findings and plan of care. HAYLEY An MD HVAC ESTIMATOR August 07, 2024 13:21
[2024-08-07] MEDS ORDERED: PoTASSium chloRIDE 10MEQ/100ML 100 ML IV PRN (13:30)
[2024-08-07] MEDS ORDERED: DEXTROSE 50%-WATER 50 ML DISP.SYRIN IV PRN (13:30)
[2024-08-07] MEDS ORDERED: PoTASSium chloRIDE 20MEQ ER 20 MEQ ERTAB PO PRN (13:30)
[2024-08-07] MEDS ORDERED: PoTASSium chl 10% ELIXIR 20MEQ 20 MEQ/15 ML UDCUP PO PRN (13:30)
[2024-08-07] MEDS ORDERED: GLUCAGON 1MG KIT 1 MG ML IM PRN (13:30)
[2024-08-07] MEDS ORDERED: MAGNESIUM 2GM PREMIX 50ML 50 ML IV PRN (13:30)
[2024-08-07] MEDS ORDERED: PoTASSium chloRIDE 10MEQ SR 10 MEQ/TAB TAB.SR.24H PO PRN (14:30)
[2024-08-07] MEDS: INSULIN humuLIN R 100 UNIT/ML 3ML SQ SCH (16:30)
[2024-08-07 17:26] LABS: HEMATOCRIT 28.1 % (42-54)
[2024-08-07] MEDS: PoTASSium chloRIDE 20MEQ ER 20 MEQ ERTAB PO ONE (20:26)
[2024-08-07] MEDS: morPHINE 2 MG SYG IVP PRN (20:31)
[2024-08-08] VITALS (8 sets, daily range): BP systolic 100–141; BP diastolic 61–77; PULSE 61–84; RESP 12–19; TEMP 97.5–98.4; O2SAT 99–100
[2024-08-08 05:08] LABS: BASOPHILS % (AUTO) 1.3 % (0.0-5.0); EOSINOPHILS # (AUTO) 0.12 K/uL (0.00-0.70); EOSINOPHILS % (AUTO) 1.5 % (0.0-8.0); HEMATOCRIT 27.1 % (42-54); IMMATURE GRANULOCYTE ABSOLUTE 1.06 K/uL (0-1); LYMPHOCYTES # (AUTO) 2.4 K/uL (1.0-4.8); LYMPHOCYTES % (AUTO) 30.3 % (21.0-51.0); MEAN CORPUSCULAR HEMOGLOBIN 29.9 pg (27.0-33.0); MEAN CORPUSCULAR HGB CONC 32.5 g/dL (32.0-36.0); MEAN CORPUSCULAR VOLUME 92.2 fL (79-99); MONOCYTES # (AUTO) 1.1 K/uL (0.1-1.0); MONOCYTES % (AUTO) 14.6 % (3.0-13.0); NEUTROPHILS % (AUTO) 38.7 % (40.0-77.0); PLATELET COUNT (AUTO) 67 K/uL (130-400); RED BLOOD CELL COUNT(AUTO) 2.94 MIL/uL (4.50-6.20); RED CELL DISTRIBUTION WIDTH 21.3 % (11.0-15.5); WHITE BLOOD COUNT (AUTO) 7.8 K/uL (4.8-10.8)
[2024-08-08 05:31] LABS: ALBUMIN 3.3 g/dL (3.5-5.0); BILIRUBIN,TOTAL 1.4 mg/dL (0.2-1.0); MAGNESIUM 2.6 mg/dL (1.80-2.40); POTASSIUM 4.3 mmol/L (3.5-5.1); TOTAL PROTEIN, SERUM 6.1 g/dL (6.0-8.3)
[2024-08-08 06:24] LABS: BAND NEUTROPHILS % (MANUAL) 5 % (0-2); EOSINOPHILS % (MANUAL) 1 % (1-6); LYMPHOCYTES % (MANUAL) 29 % (22-44); METAMYELOCYTES % 4 % (0-0); MONOCYTES % (MANUAL) 17 % (2-9); MYELOCYTES % 3 % (0-0); REACTIVE LYMPHOCYTES 1 % (0-0); SEGMENTED NEUTROPHILS % 40 % (40-70); TOTAL CELLS COUNTED 100
[2024-08-08 06:25] LABS: MAN.DIFF COMMENT-IMPRESSION MANUAL DIFFERENTIAL; NUCLEATED RED BLOOD CELLS 45.9 % (0.0-0.19)
[2024-08-08 06:27] LABS: PLATELET MORPHOLOGY COMMENT DECREASED
--- NOTE | 2024-08-08 08:20 | PN ---
GASTROENTEROLOGY PROGRESS NOTE Date of Visit: August 08, 2024 Time of Visit: 08:20 Events / Notes: No acute events overnight. 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 Review of Systems: CONSTITUTIONAL: No malaise or change in sensation of wellbeing. ENMT: No rhinorrhea, otorrhea, sinus pain, ear ache. CARDIOVASCULAR: No angina, palpitations, orthopnea or paroxysmal dyspnea. RESPIRATORY: No SOB. GASTROINTESTINAL: No abdominal pain, nausea, vomiting, diarrhea, hematemesis, melena or change in the patient's habitual bowel movements consistency/number. GENITOURINARY: No dysuria, hematuria or change in bladder continence. MUSCULOSKELETAL: No new muscle pain or decrease in muscular strength. No new joint swelling, redness or tenderness. SKIN: No new rash. Physical Exam: GEN: Awake, alert, oriented in person, time and place, and in no acute distress. HEENT: No sinus tenderness. Tympanic membranes were not examined. No rhinorrhea. Oral pharyngeal mucosa is pink, moist and within normal limits. Neck is supple with no cervical lymphadenopathy, thyromegaly or JVD. CHEST: Inspection, palpation and percussion of the chest were unremarkable. Lung auscultation revealed normal breath sounds bilaterally. CARDIAC: PMI is within normal limits. Heart sounds are regular. Normal S1, S2. No gallop or murmur. ABD: Soft, non-tender and not distended. No peritoneal signs on palpation. No organomegaly. Normal bowel sounds. EXT: No cyanosis or clubbing. No edema. SKIN: Intact. No rashes. JOINTS: No evidence of synovitis or acute arthritis. NEURO: Alert and oriented to name, place and person. Cranial nerve examination is unremarkable. No focal motor deficits. Normal speech. Gait is normal. Strength is normal. Vital Signs (last 8hr) Date Time Temp Pulse Resp B/P (MAP) Pulse Ox O2 Delivery O2 Flow Rate FiO2 08/08/24 07:39 97.5 76 19 117/72 100 Room Air 21 08/08/24 04:00 97.5 72 12 141/77 98 Room Air Laboratory: [ ] Laboratory: Test 08/08/24 04:34 08/07/24 05:33 Range/Units White Blood Count 7.8 4.8-10.8 K/uL Red Blood Count 2.94 #L 4.50-6.20 MIL/uL Hemoglobin 8.8 L 14.0-18.0 g/dL Hematocrit 27.1 L 42-54 % Mean Corpuscular Volume 92.2 79-99 fL Mean Corpuscular Hemoglobin 29.9 27.0-33.0 pg Mean Corpuscular Hemoglobin Concent 32.5 32.0-36.0 g/dL Red Cell Distribution Width 21.3 H 11.0-15.5 % Platelet Count 67 L 130-400 K/uL Mean Platelet Volume 11.9 H 7.5-10.5 fL Immature Granulocyte % (Auto) 13.6 H 0-1 % Neutrophils (%) (Auto) 38.7 L 40.0-77.0 % Lymphocytes (%) (Auto) 30.3 21.0-51.0 % Monocytes (%) (Auto) 14.6 H 3.0-13.0 % Eosinophils (%) (Auto) 1.5 0.0-8.0 % Basophils (%) (Auto) 1.3 0.0-5.0 % Neutrophils # (Auto) 3.0 1.8-7.7 K/uL Lymphocytes # (Auto) 2.4 1.0-4.8 K/uL Monocytes # (Auto) 1.1 H 0.1-1.0 K/uL Eosinophils # (Auto) 0.12 0.00-0.70 K/uL Basophils # (Auto) 0.10 0.00-0.20 K/uL Absolute Immature Granulocyte (auto 1.06 H 0-1 K/uL Segmented Neutrophils % 40 40-70 % Band Neutrophils % 5 H 0-2 % Lymphocytes % (Manual) 29 22-44 % Monocytes % (Manual) 17 H 2-9 % Eosinophils % (Manual) 1 1-6 % Metamyelocytes % 4 H 0-0 % Myelocytes % 3 H 0-0 % Nucleated Red Blood Cells 45.9 H 0.0-0.19 % Differential Comment MANUAL DIFFERENTIAL Reactive Lymphocytes 1 H 0-0 % White Cell Morphology Comment See comments Platelet Morphology Comment DECREASED Red Blood Cell Morphology See comments Sodium Level 140 136-145 mmol/L Potassium Level 4.3 3.5-5.1 mmol/L Chloride Level 103 101-111 mmol/L Carbon Dioxide Level 29 21-32 mmol/L Blood Urea Nitrogen 25 H 7-18 mg/dL Creatinine 1.0 0.5-1.3 mg/dL Glomerular Filtration Rate Calc 82 >90 mL/min Random Glucose 94 70-105 mg/dL Total Calcium 8.3 L 8.5-10.1 mg/dL Magnesium Level 2.60 H 1.80-2.40 mg/dL Total Bilirubin 1.4 H 0.2-1.0 mg/dL Aspartate Amino Transf (AST/SGOT) 54 H 10-37 U/L Alanine Aminotransferase (ALT/SGPT) 20 12-78 U/L Alkaline Phosphatase 2320 *H 50-136 U/L Total Protein 6.1 6.0-8.3 g/dL Albumin 3.3 L 3.5-5.0 g/dL B-Type Natriuretic Peptide 89 0-100 pg/mL Current Medications Medications (Trade) Dose Ordered Sig/Christie Route PRN Reason Start Time Stop Time Status Last Admin Dose Admin Acetaminophen (TYLenol 500MG TAB) 500 mg Q6H PRN PO MILD PAIN (1-3) 07/26/24 17:00 08/25/24 16:59 Dextrose (D50w) 50 ml AD PRN IV HYPOGLYCEMIA PROTOCOL 08/07/24 13:30 09/06/24 13:29 Fentanyl (DURAgesic 12 MCG/HR PATCH) 12 mcg Q72H TD 08/01/24 14:30 08/05/24 16:31 DC 08/04/24 14:53 12 MCG Fentanyl (DURAgesic 25 MCG/HR PATCH) 25 mcg Q72H TD 08/01/24 13:30 08/01/24 13:42 DC Fentanyl (DURAgesic 25 MCG/HR PATCH) 25 mcg Q72H TD 08/05/24 17:00 08/10/24 16:59 08/05/24 17:37 25 MCG Finasteride (PROscar 5 MG TAB) 5 mg DAILY PO 07/27/24 09:00 08/26/24 08:59 08/08/24 08:05 5 MG Glucagon (Glucagon 1mg Kit) 1 mg AD PRN IM HYPOGLYCEMIA PROTOCOL 08/07/24 13:30 09/06/24 13:29 Insulin Human Regular (humuLIN R 100 UNIT/ML 3ML) INSULIN SLIDING SCAL... ACHS SQ 08/07/24 16:30 09/06/24 16:29 Ketorolac Tromethamine (toRADol) 15 mg Q6H PRN IV MODERATE PAIN (4-6) 07/28/24 14:00 08/02/24 13:59 DC 08/01/24 21:00 15 MG Magnesium Sulfate 50 ml @ 0 mls/hr PROTOCOL IV 07/31/24 14:00 08/07/24 13:59 DC Magnesium Sulfate 50 ml @ 0 mls/hr PROTOCOL PRN IV hypomagnesemia 07/26/24 19:00 08/01/24 06:56 DC Magnesium Sulfate 50 ml @ 0 mls/hr PROTOCOL PRN IV other 08/07/24 13:30 09/06/24 13:29 Morphine Sulfate (morPHINE 2MG SYG) 2 mg Q4H PRN IVP SEVERE PAIN (7-10) 08/01/24 15:00 08/06/24 17:59 DC 08/05/24 21:50 2 MG Morphine Sulfate (morPHINE 2MG SYG) 2 mg Q4H PRN IVP SEVERE PAIN (7-10) 08/07/24 08:30 08/14/24 08:29 08/08/24 03:37 2 MG Morphine Sulfate (morPHINE 2MG SYG) 2 mg Q6H PRN IVP SEVERE PAIN (7-10) 07/26/24 18:30 07/31/24 21:29 DC 07/31/24 15:58 2 MG Ondansetron HCl (zoFRAN 4MG INJ) 4 mg Q4H4 PRN IVP NAUSEA/VOMITING 08/01/24 18:00 08/02/24 08:36 DC Ondansetron HCl (zoFRAN 4MG INJ) 4 mg Q4HPRN PRN IVP NAUSEA/VOMITING 08/02/24 09:00 09/01/24 08:59 08/08/24 03:37 4 MG Ondansetron HCl (zoFRAN 4MG INJ) 4 mg Q6H PRN IVP NAUSEA/VOMITING 07/26/24 17:00 08/01/24 17:56 DC 08/01/24 12:28 4 MG Pantoprazole Sodium (PROTonix 40MG INJ) 40 mg Q12H IVP 07/26/24 17:00 08/25/24 16:59 08/08/24 05:12 40 MG Potassium Chloride 100 ml @ 50 mls/hr AD PRN IV POTASSIUM PROTOCOL 07/26/24 19:00 08/01/24 06:56 DC Potassium Chloride 100 ml @ 100 mls/hr AD PRN IV POTASSIUM PROTOCOL 07/31/24 11:00 08/07/24 13:16 DC Potassium Chloride 100 ml @ 100 mls/hr AD PRN IV POTASSIUM PROTOCOL 08/07/24 13:30 09/06/24 13:29 Potassium Chloride (K-Dur 10meq Sr Tab) 10 meq AD PRN PO POTASSIUM PROTOCOL 08/07/24 14:30 09/06/24 13:29 Potassium Chloride (K-Dur/Klor-Con 20meq) 10 meq AD PRN PO POTASSIUM PROTOCOL 08/07/24 13:30 08/07/24 14:00 DC Potassium Chloride (K-Dur/Klor-Con 20meq) 20 meq AD PRN PO POTASSIUM PROTOCOL 07/31/24 11:00 08/07/24 13:16 DC 07/31/24 15:46 20 MEQ Potassium Chloride (KCl 10% Elixir 20meq/15ml) 10 meq AD PRN PO POTASSIUM PROTOCOL 08/07/24 13:30 09/06/24 13:29 Potassium Chloride (KCl 10% Elixir 20meq/15ml) 20 meq AD PRN PO POTASSIUM PROTOCOL 07/31/24 11:00 08/07/24 13:16 DC 08/03/24 09:41 20 MEQ Sodium Chloride 1,000 ml @ 100 mls/hr Q10H IV 07/26/24 17:00 08/25/24 16:59 08/05/24 17:37 100 MLS/HR Tamsulosin HCl (FloMAX) 0.4 mg DAILY PO 07/27/24 09:00 08/26/24 08:59 08/08/24 08:04 0.4 MG Thiamine HCl (Vitamin B-1) 100 mg DAILY IVP 07/28/24 09:00 08/27/24 08:59 08/08/24 08:04 100 MG Tramadol HCl (UltRAM) 50 mg Q6H PRN PO MODERATE PAIN (4-6) 07/31/24 01:00 08/05/24 00:59 DC 07/31/24 23:10 50 MG Diagnostics / Radiology: [COPY/PASTE HERE IF NO REPORTS PLEASE DELETE SECTION] Assessment: Gastric mass N/V Weight loss Abnormal LFTs Plan: CT chest/abd/pelvis Surgery and oncology eval Await path Colonoscopy not warranted at this time as source of anemia/bleed identified Continue GI prophylaxis Avoid NSAIDs Antireflux measures Monitor H&H and transfuse as needed Call with questions, concerns or change in clinical status Patient to follow-up at clinic post discharge Thank you for this consult [facility] August 08, 2024 08:20
--- NOTE | 2024-08-08 12:15 | PN ---
69-year-old male with no known past medical history presents with a 2-month history of recurrent nausea and vomiting associated with early satiety and intolerance to solid foods. The patient reports consuming mainly jello and liquids during this period. He describes progressive unintentional weight loss of approximately 40�50 pounds over the same duration. He endorses episodes of black-colored stools but denies hematemesis or hematochezia. He also reports inconsistent bowel habits with alternating constipation. He has not sought prior medical attention for these symptoms and has not undergone any cancer screening. He denies chest pain, shortness of breath, cough, fever, chills, dysuria, hematuria, or any neurologic symptoms such as syncope or seizures. No family history is provided. He has a known history of right inguinal hernia without pain or incarceration. He reports mild symptoms in the inguinal area when ambulatory. EGD was done which showed patient to have big mass to the stomach. 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 Patient and family actually hesitant to do any chemo. Patient receiving blood transfusion. Hemoglobin level 8.8 g/dL. PE GENERAL: No acute respiratory distress. VITAL SIGNS: Reviewed and stable. HEENT: The sclerae are clear. The pupils are equal and reactive to light. The oropharyngeal cavity is within normal limits. NECK: Supple without lymphadenopathy. CHEST: Lung is clear bilaterally there is no wheezing or crackles. HEART: Sounds are regular and rhythmic. ABDOMEN: No guarding or rigidity. Bowel sounds positive. EXTREMITIES: No pitting edema. No petechial lesions or bruises. SKIN: No bruises, rash, or petechial lesions. NEUROLOGICAL: The patient is alert and oriented. No focal deficits. Muscle strength is 5/5. LYMPH NODES: There is no lymphadenopathy could be felt in the neck, supraclavicular, or axillary. 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 Large mass to the stomach consistent with possible gastric cancer especially with the CEA level is 18,000. Bone scan showing multiple lesion to the bone consistent with metastatic disease 2. Severe pain 3. Anemia. Patient with severe anemia with hemoglobin level 6.1 mg/deciliter. With the patient receiving blood transfusion 4. Weight loss Plan 1. Pathology report consistent with poorly differentiated adenocarcinoma. So this patient have gastric cancer with mets to the bone. So the patient have stage IV cancer. 2. I have long discussion with the patient and family member regarding the plan of care. I answer all question and concern and I spent more than 35 minutes. There was for people in the room. There is 3 daughter and 1 [id number] I explained to the patient that he is not curative. Surgery is not an option. The radiation therapy treatment is not an option. This patient could benefit only from palliative chemo versus hospice. 3. Status post blood transfusion. Hemoglobin 11.8 0.8 g/dL. There is no need for blood transfusion at this time 4. I will write him a letter regarding his condition so [facility]. 5. Will ask for genetics phenotyping of the tumor. And see if this patient could benefit from targeted therapy or immunotherapy. 6. I sent fentanyl patch 25 mcg/h every 3 days and morphine 15 mg every 3 hours as needed for [facility] [address] Vitals/Labs Vital Signs Date Time Temp Pulse Resp B/P (MAP) Pulse Ox O2 Delivery O2 Flow Rate FiO2 08/08/24 11:30 98.4 84 19 100/67 100 Room Air 08/08/24 08:00 0 21 Laboratory Tests 08/07/24 17:23 08/08/24 04:34 Medications Current Medications Sodium Chloride 1,000 ml @ 0 mls/hr ONCE ONCE IV Last administered on 07/26/24at 13:56; Start 07/26/24 at 12:00; Stop 07/26/24 at 12:01; Status DC Morphine Sulfate 4 mg ONCE ONCE IM Last administered on 07/26/24at 13:56; Start 07/26/24 at 13:30; Stop 07/26/24 at 13:31; Status DC Ondansetron HCl 4 mg ONCE ONCE IVP Last administered on 07/26/24at 13:56; Start 07/26/24 at 14:00; Stop 07/26/24 at 14:01; Status DC Iohexol 75 ml STK-MED ONCE IV; Start 07/26/24 at 14:09; Stop 07/26/24 at 14:10; Status DC Ondansetron HCl 4 mg Q6H PRN IVP Last administered on 08/01/24at 12:28; Start 07/26/24 at 17:00; Stop 08/01/24 at 17:56; Status DC Pantoprazole Sodium 40 mg Q12H IVP Last administered on 08/08/24at 05:12; Start 07/26/24 at 17:00; Stop 08/25/24 at 16:59 Sodium Chloride 1,000 ml @ 100 mls/hr Q10H IV Last administered on 08/05/24at 17:37; Start 07/26/24 at 17:00; Stop 08/25/24 at 16:59 Acetaminophen 500 mg Q6H PRN PO; Start 07/26/24 at 17:00; Stop 08/25/24 at 16:59 Polyethylene Glycol/ Electrolytes 4,000 ml ONCE ONCE PO Last administered on 07/26/24at 18:46; Start 07/26/24 at 17:00; Stop 07/26/24 at 17:06; Status DC Morphine Sulfate 2 mg Q6H PRN IVP Last administered on 07/31/24at 15:58; Start 07/26/24 at 18:30; Stop 07/31/24 at 21:29; Status DC Potassium Chloride 100 ml @ 50 mls/hr AD PRN IV; Start 07/26/24 at 19:00; Stop 08/01/24 at 06:56; Status DC Magnesium Sulfate 50 ml @ 0 mls/hr PROTOCOL PRN IV; Start 07/26/24 at 19:00; Stop 08/01/24 at 06:56; Status DC Finasteride 5 mg DAILY PO Last administered on 08/08/24at 08:05; Start 07/27/24 at 09:00; Stop 08/26/24 at 08:59 Tamsulosin HCl 0.4 mg DAILY PO Last administered on 08/08/24at 08:04; Start 07/27/24 at 09:00; Stop 08/26/24 at 08:59 Propofol 200 mg STK-MED ONCE IV; Start 07/27/24 at 11:18; Stop 07/27/24 at 11:20; Status DC Lidocaine HCl 100 mg STK-MED ONCE .ROUTE; Start 07/27/24 at 11:18; Stop 07/27/24 at 11:20; Status DC Thiamine HCl 100 mg DAILY IVP Last administered on 08/08/24at 08:04; Start 07/28/24 at 09:00; Stop 08/27/24 at 08:59 Dexamethasone Sodium Phosphate 10 mg ONCE ONCE IV Last administered on 07/28/24at 14:21; Start 07/28/24 at 14:00; Stop 07/28/24 at 14:11; Status DC Ketorolac Tromethamine 15 mg Q6H PRN IV Last administered on 08/01/24at 21:00; Start 07/28/24 at 14:00; Stop 08/02/24 at 13:59; Status DC Tramadol HCl 50 mg Q6H PRN PO Last administered on 07/31/24at 23:10; Start 07/31/24 at 01:00; Stop 08/05/24 at 00:59; Status DC Potassium Chloride 100 ml @ 100 mls/hr AD PRN IV; Start 07/31/24 at 11:00; Stop 08/07/24 at 13:16; Status DC Potassium Chloride 20 meq AD PRN PO Last administered on 08/03/24at 09:41; Start 07/31/24 at 11:00; Stop 08/07/24 at 13:16; Status DC Potassium Chloride 20 meq AD PRN PO Last administered on 07/31/24at 15:46; Start 07/31/24 at 11:00; Stop 08/07/24 at 13:16; Status DC Magnesium Sulfate 50 ml @ 0 mls/hr PROTOCOL IV; Start 07/31/24 at 14:00; Stop 08/07/24 at 13:59; Status DC Fentanyl 25 mcg Q72H TD; Start 08/01/24 at 13:30; Stop 08/01/24 at 13:42; Status DC Fentanyl 12 mcg Q72H TD Last administered on 08/04/24at 14:53; Start 08/01/24 at 14:30; Stop 08/05/24 at 16:31; Status DC Morphine Sulfate 2 mg Q4H PRN IVP Last administered on 08/05/24at 21:50; Start 08/01/24 at 15:00; Stop 08/06/24 at 17:59; Status DC Ondansetron HCl 4 mg Q4H4 PRN IVP; Start 08/01/24 at 18:00; Stop 08/02/24 at 08:36; Status DC Zolpidem Tartrate 5 mg ONCE ONCE PO Last administered on 08/01/24at 23:42; Start 08/02/24 at 00:00; Stop 08/02/24 at 00:01; Status DC Ondansetron HCl 4 mg Q4HPRN PRN IVP Last administered on 08/08/24at 03:37; Start 08/02/24 at 09:00; Stop 09/01/24 at 08:59 Fentanyl 25 mcg Q72H TD Last administered on 08/05/24at 17:37; Start 08/05/24 at 17:00; Stop 08/10/24 at 16:59 Morphine Sulfate 2 mg ONCE ONCE IVP; Start 08/07/24 at 01:00; Stop 08/07/24 at 01:01; Status DC Morphine Sulfate 2 mg STK-MED ONCE .ROUTE Last administered on 08/07/24at 01:04; Start 08/07/24 at 00:52; Stop 08/07/24 at 00:54; Status DC Morphine Sulfate 2 mg STK-MED ONCE .ROUTE; Start 08/07/24 at 00:54; Stop 08/07/24 at 00:55; Status DC Diphenhydramine HCl 25 mg ONCE ONCE IV Last administered on 08/07/24at 11:18; Start 08/07/24 at 10:00; Stop 08/07/24 at 10:01; Status DC Dexamethasone Sodium Phosphate 10 mg ONCE ONCE IVP Last administered on 08/07/24at 11:19; Start 08/07/24 at 10:00; Stop 08/07/24 at 10:01; Status DC Morphine Sulfate 2 mg Q4H PRN IVP Last administered on 08/08/24at 03:37; Start 08/07/24 at 08:30; Stop 08/14/24 at 08:29 Potassium Chloride 40 meq ONCE ONCE PO Last administered on 08/07/24at 20:26; Start 08/07/24 at 21:00; Stop 08/07/24 at 21:01; Status DC Dextrose 50 ml AD PRN IV; Start 08/07/24 at 13:30; Stop 09/06/24 at 13:29 Glucagon 1 mg AD PRN IM; Start 08/07/24 at 13:30; Stop 09/06/24 at 13:29 Insulin Human Regular INSULIN SLIDING SCAL... ACHS SQ; Start 08/07/24 at 16:30; Stop 09/06/24 at 16:29 Potassium Chloride 100 ml @ 100 mls/hr AD PRN IV; Start 08/07/24 at 13:30; Stop 09/06/24 at 13:29 Potassium Chloride 10 meq AD PRN PO; Start 08/07/24 at 13:30; Stop 09/06/24 at 13:29 Potassium Chloride 10 meq AD PRN PO; Start 08/07/24 at 13:30; Stop 08/07/24 at 14:00; Status DC Magnesium Sulfate 50 ml @ 0 mls/hr PROTOCOL PRN IV; Start 08/07/24 at 13:30; Stop 09/06/24 at 13:29 Potassium Chloride 10 meq AD PRN PO; Start 08/07/24 at 14:30; Stop 09/06/24 at 13:29 ITA SCHULER MD August 08, 2024 12:15
--- NOTE | 2024-08-08 13:16 | NUR ---
[facility] rec[facility] call from Maddie at [facility] GLENIS answered all questions asked. [facility] MD reviewing clinicals and request for DME. Informed Maddie that pt is refusing hospice and needing DME. Maddie to informed [facility] MD of information provided. Maddie aware we are pending DME for dc.
--- NOTE | 2024-08-08 13:47 | NUR ---
Discharge Planning: Patient is ambulating >300 ft. Plan is for discharge home. If [facility] appro[facility] D[facility], will be delivered to patient's home.
[2024-08-08] MEDS ORDERED: FINA-37 PO (14:20)
[2024-08-08] MEDS ORDERED: TAMS-55 PO (14:20)
--- NOTE | 2024-08-08 14:31 | DS ---
Discharge Summary Hospital Course Summary: One DATE OF ADMISSION:[07/26/2024] DATE OF DISCHARGE:[08/08/2024] DISPOSITION:[] CONDITION:[Under palliative chemotherapy] CONSULTANTS:[Oncologist, GI] FOLLOW UP APPOINTMENTS:[PCP2 to 3 days. GI in one week for colonoscopy. Oncologist two weeks. [facility] on Thursday08/12/2024 for basic labs CBC, CMP and if need of transfusion it will be able to do at the [facility]] PROCEDURES:[Bone scan 07/27/2024. Port-A-Cath placement for chemotherapy] IMAGING: report attached to summary MICROBIOLOGY: report attached to summary ACTIVITY:[Independent] HOME MEDICATIONS: see [facility] NEW MEDICATIONS:[Finasteride, tamsulosin] EMERGENCY INSTRUCTIONS: The patient was instructed to present to the nearest Emergency departmentr or call 911 once their symptoms will return or worsen Rotoprinter(s): Patient is 69 years old male who was admitted to the hospital for generalized body weakness, decreased appetite and weight loss of about 50 lb. Patient underwent EGD and showed large gastric mass. Dr. Kincaid/oncologist was consulted who recommended bone scan which showed malignant skeleton disease. Throughout the hospitalization patient received few times blood transfusions. 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 So this patient have gastric cancer with mets to the bone. So the patient have stage IV cancer. Port-A-Cath was placement 08/03/2024. As per oncologist patient is not curative. Surgery is not an option. The radiation therapy is not an option. This patient could benefit only from palliative chemo versus hospice.Family decided on palliative chemo. Family and the patient declined hospice care. Family and patient denies SNF Placement. Fentanyl patch 25 mcg/h every 3 days and morphine 15 mg every 3 hours as needed for [facility] [address] was sent by oncologist. Nurse practitioner reach out to oncologist today at 1:51 p.m. via phone and patient was cleared to be discharged home. Follow up in two weeks. Oncologist also recommended that patient follow ups with the [facility] 08/12/2024 for basic lab order CBC, CMP and if hemoglobin low transfusion will be performed at the clinic. Nurse practitioner also reach out to GI at 13:50 and patient was cleared as well to be discharged home and follow up outpatient in one week for possible colonoscopy. Colonoscopy not warranted at this time as source of anemia/bleed identified. As per case management hospital bed, shower chair and walker was ordered and once approved will be delivered to patient's house. As per PT patient is ambulating more than 300 ft.Patient is cleared to be discharge follow up outpatient as recommended above. Procedure(s): REVIEW OF SYSTEMS CONSTITUTIONAL: Denies fevers, chills, or night sweats. Positive for unintentional weight loss NEUROLOGICAL: Denies headache, amaurosis fugax, motor weakness, sensory deficit, vertigo/spinning sensation, gait abnormalities, or tremors. ENT: No hearing loss, otalgia, otorrhea, rhinitis, rhinorrhea, hoarseness, or sore throat. CARDIOVASCULAR: Denies any exertional angina, dyspnea on exertion, orthopnea, paroxysmal nocturnal dyspnea, palpitations, life-threatening arrhythmias, claudication. PULMONARY: Denies any shortness of breath, cough, phlegm/sputum, hemoptysis, pleuritic chest pain. GASTROINTESTINAL: Positive for nausea, vomiting, . Denied any hematochezia, hematemesis GENITOURINARY: Denies frequency, urgency, nocturia, hematuria or incontinence (Storage/Irritative symptoms.) Low urinary stream, straining to void, urinary intermittency or hesitancy, splitting of the voiding stream, terminal dribbling. ENDOCRINOLOGIC: Denies polyuria, polydipsia, polyphagia or heat/cold intolerances. HEMATOLOGIC: Denies thrombophilia/previous clots, or coagulopathy/bleeding disorders. ONCOLOGIC: Denies personal history of malignancy. DERMATOLOGIC: Denies rashes or pruritus. PSYCHIATRIC: Denies any suicidal or homicidal ideation. Denies hallucinations. PHYSICAL EXAM GENERAL APPEARANCE: The patient is awake, alert, and oriented, in no acute cardiopulmonary distress. NEUROLOGICAL: Cranial nerves II-XII grossly intact. Motor is 5/5 in bilateral upper and lower extremities proximal to distal. No sensory deficits. HEENT: Face is symmetric. Pupils are equal and reactive. Extraocular movements are intact. NECK: Supple. No JVD. No thyromegaly. No submental, submandibular, pre- /postauricular, occipital or supraclavicular lymphadenopathy. CHEST: Normal chest expansion. No Telemetry. LUNGS: Absence of any rales, rhonchi or any wheezing. CARDIOVASCULAR: Regular. S1 and S2 normal. No appreciable rubs, murmurs or gallops. ABDOMEN: Soft, nontender, and nondistended. Patient has a right inguinal hernia. There is no erythema around the inguinal area. No tenderness to palpation. : Deferred. No Diaz. EXTREMITIES: Non-edematous and not cyanotic. No clubbing. Good capillary refill. SKIN: No skin breakdown. Assessment/Plan: ASSESSMENT: Acute Blood loss anemia, POA metastatic skeletal disease by bone scan, POA Adenocarcinoma most likely stomach POA 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, 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, by upper GI endoscopy done on 07/28/2024 Large mass to the stomach consistent with [place] [id number], [place] scan showing multiple lesions to the bone consistent with metastatic disease, POA Gastritis per upper GI endoscopy done on 07/28/2024 Recurrent nausea and vomiting POA Unintentional weight loss of around 40-50 lb with concern for underlying malignancy Elevated alk-phos differential secondary to bone Mets versus underlying liver etiology Mild LFT elevation Right inguinal hernia Normocytic anemia Suspected melena BPH Severe protein caloric malnutrition, POA Discharge Instructions: Vitals/Labs Vital Signs Date Time Temp Pulse Resp B/P (MAP) Pulse Ox O2 Delivery O2 Flow Rate FiO2 08/08/24 11:30 98.4 84 19 100/67 100 Room Air 08/08/24 08:00 0 21 Laboratory Tests 08/07/24 17:23 08/08/24 04:34 Time spent arranging discharge: 31-60 minutes ATTESTATION BY PHYSICIAN I have seen and examined the patient. I reviewed the documentation, medical decision making, and treatment plan as noted by the mid-level provider above. I agree with the findings and plan of care. HAYLEY Marquez MD [facility] ASSOCIATE August 08, 2024 14:31
--- NOTE | 2024-08-08 15:30 | NUR ---
Discharge Concern This CM went into room with MIMI Elena Instrument Repairer Helper. Family does not have house prepared. Informed a medical reason is needed to keep the patient and plan has always been to home and made aware of the length of time here in the hospital. Daughter verbalized concern with labs. Informed that all consultants are aware and have cleared. Informed we will loan the patient a walker. Requested daughter let nurse know if plan is to continue with discharge or appeal the stay. Verified that an updated IM was signed by the patient.
[2024-08-09] VITALS (7 sets, daily range): BP systolic 97–121; BP diastolic 67–73; PULSE 76–90; RESP 16–18; TEMP 97.8–98.3; O2SAT 99–100
--- NOTE | 2024-08-09 09:37 | NUR ---
[facility]. Informed Maddie of appeal for dc related to family wanting DME at home. Waiting for call back
--- NOTE | 2024-08-09 09:57 | NUR ---
[id number] [facility] Expedited Appeal Received EA Documentation request from [facility]. This CM completed DNOD and provided copy to patient. Requested documentation uploaded to the [facility]'s website at <[email or web address] with confirmation # received: [id number]. Updated patient on appeal status of sent.
--- NOTE | 2024-08-09 10:05 | NUR ---
DME Sw visited with pt and informed of approval. Pt called daughter and SW informed as well. Daughter voiced understanding [facility] and given correct address for delivery. Daughter asking about ER Medicaid. Informed pt does not qualify for ER Medicaid. SW provided # for Amisha at [facility] and 211 for assist with applying for Medicaid. Daughter wanting to get provider services for pt.
--- NOTE | 2024-08-09 12:15 | PN ---
[facility] PROGRESS NOTE Date of Service: August 09, 2024 Time of Service: 12:[address] Matias SUBJECTIVE: [69-year-old male who was admitted due to generalized weakness, decreased appetite with for a to 50 lb weight loss. Labs reviewed today Na 135, Cl 100, CO2 20, BUN 22, iron 209,% sat 83.2, total bili 1.3, GGT 185, AST 73, alkaline phosphatase 2061, CRP 23.7. S/p GI endoscopy-result showed large gastric mass. We will continue to follow GI rec's. Dr. Lockett on board who recommended bone scan which showed malignant skeletal disease. He is recommended orthopedic consult, we will continue to follow. 07/29/24 Patient seen and examined. Reports pain is reasonably controlled, Awaiting biopsy results 07/30/24 Patient was seen and examined in the room, he was lying in bed, denies any pain. Oncology is recommending SPSP UPEP and free light, if monocolonal protein noted, bone marrow bx recommended, as of today no result. We will follow up with Oncologist on further recommendation. 08/01/27 The patient is still mostly bedbound. Patient continues to feel lethargic. His H&H is 6.3/18.4. We will type and cross and transfuse one unit of PRBC, we will repeat H and H once transfuse. We will continue to monitor labs and replace electrolytes as needed. 08/01/24 Patient was evaluated today, he continues to feel very weak. H&H is more stable today the , though dropped few points. 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 Options discussed with the patient and daughter between palliative chemo hospice. Patient and daughter to decide. 08/02/24 this patient was evaluated. Per daughter at bedside, they would like to proceed with palliative chemotherapy. Primary nurse spoke with Dr. Lockett for which he will be ordering Port-A-Cath placement. Hgb dropped today, will transfuse. 08/03/24 patient was evaluated in the room today currently lying in bed. No acute events reported overnight. Patient stated that his two daughters will be coming today to discussed treatment plan. There is a pending Port-A-Cath placement as patient and family will have to decide whether to proceed for chemo. We will await for final plan from patient and family. 08/04/24 patient was seen and examined. Case discussed with the RN awaiting family decision on treatment. Patient per oncology has stage IV cancer not amen able to curative intent 08/05/24 patient was seen and examined. Case discussed with the RN and family by the bedside. Awaiting home arrangements for discharge soon 08/06/24 patient was seen by nurse practitioner physician during rounding in room 313. WBC 6.4 hemoglobin 7.3 hematocrit 22.9. At this moment patient is not a candidate for the colonoscopy because of the low hemoglobin as per GI. They also recommended to continue GI prophylaxis, avoid NSAIDs, anti-reflux measurements follow-up in the clinic post discharge. GI signed off. 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 Large mass to the stomach consistent with a possible gastric [place] [id number]. Bone scan showing multiple lesions to the bone consistent with metastatic disease. Patient is in severe pain and that is losing the weight. Pathology report consistent with poorly differentiated adenocarcinoma. Oncologist was able to discuss with the patient and family member regarding the plan of the care all the questions were answered. He explained to three daughters and one brother in law that the patient is not curative. Surgery is not an option. The radiation therapy is not an option. Patient could benefit only from the palliative chemo versus hospice. Family and patient is still surgical assistant certified. Oncologist will ask for genetics phenotyping of the tumor and see if the patient could benefit from targeted therapy or immunotherapy. Fentanyl patch 25 micrograms/hour every three days and morphine 50 mg every 3 hours as needed for [address] was sent. He has management at this moment is working on the discharged home with a hospital bed, shower chair, walker At this moment we will continue to monitor patient in the meantime. A.m. labs 08/07 patient was seen by TEST WORKER and physician during rounding. Hemoglobin today is 6.6 hematocrit 20.6. Oncologist was consulted regarding the above-stated results and at this moment patient will receive one PRBC. Again was explained to the patient and family that patient is not curative. Surgery is not an option. Radiation therapy is not an option. Will ask for genetics phenotyping of the tumor. And see if this patient could benefit from targeted therapy or immunotherapy. Case management is working on discharged home with a hospital bed, walker, shower chair . Daughter has already registered patient to [place] and has a appointment with the human resources benefits coordinator. We will continue to monitor patient in the meantime. A.m. labs 08/08 Patient is 69 years old male who was admitted to the hospital for generalized body weakness, decreased appetite and weight loss of about 50 lb. Patient underwent EGD and showed large gastric mass. Dr. Kincaid/oncologist was consulted who recommended bone scan which showed malignant skeleton disease. Throughout the hospitalization patient received few times blood transfusions. 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 So this patient have gastric cancer with mets to the bone. So the patient have stage IV cancer. Port-A-Cath was placement 08/03/2024. As per oncologist patient is not curative. Surgery is not an option. The radiation therapy is not an option. This patient could benefit only from palliative chemo versus hospice.Family decided on palliative chemo. Family and the patient declined hospice care. Family and patient denies SNF Placement. Fentanyl patch 25 mcg/h every 3 days and morphine 15 mg every 3 hours as needed for [facility] [address] was sent by oncologist. Nurse practitioner reach out to oncologist today at 1:51 p.m. via phone and patient was cleared to be discharged home. Follow up in two weeks. Oncologist also [facility] for basic lab order CBC, CMP and if hemoglobin low transfusion will be performed at the clinic. Nurse practitioner also reach out to GI at 13:50 and patient was cleared as well to be discharged home and follow up outpatient in one week for possible colonoscopy. Colonoscopy not warranted at this time as source of anemia/bleed identified. As per case management hospital bed, shower chair and walker was ordered and once approved will be delivered to patient's house. As per PT patient is ambulating more than 300 ft.Patient is cleared to be discharge follow up outpatient as recommended above. 08/09 patient was seen by nurse practitioner physician during rounding in room 313. At this moment we are pending an appeal that the family requested yesterday. Patient denies any shortness of breath, chest pain, nausea, vomiting or any other discomfort we will continue to monitor patient in the meantime. A.m. labs REVIEW OF SYSTEMS CONSTITUTIONAL: Denies fevers, chills, or night sweats. Positive for unintentional weight loss NEUROLOGICAL: Denies headache, amaurosis fugax, motor weakness, sensory deficit, vertigo/spinning sensation, gait abnormalities, or tremors. ENT: No hearing loss, otalgia, otorrhea, rhinitis, rhinorrhea, hoarseness, or sore throat. CARDIOVASCULAR: Denies any exertional angina, dyspnea on exertion, orthopnea, paroxysmal nocturnal dyspnea, palpitations, life-threatening arrhythmias, claudication. PULMONARY: Denies any shortness of breath, cough, phlegm/sputum, hemoptysis, pleuritic chest pain. GASTROINTESTINAL: Denies any nausea, vomiting, . Denied any hematochezia, hematemesis GENITOURINARY: Denies frequency, urgency, nocturia, hematuria or incontinence (Storage/Irritative symptoms.) Low urinary stream, straining to void, urinary intermittency or hesitancy, splitting of the voiding stream, terminal dribbling. ENDOCRINOLOGIC: Denies polyuria, polydipsia, polyphagia or heat/cold intolerances. HEMATOLOGIC: Denies thrombophilia/previous clots, or coagulopathy/bleeding disorders. ONCOLOGIC: Denies personal history of malignancy. DERMATOLOGIC: Denies rashes or pruritus. PSYCHIATRIC: Denies any suicidal or homicidal ideation. Denies hallucinations. PHYSICAL EXAM GENERAL APPEARANCE: The patient is awake, alert, and oriented, in no acute cardiopulmonary distress. NEUROLOGICAL: Cranial nerves II-XII grossly intact. Motor is 5/5 in bilateral upper and lower extremities proximal to distal. No sensory deficits. HEENT: Face is symmetric. Pupils are equal and reactive. Extraocular movements are intact. NECK: Supple. No JVD. No thyromegaly. No submental, submandibular, pre- /postauricular, occipital or supraclavicular lymphadenopathy. CHEST: Normal chest expansion. No Telemetry. LUNGS: Absence of any rales, rhonchi or any wheezing. CARDIOVASCULAR: Regular. S1 and S2 normal. No appreciable rubs, murmurs or gallops. ABDOMEN: Soft, nontender, and nondistended. Patient has a right inguinal hernia. There is no erythema around the inguinal area. No tenderness to palpation. : Deferred. No Diaz. EXTREMITIES: Non-edematous and not cyanotic. No clubbing. Good capillary refill. SKIN: No skin breakdown. Vital Signs (last 8hr) Date Time Temp Pulse Resp B/P (MAP) Pulse Ox O2 Delivery O2 Flow Rate FiO2 08/09/24 11:25 97.9 90 18 104/67 100 Room Air 21 08/09/24 07:57 98.2 77 18 120/73 99 Room Air 21 08/09/24 04:29 97.9 81 16 121/70 99 Room Air LABS: Laboratory: Test 08/09/24 10:54 08/08/24 04:34 Range/Units Whole Blood Glucose 105 70-110 MG/DL White Blood Count 7.8 4.8-10.8 K/uL Red Blood Count 2.94 #L 4.50-6.20 MIL/uL Hemoglobin 8.8 L 14.0-18.0 g/dL Hematocrit 27.1 L 42-54 % Mean Corpuscular Volume 92.2 79-99 fL Mean Corpuscular Hemoglobin 29.9 27.0-33.0 pg Mean Corpuscular Hemoglobin Concent 32.5 32.0-36.0 g/dL Red Cell Distribution Width 21.3 H 11.0-15.5 % Platelet Count 67 L 130-400 K/uL Mean Platelet Volume 11.9 H 7.5-10.5 fL Immature Granulocyte % (Auto) 13.6 H 0-1 % Neutrophils (%) (Auto) 38.7 L 40.0-77.0 % Lymphocytes (%) (Auto) 30.3 21.0-51.0 % Monocytes (%) (Auto) 14.6 H 3.0-13.0 % Eosinophils (%) (Auto) 1.5 0.0-8.0 % Basophils (%) (Auto) 1.3 0.0-5.0 % Neutrophils # (Auto) 3.0 1.8-7.7 K/uL Lymphocytes # (Auto) 2.4 1.0-4.8 K/uL Monocytes # (Auto) 1.1 H 0.1-1.0 K/uL Eosinophils # (Auto) 0.12 0.00-0.70 K/uL Basophils # (Auto) 0.10 0.00-0.20 K/uL Absolute Immature Granulocyte (auto 1.06 H 0-1 K/uL Segmented Neutrophils % 40 40-70 % Band Neutrophils % 5 H 0-2 % Lymphocytes % (Manual) 29 22-44 % Monocytes % (Manual) 17 H 2-9 % Eosinophils % (Manual) 1 1-6 % Metamyelocytes % 4 H 0-0 % Myelocytes % 3 H 0-0 % Nucleated Red Blood Cells 45.9 H 0.0-0.19 % Differential Comment MANUAL DIFFERENTIAL Reactive Lymphocytes 1 H 0-0 % White Cell Morphology Comment See comments Platelet Morphology Comment DECREASED Red Blood Cell Morphology See comments Sodium Level 140 136-145 mmol/L Potassium Level 4.3 3.5-5.1 mmol/L Chloride Level 103 101-111 mmol/L Carbon Dioxide Level 29 21-32 mmol/L Blood Urea Nitrogen 25 H 7-18 mg/dL Creatinine 1.0 0.5-1.3 mg/dL Glomerular Filtration Rate Calc 82 >90 mL/min Random Glucose 94 70-105 mg/dL Total Calcium 8.3 L 8.5-10.1 mg/dL Magnesium Level 2.60 H 1.80-2.40 mg/dL Total Bilirubin 1.4 H 0.2-1.0 mg/dL Aspartate Amino Transf (AST/SGOT) 54 H 10-37 U/L Alanine Aminotransferase (ALT/SGPT) 20 12-78 U/L Alkaline Phosphatase 2320 *H 50-136 U/L Total Protein 6.1 6.0-8.3 g/dL Albumin 3.3 L 3.5-5.0 g/dL Current Medications Medications (Trade) Dose Ordered Sig/Christie Route PRN Reason Start Time Stop Time Status Last Admin Dose Admin Acetaminophen (TYLenol 500MG TAB) 500 mg Q6H PRN PO MILD PAIN (1-3) 07/26/24 17:00 08/25/24 16:59 Dextrose (D50w) 50 ml AD PRN IV HYPOGLYCEMIA PROTOCOL 08/07/24 13:30 09/06/24 13:29 Fentanyl (DURAgesic 12 MCG/HR PATCH) 12 mcg Q72H TD 08/01/24 14:30 08/05/24 16:31 DC 08/04/24 14:53 12 MCG Fentanyl (DURAgesic 25 MCG/HR PATCH) 25 mcg Q72H TD 08/01/24 13:30 08/01/24 13:42 DC Fentanyl (DURAgesic 25 MCG/HR PATCH) 25 mcg Q72H TD 08/05/24 17:00 08/10/24 16:59 08/08/24 17:08 25 MCG Finasteride (PROscar 5 MG TAB) 5 mg DAILY PO 07/27/24 09:00 08/26/24 08:59 08/09/24 08:39 5 MG Glucagon (Glucagon 1mg Kit) 1 mg AD PRN IM HYPOGLYCEMIA PROTOCOL 08/07/24 13:30 09/06/24 13:29 Insulin Human Regular (humuLIN R 100 UNIT/ML 3ML) INSULIN SLIDING SCAL... ACHS SQ 08/07/24 16:30 09/06/24 16:29 Ketorolac Tromethamine (toRADol) 15 mg Q6H PRN IV MODERATE PAIN (4-6) 07/28/24 14:00 08/02/24 13:59 DC 08/01/24 21:00 15 MG Magnesium Sulfate 50 ml @ 0 mls/hr PROTOCOL IV 07/31/24 14:00 08/07/24 13:59 DC Magnesium Sulfate 50 ml @ 0 mls/hr PROTOCOL PRN IV hypomagnesemia 07/26/24 19:00 08/01/24 06:56 DC Magnesium Sulfate 50 ml @ 0 mls/hr PROTOCOL PRN IV other 08/07/24 13:30 09/06/24 13:29 Morphine Sulfate (morPHINE 2MG SYG) 2 mg Q4H PRN IVP SEVERE PAIN (7-10) 08/01/24 15:00 08/06/24 17:59 DC 08/05/24 21:50 2 MG Morphine Sulfate (morPHINE 2MG SYG) 2 mg Q4H PRN IVP SEVERE PAIN (7-10) 08/07/24 08:30 08/14/24 08:29 08/08/24 20:26 2 MG Morphine Sulfate (morPHINE 2MG SYG) 2 mg Q6H PRN IVP SEVERE PAIN (7-10) 07/26/24 18:30 07/31/24 21:29 DC 07/31/24 15:58 2 MG Ondansetron HCl (zoFRAN 4MG INJ) 4 mg Q4H4 PRN IVP NAUSEA/VOMITING 08/01/24 18:00 08/02/24 08:36 DC Ondansetron HCl (zoFRAN 4MG INJ) 4 mg Q4HPRN PRN IVP NAUSEA/VOMITING 08/02/24 09:00 09/01/24 08:59 08/08/24 20:25 4 MG Ondansetron HCl (zoFRAN 4MG INJ) 4 mg Q6H PRN IVP NAUSEA/VOMITING 07/26/24 17:00 08/01/24 17:56 DC 08/01/24 12:28 4 MG Pantoprazole Sodium (PROTonix 40MG INJ) 40 mg Q12H IVP 07/26/24 17:00 08/25/24 16:59 08/09/24 05:03 40 MG Potassium Chloride 100 ml @ 50 mls/hr AD PRN IV POTASSIUM PROTOCOL 07/26/24 19:00 08/01/24 06:56 DC Potassium Chloride 100 ml @ 100 mls/hr AD PRN IV POTASSIUM PROTOCOL 07/31/24 11:00 08/07/24 13:16 DC Potassium Chloride 100 ml @ 100 mls/hr AD PRN IV POTASSIUM PROTOCOL 08/07/24 13:30 09/06/24 13:29 Potassium Chloride (K-Dur 10meq Sr Tab) 10 meq AD PRN PO POTASSIUM PROTOCOL 08/07/24 14:30 09/06/24 13:29 Potassium Chloride (K-Dur/Klor-Con 20meq) 10 meq AD PRN PO POTASSIUM PROTOCOL 08/07/24 13:30 08/07/24 14:00 DC Potassium Chloride (K-Dur/Klor-Con 20meq) 20 meq AD PRN PO POTASSIUM PROTOCOL 07/31/24 11:00 08/07/24 13:16 DC 07/31/24 15:46 20 MEQ Potassium Chloride (KCl 10% Elixir 20meq/15ml) 10 meq AD PRN PO POTASSIUM PROTOCOL 08/07/24 13:30 09/06/24 13:29 Potassium Chloride (KCl 10% Elixir 20meq/15ml) 20 meq AD PRN PO POTASSIUM PROTOCOL 07/31/24 11:00 08/07/24 13:16 DC 08/03/24 09:41 20 MEQ Sodium Chloride 1,000 ml @ 100 mls/hr Q10H IV 07/26/24 17:00 08/25/24 16:59 08/05/24 17:37 100 MLS/HR Tamsulosin HCl (FloMAX) 0.4 mg DAILY PO 07/27/24 09:00 08/26/24 08:59 08/09/24 08:39 0.4 MG Thiamine HCl (Vitamin B-1) 100 mg DAILY IVP 07/28/24 09:00 08/27/24 08:59 08/09/24 08:39 100 MG Tramadol HCl (UltRAM) 50 mg Q6H PRN PO MODERATE PAIN (4-6) 07/31/24 01:00 08/05/24 00:59 DC 07/31/24 23:10 50 MG DIAGNOSTICS / RADIOLOGY: [ ] ASSESSMENT: Acute Blood loss anemia, POA metastatic skeletal disease by bone scan, POA Adenocarcinoma most likely stomach POA 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, 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, by upper GI endoscopy done on 07/28/2024 Large mass to the stomach consistent with possible [place] [address], bone scan showing multiple lesions to the bone consistent with metastatic disease, POA Gastritis per upper GI endoscopy done on 07/28/2024 Recurrent nausea and vomiting POA Unintentional weight loss of around 40-50 lb with concern for underlying malignancy Elevated alk-phos differential secondary to bone Mets versus underlying liver etiology Mild LFT elevation Right inguinal hernia Normocytic anemia Suspected melena BPH Severe protein caloric malnutrition, POA REVIEW OF SYSTEMS CONSTITUTIONAL: Denies fevers, chills, or night sweats. Positive for unintentional weight loss NEUROLOGICAL: Denies headache, amaurosis fugax, motor weakness, sensory deficit, vertigo/spinning sensation, gait abnormalities, or tremors. ENT: No hearing loss, otalgia, otorrhea, rhinitis, rhinorrhea, hoarseness, or sore throat. CARDIOVASCULAR: Denies any exertional angina, dyspnea on exertion, orthopnea, paroxysmal nocturnal dyspnea, palpitations, life-threatening arrhythmias, claudication. PULMONARY: Denies any shortness of breath, cough, phlegm/sputum, hemoptysis, pleuritic chest pain. GASTROINTESTINAL: Denies any nausea, vomiting, . Denied any hematochezia, hematemesis GENITOURINARY: Denies frequency, urgency, nocturia, hematuria or incontinence (Storage/Irritative symptoms.) Low urinary stream, straining to void, urinary intermittency or hesitancy, splitting of the voiding stream, terminal dribbling. ENDOCRINOLOGIC: Denies polyuria, polydipsia, polyphagia or heat/cold intolerances. HEMATOLOGIC: Denies thrombophilia/previous clots, or coagulopathy/bleeding disorders. ONCOLOGIC: Denies personal history of malignancy. DERMATOLOGIC: Denies rashes or pruritus. PSYCHIATRIC: Denies any suicidal or homicidal ideation. Denies hallucinations. PHYSICAL EXAM GENERAL APPEARANCE: The patient is awake, alert, and oriented, in no acute cardiopulmonary distress. NEUROLOGICAL: Cranial nerves II-XII grossly intact. Motor is 5/5 in bilateral upper and lower extremities proximal to distal. No sensory deficits. HEENT: Face is symmetric. Pupils are equal and reactive. Extraocular movements are intact. NECK: Supple. No JVD. No thyromegaly. No submental, submandibular, pre- /postauricular, occipital or supraclavicular lymphadenopathy. CHEST: Normal chest expansion. No Telemetry. LUNGS: Absence of any rales, rhonchi or any wheezing. CARDIOVASCULAR: Regular. S1 and S2 normal. No appreciable rubs, murmurs or gallops. ABDOMEN: Soft, nontender, and nondistended. Patient has a right inguinal hernia. There is no erythema around the inguinal area. No tenderness to palpation. : Deferred. No Diaz. EXTREMITIES: Non-edematous and not cyanotic. No clubbing. Good capillary refill. SKIN: No skin breakdown. ATTESTATION BY PHYSICIAN I have seen and examined the patient. I reviewed the documentation, medical decision making, and treatment plan as noted by the mid-level provider above. I agree with the findings and plan of care. HAYLEY Marquez MD CONTROL MANAGER August 09, 2024 12:15
--- NOTE | 2024-08-09 12:38 | PN ---
GASTROENTEROLOGY PROGRESS NOTE Date of Visit: August 09, 2024 Time of Visit: 12:38 Events / Notes: No acute events overnight. 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 Review of Systems: CONSTITUTIONAL: No malaise or change in sensation of wellbeing. ENMT: No rhinorrhea, otorrhea, sinus pain, ear ache. CARDIOVASCULAR: No angina, palpitations, orthopnea or paroxysmal dyspnea. RESPIRATORY: No SOB. GASTROINTESTINAL: No abdominal pain, nausea, vomiting, diarrhea, hematemesis, melena or change in the patient's habitual bowel movements consistency/number. GENITOURINARY: No dysuria, hematuria or change in bladder continence. MUSCULOSKELETAL: No new muscle pain or decrease in muscular strength. No new joint swelling, redness or tenderness. SKIN: No new rash. Physical Exam: GEN: Awake, alert, oriented in person, time and place, and in no acute distress. HEENT: No sinus tenderness. Tympanic membranes were not examined. No rhinorrhea. Oral pharyngeal mucosa is pink, moist and within normal limits. Neck is supple with no cervical lymphadenopathy, thyromegaly or JVD. CHEST: Inspection, palpation and percussion of the chest were unremarkable. Lung auscultation revealed normal breath sounds bilaterally. CARDIAC: PMI is within normal limits. Heart sounds are regular. Normal S1, S2. No gallop or murmur. ABD: Soft, non-tender and not distended. No peritoneal signs on palpation. No organomegaly. Normal bowel sounds. EXT: No cyanosis or clubbing. No edema. SKIN: Intact. No rashes. JOINTS: No evidence of synovitis or acute arthritis. NEURO: Alert and oriented to name, place and person. Cranial nerve examination is unremarkable. No focal motor deficits. Normal speech. Gait is normal. Strength is normal. Vital Signs (last 8hr) Date Time Temp Pulse Resp B/P (MAP) Pulse Ox O2 Delivery O2 Flow Rate FiO2 08/09/24 11:25 97.9 90 18 104/67 100 Room Air 21 08/09/24 07:57 98.2 77 18 120/73 99 Room Air 21 Laboratory: [ ] Laboratory: Test 08/09/24 10:54 08/08/24 04:34 Range/Units Whole Blood Glucose 105 70-110 MG/DL White Blood Count 7.8 4.8-10.8 K/uL Red Blood Count 2.94 #L 4.50-6.20 MIL/uL Hemoglobin 8.8 L 14.0-18.0 g/dL Hematocrit 27.1 L 42-54 % Mean Corpuscular Volume 92.2 79-99 fL Mean Corpuscular Hemoglobin 29.9 27.0-33.0 pg Mean Corpuscular Hemoglobin Concent 32.5 32.0-36.0 g/dL Red Cell Distribution Width 21.3 H 11.0-15.5 % Platelet Count 67 L 130-400 K/uL Mean Platelet Volume 11.9 H 7.5-10.5 fL Immature Granulocyte % (Auto) 13.6 H 0-1 % Neutrophils (%) (Auto) 38.7 L 40.0-77.0 % Lymphocytes (%) (Auto) 30.3 21.0-51.0 % Monocytes (%) (Auto) 14.6 H 3.0-13.0 % Eosinophils (%) (Auto) 1.5 0.0-8.0 % Basophils (%) (Auto) 1.3 0.0-5.0 % Neutrophils # (Auto) 3.0 1.8-7.7 K/uL Lymphocytes # (Auto) 2.4 1.0-4.8 K/uL Monocytes # (Auto) 1.1 H 0.1-1.0 K/uL Eosinophils # (Auto) 0.12 0.00-0.70 K/uL Basophils # (Auto) 0.10 0.00-0.20 K/uL Absolute Immature Granulocyte (auto 1.06 H 0-1 K/uL Segmented Neutrophils % 40 40-70 % Band Neutrophils % 5 H 0-2 % Lymphocytes % (Manual) 29 22-44 % Monocytes % (Manual) 17 H 2-9 % Eosinophils % (Manual) 1 1-6 % Metamyelocytes % 4 H 0-0 % Myelocytes % 3 H 0-0 % Nucleated Red Blood Cells 45.9 H 0.0-0.19 % Differential Comment MANUAL DIFFERENTIAL Reactive Lymphocytes 1 H 0-0 % White Cell Morphology Comment See comments Platelet Morphology Comment DECREASED Red Blood Cell Morphology See comments Sodium Level 140 136-145 mmol/L Potassium Level 4.3 3.5-5.1 mmol/L Chloride Level 103 101-111 mmol/L Carbon Dioxide Level 29 21-32 mmol/L Blood Urea Nitrogen 25 H 7-18 mg/dL Creatinine 1.0 0.5-1.3 mg/dL Glomerular Filtration Rate Calc 82 >90 mL/min Random Glucose 94 70-105 mg/dL Total Calcium 8.3 L 8.5-10.1 mg/dL Magnesium Level 2.60 H 1.80-2.40 mg/dL Total Bilirubin 1.4 H 0.2-1.0 mg/dL Aspartate Amino Transf (AST/SGOT) 54 H 10-37 U/L Alanine Aminotransferase (ALT/SGPT) 20 12-78 U/L Alkaline Phosphatase 2320 *H 50-136 U/L Total Protein 6.1 6.0-8.3 g/dL Albumin 3.3 L 3.5-5.0 g/dL Current Medications Medications (Trade) Dose Ordered Sig/Christie Route PRN Reason Start Time Stop Time Status Last Admin Dose Admin Acetaminophen (TYLenol 500MG TAB) 500 mg Q6H PRN PO MILD PAIN (1-3) 07/26/24 17:00 08/25/24 16:59 Dextrose (D50w) 50 ml AD PRN IV HYPOGLYCEMIA PROTOCOL 08/07/24 13:30 09/06/24 13:29 Fentanyl (DURAgesic 12 MCG/HR PATCH) 12 mcg Q72H TD 08/01/24 14:30 08/05/24 16:31 DC 08/04/24 14:53 12 MCG Fentanyl (DURAgesic 25 MCG/HR PATCH) 25 mcg Q72H TD 08/01/24 13:30 08/01/24 13:42 DC Fentanyl (DURAgesic 25 MCG/HR PATCH) 25 mcg Q72H TD 08/05/24 17:00 08/10/24 16:59 08/08/24 17:08 25 MCG Finasteride (PROscar 5 MG TAB) 5 mg DAILY PO 07/27/24 09:00 08/26/24 08:59 08/09/24 08:39 5 MG Glucagon (Glucagon 1mg Kit) 1 mg AD PRN IM HYPOGLYCEMIA PROTOCOL 08/07/24 13:30 09/06/24 13:29 Insulin Human Regular (humuLIN R 100 UNIT/ML 3ML) INSULIN SLIDING SCAL... ACHS SQ 08/07/24 16:30 09/06/24 16:29 Ketorolac Tromethamine (toRADol) 15 mg Q6H PRN IV MODERATE PAIN (4-6) 07/28/24 14:00 08/02/24 13:59 DC 08/01/24 21:00 15 MG Magnesium Sulfate 50 ml @ 0 mls/hr PROTOCOL IV 07/31/24 14:00 08/07/24 13:59 DC Magnesium Sulfate 50 ml @ 0 mls/hr PROTOCOL PRN IV hypomagnesemia 07/26/24 19:00 08/01/24 06:56 DC Magnesium Sulfate 50 ml @ 0 mls/hr PROTOCOL PRN IV other 08/07/24 13:30 09/06/24 13:29 Morphine Sulfate (morPHINE 2MG SYG) 2 mg Q4H PRN IVP SEVERE PAIN (7-10) 08/01/24 15:00 08/06/24 17:59 DC 08/05/24 21:50 2 MG Morphine Sulfate (morPHINE 2MG SYG) 2 mg Q4H PRN IVP SEVERE PAIN (7-10) 08/07/24 08:30 08/14/24 08:29 08/08/24 20:26 2 MG Morphine Sulfate (morPHINE 2MG SYG) 2 mg Q6H PRN IVP SEVERE PAIN (7-10) 07/26/24 18:30 07/31/24 21:29 DC 07/31/24 15:58 2 MG Ondansetron HCl (zoFRAN 4MG INJ) 4 mg Q4H4 PRN IVP NAUSEA/VOMITING 08/01/24 18:00 08/02/24 08:36 DC Ondansetron HCl (zoFRAN 4MG INJ) 4 mg Q4HPRN PRN IVP NAUSEA/VOMITING 08/02/24 09:00 09/01/24 08:59 08/08/24 20:25 4 MG Ondansetron HCl (zoFRAN 4MG INJ) 4 mg Q6H PRN IVP NAUSEA/VOMITING 07/26/24 17:00 08/01/24 17:56 DC 08/01/24 12:28 4 MG Pantoprazole Sodium (PROTonix 40MG INJ) 40 mg Q12H IVP 07/26/24 17:00 08/25/24 16:59 08/09/24 05:03 40 MG Potassium Chloride 100 ml @ 50 mls/hr AD PRN IV POTASSIUM PROTOCOL 07/26/24 19:00 08/01/24 06:56 DC Potassium Chloride 100 ml @ 100 mls/hr AD PRN IV POTASSIUM PROTOCOL 07/31/24 11:00 08/07/24 13:16 DC Potassium Chloride 100 ml @ 100 mls/hr AD PRN IV POTASSIUM PROTOCOL 08/07/24 13:30 09/06/24 13:29 Potassium Chloride (K-Dur 10meq Sr Tab) 10 meq AD PRN PO POTASSIUM PROTOCOL 08/07/24 14:30 09/06/24 13:29 Potassium Chloride (K-Dur/Klor-Con 20meq) 10 meq AD PRN PO POTASSIUM PROTOCOL 08/07/24 13:30 08/07/24 14:00 DC Potassium Chloride (K-Dur/Klor-Con 20meq) 20 meq AD PRN PO POTASSIUM PROTOCOL 07/31/24 11:00 08/07/24 13:16 DC 07/31/24 15:46 20 MEQ Potassium Chloride (KCl 10% Elixir 20meq/15ml) 10 meq AD PRN PO POTASSIUM PROTOCOL 08/07/24 13:30 09/06/24 13:29 Potassium Chloride (KCl 10% Elixir 20meq/15ml) 20 meq AD PRN PO POTASSIUM PROTOCOL 07/31/24 11:00 08/07/24 13:16 DC 08/03/24 09:41 20 MEQ Sodium Chloride 1,000 ml @ 100 mls/hr Q10H IV 07/26/24 17:00 08/25/24 16:59 08/05/24 17:37 100 MLS/HR Tamsulosin HCl (FloMAX) 0.4 mg DAILY PO 07/27/24 09:00 08/26/24 08:59 08/09/24 08:39 0.4 MG Thiamine HCl (Vitamin B-1) 100 mg DAILY IVP 07/28/24 09:00 08/27/24 08:59 08/09/24 08:39 100 MG Tramadol HCl (UltRAM) 50 mg Q6H PRN PO MODERATE PAIN (4-6) 07/31/24 01:00 08/05/24 00:59 DC 07/31/24 23:10 50 MG Diagnostics / Radiology: [COPY/PASTE HERE IF NO REPORTS PLEASE DELETE SECTION] Assessment: Gastric mass N/V Weight loss Abnormal LFTs Plan: CT chest/abd/pelvis Surgery and oncology eval Await path Colonoscopy not warranted at this time as source of anemia/bleed identified Continue GI prophylaxis Avoid NSAIDs Antireflux measures Monitor H&H and transfuse as needed Call with questions, concerns or change in clinical status Patient to follow-up at clinic post discharge Thank you for this consult [employer] August 09, 2024 12:38
--- NOTE | 2024-08-09 12:58 | NUR ---
Discharge EA Update This CM checked [email or web address] and entered [id number]. Per portal, documents received. Pending Clinical Review.
--- NOTE | 2024-08-09 13:03 | PN ---
69-year-old male with no known past medical history presents with a 2-month history of recurrent nausea and vomiting associated with early satiety and intolerance to solid foods. The patient reports consuming mainly jello and liquids during this period. He describes progressive unintentional weight loss of approximately 40�50 pounds over the same duration. He endorses episodes of b lack-colored stools but denies hematemesis or hematochezia. He also reports inconsistent bowel habits with alternating constipation. He has not sought prior medical attention for these symptoms and has not undergone any cancer screening. He denies chest pain, shortness of breath, cough, fever, chills, dysuria, hematuria, or any neurologic symptoms such as syncope or seizures. No family history is provided. He has a known history of right inguinal hernia without pain or incarceration. He reports mild symptoms in the inguinal area when ambulatory. EGD was done which showed patient to have big mass to the stomach. 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 Patient and family actually hesitant to do any chemo. Patient receiving blood transfusion. Hemoglobin level 8.8 g/dL His pain medication was sent to the pharmacy already. Patient supposed to be d ischarged to home but not yet. PE GENERAL: No acute respiratory distress. VITAL SIGNS: Reviewed and stable. HEENT: The sclerae are clear. The pupils are equal and reactive to light. The oropharyngeal cavity is within normal limits. NECK: Supple without lymphadenopathy. CHEST: Lung is clear bilaterally there is no wheezing or crackles. HEART: Sounds are regular and rhythmic. ABDOMEN: No guarding or rigidity. Bowel sounds positive. EXTREMITIES: No pitting edema. No petechial lesions or bruises. SKIN: No bruises, rash, or petechial lesions. NEUROLOGICAL: The patient is alert and oriented. No focal deficits. Muscle s trength is 5/5. LYMPH NODES: There is no lymphadenopathy could be felt in the neck, supraclavicular, or axillary. 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 Large mass to the stomach consistent with possible gastric cancer especially with the CEA level is 18,000. Bone scan showing multiple lesion to the bone consistent with metastatic disease 2. Severe pain 3. Anemia. Patient with severe anemia with hemoglobin level 6.1 mg/deciliter. With the patient receiving blood transfusion 4. Weight loss 5. Failure to thrive Plan 1. Pathology report consistent with poorly differentiated adenocarcinoma. So this patient have gastric cancer with mets to the bone. So the patient have stage IV cancer. 2. I have long discussion with the patient and family member regarding the plan of care. I answer all question and concern and I spent more than 35 minutes. There was for people in the room. There is 3 daughter and 1 [id number] I explained to the patient that he is not curative. Surgery is not an option. The radiation therapy treatment is not an option. This patient could benefit only from palliative chemo versus hospice. 3. Status post blood transfusion. Hemoglobin 11.8 0.8 g/dL. There is no need for blood transfusion at this time 4. I will write him a letter regarding his condition so [facility] could [facility]. 5. Will ask for genetics phenotyping of the tumor. And see if this patient could benefit from targeted therapy or immunotherapy. 6. I sent fentanyl patch 25 mcg/h every 3 days and morphine 15 mg every 3 hours as needed for [facility] [address] Vitals/Labs Vital Signs Date Time Temp Pulse Resp B/P (MAP) Pulse Ox O2 Delivery O2 Flow Rate FiO2 08/09/24 11:25 97.9 90 18 104/67 100 Room Air 21 08/08/24 19:40 0 Medications Current Medications Sodium Chloride 1,000 ml @ 0 mls/hr ONCE ONCE IV Last administered on 07/26/24at 13:56; Start 07/26/24 at 12:00; Stop 07/26/24 at 12:01; Status DC Morphine Sulfate 4 mg ONCE ONCE IM Last administered on 07/26/24at 13:56; Start 07/26/24 at 13:30; Stop 07/26/24 at 13:31; Status DC Ondansetron HCl 4 mg ONCE ONCE IVP Last administered on 07/26/24at 13:56; Start 07/26/24 at 14:00; Stop 07/26/24 at 14:01; Status DC Iohexol 75 ml STK-MED ONCE IV; Start 07/26/24 at 14:09; Stop 07/26/24 at 14:10; Status DC Ondansetron HCl 4 mg Q6H PRN IVP Last administered on 08/01/24at 12:28; Start 07/26/24 at 17:00; Stop 08/01/24 at 17:56; Status DC Pantoprazole Sodium 40 mg Q12H IVP Last administered on 08/09/24at 05:03; Start 07/26/24 at 17:00; Stop 08/25/24 at 16:59 Sodium Chloride 1,000 ml @ 100 mls/hr Q10H IV Last administered on 08/05/24at 17:37; Start 07/26/24 at 17:00; Stop 08/25/24 at 16:59 Acetaminophen 500 mg Q6H PRN PO; Start 07/26/24 at 17:00; Stop 08/25/24 at 16:59 Polyethylene Glycol/ Electrolytes 4,000 ml ONCE ONCE PO Last administered on 07/26/24at 18:46; Start 07/26/24 at 17:00; Stop 07/26/24 at 17:06; Status DC Morphine Sulfate 2 mg Q6H PRN IVP Last administered on 07/31/24at 15:58; Start 07/26/24 at 18:30; Stop 07/31/24 at 21:29; Status DC Potassium Chloride 100 ml @ 50 mls/hr AD PRN IV; Start 07/26/24 at 19:00; Stop 08/01/24 at 06:56; Status DC Magnesium Sulfate 50 ml @ 0 mls/hr PROTOCOL PRN IV; Start 07/26/24 at 19:00; Stop 08/01/24 at 06:56; Status DC Finasteride 5 mg DAILY PO Last administered on 08/09/24at 08:39; Start 07/27/24 at 09:00; Stop 08/26/24 at 08:59 Tamsulosin HCl 0.4 mg DAILY PO Last administered on 08/09/24at 08:39; Start 07/27/24 at 09:00; Stop 08/26/24 at 08:59 Propofol 200 mg STK-MED ONCE IV; Start 07/27/24 at 11:18; Stop 07/27/24 at 11:20; Status DC Lidocaine HCl 100 mg STK-MED ONCE .ROUTE; Start 07/27/24 at 11:18; Stop 07/27/24 at 11:20; Status DC Thiamine HCl 100 mg DAILY IVP Last administered on 08/09/24at 08:39; Start 07/28/24 at 09:00; Stop 08/27/24 at 08:59 Dexamethasone Sodium Phosphate 10 mg ONCE ONCE IV Last administered on 07/28/24at 14:21; Start 07/28/24 at 14:00; Stop 07/28/24 at 14:11; Status DC Ketorolac Tromethamine 15 mg Q6H PRN IV Last administered on 08/01/24at 21:00; Start 07/28/24 at 14:00; Stop 08/02/24 at 13:59; Status DC Tramadol HCl 50 mg Q6H PRN PO Last administered on 07/31/24at 23:10; Start 07/31/24 at 01:00; Stop 08/05/24 at 00:59; Status DC Potassium Chloride 100 ml @ 100 mls/hr AD PRN IV; Start 07/31/24 at 11:00; Stop 08/07/24 at 13:16; Status DC Potassium Chloride 20 meq AD PRN PO Last administered on 08/03/24at 09:41; Start 07/31/24 at 11:00; Stop 08/07/24 at 13:16; Status DC Potassium Chloride 20 meq AD PRN PO Last administered on 07/31/24at 15:46; Start 07/31/24 at 11:00; Stop 08/07/24 at 13:16; Status DC Magnesium Sulfate 50 ml @ 0 mls/hr PROTOCOL IV; Start 07/31/24 at 14:00; Stop 08/07/24 at 13:59; Status DC Fentanyl 25 mcg Q72H TD; Start 08/01/24 at 13:30; Stop 08/01/24 at 13:42; Status DC Fentanyl 12 mcg Q72H TD Last administered on 08/04/24at 14:53; Start 08/01/24 at 14:30; Stop 08/05/24 at 16:31; Status DC Morphine Sulfate 2 mg Q4H PRN IVP Last administered on 08/05/24at 21:50; Start 08/01/24 at 15:00; Stop 08/06/24 at 17:59; Status DC Ondansetron HCl 4 mg Q4H4 PRN IVP; Start 08/01/24 at 18:00; Stop 08/02/24 at 08:36; Status DC Zolpidem Tartrate 5 mg ONCE ONCE PO Last administered on 08/01/24at 23:42; Start 08/02/24 at 00:00; Stop 08/02/24 at 00:01; Status DC Ondansetron HCl 4 mg Q4HPRN PRN IVP Last administered on 08/08/24 20:25; Start 08/02/24 at 09:00; Stop 09/01/24 at 08:59 Fentanyl 25 mcg Q72H TD Last administered on 08/08/24at 17:08; Start 08/05/24 at 17:00; Stop 08/10/24 at 16:59 Morphine Sulfate 2 mg ONCE ONCE IVP; Start 08/07/24 at 01:00; Stop 08/07/24 at 01:01; Status DC Morphine Sulfate 2 mg STK-MED ONCE .ROUTE Last administered on 08/07/24at 01:04; Start 08/07/24 at 00:52; Stop 08/07/24 at 00:54; Status DC Morphine Sulfate 2 mg STK-MED ONCE .ROUTE; Start 08/07/24 at 00:54; Stop 08/07/24 at 00:55; Status DC Diphenhydramine HCl 25 mg ONCE ONCE IV Last administered on 08/07/24 11:18; Start 08/07/24 at 10:00; Stop 08/07/24 at 10:01; Status DC Dexamethasone Sodium Phosphate 10 mg ONCE ONCE IVP Last administered on 08/07/24 11:19; Start 08/07/24 at 10:00; Stop 08/07/24 at 10:01; Status DC Morphine Sulfate 2 mg Q4H PRN IVP Last administered on 08/08/24 20:26; Start 08/07/24 at 08:30; Stop 08/14/24 at 08:29 Potassium Chloride 40 meq ONCE ONCE PO Last administered on 08/07/24 20:26; Start 08/07/24 at 21:00; Stop 08/07/24 at 21:01; Status DC Dextrose 50 ml AD PRN IV; Start 08/07/24 at 13:30; Stop 09/06/24 at 13:29 Glucagon 1 mg AD PRN IM; Start 08/07/24 at 13:30; Stop 09/06/24 at 13:29 Insulin Human Regular INSULIN SLIDING SCAL... ACHS SQ; Start 08/07/24 at 16:30; Stop 09/06/24 at 16:29 Potassium Chloride 100 ml @ 100 mls/hr AD PRN IV; Start 08/07/24 at 13:30; Stop 09/06/24 at 13:29 Potassium Chloride 10 meq AD PRN PO; Start 08/07/24 at 13:30; Stop 09/06/24 at 13:29 Potassium Chloride 10 meq AD PRN PO; Start 08/07/24 at 13:30; Stop 08/07/24 at 14:00; Status DC Magnesium Sulfate 50 ml @ 0 mls/hr PROTOCOL PRN IV; Start 08/07/24 at 13:30; Stop 09/06/24 at 13:29 Potassium Chloride 10 meq AD PRN PO; Start 08/07/24 at 14:30; Stop 09/06/24 at 13:29 ITA SCHULER MD August 09, 2024 13:03
--- NOTE | 2024-08-09 14:05 | NUR ---
Nutritional f/u Note: Chart, meds, and labs Reviewed. Pt taking in 0-50% mostly 0% of meals as per nursing. Recommend: -Add prostat Jello BID -Magic cup w/ PM tray -Encourage PO intake -Nephrovite MVI combination of B vitamins may be used to treat or prevent vitamin deficiency due to poor diet. -If unable to meet needs orally 3-5days, evaluate for enteral nutrition NGT vs PEG if GI tract functional and safe -Provide Thiamine 100mg IV daily x 5 days -RD to provide further recommendations based on clinical progress. -Monitor feeding tolerance, %, wt, and labs -If No BM >3days consider bowel stimulant. - Please notify RD if additional nutrition concerns arise. Addendum: 08/09/24 at [address] Amended: Links added.
--- NOTE | 2024-08-09 16:46 | NUR ---
Appeal Decision Per Tejal with the [facility], patient's appeal has been upheld and they agree with discharge. Patient's financial responsibility starts 08/10/24 at 1200. Explained this to family and family stated will be out before 12 PM tomorrow. Informed family patient can loan walker until patient's is delivered. Daughter stated a bedside commode and walker have both been delivered. Family questioned Fentanyl. Stated [facility] on [address] did not have it. This CM spoke with Dr. oLckett. Per Dr. Lockett this was called in a few days ago to requested pharmacy. Called [facility] on [address] to confirm. Stated they have script and cost is $100 with insurance. Stated Morphine cost is $10.99. Updated family that fentanyl script is at the [facility] pharmacy and advised of cost. Family concerned about not having Zofran ordered for nausea. Spoke with HAKEEM Ley who stated will e-scribe the Zofran. Family updated.
[2024-08-09] MEDS ORDERED: ONDA-243 PO (16:53)
[2024-08-09] MEDS: acetaMINOPHEN 500 MG TABLET PO PRN (20:50)
[2024-08-10 00:09] VITALS: BP 111/71; PULSE 79; RESP 16; TEMP 98.2
[2024-08-10 04:05] VITALS: BP 123/68; PULSE 81; RESP 18; TEMP 97.4
[2024-08-10 05:48] LABS: BASOPHILS # (AUTO) 0.04 K/uL (0.00-0.20); BASOPHILS % (AUTO) 0.6 % (0.0-5.0); EOSINOPHILS # (AUTO) 0.12 K/uL (0.00-0.70); EOSINOPHILS % (AUTO) 1.7 % (0.0-8.0); HEMATOCRIT 24.8 % (42-54); IMMATURE GRANULOCYTE ABSOLUTE 0.99 K/uL (0-1); LYMPHOCYTES # (AUTO) 2.3 K/uL (1.0-4.8); LYMPHOCYTES % (AUTO) 31.9 % (21.0-51.0); MEAN CORPUSCULAR HEMOGLOBIN 29.7 pg (27.0-33.0); MEAN CORPUSCULAR HGB CONC 32.3 g/dL (32.0-36.0); MEAN CORPUSCULAR VOLUME 92.2 fL (79-99); MONOCYTES # (AUTO) 0.9 K/uL (0.1-1.0); MONOCYTES % (AUTO) 13.1 % (3.0-13.0); NEUTROPHILS # (AUTO) 2.8 K/uL (1.8-7.7); NEUTROPHILS % (AUTO) 38.9 % (40.0-77.0); NUCLEATED RED BLOOD CELLS 26.1 % (0.0-0.19); PLATELET COUNT (AUTO) 64 K/uL (130-400); RED BLOOD CELL COUNT(AUTO) 2.69 MIL/uL (4.50-6.20); RED CELL DISTRIBUTION WIDTH 21.1 % (11.0-15.5); WHITE BLOOD COUNT (AUTO) 7.2 K/uL (4.8-10.8)
[2024-08-10 06:15] LABS: ALBUMIN 3.2 g/dL (3.5-5.0); BILIRUBIN,TOTAL 1.4 mg/dL (0.2-1.0); CREATININE 0.9 mg/dL (0.5-1.3); MAGNESIUM 2.7 mg/dL (1.80-2.40); POTASSIUM 4.2 mmol/L (3.5-5.1); TOTAL PROTEIN, SERUM 5.9 g/dL (6.0-8.3)
[2024-08-10 08:00] VITALS: O2SAT 100
[2024-08-10 08:07] VITALS: BP 114/71; PULSE 73; RESP 17; TEMP 98.1
--- NOTE | 2024-08-10 08:07 | DS ---
Discharge Summary Hospital Course Summary: DATE OF ADMISSION:[07/26/2024] DATE OF DISCHARGE:[08/08/2024orders placed, Pt appealed to insurance on 08/08/24, Pt's appeal refused on 08/09/24. As per family patint will leave 08/10/24 by 1200] DISPOSITION:[home] CONDITION:[Under palliative chemotherapy] CONSULTANTS:[Oncologist, GI] FOLLOW UP APPOINTMENTS:[PCP2 to 3 days. GI in one week for colonoscopy. Oncologist two weeks. [facility] on Thursday08/12/2024 for basic labs CBC, CMP and if need of transfusion it will be able to do at the [facility]] PROCEDURES:[Bone scan 07/27/2024. Port-A-Cath placement for chemotherapy] IMAGING: report attached to summary MICROBIOLOGY: report attached to summary ACTIVITY:[Independent] HOME MEDICATIONS: see med recc NEW MEDICATIONS:[Finasteride, tamsulosin, zofran] EMERGENCY INSTRUCTIONS: The patient was instructed to present to the nearest Emergency departmentr or call 911 once their symptoms will return or worsen Disk Operator(s): Patient is 69 years old male who was admitted to the hospital for generalized body weakness, decreased appetite and weight loss of about 50 lb. Patient underwent EGD and showed large gastric mass. Dr. Kincaid/oncologist was consulted who recommended bone scan which showed malignant skeleton disease. Throughout the hospitalization patient received few times blood transfusions. 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 So this patient have gastric cancer with mets to the bone. So the patient have stage IV cancer. Port-A-Cath was placement 08/03/2024. As per oncologist patient is not curative. Surgery is not an option. The radiation therapy is not an option. This patient could benefit only from palliative chemo versus hospice.Family decided on palliative chemo. Family and the patient declined hospice care. Family and patient denies SNF Placement. Fentanyl patch 25 mcg/h every 3 days and morphine 15 mg every 3 hours as needed for [facility] [address] was sent by oncologist. Nurse nathaniel rubalcava reach out to oncologist today at 1:51 p.m. via phone and patient was cleared to be discharged home. Follow up in two weeks. Oncologist also recommended that patient follow ups with the [facility] 08/12/2024 for basic lab order CBC, CMP and if hemoglobin low transfusion will be performed at the clinic. Nurse practitioner also reach out to GI at 13:50 and patient was cleared as well to be discharged home and follow up outpatient in one week for possible colonoscopy. Colonoscopy not warranted at this time as source of anemia/bleed identified. As per case management hospital bed, shower chair and walker was or dered and once approved will be delivered to patient's house. As per PT patient is ambulating more than 300 ft.Patient is cleared to be discharge follow up outpatient as recommended above. Patient appeal to the insurance to stay at the hospital on 08/08/2024. 08/09/2024 insurance refusal was sent back to the hospital. Patient's financial responsibility starts 08/10/24 at 1200. Daughter stated a bedside commode and walker have both been delivered. Family questioned Fentanyl. Stated [facility] on [address] did not have it. This CM spoke with Dr. Lockett. Per Dr. Lockett this was called in a few days ago to requested pharmacy. Called [facility] on [address] to confirm. Stated they have script and cost is $100 with insurance. Stated Morphine cost is $10.99. Updated family that fentanyl script is at the [facility] pharmacy and advised of cost.Zofran ordered per patient's request. Procedure(s): REVIEW OF SYSTEMS CONSTITUTIONAL: Denies fevers, chills, or night sweats. Positive for unintentional weight loss NEUROLOGICAL: Denies headache, amaurosis fugax, motor weakness, sensory deficit, vertigo/spinning sensation, gait abnormalities, or tremors. ENT: No hearing loss, otalgia, otorrhea, rhinitis, rhinorrhea, hoarseness, or sore throat. CARDIOVASCULAR: Denies any exertional angina, dyspnea on exertion, orthopnea, paroxysmal nocturnal dyspnea, palpitations, life-threatening arrhythmias, claudication. PULMONARY: Denies any shortness of breath, cough, phlegm/sputum, hemoptysis, pleuritic chest pain. GASTROINTESTINAL: Denies any nausea, vomiting, . Denied any hematochezia, hematemesis at the moment GENITOURINARY: Denies frequency, urgency, nocturia, hematuria or incontinence (Storage/Irritative symptoms.) Low urinary stream, straining to void, urinary intermittency or hesitancy, splitting of the voiding stream, terminal dribbling. ENDOCRINOLOGIC: Denies polyuria, polydipsia, polyphagia or heat/cold intolerances. HEMATOLOGIC: Denies thrombophilia/previous clots, or coagulopathy/bleeding disorders. ONCOLOGIC: Denies personal history of malignancy. DERMATOLOGIC: Denies rashes or pruritus. PSYCHIATRIC: Denies any suicidal or homicidal ideation. Denies hallucinations. PHYSICAL EXAM GENERAL APPEARANCE: The patient is awake, alert, and oriented, in no acute cardiopulmonary distress. NEUROLOGICAL: Cranial nerves II-XII grossly intact. Motor is 5/5 in bilateral upper and lower extremities proximal to distal. No sensory deficits. HEENT: Face is symmetric. Pupils are equal and reactive. Extraocular movements are intact. NECK: Supple. No JVD. No thyromegaly. No submental, submandibular, pre- /postauricular, occipital or supraclavicular lymphadenopathy. CHEST: Normal chest expansion. No Telemetry. LUNGS: Absence of any rales, rhonchi or any wheezing. CARDIOVASCULAR: Regular. S1 and S2 normal. No appreciable rubs, murmurs or gallops. ABDOMEN: Soft, nontender, and nondistended. Patient has a right inguinal hernia. There is no erythema around the inguinal area. No tenderness to palpation. : Deferred. No Diaz. EXTREMITIES: Non-edematous and not cyanotic. No clubbing. Good capillary refill. SKIN: No skin breakdown. Assessment/Plan: ASSESSMENT: Acute Blood loss anemia, POA metastatic skeletal disease by bone scan, POA Adenocarcinoma most likely stomach POA 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, 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, by upper GI endoscopy done on 07/28/2024 Large mass to the stomach consistent with [place] [id number], bone scan showing multiple lesions to the bone consistent with metastatic disease, POA Gastritis per upper GI endoscopy done on 07/28/2024 Recurrent nausea and vomiting POA Unintentional weight loss of around 40-50 lb with concern for underlying malignancy Elevated alk-phos differential secondary to bone Mets versus underlying liver etiology Mild LFT elevation Right inguinal hernia Normocytic anemia Suspected melena BPH Severe protein caloric malnutrition, POA REVIEW OF SYSTEMS CONSTITUTIONAL: Denies fevers, chills, or night sweats. Positive for unintentional weight loss NEUROLOGICAL: Denies headache, amaurosis fugax, motor weakness, sensory deficit, vertigo/spinning sensation, gait abnormalities, or tremors. ENT: No hearing loss, otalgia, otorrhea, rhinitis, rhinorrhea, hoarseness, or sore throat. CARDIOVASCULAR: Denies any exertional angina, dyspnea on exertion, orthopnea, paroxysmal nocturnal dyspnea, palpitations, life-threatening arrhythmias, claudication. PULMONARY: Denies any shortness of breath, cough, phlegm/sputum, hemoptysis, pleuritic chest pain. GASTROINTESTINAL: Denies any nausea, vomiting, . Denied any hematochezia, hem atemesis GENITOURINARY: Denies frequency, urgency, nocturia, hematuria or incontinence (Storage/Irritative symptoms.) Low urinary stream, straining to void, urinary intermittency or hesitancy, splitting of the voiding stream, terminal dribbling. ENDOCRINOLOGIC: Denies polyuria, polydipsia, polyphagia or heat/cold intolerances. HEMATOLOGIC: Denies thrombophilia/previous clots, or coagulopathy/bleeding disorders. ONCOLOGIC: Denies personal history of malignancy. DERMATOLOGIC: Denies rashes or pruritus. PSYCHIATRIC: Denies any suicidal or homicidal ideation. Denies hallucinations. PHYSICAL EXAM GENERAL APPEARANCE: The patient is awake, alert, and oriented, in no acute cardiopulmonary distress. NEUROLOGICAL: Cranial nerves II-XII grossly intact. Motor is 5/5 in bilateral upper and lower extremities proximal to distal. No sensory deficits. HEENT: Face is symmetric. Pupils are equal and reactive. Extraocular movements are intact. NECK: Supple. No JVD. No thyromegaly. No submental, submandibular, pre- /postauricular, occipital or supraclavicular lymphadenopathy. CHEST: Normal chest expansion. No Telemetry. LUNGS: Absence of any rales, rhonchi or any wheezing. CARDIOVASCULAR: Regular. S1 and S2 normal. No appreciable rubs, murmurs or gallops. ABDOMEN: Soft, nontender, and nondistended. Patient has a right inguinal hernia. There is no erythema around the inguinal area. No tenderness to palpation. : Deferred. No Diaz. EXTREMITIES: Non-edematous and not cyanotic. No clubbing. Good capillary refill. SKIN: No skin breakdown. Time spent arranging discharge: 31-60 minutes ATTESTATION BY PHYSICIAN I have seen and examined the patient. I reviewed the documentation, medical decision making, and treatment plan as noted by the mid-level provider above. I agree with the findings and plan of care. AUBREY ARRIAZA MD, [facility] [employer] August 10, 2024 08:07
[2024-08-10 08:57] LABS: BAND NEUTROPHILS % (MANUAL) 2 % (0-2); EOSINOPHILS % (MANUAL) 4 % (1-6); LYMPHOCYTES % (MANUAL) 22 % (22-44); METAMYELOCYTES % 1 % (0-0); MONOCYTES % (MANUAL) 9 % (2-9); MYELOCYTES % 4 % (0-0); OTHER CELLS,MANUAL % 1 (0-0); PROMYELOCYTES % 4 (0-0); REACTIVE LYMPHOCYTES 7 % (0-0); SEGMENTED NEUTROPHILS % 46 % (40-70); TOTAL CELLS COUNTED 100
[2024-08-10 08:58] LABS: MAN.DIFF COMMENT-IMPRESSION MANUAL DIFFERENTIAL; PLATELET MORPHOLOGY COMMENT DECREASED; WBC MORPHOLOGY IMMATURE GRAN 2+
--- NOTE | 2024-08-10 09:50 | NUR ---
discharge patient and family given discharge paperwork, educated patient regarding activity, diet, medications, follow up visits (patient given phone numbers to schedule themselves) per family they might have been scheduled already, advised patient and family to call to confirm. answered patient and family's questions. both understood
--- NOTE | 2024-08-12 17:26 | NUR ---
Transitional Phone Call Attempted to call twice, left message and no return call.
[2024-08-15 13:18] LABS: ALPHA-1-ANTITRYPSIN 294 mg/dL (90-200)
== END 2024-08-10 10:35 | disposition home or self-care (01) | DRG 374 ==
LOC: EDH 10:33 → EDHIP 16:51 → 3CH 18:00
PROVIDERS: ADMIT Internal Medicine; ATTEND Internal Medicine
PROC: 0DB48ZX Excision of Esophagogastric Junction, Via Natural or Artificial Opening Endoscopic, Diagnostic (ICD-10-PCS; principal; 2024-07-27)
PROC: 0DB68ZX Excision of Stomach, Via Natural or Artificial Opening Endoscopic, Diagnostic (ICD-10-PCS; 2024-07-27)
PROC: 30233N1 Transfusion of Nonautologous Red Blood Cells into Peripheral Vein, Percutaneous Approach (ICD-10-PCS; 2024-07-29)
DX: C16.9 Malignant neoplasm of stomach, unspecified (principal); E43 Unspecified severe protein-calorie malnutrition; C79.51 Secondary malignant neoplasm of bone; D62 Acute posthemorrhagic anemia; K40.90 Unilateral inguinal hernia, without obstruction or gangrene, not specified as recurrent; K31.9 Disease of stomach and duodenum, unspecified; D64.9 Anemia, unspecified; K82.8 Other specified diseases of gallbladder; N40.1 Benign prostatic hyperplasia with lower urinary tract symptoms; K76.9 Liver disease, unspecified; K22.89 Other specified disease of esophagus; K31.89 Other diseases of stomach and duodenum; K29.70 Gastritis, unspecified, without bleeding; K59.00 Constipation, unspecified; R62.7 Adult failure to thrive; E86.0 Dehydration; Z68.24 Body mass index [BMI] 24.0-24.9, adult
CPT/HCPCS: 36415; 36430; 43239; 71250; 74177; 76705; 78306; 80048; 80053; 80074; 80076; 81001; 82103; 82104; 82378; 82390; 82948; 82977; 83036; 83540; 83550; 83690; 83735; 83880; 84075; 84080; 84145; 84153; 84154; 84443; 84484; 85014; 85018; 85025; 85027; 85060; 85610; 85730; 86015; 86038; 86140; 86215; 86235; 86376; 86850; 86900; 86901; 86923; 88184; 88185; 88189; 88305; 88312; 93005; 96361; 96372; 96374; 99291; A9503; G0378; J1100; J1200; J1885; J2003; J2270; J2405; J2470; J2704; J3411; J3475; J7030; P9016; Q9967; A4215; A4222; A4223; A4620; J3490